=== PATIENT | male | born 1940 | race Caucasian/White ===

== ENCOUNTER 2016-12-05 23:10 | Inpatient (IN) | payer MEDICARE ==
[~2016-12-05] VITALS: Ht 182.9 cm; Wt 57.3 kg
[2016-12-05 23:13] VITALS: BP 162/79; PULSE 76; RESP 16; TEMP 97.7; O2SAT 96
[2016-12-05] MEDS ORDERED: SODIUM CHLOR 0.9% 250 ML INJ 250 ML IV ONE (23:30)
[2016-12-06 00:20] LABS: HEMATOCRIT 36.4 % (39.0-51.0); MEAN CELL VOLUME 87.2 FL (80.0-100.0); MEAN CORPUSCULAR HEMOGLOBIN 28.4 PG (27.0-34.0); MEAN CORPUSCULAR HGB CONC 32.6 % (32.0-36.0); PLATELET COUNT 303 TH/MM3 (150-450); RED BLOOD COUNT 4.17 MIL/MM3 (4.50-5.90); RED CELL DISTRIBUTION WIDTH 17.8 % (11.6-17.2); WHITE BLOOD COUNT 16.6 TH/MM3 (4.0-11.0)
[2016-12-06 00:26] LABS: BACTERIA, URINE RARE /hpf; BLOOD, URINE LARGE (NEG); CALCIUM OXALATE CRYSTALS,URINE MOD /hpf; GLUCOSE,URINE 300 mg/dL (NEG); KETONE, URINE NEG (NEG); MUCUS URINE FEW /lpf (OCC); NITRITE,URINE NEG (NEG)
[2016-12-06 00:31] LABS: COMMENT (UR) CULTURE INDICATED; CULTURE IF INDICATED CULTURE INDICATED; URINE COLOR LIGHT-RED (YELLW/STRAW)
[2016-12-06 00:33] LABS: HEMO FLAGS AUTO DIFF; PROTHROMBIN TIME - PATIENT 10.5 SEC (9.8-11.6)
[2016-12-06 00:44] LABS: BICARBONATE 29.1 MEQ/L (21.0-32.0); POTASSIUM 4.7 MEQ/L (3.5-5.1)
--- NOTE | 2016-12-06 00:45 | PD ---
HPI Chief Complaint: Complaint Time Seen by Provider: 23:17 Travel History International Travel<30 days: No Contact w/Intl Traveler<30days: No Traveled to known affect area: No History of Present Illness HPI This is a 76-year-old male patient with a past medical history of bladder cancer DVT hypertension and type 2 diabetes presents with with a complaint of blood in the urine. States urine has had a strong ordering and urinating frequently. Question of further states urine was mixed with blood that was no dionna bleeding noted. He has been experiencing of a recurrent cough that sounds wet but productivity is unknown in color of the mucus is unknown. There has been no reported fever or chills. She has taken Ahlquist performed prevention of DVT. Patient denies passing out or feeling weaker than usual. Allergies-Medications (Allergen,Severity, Reaction): Coded Allergies: Sulfa (Verified Allergy, Unknown, 12/05/16) Reported Meds & Prescriptions Reported Meds & Active Scripts Active Reported Augmentin (Amoxicillin-Clavulanate) 875-125 Mg Tab 1 Tab PO BID Novolog Inj (Insulin Aspart) 1,000 Unit/10 Ml Vial 0 SQ DIRECTED Sliding Scale as directed. Sertraline (Sertraline HCl) 50 Mg Tab 50 Mg PO DAILY Eliquis (Apixaban) 5 Mg Tab 5 Mg PO BID Glimepiride 4 Mg Tab 4 Mg PO BIDAC Prednisone 20 Mg Tab 20 Mg PO BID Metformin (Metformin HCl) 850 Mg Tab 850 Mg PO BIDPC With meals Etodolac 400 Mg Tab 400 Mg PO BID Take with food. Review of Systems ROS Limitations: Other: (dementia ) Except as stated in HPI: all other systems reviewed are Neg General / Constitutional: No: Fever, Chills, Weight Gain, Weight Loss, Other Eyes: No: Diploplia, Blurred Vision, Photophobia, Drainage, Redness, Foreign Body Sensation, Pain, Tearing, Blind Spots, Visual changes, Blindness, Other HENT: No: Headaches, Vertigo, Lightheadedness, Sore Throat, Rhinitis, Rhinorrhea, Congestion, Nosebleed, Neck Stiffness, Neck Pain, Masses, Gingival Bleeding, Dental Difficulties, Ear Discharge, Earache, Other Cardiovascular: No: Chest Pain or Discomfort, Palpitations, Irregular Rhythm, Tachycardia, Diaphoresis, Syncope, Dyspnea on exertion, Varicosities, Edema, Cyanosis, Varicosities, Phlebitis, Claudication, Other Respiratory: Positive: Cough, No: Shortness of Breath, Wheezing, Sneezing, Orthopnea, Hemoptysis, Stridor, Night Sweats, Pleuritic Pain, Other Gastrointestinal: No: Nausea, Vomiting, Diarrhea, Abdominal Pain, Hematemesis, Hematochezia, Constipation, Changes in Bowel Habits, Indigestion, Dysphagia, Loss of Appetite, Other Genitourinary: Positive: Frequency, Hematuria, Other (strong odor of urine ) Musculoskeletal: No: Myalgias, Arthralgias, Limited ROM, Weakness, Cramping, Edema, Pain, Atrophy, Other Skin: No Rash, No Itching, No Dryness, No Lumps, No Hives, No Change in Pigmentation, No Change in nails, No Alopecia, No Lesions, No Breast Lumps, No Breast Tenderness, No Breast Swelling, No Other Neurologic: No: Weakness, Dizziness, Syncope, Focal Abnormalities, Coordination Problem, Tremor, Ataxia, Headache, Change in Mentation, Slurred Speech, Paresthesia, Incontinence, Seizures, Sensory Disturbance, Other Psychiatric: No: Anxiety, Depression, Suicidal Ideations, Disorder of Thought, Mood Disorder, Substance Abuse, Homicidal Ideation, Other Endocrine: No: Heat Intolerance, Cold Intolerance, Polyuria, Polydipsia, Other Hematologic/Lymphatic: No: Easy Bruising, Lymph Node Enlargement, Other Physical Exam Exam Limitations: Other: (dementia ) Narrative GENERAL: [-] This is a 76-year-old male patient who appears to be in no acute distress patient is [place] SKIN: Focused skin assessment warm/dry.no lesions no cyanosis no erythema in this pale HEAD: Atraumatic. Normocephalic. EYES: Pupils equal and round and reactive . No scleral icterus. No injection or drainage. ENT: No nasal bleeding or discharge. Mucous membranes pink and moist. NECK: Trachea midline. No JVD. CARDIOVASCULAR: S1-S2 appreciated. Regular rate and rhythm. No murmur appreciated. Pulses normal throughout. RESPIRATORY: No accessory muscle use. Clear to auscultation. Breath sounds equal bilaterally. GASTROINTESTINAL: Abdomen soft, mild suprapubic tenderness noted, nondistended. Hepatic and splenic margins not palpable. Bowel sounds normal. No peritoneal signs. Stool guaiac is negative MUSCULOSKELETAL: No obvious deformities. No clubbing. No cyanosis. No edema. NEUROLOGICAL: Awake and alert and oriented 3.. No obvious cranial nerve deficits. Motor and sensory exam grossly within normal limits. Normal speech. No meningeal signs. PSYCHIATRIC: Appropriate mood and affect; insight and judgment normal. No suicidal or homicidal ideation. Data Data Last Documented VS Vital Signs Date Time Temp Pulse Resp B/P Pulse Ox O2 Delivery O2 Flow Rate FiO2 12/05/16 23:13 97.7 76 16 162/79 96 Orders Complete Blood Count With Diff (12/05/16 23:17) Basic Metabolic Panel (Bmp) (12/05/16 23:17) Urinalysis - C+S If Indicated (12/05/16 23:17) Sodium Chlor 0.9% 250 Ml Inj (Ns 250 Ml (12/05/16 23:30) Prothrombin Time / Inr (Pt) (12/05/16 23:17) Bladder Scan PRN (12/05/16 23:18) Chest, Single Ap (12/06/16 ) Urine Culture (12/06/16 00:00) Labs Laboratory Tests Test 12/06/16 00:00 White Blood Count 16.6 TH/MM3 Red Blood Count 4.17 MIL/MM3 Hemoglobin 11.8 GM/DL Hematocrit 36.4 % Mean Corpuscular Volume 87.2 FL Mean Corpuscular Hemoglobin 28.4 PG Mean Corpuscular Hemoglobin 32.6 % Concent Red Cell Distribution Width 17.8 % Platelet Count 303 TH/MM3 Mean Platelet Volume 8.9 FL Neutrophils (%) (Auto) % Lymphocytes (%) (Auto) % Monocytes (%) (Auto) % Eosinophils (%) (Auto) % Basophils (%) (Auto) % Neutrophils # (Auto) TH/MM3 Lymphocytes # (Auto) TH/MM3 Monocytes # (Auto) TH/MM3 Eosinophils # (Auto) TH/MM3 Basophils # (Auto) TH/MM3 CBC Comment AUTO DIFF Prothrombin Time 10.5 SEC Prothromb Time International 1.0 RATIO Ratio Urine Color LIGHT-RED Urine Turbidity HAZY Urine pH 7.0 Urine Specific Enloe 1.012 Urine Protein 30 mg/dL Urine Glucose (UA) 300 mg/dL Urine Ketones NEG mg/dL Urine Occult Blood LARGE Urine Nitrite NEG Urine Bilirubin NEG Urine Urobilinogen LESS THAN 2.0 MG/DL Urine Leukocyte Esterase TRACE Urine RBC /hpf Urine WBC 143 /hpf Urine Calcium Oxalate Crystals MOD /hpf Urine Amorphous Sediment RARE Urine Bacteria RARE /hpf Urine Mucus FEW /lpf Urine Yeast (Budding) RARE Microscopic Urinalysis Comment CULTURE INDICATED Sodium Level 133 MEQ/L Potassium Level 4.7 MEQ/L Chloride Level 96 MEQ/L Carbon Dioxide Level 29.1 MEQ/L Anion Gap 8 MEQ/L Blood Urea Nitrogen 22 MG/DL Creatinine 0.55 MG/DL Estimat Glomerular Filtration 145 ML/MIN Rate Random Glucose 211 MG/DL Calcium Level 8.8 MG/DL Kelly Ang MD Dec 06, 2016 00:45
[2016-12-06] MEDS ORDERED: METF850T PO (01:03)
[2016-12-06] MEDS ORDERED: APIX5TAB PO (01:03)
[2016-12-06] MEDS ORDERED: NOVOLOGP2 SQ (01:03)
[2016-12-06] MEDS ORDERED: PRED20 PO (01:03)
[2016-12-06] MEDS ORDERED: GLIM4TAB PO (01:03)
[2016-12-06] MEDS ORDERED: ETOD400T PO (01:03)
[2016-12-06] MEDS ORDERED: SERT-132 PO (01:03)
[2016-12-06] MEDS ORDERED: AUGM875T3 PO (01:03)
--- NOTE | 2016-12-06 01:07 | RADRPT ---
EXAM DATE/TIME: 12/06/2016 00:21 [facility] COMPARISON: No previous studies available for comparison. INDICATIONS : Cough. MEDICAL HISTORY : None. SURGICAL HISTORY : None. ENCOUNTER: Initial ACUITY: 1 day PAIN SCORE: 0/10 LOCATION: Bilateral chest FINDINGS: A single view of the chest demonstrates the lungs to be symmetrically aerated without evidence of mas s, infiltrate or effusion. The cardiomediastinal contours are unremarkable. Osseous structures are intact. CONCLUSION: No acute disease. Agustin Rascon MD on December 06, 2016 at 1:05 Board Certified Radiologist. This report was verified electronically.
[2016-12-06 01:35] LABS: BANDS 6 % (0-6); METAMYELOCYTES 7 % (0-1); MYELOCYTES 3 % (0-0); NEUTROPHIL # MANUAL DIFF 15.4 TH/MM3 (1.8-7.7); PLATELET MORPHOLOGY NORMAL (NORMAL); POLYS (SEG NEUTROPHILS) 76 % (16-70); PROMYELOCYTES 1 % (0-0); SCAN/DIFF FINAL DIFF MANUAL; WBC DIFF SAMPLE 100
[2016-12-06 01:36] LABS: PLATELET ESTIMATE SMEAR NORMAL (NORMAL)
[2016-12-06] MEDS ORDERED: cefTRIAXone INJ 1,000 MG in SODIUM CHLORIDE 0.9% INJ 100 ML IV ONE (02:00)
--- NOTE | 2016-12-06 02:32 | RADRPT ---
EXAM DATE/TIME: 12/06/2016 02:10 [facility] COMPARISON: No previous studies available for comparison. INDICATIONS : Hematuria. Evaluate for calculi. ORAL CONTRAST: No oral contrast ingested. RADIATION DOSE: 4.50 CTDIvol (mGy) MEDICAL HISTORY : Hypertension. Carcinoma, gastric. Carcinoma, prostate.Diabetes. SURGICAL HISTORY : Peg tube. ENCOUNTER: Initial ACUITY: 1 day PAIN SCALE: 0/10 LOCATION: Abdomen. TECHNIQUE: Volumetric scanning of the abdomen and pelvis was performed. Using automated exposure control and ad justment of the mA and/or kV according to patient size, radiation dose was kept as low as reasonably achievable to obtain optimal diagnostic quality images. DICOM format image data is available electro nically for review and comparison. FINDINGS: LOWER LUNGS: Bilateral lower lobe densities greater left lower lobe. LIVER: Homogeneous density without lesion. There is no dilation of the biliary tree. No calcified gallston es. SPLEEN: Normal size without lesion. PANCREAS: Within normal limits. KIDNEYS: Normal in size and shape. There is no mass, stone, or hydronephrosis on the right. Mild prominence o f the left ureter with left mid ureteral calculus measuring 4 mm. Nonobstructing bilateral renal calc reilly measuring 3-4 mm. ADRENAL GLANDS: Within normal limits. VASCULAR: There is no aortic aneurysm. BOWEL/MESENTERY: Scattered diverticulosis. There is no free intraperitoneal air or fluid. ABDOMINAL WALL: Within normal limits. RETROPERITONEUM: There is no lymphadenopathy. BLADDER: No wall thickening or mass. Bladder calculus measures 3 mm. REPRODUCTIVE: Within normal limits. INGUINAL: There is no lymphadenopathy or hernia. MUSCULOSKELETAL: Within normal limits for patient age. CONCLUSION: 1. Left mid ureteral calculus measures 4 mm. 2. Bilateral no obstructing renal calculi measuring 3-4 mm. 3. Bladder calculus measuring 3 mm. 4. Percutaneous gastrostomy tube. 5. Bilateral lower lobe densities. Followup CT chest recommended in 3 months. 6. Diverticulosis. Agustin Rascon MD on December 06, 2016 at 2:27 Board Certified Radiologist. This report was verified electronically.
[2016-12-06] MEDS ORDERED: ONDANSETRON HCL 4 MG/2 ML VIAL IV PUSH ONE (02:45)
[2016-12-06] MEDS ORDERED: MORPHINE SULFATE 4 MG/ML INJ IV PUSH ONE (02:45)
[2016-12-06] MEDS ORDERED: LACTULOSE SYRUP 20 GM/30 ML CUP PO PRN (03:00)
[2016-12-06] MEDS ORDERED: MAGNESIUM HYDROXIDE SUSP 30 ML CUP PO PRN (03:00)
[2016-12-06] MEDS ORDERED: ONDANSETRON HCL 4 MG/2 ML VIAL IVP PRN (03:00)
[2016-12-06] MEDS ORDERED: BISACODYL 10 MG SUPP RECTAL PRN (03:00)
[2016-12-06] MEDS ORDERED: ACETAMINOPHEN 325 MG TAB PO PRN (03:00)
[2016-12-06] MEDS ORDERED: DEXTROSE 50% IN WATER 50 ML VIAL(D50) IV PRN ×2 (03:00→09:45)
[2016-12-06] MEDS ORDERED: SENNOSIDES 8.6 MG TAB PO PRN (03:00)
[2016-12-06] MEDS ORDERED: SODIUM CHLORIDE 0.9% FLUSH 10 ML FLUSH IV FLUSH PRN (03:00)
[2016-12-06] MEDS ORDERED: GLUCAGON 1 MG/ML VIAL OTHER PRN ×2 (03:00→09:45)
[2016-12-06] MEDS ORDERED: NALOXONE HCL 0.4 MG/ML AMP IV PRN (03:00)
[2016-12-06] MEDS: SODIUM CHLOR 0.9% 1000 ML INJ 1,000 ML IV SCH ×3 (03:41→22:47)
[2016-12-06 06:47] VITALS: BP 159/80; PULSE 63; RESP 18; TEMP 97.5; O2SAT 96
[2016-12-06] MEDS: GLIMEPIRIDE 4 MG TAB PO SCH ×2 (07:00→16:00)
[2016-12-06] MEDS: INSULIN ASPART SUPPLEMENTAL SCALE SQ SCH ×4 (07:00→20:21)
[2016-12-06] MEDS: metFORMIN HCL 850 MG TAB PO SCH ×3 (08:22→17:18)
[2016-12-06] MEDS: SODIUM CHLORIDE 0.9% FLUSH 10 ML FLUSH IV FLUSH SCH ×2 (09:00→20:16)
[2016-12-06] MEDS: DOCUSATE SODIUM 50 MG/SENNA 8.6 MG TAB PO SCH ×2 (10:10→20:15)
[2016-12-06] MEDS: predniSONE 20 MG TAB PO SCH ×2 (10:10→20:16)
[2016-12-06] MEDS: SERTRALINE HCL 50 MG TAB PO SCH (10:10)
[2016-12-06] MEDS: APIXABAN 5 MG TABLET PO SCH ×2 (10:10→20:15)
[2016-12-06] MEDS ORDERED: ETODOLAC 200 MG CAP PO SCH (10:30)
[2016-12-06] MEDS ORDERED: INSULIN ASPART SUPPLEMENTAL SCALE SQ SCH (11:00)
--- NOTE | 2016-12-06 11:09 | MH ---
cc: FLOYD KAMINSKI MD DATE OF ADMISSION: 12/06/2016 CHIEF COMPLAINT Genitourinary complaint. HISTORY OF PRESENT ILLNESS This 76-year-old demented male with a past medical history significant for bladder cancer, dementia, DVT, hypertension, type 2 diabetes mellitus, complaining of blood in the uring, stating that his urine has a strong odor and frequent urination. He came with the in the ER. The patient has some cough. Denies any fever or chills. The patient is not able to provide any history. The patient has dementia. He is not a good historian. Discussed with the nurse regarding the patient's condition and the patient's dementia. The patient is not able to provide much and the patient had low blood sugar this morning and the patient got an amp of D50 and after that sugar came back at 225. Other than that, nothing significant. PAST MEDICAL AND SURGICAL HISTORY As dictated above. SOCIAL HISTORY Unable to obtain. FAMILY HISTORY Unable to obtain. ALLERGIES SULFA DRUGS per ER record. MEDICATIONS 1. Augmentin 875 mg twice a day. 1. NovoLog injection according to sliding scale. 2. Sertraline 50 mg p.o. daily. 3. Eliquis 5 mg p.o. b.i.d. 4. Glimepiride 4 mg p.o. b.i.d. 5. Prednisone 20 mg twice per day. 6. Metformin 850 mg twice per day. 7. Etodolac 400 mg twice per day. REVIEW OF SYSTEMS Unable to obtain. The patient is not able to provide any information. PHYSICAL EXAMINATION GENERAL: This is a 76-year male laying on the bed, not in any acute distress. VITAL SIGNS: Temperature 97.5, heart rate 63, respirations 18, blood pressure 159/80, O2 saturation 96% on room air. HEENT: Normocephalic, atraumatic. EOMI. PERRL. Oral mucosa moist. NECK: Supple. No visible thyromegaly or neck mass. Trachea central. CVS: Regular rate and rhythm. RESPIRATIONS: Clear to auscultation bilaterally. ABDOMEN: Soft, nontender. Bowel sounds audible. EXTREMITIES: No cyanosis or clubbing. Full range of motion of all extremities. NEURO: Awake and alert but not oriented, moving all extremities. Has dementia. SKIN: Warm and dry. PSYCH: The patient is cooperative. LABORATORY DATA CBC showed WBC count 16.6 - high, hemoglobin 11.8 - low, hematocrit 36.4 - low. BMP totally unremarkable except for sodium 133 - low, chloride 96 - low, BUN 22 - high, creatinine 0.55 - low, glucose random 211 - high. PT 10.5, INR 1.0. Urine examination showed hazy urine with protein 30 - high, with a glucose 300 - high, large occult blood and trace of leukocyte esterase, WBCs in the urine is 143 - high, calcium oxalate crystals moderate, urine bacteria rare, urine yeast and protein rare. Culture indicated. Urine culture done, report pending. RADIOLOGIC STUDIES Chest x-ray done shows nothing acute. CT of the abdomen and pelvis was done and shows left mid-ureteral calculus measures 4 mm bilateral. Nonobstructing renal calculi of measuring 3-4 mm. Bladder calculus measuring 3 mm. Percutaneous gastrostomy tube. Bilateral lower lobe densities. Followup CT of the chest recommended in three months. ASSESSMENT AND PLAN 1. This is a 76-year-old male who came to the ER diagnosed with urinary tract infection. The patient on Rocephin 1 gram IV daily. Consulted Infectious Disease; further recommendation per Infectious Disease. 2. Hematuria with urinary calculi. Consulted Urology for further recommendation. 3. Dementia. 4. Unable to swallow; no not know etiology. Consult speech and swallow evaluation. 5. History of diabetes mellitus. NovoLog low-dose sliding scale. Check blood sugars. Continue home medication. 6. History of depression. Continue with sertraline 50 mg daily. 7. DVT prophylaxis. SCDs. 8. GI prophylaxis. Protonix 40 mg p.o. daily. 9. We are going to manage the patient on a daily basis and make recommendation on a daily basis. Floyd Kaminski MD EA/DONYA /10:27 AM /10:51 AM
[2016-12-06 11:55] VITALS: BP 152/74; PULSE 66; RESP 15; TEMP 97.7; O2SAT 95
[2016-12-06 16:10] VITALS: BP 132/65; PULSE 79; RESP 14; TEMP 98.3; O2SAT 98
--- NOTE | 2016-12-06 16:55 | MB ---
cc: YVETTE DRISCOLL MD DATE OF CONSULTATION 12/06/2016 REASON FOR CONSULTATION 1. Gross hematuria 2. Left mid ureteral 4 mm stone. 3. Bilateral nonobstructing kidney stones HISTORY OF PRESENT ILLNESS The patient is a 76-year-old male with history of dementia and reported history of bladder cancer in the past who was brought to the ER by his earlier this morning with complaint of complaint of blood in his urine since earlier today. This patient is a poor historian and unfortunately his is not present at this time. Most history is gained from hospital records. However, this morning per the record it stated as his urine had a strong odor and he was urinating quite frequently recently. The thought it was mixed possibly with blood. There is no evidence any fevers or chills. The patient currently denies pain in his right lower abdomen with a 5/10 in its intensity. He denies nausea or vomiting at this time. He denies any blood in his urine. He does take Eliquis for DVT prevention as he has had a DVT the past. He denies any prior history of kidney stones or urinary tract infections, but again he does have a history of dementia and is a poor historian. REVIEW OF SYSTEMS See HPI otherwise all systems reviewed otherwise were negative. PAST MEDICAL HISTORY 1. History of diabetes, 2. Hypertension, 3. DVT 4. Dementia. 5. Bladder cancer 6. History of prostate cancer. PAST SURGICAL HISTORY Status post brachytherapy FAMILY HISTORY Denies urolithiasis or genitourinary malignancy SOCIAL HISTORY Denies smoking, tobacco or illicit drugs. He is . PLAN Home medications 1. Augmentin twice a day 2. NovoLog injection sliding-scale 3. Eliquis 5 mg p.o. b.i.d. 4. Glimepiride 4 mg p.o. b.i.d. 5. Prednisone 20 mg twice daily, 6. Metformin 850 mg twice daily. 7. Etodolac 400 mg twice daily. ALLERGIES SULFA. PHYSICAL EXAMINATION VITAL SIGNS: Temperature 97,7, pulse 66, respiratory rate 15, BP 152/74, satting 99% on room air. GENERAL: He is awake, alert but slightly confused does not appear to be in any distress, appears older than his stated age. HEENT: Head is normocephalic, atraumatic. Eyes - No scleral icterus. Extraocular muscles intact. NECK: Supple. Trachea is midline. No JVD. LUNGS: Clear to auscultation bilaterally. No wheezes, rales or rhonchi. HEART: Regular rhythm. No murmurs, gallops or rubs. ABDOMEN: Soft, nontender, positive bowel sounds. GENITOURINARY:: No CVA tenderness bilaterally. His penis is uncircumcised. Testes are descended bilaterally, normal size consistent without mass. There is no blood at the meatus. EXTREMITIES: Nontender. No clubbing, cyanosis, edema. PSYCHIATRIC: Flat affect. NEUROLOGIC: Cranial nerves II-XII intact. Strength 4/5 in all four extremities LABORATORY DATA White count 16.6, hemoglobin 11.8, hematocrit 36.4, platelet count 303, sodium 133, potassium 4.7, chloride 96, bicarb 29, BUN 22, creatinine 0.255. His urine showed pH of 7.0, specific gravity 1.012 with large blood, negative nitrates, trace leukocyte esterase. Culture is currently pending. IMAGING STUDIES CT abdomen and pelvis without contrast images were reviewed, agree with radiologist's report. The patient has a 4 mm mid left ureteral stone with mild hydronephrosis and bilateral nonobstructing stones with a moderately full bladder. ASSESSMENT The patient is a 76-year-old male with a history of prostate cancer status post brachytherapy, questionable history of bladder cancer, presents with gross hematuria found to have a left mid ureteral stone as well as bilateral nonobstructing stones and possible urinary tract infection. PLAN Recommend conservative management. Would treat with antibiotics pending urine culture. Would be ahead and give adequate pain control as the patient's pain is relatively controlled and he does not complain of any left-sided pain. The patient has a gastrostomy tube, therefore, unable to start him on Flomax 0.5 mg daily to help facilitate passing the stone. As long as his pain remains controlled and symptoms do not worsen then no urologic intervention will be required. He can follow up as an outpatient. We will check KUB in the morning. MD SANDRA Sung/ /1:24 PM /4:37 PM
[2016-12-06 19:34] VITALS: BP 141/83; PULSE 98; RESP 18; TEMP 98.3; O2SAT 96
[2016-12-06 21:47] VITALS: BP 151/87; PULSE 86; RESP 18; TEMP 97.7; O2SAT 97
[2016-12-07] VITALS: BP 165/86; PULSE 81; RESP 18; TEMP 97.4; O2SAT 97
[2016-12-07] MEDS: GLIMEPIRIDE 4 MG TAB PO SCH ×2 (05:53→16:04)
[2016-12-07] MEDS: INSULIN ASPART SUPPLEMENTAL SCALE SQ SCH ×4 (05:54→21:00)
[2016-12-07 07:03] LABS: AUTOMATED NEUTROPHIL # 10.2 TH/MM3 (1.8-7.7); BASOPHIL % 0.1 % (0.0-2.0); EOSINOPHIL % 0.1 % (0.0-4.0); HEMATOCRIT 37.1 % (39.0-51.0); LYMPH % 13.6 % (9.0-44.0); LYMPHOCYTE # 1.7 TH/MM3 (1.0-4.8); MEAN CELL VOLUME 88.5 FL (80.0-100.0); MEAN CORPUSCULAR HEMOGLOBIN 27.8 PG (27.0-34.0); MEAN CORPUSCULAR HGB CONC 31.5 % (32.0-36.0); MONO % 5.5 % (0.0-8.0); NEUT % 80.7 % (16.0-70.0); PLATELET COUNT 298 TH/MM3 (150-450); RED BLOOD COUNT 4.19 MIL/MM3 (4.50-5.90); RED CELL DISTRIBUTION WIDTH 17.5 % (11.6-17.2); WHITE BLOOD COUNT 12.7 TH/MM3 (4.0-11.0)
[2016-12-07 07:08] LABS: HEMO FLAGS AUTO DIFF
[2016-12-07 07:16] LABS: ALKALINE PHOSPHATASE 150 U/L (45-117); ALT (GPT) 40 U/L (12-78); ANION GAP 7 MEQ/L (5-15); AST (GOT) 33 U/L (15-37); BLOOD UREA NITROGEN 16 MG/DL (7-18); CHLORIDE 103 MEQ/L (98-107); GLOMERULAR FILTRATION RATE 209 ML/MIN (>89); POTASSIUM 3.8 MEQ/L (3.5-5.1); SODIUM (NA) 139 MEQ/L (136-145); TOTAL BILIRUBIN ADULT 0.3 MG/DL (0.2-1.0)
[2016-12-07 07:57] LABS: BANDS 9 % (0-6); MYELOCYTES 3 % (0-0); NEUTROPHIL # MANUAL DIFF 11.8 TH/MM3 (1.8-7.7); POLYS (SEG NEUTROPHILS) 81 % (16-70); WBC DIFF SAMPLE 100
[2016-12-07 07:58] LABS: SCAN/DIFF FINAL DIFF MANUAL
[2016-12-07 08:00] VITALS: BP 151/78; PULSE 69; RESP 17; TEMP 95.7; O2SAT 92
[2016-12-07] MEDS: DOCUSATE SODIUM 50 MG/SENNA 8.6 MG TAB PO SCH ×2 (08:44→21:00)
[2016-12-07] MEDS: metFORMIN HCL 850 MG TAB PO SCH ×2 (08:45→17:40)
[2016-12-07] MEDS: predniSONE 20 MG TAB PO SCH ×2 (08:45→21:37)
[2016-12-07] MEDS: SODIUM CHLOR 0.9% 1000 ML INJ 1,000 ML IV SCH ×2 (08:46→17:47)
[2016-12-07] MEDS: SERTRALINE HCL 50 MG TAB PO SCH (08:46)
[2016-12-07] MEDS: SODIUM CHLORIDE 0.9% FLUSH 10 ML FLUSH IV FLUSH SCH ×2 (08:46→21:00)
[2016-12-07] MEDS: APIXABAN 5 MG TABLET PO SCH ×2 (08:46→21:37)
--- NOTE | 2016-12-07 08:58 | RADRPT ---
EXAM DATE/TIME: 12/07/2016 08:12 [facility] COMPARISON: CT ABDOMEN & PELVIS W/O CONTRAST, December 06, 2016, 2:10. INDICATIONS : Pain in right and left flanks, evaluate bilateral renal calculi MEDICAL HISTORY : bilateral renal calculi SURGICAL HISTORY : g-tube ENCOUNTER: Subsequent ACUITY: 2 days PAIN SCORE: 4/10 LOCATION: Bilateral abdomen FINDINGS: Supine view of the abdomen was performed. The abdominal bowel gas pattern is normal. There is a leslie t 4 mm curvilinear calcification overlying the left kidney. No definite calcifications over the right kidney on this examination. There is a faint 4 mm calcification on the left side at the level of L3- 4. I suspect this correlates with the stone in the left ureter seen on the recent CT scan of the abdo men. A few faint calcifications are seen in the pelvis. There are degenerative changes of the lumbar spine. There is a gastrostomy tube in place. CONCLUSION: 1. 4 mm faint calcification on the left side at the level of L3-4 most likely representing the left u reteral calculus demonstrated on the recent CT abdomen and pelvis. 2. Faint 4 mm curvilinear calcification overlying the left kidney. Tiburcio Dominguez MD on December 07, 2016 at 8:51 Board Certified Radiologist. This report was verified electronically.
[2016-12-07] MEDS ORDERED: cefTRIAXone INJ 1,000 MG in SODIUM CHLORIDE 0.9% INJ 100 ML IV SCH (09:00)
--- NOTE | 2016-12-07 11:56 | PD.WCN.NOT ---
Wound Consult Description: Patient seen on for wound evaluation of coccyx per nursing. Communicated with: MADHAV Metcalf Recommendation: Calazime BID and PRN to Coccyx and bilateral buttocks Please obtain and place patient on [employer] rental bed Continue to turn and reposition patient every 2 hours and PRN for comfort Additional Information: Patient seen on for wound evaluation of coccyx full thickness pressure injuries. Patient was noted to be lying on his back when entering room for assessment. Patient turned himself to his right side for assessment. There is non blanching erythema noted to sacrum, coccyx and bilateral buttocks. #1 wound was noted to the coccyx and above this wound there was a hydrocolloid in place over sacrococcygeal area that was removed to reveal #2 wound noted to the coccyx. Wound #1 on coccyx measures 1 cm x 0.3 cm x 0.2 cm with 100% white fascia tissue indicating a stage IV pressure injury and distally wound #2 measures 0.8cm x 0.3cm x 0.2cm with 100% white fascia as well indicating stage IV pressure injury. Both coccyx wounds are within each others periwounds and have non blanching erythema noted. Given the size of wounds with moisture noted from use of urinal, Calazime was applied to bilateral buttocks and patient was positioned to his right side and off the coccyx after assessment with head of bed elevated for peg tube feedings. Shannan Thapa [facility] Dec 07, 2016 11:56
[2016-12-07 12:00] VITALS: BP 133/73; PULSE 74; RESP 17; TEMP 97.8; O2SAT 98
--- NOTE | 2016-12-07 12:18 | PD.ID.CON ---
History of Present Illness Service ID Consult Requested By Dr Rosas Reason for Consult UTI Diagnoses: History of Present Illness 76 yo male with dementia, unable to provide reliable history, history obtained thru the chart patient has a past medical history of bladder and prostate cancer along with othe rmultiple med probl;ems (DVT hypertension and type 2 diabetes ) presented with a complaint of blood in the urine. On presenation he was found afebrile but with significant leukocytosis of 16 K Urinalysis with piuria and gross hematuria Urine cl is pending CT showwe b/l kidney and bladder calculi Pt noted to have diarrhea today Review of Systems ROS Limitations: Poor Historian Past Family Social History Allergies: Coded Allergies: Sulfa (Verified Allergy, Unknown, 12/05/16) Past Medical History bladder cancer DVT hypertension and type 2 diabetes Past Surgical History sp brachytherapy Active Ordered Medications Medications where reviewed in EMR Antibiotics Include: CFTX Family History Non-Contributory. Social History No Tobacco. No ETOH. No Illicit Drugs. Physical Exam Vital Signs Vital Signs Date Time Temp Pulse Resp B/P Pulse Ox O2 Delivery O2 Flow Rate FiO2 12/07/16 08:00 95.7 69 17 151/78 92 12/07/16 00:00 97.4 81 18 165/86 97 12/06/16 21:47 97.7 86 18 151/87 97 12/06/16 19:34 98.3 98 18 141/83 96 12/06/16 16:10 98.3 79 14 132/65 98 12/06/16 11:55 97.7 66 15 152/74 95 Physical Exam CONSTITUTIONAL/GENERAL: This is a thin emaciated elderly patient with stigmata of recent weight loss , in no apparent distress. TUBES/LINES/DRAINS: SKIN: No jaundice, rashes, or lesions. Skin temperature appropriate. Not diaphoretic. HEAD: Atraumatic. Normocephalic. EYES: Pupils equal and round and reactive. Extraocular motions intact. No scleral icterus. No injection or drainage. Fundi not examined. ENT: Hearing grossly normal. Nose without bleeding or purulent drainage. Oral mucosae dry without visible erythema, exudates, masses, or lesions. NECK: Trachea midline. Supple, nontender. CARDIOVASCULAR: Regular rate and rhythm without murmurs, gallops, or rubs. No JVD. Peripheral pulses symmetric. RESPIRATORY/CHEST: Symmetric, unlabored respirations. Clear to auscultation. Breath sounds equal bilaterally. No wheezes, rales, or rhonchi. GASTROINTESTINAL: Abdomen soft, non-tender, nondistended. No hepato-splenomegaly , or palpable masses. No guarding. Bowel sounds present. GENITOURINARY: Without palpable bladder distension. MUSCULOSKELETAL: Extremities without clubbing, cyanosis, or edema. No joint tenderness or effusion noted. No calf tenderness. No mottling or clubbing. LYMPHATICS: No palpable cervical or supraclavicular adenopathy. NEUROLOGICAL: Awake and alert. Motor and sensory grossly within normal limits. Follows commands. Speech is intermittenlty incoherent Moves all extremities. PSYCHIATRIC: No obvious anxiety/depression. no apparent hallucinations or other psychotic thought process. Laboratory Laboratory Tests Test 12/07/16 04:16 White Blood Count 12.7 Red Blood Count 4.19 Hemoglobin 11.7 Hematocrit 37.1 Mean Corpuscular Volume 88.5 Mean Corpuscular Hemoglobin 27.8 Mean Corpuscular Hemoglobin 31.5 Concent Red Cell Distribution Width 17.5 Platelet Count 298 Mean Platelet Volume 8.9 Neutrophils (%) (Auto) 80.7 Lymphocytes (%) (Auto) 13.6 Monocytes (%) (Auto) 5.5 Eosinophils (%) (Auto) 0.1 Basophils (%) (Auto) 0.1 Neutrophils # (Auto) 10.2 Lymphocytes # (Auto) 1.7 Monocytes # (Auto) 0.7 Eosinophils # (Auto) 0.0 Basophils # (Auto) 0.0 CBC Comment AUTO DIFF Differential Total Cells 100 Counted Neutrophils % (Manual) 81 Band Neutrophils % 9 Lymphocytes % 3 Monocytes % 4 Neutrophils # (Manual) 11.8 Myelocytes 3 Differential Comment FINAL DIFF MANUAL Sodium Level 139 Potassium Level 3.8 Chloride Level 103 Carbon Dioxide Level 29.0 Anion Gap 7 Blood Urea Nitrogen 16 Creatinine 0.40 Estimat Glomerular Filtration 209 Rate Random Glucose 218 Calcium Level 8.6 Total Bilirubin 0.3 Aspartate Amino Transf 33 (AST/SGOT) Alanine Aminotransferase 40 (ALT/SGPT) Alkaline Phosphatase 150 Total Protein 5.9 Albumin 2.2 Date/Time Procedure Status Source Growth 12/06/16 00:00 Urine Culture Worksheet Urine Clean Catch Pending Result Diagram: 12/07/16 0416 12/07/16 0416 Imaging Last Impressions Abdomen X-Ray 12/07/16 0600 Signed Impressions: Service Date/Time: Wednesday, December 07, 2016 08:12 - CONCLUSION: 1. 4 mm faint calcification on the left side at the level of L3-4 most likely representing the left ureteral calculus demonstrated on the recent CT abdomen and pelvis. 2. Faint 4 mm curvilinear calcification overlying the left kidney. Tiburcio Dominguez MD Chest X-Ray 12/06/16 0000 Signed Impressions: Service Date/Time: December 00:21 - CONCLUSION: No acute disease. Agustin Rascon MD Abdomen/Pelvis CT 12/06/16 0000 Signed Impressions: Service Date/Time: December 02:10 - CONCLUSION: 1. Left mid ureteral calculus measures 4 mm. 2. Bilateral no obstructing renal calculi measuring 3-4 mm. 3. Bladder calculus measuring 3 mm. 4. Percutaneous gastrostomy tube. 5. Bilateral lower lobe densities. Followup CT chest recommended in 3 months. 6. Diverticulosis. Agustin Rascon MD Assessment and Plan Assessment and Plan Bladder/prostate CA UTI Multiple med problems Abx associated diarrhea dc CFTX - start zosyn chk blood clx - chk stool for C.diff Discussed Condition With Ruchi Nieves MD Dec 07, 2016 12:18
[2016-12-07] MEDS: PIPERACIL-TAZO 3.375 GM PREMIX 50 ML IV SCH ×2 (14:40→21:37)
[2016-12-07 16:00] VITALS: BP 138/74; PULSE 80; RESP 17; TEMP 96.4; O2SAT 93
[2016-12-07 20:16] VITALS: BP 137/73; PULSE 73; RESP 16; TEMP 96.8; O2SAT 96
[2016-12-07 23:29] VITALS: BP 149/77; PULSE 74; RESP 17; TEMP 96.8; O2SAT 97
[2016-12-08] MEDS: PIPERACIL-TAZO 3.375 GM PREMIX 50 ML IV SCH ×4 (01:50→20:40)
[2016-12-08 04:51] VITALS: BP 136/79; PULSE 79; RESP 17; TEMP 97.8; O2SAT 96
[2016-12-08] MEDS: GLIMEPIRIDE 4 MG TAB PO SCH ×2 (05:15→16:34)
[2016-12-08] MEDS: SODIUM CHLOR 0.9% 1000 ML INJ 1,000 ML IV SCH ×3 (06:03→20:47)
[2016-12-08] MEDS: INSULIN ASPART SUPPLEMENTAL SCALE SQ SCH ×4 (06:05→21:16)
[2016-12-08 08:00] VITALS: BP 150/82; PULSE 74; RESP 16; TEMP 96.5; O2SAT 96
[2016-12-08] MEDS: APIXABAN 5 MG TABLET PO SCH ×2 (09:51→20:45)
[2016-12-08] MEDS: metFORMIN HCL 850 MG TAB PO SCH ×2 (09:51→18:44)
[2016-12-08] MEDS: DOCUSATE SODIUM 50 MG/SENNA 8.6 MG TAB PO SCH ×2 (09:51→20:45)
[2016-12-08] MEDS: predniSONE 20 MG TAB PO SCH ×2 (09:51→20:45)
[2016-12-08] MEDS: SODIUM CHLORIDE 0.9% FLUSH 10 ML FLUSH IV FLUSH SCH ×2 (09:52→20:40)
[2016-12-08] MEDS: SERTRALINE HCL 50 MG TAB PO SCH (10:03)
[2016-12-08 12:00] VITALS: BP 150/78; PULSE 75; RESP 16; TEMP 96.8; O2SAT 97
--- NOTE | 2016-12-08 14:29 | HHI.PR ---
Subjective Remarks Awake Weakly responds to verbal stimuli Coarse cough Feedings via PEG tube Afebrile, (Ave Hendrix) Objective Objective Results - Vital Signs Date Time Temp Pulse Resp B/P Pulse Ox O2 Delivery O2 Flow Rate FiO2 12/08/16 12:00 96.8 75 16 150/78 97 12/08/16 11:35 18 12/08/16 08:00 96.5 74 16 150/82 96 12/08/16 04:51 97.8 79 17 136/79 96 12/07/16 23:29 96.8 74 17 149/77 97 12/07/16 20:16 96.8 73 16 137/73 96 12/07/16 16:00 96.4 80 17 138/74 93 I/O 12/07/16 12/07/16 12/07/16 12/08/16 12/08/16 12/08/16 07:00 15:00 23:00 07:00 15:00 23:00 Intake Total 638 ml 0 ml 2287 ml 1387 ml Output Total 600 ml 800 ml 800 ml Balance 38 ml -800 ml 2287 ml 587 ml Intake Oral 0 ml 120 ml IV Total 416 ml 1306 ml 739 ml Tube Feeding 222 ml 881 ml 428 ml Tube Irrigant 100 ml 100 ml Output Urine Total 600 ml 800 ml 800 ml # Voids 1 # Bowel Movements 4 3 (A[address] Hendrix) Result Diagram: 12/07/1641512/07/16415 ROS General: Fatigue, Weakness, Other (10 point ROS done positives noted) HEENT: Dysphagia (speech eval,) Pulmonary: Cough (course, upper airway) GI: Abdominal Pain (predominantly right lower quadrant last p.m. none today) Neuro/MS: Other (dementia) Skin: Other (coccyx , buttocks wound care) (Ave Hendrix) Physical Exam Physical Exam PHYSICAL EXAMINATION GENERAL: This is a frail elderly male generalized weakness resting in bed He is awake, HEAD: Normocephalic OROPHARYNGEAL: Oropharynx moist coarse cough NECK: Supple. No nuchal rigidity or lymphadenopathy. Trachea midline without deviation. CARDIAC: Regular rhythm, regular rate, S1 and S2 are heard LUNGS: Diminished to auscultation bilaterally. Rhonchi upper airways ABDOMEN: Soft, nontender Bowel sounds active No rebound. EXTREMITIES: mild LE edema. Lower extremities warm NEUROLOGICAL: Patient mood and affect mild lethargy SKIN:Warm, pale, wounds coccyx and buttocks area (Ave Hendrix) A/P Assessment and Plan Vital signs reviewed, patient's afebrile BP 150/82 Labs reviewed, leukocytosis decreased 12.7, creatinine baseline low, alkaline phosphatase 150, blood sugar 218 Urinary tract infection, ID consult appreciate input for IV antibiotics Urinary calculi, hematuria, symptoms of right upper and lower quadrant abdominal pain in the last 24 hours Appreciate urology input and consult, conservative treatment Dementia, medical management Aphagia, patient has feeding tube with feedings at [address] eval, Probable secondary to his dementia, positive loose coarse cough, maintaining patient at nothing by mouth, possible aspiration Diabetes mellitus type 2 Accu-Cheks before meals and at bedtime with sliding scale, hyperglycemia noted, eval sliding scale Depression, history of, medical management Wound care, generalized weakness and debility patient unable to turn himself, wound care continue on buttocks and coccyx area DVT prophylaxis PUD prophylaxis Discharge planning based on patient assessment and his hospital course, may benefit from palliative care based on his end-stage dementia, aphagia Discussed with nurse, Discussed with Dr. Hardwick, seen on his behalf (Ave Hendrix) Assessment and Plan seen, examined by myself, Dr Hardwick, today Discussed with patient Discussed with mid level provider The exam, history, and the medical decision-making described in the above note were completed with the assistance of the mid-level provider. I reviewed the findings presented. I attest that I had a [id number] encounter with the patient on the same day, and personally performed and documented my assessment and findings in the medical record. Urinary tract infection on Zosyn Hematuria, followed by urology Small left ureteric stone, 4 mm Diabetes on Accu-Cheks and sliding scale (Lena Hardwick MD) Ave Hendrix Dec 08, 2016 14:29 Lena Hardwick MD Dec 08, 2016 18:24
[2016-12-08 16:00] VITALS: BP 137/80; PULSE 73; RESP 17; TEMP 97.2; O2SAT 95
--- NOTE | 2016-12-08 17:18 | HHI.IDPN ---
Subjective Subjective Remarks He feels better looks more alert + diarrhea C.diff P funguria co some RLQ abdominal pain earlier, now resovled Antibiotics zosyn Allergies: Coded Allergies: Sulfa (Verified Allergy, Unknown, 12/05/16) Objective . Vital Signs Date Time Temp Pulse Resp B/P Pulse Ox O2 Delivery O2 Flow Rate FiO2 12/08/16 16:00 97.2 73 17 137/80 95 12/08/16 12:00 96.8 75 16 150/78 97 12/08/16 11:35 18 12/08/16 08:00 96.5 74 16 150/82 96 12/08/16 04:51 97.8 79 17 136/79 96 12/07/16 23:29 96.8 74 17 149/77 97 12/07/16 20:16 96.8 73 16 137/73 96 12/07/16 12/07/16 12/08/16 15:00 23:00 07:00 Intake Total 0 ml 2287 ml 1387 ml Output Total 800 ml 800 ml Balance -800 ml 2287 ml 587 ml Intake Oral 0 ml 120 ml IV Total 1306 ml 739 ml Tube Feeding 881 ml 428 ml Tube Irrigant 100 ml 100 ml Output Urine Total 800 ml 800 ml # Voids 1 # Bowel Movements 3 . Laboratory Tests Test 12/07/16 04:16 White Blood Count 12.7 TH/MM3 Red Blood Count 4.19 MIL/MM3 Hemoglobin 11.7 GM/DL Hematocrit 37.1 % Mean Corpuscular Volume 88.5 FL Mean Corpuscular Hemoglobin 27.8 PG Mean Corpuscular Hemoglobin 31.5 % Concent Red Cell Distribution Width 17.5 % Platelet Count 298 TH/MM3 Mean Platelet Volume 8.9 FL Neutrophils (%) (Auto) 80.7 % Lymphocytes (%) (Auto) 13.6 % Monocytes (%) (Auto) 5.5 % Eosinophils (%) (Auto) 0.1 % Basophils (%) (Auto) 0.1 % Neutrophils # (Auto) 10.2 TH/MM3 Lymphocytes # (Auto) 1.7 TH/MM3 Monocytes # (Auto) 0.7 TH/MM3 Eosinophils # (Auto) 0.0 TH/MM3 Basophils # (Auto) 0.0 TH/MM3 CBC Comment AUTO DIFF Differential Total Cells 100 Counted Neutrophils % (Manual) 81 % Band Neutrophils % 9 % Lymphocytes % 3 % Monocytes % 4 % Neutrophils # (Manual) 11.8 TH/MM3 Myelocytes 3 % Differential Comment FINAL DIFF MANUAL Laboratory Tests Test 12/07/16 04:16 Sodium Level 139 MEQ/L Potassium Level 3.8 MEQ/L Chloride Level 103 MEQ/L Carbon Dioxide Level 29.0 MEQ/L Anion Gap 7 MEQ/L Blood Urea Nitrogen 16 MG/DL Creatinine 0.40 MG/DL Estimat Glomerular Filtration 209 ML/MIN Rate Random Glucose 218 MG/DL Calcium Level 8.6 MG/DL Total Bilirubin 0.3 MG/DL Aspartate Amino Transf 33 U/L (AST/SGOT) Alanine Aminotransferase 40 U/L (ALT/SGPT) Alkaline Phosphatase 150 U/L Total Protein 5.9 GM/DL Albumin 2.2 GM/DL Microbiology Date/Time Procedure Status Source Growth 12/06/16 00:00 Urine Culture - Final Complete Urine Clean Catch Niecy Albicans Imaging Last Impressions Abdomen X-Ray 12/07/16 0600 Signed Impressions: Service Date/Time: Wednesday, December 07, 2016 08:12 - CONCLUSION: 1. 4 mm faint calcification on the left side at the level of L3-4 most likely representing the left ureteral calculus demonstrated on the recent CT abdomen and pelvis. 2. Faint 4 mm curvilinear calcification overlying the left kidney. Tiburcio Dominguez MD Chest X-Ray 12/06/16 0000 Signed Impressions: Service Date/Time: December 00:21 - CONCLUSION: No acute disease. Agustin Rascon MD Abdomen/Pelvis CT 12/06/16 0000 Signed Impressions: Service Date/Time: December 02:10 - CONCLUSION: 1. Left mid ureteral calculus measures 4 mm. 2. Bilateral no obstructing renal calculi measuring 3-4 mm. 3. Bladder calculus measuring 3 mm. 4. Percutaneous gastrostomy tube. 5. Bilateral lower lobe densities. Followup CT chest recommended in 3 months. 6. Diverticulosis. Agustin Rascon MD Physical Exam CONSTITUTIONAL/GENERAL: This is a thin emaciated elderly patient with stigmata of recent weight loss , in no apparent distress. TUBES/LINES/DRAINS: SKIN: No jaundice, rashes, or lesions. EYES: Pupils equal and round and reactive. No scleral icterus. No injection or drainage. CARDIOVASCULAR: Regular rate and rhythm without murmurs, gallops, or rubs. No JVD. RESPIRATORY/CHEST: Symmetric, unlabored respirations. Clear to auscultation. Breath sounds equal bilaterally. GASTROINTESTINAL: Abdomen soft, non-tender, nondistended. No hepato-splenomegaly , or palpable masses. No guarding. Bowel sounds present. PEG in place, site OK GENITOURINARY: Without palpable bladder distension. MUSCULOSKELETAL: Extremities without clubbing, cyanosis, or edema. No calf tenderness. No mottling or clubbing. NEUROLOGICAL: Awake and alert. Motor and sensory grossly within normal limits. Follows commands. Speech is intermittenlty incoherent. Confused but to less extend then yday Moves all extremities. PSYCHIATRIC: calm and cooperative Assessment & Plan Remarks Bladder/prostate CA UTI - C.albicance funguria ? significance Multiple med problems Abx associated diarrhea Leukocytosis - improved fluconazole po 100 - cont zosyn for now ; keron if C.diff + fu blood clx -fu stool for C.diff repeat UA, C+S Ruchi Avery MD Dec 08, 2016 17:18
[2016-12-08] MEDS: FLUCONAZOLE 100 MG TAB PO SCH (18:48)
[2016-12-08 20:00] VITALS: BP 158/83; PULSE 70; RESP 18; TEMP 96.4; O2SAT 97
[2016-12-08 20:29] LABS: C. DIFF EPI 027 PRESUMPTIVE NEGATIVE (NEGATIVE); C. DIFF TOXIN PCR NEGATIVE (NEGATIVE)
[2016-12-08 21:51] LABS: BLOOD, URINE MOD (NEG); GLUCOSE,URINE 70 mg/dL (NEG); KETONE, URINE NEG (NEG); NITRITE,URINE NEG (NEG); PH, URINE 6.5 (5.0-8.5); URINE COLOR YELLOW (YELLW/STRAW)
[2016-12-08 21:52] LABS: COMMENT (UR) CULT NOT INDICATED; CULTURE IF INDICATED CULT NOT INDICATED
[2016-12-09] VITALS: BP 127/60; PULSE 73; RESP 18; TEMP 96.3; O2SAT 94
[2016-12-09] MEDS: PIPERACIL-TAZO 3.375 GM PREMIX 50 ML IV SCH ×4 (02:00→21:24)
[2016-12-09] MEDS: GLIMEPIRIDE 4 MG TAB PO SCH ×2 (05:29→16:18)
[2016-12-09] MEDS: INSULIN ASPART SUPPLEMENTAL SCALE SQ SCH ×4 (05:30→21:00)
[2016-12-09 08:00] VITALS: BP 145/81; PULSE 87; RESP 18; TEMP 97.8; O2SAT 97
[2016-12-09] MEDS: FLUCONAZOLE 100 MG TAB PO SCH (08:51)
[2016-12-09] MEDS: SERTRALINE HCL 50 MG TAB PO SCH (08:51)
[2016-12-09] MEDS: metFORMIN HCL 850 MG TAB PO SCH ×2 (08:51→16:19)
[2016-12-09] MEDS: predniSONE 20 MG TAB PO SCH ×2 (08:52→21:25)
[2016-12-09] MEDS: APIXABAN 5 MG TABLET PO SCH ×2 (08:52→21:25)
[2016-12-09] MEDS: DOCUSATE SODIUM 50 MG/SENNA 8.6 MG TAB PO SCH ×2 (08:52→21:00)
[2016-12-09] MEDS: SODIUM CHLORIDE 0.9% FLUSH 10 ML FLUSH IV FLUSH SCH ×2 (08:52→21:00)
--- NOTE | 2016-12-09 10:39 | HHI.PR ---
Subjective Remarks dozing, but responds to verbal stimuli Coarse rhonchi continues Feedings via PEG tube abd pain controlled today (Ave Hendrix) Objective Objective Results - Vital Signs Date Time Temp Pulse Resp B/P Pulse Ox O2 Delivery O2 Flow Rate FiO2 12/09/16 08:00 97.8 87 18 145/81 97 12/09/16 00:00 96.3 73 18 127/60 94 12/08/16 20:00 96.4 70 18 158/83 97 12/08/16 16:00 97.2 73 17 137/80 95 12/08/16 12:00 96.8 75 16 150/78 97 12/08/16 11:35 18 I/O 12/08/16 12/08/16 12/08/16 12/09/16 12/09/16 12/09/16 07:00 15:00 23:00 07:00 15:00 23:00 Intake Total 1387 ml 0 ml 0 ml Output Total 800 ml 1050 ml 450 ml 800 ml Balance 587 ml -1050 ml -450 ml -800 ml Intake Oral 120 ml 0 ml 0 ml IV Total 739 ml Tube Feeding 428 ml Tube Irrigant 100 ml Output Urine Total 800 ml 1050 ml 450 ml 800 ml # Bowel Movements 2 1 0 (A[address] [facility]rix) Result Diagram: 12/07/1641512/07/16415 ROS General: Fatigue, Weakness, Other (10 point ROS done) HEENT: Dysphagia, Other (peg tube, feedings) GI: Abdominal Pain (none this am), BM (regimen) Neuro/MS: Other (dementia severe per testing) (Ave [facility]rix) Physical Exam Physical Exam PHYSICAL EXAMINATION GENERAL: This is a slim, elderly male dozing in bed arouses easily HEAD: Normocephalic Facial features appear symmetric. OROPHARYNGEAL: Oropharynx clear secretions, no active swallow noted NECK: Supple. Trachea midline without deviation. CARDIAC: Regular rhythm, regular rate, S1 and S2 are heard LUNGS: Mild diminished positive rhonchi No use of accessory muscles on inspiration or expiration. ABDOMEN: flat,Soft, nontender, no organomegaly or masses. Bowel sounds heard EXTREMITIES: no edema. NEUROLOGICAL: Patient mood and affect without anxiety, repeats himself SKIN:Warm and moist (Ave Hendrix) A/P Assessment and Plan Vital signs reviewed, normal trends Labs reviewed, new ordered for am Urinary tract infection, ID consult appreciate input for IV antibiotics Urinary calculi, hematuria, abd pain minimal/controlled, pt. is able to rest and sleep now Appreciate urology input and consult, conservative treatment Dementia, medical management Aphagia, patient has feeding tube with Osmolite feedings at [address] eval, maintain NPO, testing also showed severe dementia, swallow is probable a secondary response from dementia positive loose coarse cough, encouarged to cough, deep breath, maintain NPO Diabetes mellitus type 2 Accu-Cheks before meals and at bedtime with sliding scale, Depression, history of, medical management Wound care, generalized weakness and debility patient unable to turn himself without cueing and help, wound care continue on buttocks and coccyx area PT to eval and treat, recommdations for DC planning DVT prophylaxis PUD prophylaxis Discharge planning once cleared per renal. rehab SNF possible, PT eval Discussed with nurse, Discussed with Dr. Hardwick, seen on his behalf (Ave Hendrix) Assessment and Plan seen, examined by myself, Dr Hardwick, today Discussed with patient, mildly confused Some pain from coccygeal/sacral bedsore Wound care management following tomorrow Discussed with nurse Discussed with mid level provider The exam, history, and the medical decision-making described in the above note were completed with the assistance of the mid-level provider. I reviewed the findings presented. I attest that I had a [id number] encounter with the patient on the same day, and personally performed and documented my assessment and findings in the medical record. (Lena Hardwick MD) Ave Hendrix Dec 09, 2016 10:39 Lena Hardwick MD Dec 09, 2016 17:20
[2016-12-09] MEDS: SODIUM CHLOR 0.9% 1000 ML INJ 1,000 ML IV SCH ×2 (10:47→21:24)
[2016-12-09 12:00] VITALS: BP 160/91; PULSE 67; RESP 16; TEMP 97.3; O2SAT 97
[2016-12-09 16:00] VITALS: BP 141/76; PULSE 74; RESP 17; TEMP 96.5; O2SAT 97
[2016-12-09 20:00] VITALS: BP 143/77; PULSE 77; RESP 16; TEMP 96.6; O2SAT 94
[2016-12-10 00:06] VITALS: BP 158/86; PULSE 70; RESP 17; TEMP 96.4; O2SAT 97
[2016-12-10] MEDS: PIPERACIL-TAZO 3.375 GM PREMIX 50 ML IV SCH ×4 (02:29→20:43)
[2016-12-10 05:10] LABS: MEAN CELL VOLUME 87.3 FL (80.0-100.0); MEAN CORPUSCULAR HGB CONC 33.2 % (32.0-36.0); PLATELET COUNT 246 TH/MM3 (150-450); RED BLOOD COUNT 4.24 MIL/MM3 (4.50-5.90); RED CELL DISTRIBUTION WIDTH 17.6 % (11.6-17.2); REVIEW FLAG FINAL; WHITE BLOOD COUNT 11.1 TH/MM3 (4.0-11.0)
[2016-12-10 05:33] LABS: BICARBONATE 29.1 MEQ/L (21.0-32.0)
[2016-12-10] MEDS: INSULIN ASPART SUPPLEMENTAL SCALE SQ SCH ×4 (06:10→21:05)
[2016-12-10] MEDS: GLIMEPIRIDE 4 MG TAB PO SCH ×2 (06:11→16:52)
[2016-12-10] MEDS: SODIUM CHLOR 0.9% 1000 ML INJ 1,000 ML IV SCH ×3 (06:13→20:43)
[2016-12-10 08:00] VITALS: BP 138/74; PULSE 65; RESP 17; TEMP 95.6; O2SAT 94
[2016-12-10] MEDS: FLUCONAZOLE 100 MG TAB PO SCH (08:49)
[2016-12-10] MEDS: predniSONE 20 MG TAB PO SCH ×2 (08:49→20:47)
[2016-12-10] MEDS: metFORMIN HCL 850 MG TAB PO SCH ×2 (08:49→16:52)
[2016-12-10] MEDS: APIXABAN 5 MG TABLET PO SCH ×2 (08:49→20:47)
[2016-12-10] MEDS: SERTRALINE HCL 50 MG TAB PO SCH (08:50)
[2016-12-10] MEDS: DOCUSATE SODIUM 50 MG/SENNA 8.6 MG TAB PO SCH ×2 (08:50→20:47)
[2016-12-10] MEDS: SODIUM CHLORIDE 0.9% FLUSH 10 ML FLUSH IV FLUSH SCH ×2 (08:50→20:47)
--- NOTE | 2016-12-10 10:17 | HHI.PR ---
Subjective History of Present Illness Patient need modified barium swallow test consulted GI.. D/W RN at bed side. Review of Systems Constitutional Constitutional: Fatigue, Weakness Integumentary Skin: Wounds Skin Remarks Decubitus wounds. Neurologic Neurologic Remarks Dementia. Vitals/Results Intake & Output 12/09/16 12/09/16 12/10/16 15:00 23:00 07:00 Intake Total 0 ml 547 ml 1185 ml Output Total 500 ml 780 ml 650 ml Balance -500 ml -233 ml 535 ml Intake Oral 0 ml 0 ml IV Total 547 ml 560 ml Tube Feeding 625 ml Output Urine Total 500 ml 780 ml 650 ml # Bowel Movements 4 3 2 Vital Signs Vital Signs Date Time Temp Pulse Resp B/P Pulse Ox O2 Delivery O2 Flow Rate FiO2 12/10/16 08:00 95.6 65 17 138/74 94 12/10/16 00:06 96.4 70 17 158/86 97 12/09/16 20:00 96.6 77 16 143/77 94 12/09/16 17:18 16 12/09/16 16:00 96.5 74 17 141/76 97 12/09/16 12:00 97.3 67 16 160/91 97 CBC/BMP: 12/10/16 0436 12/10/16 0436 Lab Results Laboratory Tests Test 12/10/16 04:36 White Blood Count 11.1 TH/MM3 Red Blood Count 4.24 MIL/MM3 Hemoglobin 12.3 GM/DL Hematocrit 37.0 % Mean Corpuscular Volume 87.3 FL Mean Corpuscular Hemoglobin 29.0 PG Mean Corpuscular Hemoglobin 33.2 % Concent Red Cell Distribution Width 17.6 % Platelet Count 246 TH/MM3 Mean Platelet Volume 8.7 FL Sodium Level 135 MEQ/L Potassium Level 4.0 MEQ/L Chloride Level 99 MEQ/L Carbon Dioxide Level 29.1 MEQ/L Anion Gap 7 MEQ/L Blood Urea Nitrogen 13 MG/DL Creatinine 0.50 MG/DL Estimat Glomerular Filtration 162 ML/MIN Rate Random Glucose 241 MG/DL Calcium Level 8.4 MG/DL Physical Exam General General Appearance: No Acute Distress, Comfortable Eyes Eye Exam: Pupils Equal, Pupils Reactive, Sclera White, Extraocular Movement Intact Throat Throat Exam: Oral Mucosa Carter & Moist, Oral Pharynx Normal Neck Neck Exam: Neck Supple, Trachea Midline Pulmonary Resp Exam: Clear Bilaterally, Breath Sounds Equal Cardiology CV Exam: Regular, Normal Sinus Rhythm Gastrointestinal/Abdomen GI Exam: Soft, Non-Tender, Bowel Sounds Present Musculoskeletal MS Exam: Normal Tone Integumentary Skin Remarks decubitus wound. Neurologic Neuro Exam: Alert, Awake VTE Prophylaxis VTE Prophylaxis Device: SCDs PUD Prophylasis PUD Prophylaxis: Protonix Assessment/Plan Assessment/Plan ASSESSMENT AND PLAN 1. This is a 76-year-old male who came to the ER diagnosed with urinary tract infection. The patient on Rocephin 1 gram IV daily. Infectious Disease input noted.. repeat UA Better. further recommendation per Infectious Disease. 2. Hematuria with urinary calculi. Urology input noted for further recommendation...conservative management. 3. Dementia. 4. Unable to swallow; . speech and swallow evaluation done. have peg tube in. Patient need modified barium swallow test consulted GI.. 5. History of diabetes mellitus. NovoLog low-dose sliding scale. Check blood sugars. Continue home medication. 6. History of depression. Continue with sertraline 50 mg daily. 7. DVT prophylaxis. SCDs. 8. GI prophylaxis. Protonix 40 mg p.o. daily. 9. Decubitus wound...wound care on board. We are going to manage the patient on a daily basis and make recommendation on a daily basis. Discussed Condition with: Patient Floyd Rosas MD Dec 10, 2016 10:17
[2016-12-10 12:00] VITALS: BP 142/79; PULSE 75; RESP 17; TEMP 95.5; O2SAT 96
--- NOTE | 2016-12-10 15:40 | PD.CONS ---
HPI History of Present Illness This is a 76 year old male patient who presented to the ER for evaluation of hematuria. His reported that his urine has had a strong odor and that he had been having frequent urination. He has also been having a cough. He was admitted for UTI. The patient and his are poor historians. His states that he had a prolonged hospitalization at [facility] for anemia in September and October. She reports that during that time, he had a decreased appetite and lost 60lbs. She reports that he was evaluated with an EGD/ Colonoscopy for his anemia and was found to have ulcerations and polyps "all the way down." She reports that he was discharged to a retirement, but returned for aspiration pneumonia and that he had a feeding tube placed at that time. She reports that since that time, he has been on TF via pump. The patient tells me that he wants to start eating again because he is hungry and that the TF is making him have 6-9 bowel movements per day. I reviewed the records from our office. According to the records, he was evaluated with EGD/ Colonoscopy (09/20/16) and this revealed duodenal ulcer with stigmata recent bleeding, clean, nonbleeding rectal ulcers, hemorrhoids, and polyps. The pathology revealed poorly differentiated gastric adenocarcinoma diffuse type- section showed gastric mucosa with an infiltration of signet ring cell with acute inflammation and ulceration He was evaluated by Dr. Ko with GS and Dr. Orozco with oncology. Per Dr. Ko's note, he was not stable for any surgical intervention at the time and recommended outpatient follow up. We then saw him in November, at which time he was evaluated for severe anemia with Hgb of 4.4. 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 According that note, it stated that he did have poorly differentiated adenocarcinom of stomach, s/p peg tube placement and that he had poor functional status. He was treated was transfused and treated with steroids. EGD (11/19/16)----> peg in place, gastritis in the antrum, clean based ulcer in the duodenal bulb, duodenal bulb diverticulum duodenitis. In the duodenal bulb , biopsy was performed, very friable mucosa, retroflexion revealed hiatal hernia. No active bleeding seen. Pathology revealed chronic gastritis with edema and reactive epithelial changes, focal minimal acute inflammation and edema. The patient and his are poor historians. They cannot tell me when they last saw oncology or what the plan is. They state that he needs to start eating and now that he is home, they are hoping to get him off of the tube feeding and back on regular food. PFSH Past Medical History Poorly differentiated gastric adenocarcinoma diffuse type- section showed gastric mucosa with an infiltration of signet ring cell with acute inflammation and ulceration Autoimmune hemolytic anemia. Gastritis, Duodenal bulb ulcers Colon polyps HTN Diabetes ? DVT- on eliquis, unclear if he had DVT or for DVT prophylaxis Hx aspiration pna Abn. weight loss ? Dementia DENIES ANY HISTORY OF BLADDER CANCER Past Surgical History PEG tube placement EGD Colonoscopy Coded Allergies: Sulfa (Verified Allergy, Unknown, 12/05/16) Medications Allergies Coded Allergies Type Severity Reaction Last Updated Verified Sulfa Allergy Unknown 12/05/16 Yes Active Scripts Medications Dose Route/Sig Days Date Category Dose Instructions Augmentin (Amoxicillin-Clavulanate) 875-125 Mg Tab 1 Tab PO BID 12/06/16 Reported Novolog Inj (Insulin Aspart) 1,000 Unit/10 Ml Vial 0 SQ DIRECTED 12/06/16 Reported Sliding Scale as directed. Sertraline (Sertraline HCl) 50 Mg Tab 50 Mg PO DAILY 12/06/16 Reported Eliquis (Apixaban) 5 Mg Tab 5 Mg PO BID 12/06/16 Reported Glimepiride 4 Mg Tab 4 Mg PO BIDAC 12/06/16 Reported Prednisone 20 Mg Tab 20 Mg PO BID 12/06/16 Reported Metformin (Metformin HCl) 850 Mg Tab 850 Mg PO BIDPC 12/06/16 Reported With meals Family History Denies any family hx of esophageal, gastric, or colorectal cancer. Social History Denies tobacco, etoh, illicit drug use. Review of Systems Constitutional: COMPLAINS OF: Fatigue, Weight loss Respiratory: COMPLAINS OF: Cough, Shortness of breath Gastrointestinal: COMPLAINS OF: Diarrhea, Difficulty Swallowing, DENIES: Abdominal pain, Black stools, Bloody stools, Constipation, Nausea, Vomiting, Anorexia, Swelling of Abdomen, Heartburn Hematologic/lymphatic: COMPLAINS OF: Bruising Psychiatric: COMPLAINS OF: Confusion (poor historian) GI Exam Vitals I&O Vital Signs Date Time Temp Pulse Resp B/P Pulse Ox O2 Delivery O2 Flow Rate FiO2 12/10/16 12:00 95.5 75 17 142/79 96 7/10/17 08:00 95.6 65 17 138/74 94 12/10/16 00:06 96.4 70 17 158/86 97 12/09/16 20:00 96.6 77 16 143/77 94 12/09/16 17:18 16 12/09/16 16:00 96.5 74 17 141/76 97 I/O 12/09/16 12/09/16 12/09/16 12/10/16 12/10/16 12/10/16 07:00 15:00 23:00 07:00 15:00 23:00 Intake Total 0 ml 547 ml 1185 ml 1061 ml Output Total 800 ml 500 ml 780 ml 650 ml Balance -800 ml -500 ml -233 ml 535 ml 1061 ml Intake Oral 0 ml 0 ml IV Total 547 ml 560 ml 553 ml Tube Feeding 625 ml 508 ml Output Urine Total 800 ml 500 ml 780 ml 650 ml # Bowel Movements 0 4 3 2 Imaging Last Impressions Abdomen X-Ray 12/07/16 0600 Signed Impressions: Service Date/Time: Wednesday, December 07, 2016 08:12 - CONCLUSION: 1. 4 mm faint calcification on the left side at the level of L3-4 most likely representing the left ureteral calculus demonstrated on the recent CT abdomen and pelvis. 2. Faint 4 mm curvilinear calcification overlying the left kidney. Tiburcio Dominguez MD Chest X-Ray 12/06/16 0000 Signed Impressions: Service Date/Time: December 00:21 - CONCLUSION: No acute disease. Agustin Rascon MD Abdomen/Pelvis CT 12/06/16 0000 Signed Impressions: Service Date/Time: December 02:10 - CONCLUSION: 1. Left mid ureteral calculus measures 4 mm. 2. Bilateral no obstructing renal calculi measuring 3-4 mm. 3. Bladder calculus measuring 3 mm. 4. Percutaneous gastrostomy tube. 5. Bilateral lower lobe densities. Followup CT chest recommended in 3 months. 6. Diverticulosis. Agustin Rascon MD Laboratory Test 12/10/16 04:36 White Blood Count 11.1 TH/MM3 Red Blood Count 4.24 MIL/MM3 Hemoglobin 12.3 GM/DL Hematocrit 37.0 % Mean Corpuscular Volume 87.3 FL Mean Corpuscular Hemoglobin 29.0 PG Mean Corpuscular Hemoglobin 33.2 % Concent Red Cell Distribution Width 17.6 % Platelet Count 246 TH/MM3 Mean Platelet Volume 8.7 FL Sodium Level 135 MEQ/L Potassium Level 4.0 MEQ/L Chloride Level 99 MEQ/L Carbon Dioxide Level 29.1 MEQ/L Anion Gap 7 MEQ/L Blood Urea Nitrogen 13 MG/DL Creatinine 0.50 MG/DL Estimat Glomerular Filtration 162 ML/MIN Rate Random Glucose 241 MG/DL Calcium Level 8.4 MG/DL Date/Time Procedure Status Source Growth 12/06/16 00:00 Urine Culture - Final Complete Urine Clean Catch Niecy Albicans Physical Examination HEENT: Normocephalic; atraumatic; no jaundice. CHEST: CTA, diminished bases CARDIAC: RRR ABDOMEN: Soft, nondistended, nontender; no hepatosplenomegaly; bowel sounds are present in all four quadrants. PEG tube site without redness or swelling EXTREMITIES: No clubbing, cyanosis, or edema. BIOMEDICAL ENGINEERING TECHNOLOGIST: No focal deficits; alert and oriented times three. poor historian Assessment and Plan Plan ASSESSMENT: - Severe oropharyngeal dysphagia, FEN. Pt has hx of gastric adenocarcinoma and has PEG tube. ST following for dysphagia- recommended MBS to assess swallowing. Pt had PEG placed several months ago for dysphagia , FTT, 60 lb weight loss after a prolonged hospitalization at which time he was found to have gastric cancer. - Diarrhea, pt states related to TF. CDiff negative. - Gastric cancer. EGD/Colonoscopy (09/20/16) and this revealed duodenal ulcer with stigmata recent bleeding, clean, nonbleeding rectal ulcers, hemorrhoids, and polyps. The pathology revealed poorly differentiated gastric adenocarcinoma diffuse type- section showed gastric mucosa with an infiltration of signet ring cell with acute inflammation and ulceration He was evaluated by Dr. Ko with [facility] and Dr. Orozco with oncology- felt pt had a poor performance score. EGD (11/19/16)----> peg in place, gastritis in the antrum, clean based ulcer in the duodenal bulb, duodenal bulb diverticulum duodenitis. In the duodenal bulb, biopsy was performed, very friable mucosa, retroflexion revealed hiatal hernia. No active bleeding seen. Pathology revealed chronic gastritis with edema and reactive epithelial changes, focal minimal acute inflammation and edema. - Autoimmune hemolytic anemia. Has seen Dr. Orozco in past. On steroids. - UTI. Niecy albicans. On Diflucan. - Hematuria with renal calculi, ? hx of prostate/bladder cancer. S/P urology eval. Of note, patient and deny any hx of bladder cancer for me. - HTN, DM, Dementia, Decubitus wound per attending. PLAN: - NPO - MBS - TF as per it help desk analyst recommendations - Cont. steroids - Abx per ID - Supportive care - Further recommendations to follow based on results of above - Pt seen and examined by Dr. Garcia and myself and this note is written on his behalf Meena Clay Dec 10, 2016 15:40
[2016-12-10 16:00] VITALS: BP 142/77; PULSE 71; RESP 17; TEMP 95.7; O2SAT 95
[2016-12-10 20:00] VITALS: BP 159/82; PULSE 77; RESP 20; TEMP 96.4; O2SAT 95
[2016-12-11] VITALS: BP 159/82; PULSE 67; RESP 20; TEMP 96.8; O2SAT 95
[2016-12-11] MEDS: PIPERACIL-TAZO 3.375 GM PREMIX 50 ML IV SCH ×3 (03:12→14:00)
[2016-12-11] MEDS: GLIMEPIRIDE 4 MG TAB PO SCH ×2 (05:35→16:59)
[2016-12-11] MEDS: INSULIN ASPART SUPPLEMENTAL SCALE SQ SCH ×3 (05:35→16:00)
[2016-12-11 08:00] VITALS: BP 133/78; PULSE 70; RESP 17; TEMP 95.7; O2SAT 98
--- NOTE | 2016-12-11 08:28 | HHI.PR ---
Subjective History of Present Illness Patient s/p modified barium swallow test GI. input noted.. D/W RN at bed side. patient refused to go rehab per community case manager wants discharge home with home health care. Review of Systems Constitutional Constitutional: Fatigue, Weakness Integumentary Skin: Wounds Skin Remarks Decubitus wounds. Neurologic Neurologic Remarks Dementia. Vitals/Results Intake & Output 12/10/16 12/10/16 12/11/16 15:00 23:00 07:00 Intake Total 1061 ml 1450 ml 1600 ml Output Total 650 ml 475 ml Balance 1061 ml 800 ml 1125 ml Intake Oral 0 ml 0 ml 0 ml IV Total 553 ml 800 ml 900 ml Tube Feeding 508 ml 500 ml 600 ml Other 150 ml 100 ml Output Urine Total 650 ml 475 ml # Voids 5 # Bowel Movements 5 Vital Signs Vital Signs Date Time Temp Pulse Resp B/P Pulse Ox O2 Delivery O2 Flow Rate FiO2 12/11/16 00:00 96.8 67 20 159/82 95 12/10/16 20:00 96.4 77 20 159/82 95 12/10/16 16:00 95.7 71 17 142/77 95 12/10/16 12:00 95.5 75 17 142/79 96 CBC/BMP: 12/10/16 0436 12/10/16 0436 Physical Exam General General Appearance: No Acute Distress, Comfortable Eyes Eye Exam: Pupils Equal, Pupils Reactive, Sclera White, Extraocular Movement Intact Throat Throat Exam: Oral Mucosa Warren & Moist, Oral Pharynx Normal Neck Neck Exam: Neck Supple, Trachea Midline Pulmonary Resp Exam: Clear Bilaterally, Breath Sounds Equal Cardiology CV Exam: Regular, Normal Sinus Rhythm Gastrointestinal/Abdomen GI Exam: Soft, Non-Tender, Bowel Sounds Present Musculoskeletal MS Exam: Normal Tone Integumentary Skin Remarks decubitus wound. Neurologic Neuro Exam: Alert, Awake VTE Prophylaxis VTE Prophylaxis Device: SCDs PUD Prophylasis PUD Prophylaxis: Protonix Assessment/Plan Assessment/Plan ASSESSMENT AND PLAN 1. This is a 76-year-old male who came to the ER diagnosed with urinary tract infection. The patient on Rocephin 1 gram IV daily. Infectious Disease input noted.. repeat UA Better. further recommendation per Infectious Disease. 2. Hematuria with urinary calculi. Urology input noted for further recommendation...conservative management. 3. Dementia. 4. Unable to swallow; . speech and swallow evaluation done. have peg tube in. Patient s/p modified barium swallow test GI. input noted. 5. History of diabetes mellitus. NovoLog low-dose sliding scale. Check blood sugars. Continue home medication. 6. History of depression. Continue with sertraline 50 mg daily. 7. DVT prophylaxis. SCDs. 8. GI prophylaxis. Protonix 40 mg p.o. daily. 9. Decubitus wound...wound care on board. patient refused to go rehab per community case manager wants discharge home with home health care. ok to mo home with [facility]. F/U with PCP/ GI 1 week. Discussed Condition with: Patient Floyd Rosas MD Dec 11, 2016 08:27
[2016-12-11] MEDS: DOCUSATE SODIUM 50 MG/SENNA 8.6 MG TAB PO SCH (09:00)
[2016-12-11] MEDS: SERTRALINE HCL 50 MG TAB PO SCH (10:05)
[2016-12-11] MEDS: FLUCONAZOLE 100 MG TAB PO SCH (10:05)
[2016-12-11] MEDS: SODIUM CHLORIDE 0.9% FLUSH 10 ML FLUSH IV FLUSH SCH (10:05)
[2016-12-11] MEDS: metFORMIN HCL 850 MG TAB PO SCH ×2 (10:06→16:59)
[2016-12-11] MEDS: APIXABAN 5 MG TABLET PO SCH (10:06)
[2016-12-11] MEDS: predniSONE 20 MG TAB PO SCH (10:06)
--- NOTE | 2016-12-11 10:08 | RADRPT ---
EXAM DATE/TIME: 12/11/2016 00:00 [facility] COMPARISON: No previous studies available for comparison. INDICATIONS : Dysphagia, coughing, evaluate for aspiration FLUORO TIME: 1.8 minutes IMAGE COUNT: 0 CONTRAST: Dose as prescribed by speech pathologist. MEDICAL HISTORY : Renal calculi. SURGICAL HISTORY : g-tube ENCOUNTER: Subsequent ACUITY: 4 - 6 days PAIN SCORE: Non-responsive. LOCATION: Bilateral esophagus FINDINGS: The examination was performed in conjunction with speech pathology. CONCLUSION: Please refer to speech pathology report for complete discussion. Kathryn Fritz MD on December 11, 2016 at 10:04 Board Certified Radiologist. This report was verified electronically.
--- NOTE | 2016-12-11 11:53 | HHI.GIFU ---
Subjective Remarks Pt resting in bed, arguing with . He denies abd pain today. says he had 1 loose BM today. Per pt he failed MBS. says he has appt with [facility] on the but he can't go if he doesn't get on his feet; she wants to put him in "[facility]" if he can't get up b/c she can't take care of him and he refuses. Objective Vitals I&O Vital Signs Date Time Temp Pulse Resp B/P Pulse Ox O2 Delivery O2 Flow Rate FiO2 12/11/16 08:00 95.7 70 17 133/78 98 12/11/16 00:00 96.8 67 20 159/82 95 12/10/16 20:00 96.4 77 20 159/82 95 12/10/16 16:00 95.7 71 17 142/77 95 12/10/16 12:00 95.5 75 17 142/79 96 I/O 12/10/16 12/10/16 12/10/16 12/11/16 12/11/16 12/11/16 07:00 15:00 23:00 07:00 15:00 23:00 Intake Total 1185 ml 1061 ml 1450 ml 1600 ml Output Total 650 ml 650 ml 475 ml Balance 535 ml 1061 ml 800 ml 1125 ml Intake Oral 0 ml 0 ml 0 ml 0 ml IV Total 560 ml 553 ml 800 ml 900 ml Tube Feeding 625 ml 508 ml 500 ml 600 ml Other 150 ml 100 ml Output Urine Total 650 ml 650 ml 475 ml # Voids 5 # Bowel Movements 2 5 Imaging Last Impressions Modified Barium Swallow 12/11/16 0000 Signed Impressions: Service Date/Time: Sunday, December 11, 2016 00:00 - CONCLUSION: Please refer to speech pathology report for complete discussion. Kathryn Fritz MD Abdomen X-Ray 12/07/16 0600 Signed Impressions: Service Date/Time: Wednesday, December 07, 2016 08:12 - CONCLUSION: 1. 4 mm faint calcification on the left side at the level of L3-4 most likely representing the left ureteral calculus demonstrated on the recent CT abdomen and pelvis. 2. Faint 4 mm curvilinear calcification overlying the left kidney. Tiburcio Dominguez MD Chest X-Ray 12/06/16 0000 Signed Impressions: Service Date/Time: December 00:21 - CONCLUSION: No acute disease. Agustin Rascon MD Abdomen/Pelvis CT 12/06/16 0000 Signed Impressions: Service Date/Time: December 02:10 - CONCLUSION: 1. Left mid ureteral calculus measures 4 mm. 2. Bilateral no obstructing renal calculi measuring 3-4 mm. 3. Bladder calculus measuring 3 mm. 4. Percutaneous gastrostomy tube. 5. Bilateral lower lobe densities. Followup CT chest recommended in 3 months. 6. Diverticulosis. Agustin Rascon MD Physical Exam HEENT: PERRL; normocephalic; atraumatic; no jaundice. CHEST: rhonchi CARDIAC: RRR ABDOMEN: Soft, nondistended, nontender; no hepatosplenomegaly; bowel sounds are present in all four quadrants. PEG site clean EXTREMITIES: No clubbing, cyanosis, or edema. very thin SKIN: Normal; no rash; no jaundice. CENTRIFUGAL SUPERVISOR: No focal deficits; alert and oriented times three. Assessment and Plan Plan ASSESSMENT: - Severe oropharyngeal dysphagia, FEN. Pt has hx of gastric adenocarcinoma and has PEG tube. ST following for dysphagia- ?failed MBS? report not yet available but pt says he failed. Pt had PEG placed several months ago for dysphagia, FTT, 60 lb weight loss after a prolonged hospitalization at which time he was found to have gastric cancer. - Diarrhea, pt states related to TF. CDiff negative. - Gastric cancer. EGD/Colonoscopy (09/20/16) and this revealed duodenal ulcer with stigmata recent bleeding, clean, nonbleeding rectal ulcers, hemorrhoids, and polyps. The pathology revealed poorly differentiated gastric adenocarcinoma diffuse type- section showed gastric mucosa with an infiltration of signet ring cell with acute inflammation and ulceration He was evaluated by Dr. Ko with [facility] and Dr. Orozco with oncology- felt pt had a poor performance score. EGD (11/19/16)----> peg in place, gastritis in the antrum, clean based ulcer in the duodenal bulb, duodenal bulb diverticulum duodenitis. In the duodenal bulb, biopsy was performed, very friable mucosa, retroflexion revealed hiatal hernia. No active bleeding seen. Pathology revealed chronic gastritis with edema and reactive epithelial changes, focal minimal acute inflammation and edema. - Autoimmune hemolytic anemia. Has seen Dr. Orozco in past. On steroids. - UTI. Niecy albicans. On Diflucan. - Hematuria with renal calculi, ? hx of prostate/bladder cancer. S/P urology eval. Of note, patient and deny any hx of bladder cancer for me. - HTN, DM, Dementia, Decubitus wound per attending. PLAN: - consider case mgmt consult; saying she cannot take care of him at home - NPO - TF as per performance specialist recommendations - Cont. steroids - Abx per ID - Supportive care - Further recommendations to follow based on results of above - Pt seen and examined by Dr. Garcia and myself and this note is written on his behalf Merissa Vang Dec 11, 2016 11:53
[2016-12-11] MEDS ORDERED: DIFL100T PO (11:55)
[2016-12-11 12:00] VITALS: BP 155/80; PULSE 71; RESP 18; TEMP 96.8; O2SAT 99
--- NOTE | 2016-12-11 12:07 | HHI.FF ---
Face to Face Verification Diagnosis: (1) Weakness generalized Physical Therapy Order: Evaluate and Treat, Improve ambulation, Strength and gait training Occupational Therapy Order: Evaluate and Treat, Gross motor coordination Speech Therapy Order: To Improve: Speech and communication skills, Cognitive skills, Swallowing Home Health Nursing Order: Medical education Medication education-adverse effect Home Health Aide Order: To Assist In: Bathing and personal care I have seen patient Kanu Paiz on 12/11/16. My clinical findings support the need for the requested home health care services because: Ltd mobility - disease progression Deconditioned w/ increased weakness Limited ability to care for self High risk of falls I certify that my clinical findings support that this patient is homebound because: Impaired cognitive ability/safety Unsteady gait/balance Unable to use public transportation Floyd Rosas MD Dec 11, 2016 12:07
[2016-12-11] MEDS: SODIUM CHLOR 0.9% 1000 ML INJ 1,000 ML IV SCH (12:47)
[2016-12-11 16:00] VITALS: BP 145/73; PULSE 73; RESP 17; TEMP 95.7; O2SAT 94
== END 2016-12-11 18:00 | disposition home health service (06) | DRG 689 ==
LOC: NEPC 23:10 → NEDA 12-06 04:13 → NEPHCDU 12-06 05:38 → OBSVTOIN 12-06 14:11 → N07B 12-06 21:42
PROVIDERS: ADMIT Family Medicine; ATTEND Family Medicine
DX: N39.0 Urinary tract infection, site not specified (principal); L89.154 Pressure ulcer of sacral region, stage 4; D59.1 Other autoimmune hemolytic anemias; K52.1 Toxic gastroenteritis and colitis; N20.2 Calculus of kidney with calculus of ureter; F03.90 Unspecified dementia, unspecified severity, without behavioral disturbance, psychotic disturbance, mood disturbance, and anxiety; R13.12 Dysphagia, oropharyngeal phase; Z93.1 Gastrostomy status; T36.95XA Adverse effect of unspecified systemic antibiotic, initial encounter; R19.7 Diarrhea, unspecified; F32.9 Major depressive disorder, single episode, unspecified; E11.9 Type 2 diabetes mellitus without complications; N21.0 Calculus in bladder; I10 Essential (primary) hypertension; Z85.51 Personal history of malignant neoplasm of bladder; Z86.718 Personal history of other venous thrombosis and embolism; Z79.84 Long term (current) use of oral hypoglycemic drugs; Z79.4 Long term (current) use of insulin; Z85.46 Personal history of malignant neoplasm of prostate; Z85.028 Personal history of other malignant neoplasm of stomach
CPT/HCPCS: 71010; 74000; 74176; 74230; 80048; 80053; 81001; 82948; 85007; 85027; 85610; 87086; 87493; 96374; G8996-GN; G8997-GN; G8998-GN; J0696; J1815; J2543; J7030; J7050; J7512

== ENCOUNTER 2017-01-07 00:33 | Inpatient (IN) | payer MEDICARE ==
[2017-01-07] VITALS (35 sets, daily range): BP systolic 74–137; BP diastolic 46–69; PULSE 108–133; RESP 18–31; TEMP 95.7–100.9; O2SAT 94–100
[~2017-01-07 00:33] MED LIST: APIX5TAB PO; AUGM875T3 PO; DIFL100T PO; GLIM4TAB PO; METF850T PO; NOVOLOGP2 SQ; PRED20 PO; SERT-132 PO
[2017-01-07] MEDS ORDERED: VANCOMYCIN INJ 1,000 MG in SODIUM CHLOR 0.9% 250 ML INJ 250 ML IV STA ×2 (00:36→01:02)
[2017-01-07] MEDS ORDERED: PIPERACIL-TAZO 4.5 GM PREMIX 100 ML IV STA ×2 (00:36→01:02)
[2017-01-07] MEDS ORDERED: SODIUM CHLOR 0.9% 1000 ML INJ 1,000 ML IV SCH ×2 (00:36→03:18)
[2017-01-07] MEDS ORDERED: PANTOPRAZOLE INJ 80 MG in SODIUM CHLORIDE 0.9% INJ 35 ML IV ONE (00:45)
[2017-01-07] MEDS ORDERED: ONDANSETRON HCL 4 MG/2 ML VIAL IVP ONE (00:45)
[2017-01-07] MEDS ORDERED: SODIUM CHLORIDE 0.9% FLUSH 10 ML FLUSH IVF PRN (00:45)
[2017-01-07 01:06] LABS: HEMATOCRIT 24.9 % (39.0-51.0); MEAN CELL VOLUME 89.4 FL (80.0-100.0); MEAN CORPUSCULAR HEMOGLOBIN 28.9 PG (27.0-34.0); MEAN CORPUSCULAR HGB CONC 32.4 % (32.0-36.0); PLATELET COUNT 241 TH/MM3 (150-450); RED BLOOD COUNT 2.78 MIL/MM3 (4.50-5.90); WHITE BLOOD COUNT 13.2 TH/MM3 (4.0-11.0)
--- NOTE | 2017-01-07 01:08 | RADRPT ---
EXAM DATE/TIME: 01/07/2017 00:35 [facility] COMPARISON: CT ABDOMEN & PELVIS W/O CONTRAST, December 06, 2016, 2:10. CHEST SINGLE AP, December 06, 2016, 0:21. INDICATIONS : Shortness of breath MEDICAL HISTORY : None. SURGICAL HISTORY : G-tube ENCOUNTER: Initial ACUITY: 2 days PAIN SCORE: Non-responsive. LOCATION: Bilateral chest FINDINGS: Alveolar and interstitial opacities identified. Right armen catheter tip overlies the SVC. Degen erative changes of the spine are noted. There are bilateral nodular opacities consistent with pulmona ry nodules. A single view of the chest demonstrates the lungs to be symmetrically aerated without evidence of mas s, infiltrate or effusion. The cardiomediastinal contours are unremarkable. Osseous structures are intact. CONCLUSION: Bilateral pulmonary nodules, interstitial and alveolar infiltrates. Juan Diego Frias MD on January 07, 2017 at 1:06 Board Certified Radiologist. This report was verified electronically.
[2017-01-07 01:15] LABS: HEMO FLAGS AUTO DIFF
[2017-01-07] MEDS ORDERED: NOREPINEPHRINE 4 MG/4 ML AMP ONE (01:18)
[2017-01-07 01:24] LABS: ALKALINE PHOSPHATASE 139 U/L (45-117); ALT (GPT) 48 U/L (12-78); ANION GAP 26 MEQ/L (5-15); APTT (PATIENT) 40.1 SEC (24.3-30.1); AST (GOT) 68 U/L (15-37); BICARBONATE 13.9 MEQ/L (21.0-32.0); BLOOD UREA NITROGEN 57 MG/DL (7-18); CHLORIDE 84 MEQ/L (98-107); GLOMERULAR FILTRATION RATE 39 ML/MIN (>89); INTERNATIONAL NORMALIZED RATIO 1.3 RATIO; POTASSIUM 5.6 MEQ/L (3.5-5.1); PROTHROMBIN TIME - PATIENT 14.7 SEC (9.8-11.6); TOTAL BILIRUBIN ADULT 0.2 MG/DL (0.2-1.0)
[2017-01-07] MEDS ORDERED: SODIUM CHLOR 0.9% 1000 ML INJ 1,000 ML IV ONE ×3 (01:30→03:15)
[2017-01-07 01:32] LABS: SODIUM (NA) 124 MEQ/L (136-145)
[2017-01-07] MEDS ORDERED: MIDAZOLAM HCL 2 MG/2 ML VIAL IV PUSH ONE (01:45)
[2017-01-07 01:51] LABS: BACTERIA, URINE OCC /hpf; BLOOD, URINE SMALL (NEG); GLUCOSE,URINE TRACE mg/dL (NEG); HYALINE CAST, URINE 25 /lpf (RARE); KETONE, URINE TRACE mg/dL (NEG); MUCUS URINE FEW /lpf (OCC); NITRITE,URINE NEG (NEG); RENAL EPITHELIAL CELLS <1 /hpf; SQUAMOUS EPITHELIAL CELL URINE 1 /hpf (0-5)
[2017-01-07 01:52] LABS: COMMENT (UR) CATH-CULTURE IND; CULTURE IF INDICATED CATH CULTURE IND; URINE COLOR RED (YELLW/STRAW)
--- NOTE | 2017-01-07 01:52 | PD ---
HPI Chief Complaint: Respiratory Distress Time Seen by Provider: 00:36 Travel History International Travel<30 days: No Contact w/Intl Traveler<30days: No Traveled to known affect area: No History of Present Illness HPI Patient is a 76-year-old male with history of gastric adenocarcinoma who presents the emergency department for GI bleed and shortness of breath. History obtained initially per EMS as family is not present. Reportedly patient yesterday began to have coffee-ground emesis. This has continued for the last 24 hours, as well as melanotic stool. Throughout the day today patient became progressively more dyspneic with gurgling type respirations. Less responsive. EMS was summoned. Per EMS patient was hypotensive in the 70s , improved with fluids en route. Tachycardic in the 120s and tachypnea with gurgling respirations and coarse rhonchi bilaterally. Per EMS patient is full code. 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 ) Substance Use: No Allergies-Medications (Allergen,Severity, Reaction): Coded Allergies: Sulfa (Verified Allergy, Unknown, 01/07/17) Reported Meds & Prescriptions Reported Meds & Active Scripts Active Diflucan (Fluconazole) 100 Mg Tab 100 Mg PO DAILY Reported Augmentin (Amoxicillin-Clavulanate) 875-125 Mg Tab 1 Tab PO BID Novolog Inj (Insulin Aspart) 1,000 Unit/10 Ml Vial 0 SQ DIRECTED Sliding Scale as directed. Sertraline (Sertraline HCl) 50 Mg Tab 50 Mg PO DAILY Eliquis (Apixaban) 5 Mg Tab 5 Mg PO BID Glimepiride 4 Mg Tab 4 Mg PO BIDAC Prednisone 20 Mg Tab 20 Mg PO BID Metformin (Metformin HCl) 850 Mg Tab 850 Mg PO BIDPC With meals Review of Systems ROS Limitations: Clinical Condition, Altered Mental Status Physical Exam Exam Limitations: Clinical Condition, Altered Mental Status Narrative GENERAL: Cachectic adult male appearing older than stated age in moderate respiratory distress SKIN: Decubitus ulcer on the sacrum stage II HEAD: Atraumatic. Normocephalic. EYES: Pupils equal and round. 3 mm. No scleral icterus. No injection or drainage. ENT: No nasal bleeding or discharge. Mucous membranes dry. Coffee-ground emesis in the oropharynx NECK: Supple CARDIOVASCULAR: Tachycardic with heart rate in the 120s. No murmur appreciated. RESPIRATORY: Moderate respiratory distress with gurgling respirations, course rhonchi and crackles bilaterally. Tachypneic. Increased work of breathing. GASTROINTESTINAL: Abdomen soft, non-tender, nondistended. PEG tube in left abdomen MUSCULOSKELETAL: No obvious deformities. No edema. NEUROLOGICAL: Lethargic. Eyes open, nonverbal. Patient does shake his head no , but shakes his head no to everything so is unclear to me whether he is able to communicate. No movement of the extremities Data Data Last Documented VS Vital Signs Date Time Temp Pulse Resp B/P Pulse Ox O2 Delivery O2 Flow Rate FiO2 01/07/17 02:00 100 50 01/07/17 00:43 28 Non-Rebreather 01/07/17 00:43 15 01/07/17 00:35 99.2 121 92/55 Orders Complete Blood Count With Diff (01/07/17 00:36) Comprehensive Metabolic Panel (01/07/17 00:36) Lipase (01/07/17 00:36) Ammonia (01/07/17 00:36) Prothrombin Time / Inr (Pt) (01/07/17 00:36) Act Partial Throm Time (Ptt) (01/07/17 00:36) Urinalysis - C+S If Indicated (01/07/17 00:36) Type And Screen (01/07/17 00:36) Chest, Single Ap (01/07/17 00:36) Cath For Specimen (01/07/17 00:36) Ecg Monitoring (01/07/17 00:36) Iv Access Insert/Monitor (01/07/17 00:36) Oximetry (01/07/17 00:36) Oxygen Administration (01/07/17 00:36) Ondansetron Inj (Zofran Inj) (01/07/17 00:45) Sodium Chlor 0.9% 1000 Ml Inj (Ns 1000 M (01/07/17 00:36) Sodium Chloride 0.9% Flush (Ns Flush) (01/07/17 00:45) Pantoprazole Inj (Protonix Inj) (01/07/17 00:45) Pantoprazole Inj (Protonix Inj) (01/07/17 00:45) Lactic Acid Sepsis Protocol (01/07/17 00:36) Blood Culture (01/07/17 00:36) Vancomycin Inj (Vancomycin Inj) (01/07/17 00:36) Piperacil-Tazo 4.5 Gm Premix (Zosyn 4.5 (01/07/17 00:36) Fibrinogen (01/07/17 00:36) Troponin I (01/07/17 00:36) Arterial Blood Gas (Abg) (01/07/17 00:36) ^ Other Nursing Orders (01/07/17 00:39) Urinary Catheter Insert/Apply (01/07/17 00:54) Vancomycin Inj (Vancomycin Inj) (01/07/17 01:02) Piperacil-Tazo 4.5 Gm Premix (Zosyn 4.5 (01/07/17 01:02) Chest, Single Ap (01/07/17 ) Norepinephrine-Dextrose Drip (Levophed-D (01/07/17 01:30) Sodium Chlor 0.9% 1000 Ml Inj (Ns 1000 M (01/07/17 01:30) Norepinephrine Inj (Levophed Inj) (01/07/17 01:18) Blood Product Administration .UPON TRANSFUSION (01/07/17 01:19) Red Blood Cells (Rbc) (01/07/17 00:50) Fentanyl Drip (Fentanyl Drip) (01/07/17 01:45) Midazolam Inj (Versed Inj) (01/07/17 01:45) Urine Culture (01/07/17 01:40) Admit Order (Ed Use Only) (01/07/17 02:03) Labs Laboratory Tests Test 01/07/17 01/07/17 01/07/17 00:50 01:40 01:50 White Blood Count 13.2 TH/MM3 Red Blood Count 2.78 MIL/MM3 Hemoglobin 8.1 GM/DL Hematocrit 24.9 % Mean Corpuscular Volume 89.4 FL Mean Corpuscular Hemoglobin 28.9 PG Mean Corpuscular Hemoglobin 32.4 % Concent Red Cell Distribution Width 18.0 % Platelet Count 241 TH/MM3 Mean Platelet Volume 9.1 FL Neutrophils (%) (Auto) % Lymphocytes (%) (Auto) % Monocytes (%) (Auto) % Eosinophils (%) (Auto) % Basophils (%) (Auto) % Neutrophils # (Auto) TH/MM3 Lymphocytes # (Auto) TH/MM3 Monocytes # (Auto) TH/MM3 Eosinophils # (Auto) TH/MM3 Basophils # (Auto) TH/MM3 CBC Comment AUTO DIFF Prothrombin Time 14.7 SEC Prothromb Time International 1.3 RATIO Ratio Activated Partial 40.1 SEC Thromboplast Time Fibrinogen 635 mg/dL Sodium Level 124 MEQ/L Potassium Level 5.6 MEQ/L Chloride Level 84 MEQ/L Carbon Dioxide Level 13.9 MEQ/L Anion Gap 26 MEQ/L Blood Urea Nitrogen 57 MG/DL Creatinine 1.70 MG/DL Estimat Glomerular Filtration 39 ML/MIN Rate Random Glucose 161 MG/DL Lactic Acid Level 17.0 mmol/L Calcium Level 8.8 MG/DL Total Bilirubin 0.2 MG/DL Aspartate Amino Transf 68 U/L (AST/SGOT) Alanine Aminotransferase 48 U/L (ALT/SGPT) Alkaline Phosphatase 139 U/L Ammonia 68 MCMOL/L Troponin I 0.37 NG/ML Total Protein 4.4 GM/DL Albumin 1.2 GM/DL Lipase 41 U/L Blood Type O POSITIVE Antibody Screen POSITIVE Blood Bank Comment Urine Color RED Urine Turbidity HAZY Urine pH 5.0 Urine Specific [place] 1.024 Urine Protein 30 mg/dL Urine Glucose (UA) TRACE mg/dL Urine Ketones TRACE mg/dL Urine Occult Blood SMALL Urine Nitrite NEG Urine Bilirubin NEG Urine Urobilinogen 2.0 MG/DL Urine Leukocyte Esterase SMALL Urine RBC 22 /hpf Urine WBC 3 /hpf Urine Squamous Epithelial 1 /hpf Cells Urine Renal Epithelial Cells <1 /hpf Urine Bacteria OCC /hpf Urine Hyaline Casts 25 /lpf Urine Mucus FEW /lpf Urine Yeast (Budding) MOD Microscopic Urinalysis Comment CATH-CULTURE IND Blood Gas Puncture Site RT RADIAL Blood Gas Patient Temperature 98.6 Blood Gas HCO3 10 mmol/L Blood Gas Base Excess -17.6 mmol/L Blood Gas Oxygen Saturation 98 % Arterial Blood pH 7.12 Arterial Blood Partial 32 mmHg Pressure CO2 Arterial Blood Partial 226 mmHG Pressure O2 Arterial Blood Oxygen Content 12.7 Vol % Arterial Blood 0.4 % Carboxyhemoglobin Arterial Blood Methemoglobin 0.5 % Blood Gas Hemoglobin 8.9 G/DL Oxygen Delivery Device VENTILATOR Blood Gas Ventilator Setting Blood Gas Inspired Oxygen 75 % MDM Medical Decision Making Medical Screen Exam Complete: Yes Emergency Medical Condition: Yes Medical Record Reviewed: Yes Differential Diagnosis 76 year old male with history of gastric adenocarcinoma here for GI bleed and respiratory distress. Differential includes gastric cancer hemorrhage, peptic ulcer, gastritis, esophagitis, variceal bleeding, hemorrhagic shock, aspiration pneumonia, acute respiratory failure, UTI, septic shock Narrative Course Patient met by myself upon emergency department arrival, multiple IVs established and blood obtained. Patient given 3 L normal saline bolus. He was started on PPI bolus, drip. Given Zofran. Portable chest x-ray obtained that by my read shows bilateral patchy infiltrates. Twelve-lead EKG shows sinus tachycardia, rate [address] or T-wave abnormalities and normal intervals. Patient's respiratory status is not improving with resuscitation and rather he sounds more congested in course despite DOCKET SPECIALIST suction. Decision was made to intubate, please see procedure note. Postintubation chest x-ray shows endotracheal tube in good position. Postintubation ABG pH 7.115, PCO2 32.3, PO2 226, bicarbonate 9.9. Patient was empirically treated with vancomycin, Zosyn. CBC, CMP, lipase, ammonia, coags, urinalysis, type and screen, lactate, blood cultures, fibrinogen, troponin obtained and notable for WBC 13.2, hemoglobin 8.1, INR 1.3, fibrinogen 635. Sodium 124, potassium 5.6, bicarbonate 13.9 and anion gap 26. BUN 27, creatinine 1.70. Troponin 0.37, ammonia 68. Lactic acid 17.0. Urinalysis with leukocyte esterase, bacteria and yeast. 2 units packed red blood cells was ordered for transfusion. Patient 's blood pressure remained hypotensive despite fluid resuscitation as above and he was started on norepinephrine through his chest port. Fentanyl drip and Versed push for sedation. The gravity of patient's illness was expressed to his daughter. This may be nonsurvivable. 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 Critical Care Narrative Aggregate critical care time was 90 minutes. Time to perform other separately billable procedures was not included in the critical care time. My time did not include minutes spent treating any other patients simultaneously or on activities that did not directly contribute to the patient's treatment. The services I provided to this patient were to treat and/or prevent clinically significant deterioration that could result in: Cardiopulmonary decompensation, neurologic decompensation, , disability I provided critical care services requiring my management, as noted below: Chart data review, documentation time, medication orders and management, vital sign assessments/reviewing monitor data, ordering and reviewing lab tests, ordering and interpreting/reviewing x-rays and diagnostic studies, care of the patient and discussion of the patient with the admitting physicians. Procedures Procedure Narrative After the risks and benefits were discussed t with patient's daughter he following procedure was performed: INTUBATION: The patient was put in optimal position for the procedure. Rapid sequence intubation was initiated by me using 20 milligrams of etomidate IV and 100 milligrams of succinylcholine IV. The patient was intubated with a 8-0 cuffed endotracheal tube. Tube placement was confirmed by visualization of the tube and balloon passing through the cords, capnometry and subsequent chest x- ray. Breath sounds were equal and well aerated bilaterally postintubation. No breath sounds over stomach. Patient tolerated procedure well. Diagnosis Primary Impression: Septic shock Additional Impressions: Upper GI bleed Leukocytosis Qualified Code: D72.829 - Leukocytosis, unspecified type Anemia Qualified Code: D64.9 - Anemia, unspecified type Hyponatremia Hyperkalemia High anion gap metabolic acidosis Renal insufficiency Demand ischemia Lactic acidosis Hyperammonemia Hypotension Qualified Code: I95.9 - Hypotension, unspecified hypotension type Acute respiratory failure Qualified Code: J96.01 - Acute respiratory failure with hypoxia and hypercapnia Tachycardia Tachypnea Aspiration pneumonia Qualified Code: J69.0 - Aspiration pneumonia of both lungs, unspecified aspiration pneumonia type, unspecified part of lung Admitting Information Admitting Physician Requests: Admit Ayla Spencer MD Jan 07, 2017 01:52
--- NOTE | 2017-01-07 01:57 | RADRPT ---
EXAM DATE/TIME: 01/07/2017 01:27 [facility] COMPARISON: CHEST SINGLE AP, January 07, 2017, 0:35. INDICATIONS : Post intubation MEDICAL HISTORY : None. SURGICAL HISTORY : None. ENCOUNTER: Initial ACUITY: 1 day PAIN SCORE: Non-responsive. LOCATION: Bilateral chest FINDINGS: Endotracheal tube is present and the tip terminates 2.9 cm above the yobani. Right-sided portacathete r is present as before. There is cardiomegaly and patchy parenchymal infiltrates and nodular opacitie s are again seen. Degenerative changes of the spine. Enteric tube courses beneath the diaphragm. CONCLUSION: Endotracheal tube as above. Juan Diego Frias MD on January 07, 2017 at 1:55 Board Certified Radiologist. This report was verified electronically.
[2017-01-07] MEDS: NOREPINEPHRINE-DEXTROSE DRIP 250 ML IV SCH ×2 (02:01→20:03)
[2017-01-07 02:08] LABS: BLOOD GAS BASE EXCESS -17.6 mmol/L (-2-2); BLOOD GAS CARBOXYHEMOGLOBIN 0.4 % (0-4); BLOOD GAS HCO3 10 mmol/L (22-26); BLOOD GAS METHEMOGLOBIN 0.5 % (0-2); BLOOD GAS O2 HGB SATURATION 98 % (90-100); BLOOD GAS OXYGEN CONTENT 12.7 Vol % (12.0-20.0); BLOOD GAS PCO2 32 mmHg (38-42); BLOOD GAS PO2 226 mmHG (61-120); BLOOD GAS TOTAL HGB 8.9 G/DL (12.0-16.0); CRITICAL VALUE YES; OXYGEN DEVICE VENTILATOR; TEMP CORR TO 98.6
[2017-01-07 02:09] LABS: DRAW SITE RT RADIAL; FIO2 75 %; NUMBER OF ARTERIAL PUNCTURES 1; STAT YES; ULNAR PULSE PRESENT
[2017-01-07 03:03] LABS: LACTIC ACID GHOST NOT REPORTABLE
[2017-01-07] MEDS: PANTOPRAZOLE INJ 80 MG in SODIUM CHLORIDE 0.9% INJ 100 ML IV SCH ×3 (03:03→21:09)
--- NOTE | 2017-01-07 03:18 | HHI.HP ---
[facility] Service Critical Care Medicine Primary Care Physician Jorge Woo MD Admission Diagnosis septic and hemorrhagic shock, upper GI bleed Diagnosis: (1) Acute respiratory failure Diagnosis: Principal (2) Septic shock Diagnosis: Principal (3) Upper GI bleed Diagnosis: Principal (4) Anemia Diagnosis: Principal (5) Aspiration pneumonia Diagnosis: Principal (6) Leukocytosis Diagnosis: Principal (7) Demand ischemia Diagnosis: Principal (8) Acute kidney failure Diagnosis: Principal (9) High anion gap metabolic acidosis Diagnosis: Principal (10) Lactic acidosis Diagnosis: Principal (11) Hyperkalemia Diagnosis: Principal (12) Hyponatremia Diagnosis: Principal (13) Hyperammonemia Diagnosis: Principal (14) Gastric cancer Diagnosis: Secondary Chief Complaint: Upper GI bleed Aspiration pneumonia Respiratory failure Travel History International Travel<30 Days: No Contact w/Intl Traveler <30 Da: No Traveled to Known Affected Are: No Sepsis Criteria SIRS Criteria (2 or more): Temp > 100.9 or < 96.8, Heart rate over 90, RR > 20 or PaCO2 < 32, WBC > 16169, < 4000 or > 10% bands Sepsis Criteria (SIRS+source): Infect source susp/known Severe Sepsis (+one): Hypotension, Lactate >2 Septic Shock Criteria: Lactic acid >=4 Criteria Outcome: Meets septic shock criteria History of Present Illness Patient is a 76-year-old male with history of gastric adenocarcinoma, recently started on chemotherapy at [facility], history of type 2 diabetes , hypertension, dyslipidemia who presented to the emergency department via EMS for upper GI bleed and shortness of breath. Apparently upper GI bleed and melena had been going on for almost 24 hours before family called EMS. Patient became progressively more dyspneic with gurgling type respirations and less responsive. EMS found patient hypotensive in the 70s, improved with fluids, tachycardic in the 120s. In the emergency department patient was emergently intubated for airway protection due to gurgling breath sounds, and inability to protect airway. Patient given 3 L normal saline bolus and was started on PPI bolus, drip. Chest x-ray showed bilateral patchy infiltrates. Postintubation ABG pH 7.12, PCO2 32.3, PO2 226, bicarbonate 9.9. Patient was empirically treated with vancomycin, Zosyn. Abnormal labs include WBC 13.2, hemoglobin 8.1 , INR 1.3, Sodium 124, potassium 5.6, bicarbonate 13.9 and anion gap 26. BUN 57 , creatinine 1.70. Troponin 0.37, Also ammonia 68 and Lactic acid 17.0. Urinalysis with hematuria, bacteria and yeast. In the ER patient was ordered to receive 2 units packed red blood cells and 3L NS. He was started on norepinephrine through his chest port, to maintain MAP above 65. I evaluated the patient in the ED. He remains hypotensive and have ordered additional fluid boluses. Patient had been placed on Zosyn vancomycin and Diflucan. Infectious disease was consulted. Continue fluid resuscitation. Source of sepsis most likely pneumonia. Given lactic acid elevation to 17 I have ordered a CT abdomen pelvis to rule out abdominal source of infection or ischemic bowel Review of Systems ROS Limitations: Intubated Past Family Social History Allergies: Coded Allergies: Sulfa (Verified Allergy, Unknown, 01/07/17) Past Medical History Chronically on Apixaban Hx of DVT Hx of prostate cancer Recently diagnosed gastric ca, initiated on chemotherapy 10 days ago Diabetes Hypertension Kidney Stone Past Surgical History EGD and gastric biopsy at [facility] Radiation seed placement in past Reported Medications Diflucan (Fluconazole) 100 Mg Tab 100 Mg PO DAILY Augmentin (Amoxicillin-Clavulanate) 875-125 Mg Tab 1 Tab PO BID Novolog Inj (Insulin Aspart) 1,000 Unit/10 Ml Vial 0 SQ DIRECTED Sertraline (Sertraline HCl) 50 Mg Tab 50 Mg PO DAILY Eliquis (Apixaban) 5 Mg Tab 5 Mg PO BID Glimepiride 4 Mg Tab 4 Mg PO BIDAC Prednisone 20 Mg Tab 20 Mg PO BID Metformin (Metformin HCl) 850 Mg Tab 850 Mg PO BIDPC Active Ordered Medications Reviewed Family History Unable to obtain as patient is intubated Social History No alcohol or tobacco use Physical Exam Vital Signs Vital Signs Date Time Temp Pulse Resp B/P Pulse Ox O2 Delivery O2 Flow Rate FiO2 01/07/17 02:45 128 18 100/69 96 Ventilator 50 01/07/17 02:40 130 18 84/58 98 Ventilator 50 01/07/17 02:35 124 18 78/55 97 Ventilator 50 01/07/17 02:30 128 18 77/50 97 Ventilator 50 01/07/17 02:25 126 18 75/48 97 Ventilator 50 01/07/17 02:20 96.1 128 18 74/51 97 Ventilator 50 01/07/17 02:15 96.1 124 18 89/52 98 Ventilator 50 01/07/17 02:00 100 50 01/07/17 02:00 96.1 118 18 86/55 98 Ventilator 50 01/07/17 01:50 95.7 112 18 90/56 97 Ventilator 50 01/07/17 01:45 95.7 112 18 102/55 96 Ventilator 50 01/07/17 01:30 108 18 96/51 100 Ventilator 50 01/07/17 01:16 75 01/07/17 01:15 108 18 79/46 95 Ventilator 50 01/07/17 01:15 100 75 01/07/17 01:00 112 24 93/53 95 Nasal Cannula 01/07/17 00:45 112 27 92/55 99 Non-Rebreather 01/07/17 00:43 28 100 Non-Rebreather 01/07/17 00:43 100 Non-Rebreather 15 01/07/17 00:35 99.2 121 31 92/55 94 Physical Exam Narrative GENERAL: 76 yo male who is Cachectic intubated, sedated, hypotensive on Levophed SKIN: Decubitus ulcer on the sacrum stage II HEAD: Atraumatic. Normocephalic. EYES: Pupils equal and round. 3 mm. No scleral icterus. ENT: Orotracheally intubated Coffee-ground emesis in the oropharynx NECK: Supple CARDIOVASCULAR: Tachycardic with heart rate in the 120s. No murmur appreciated. R upper chest port RESPIRATORY: Intubated Course rhonchi and crackles bilaterally. Tachypneic on ventilator GASTROINTESTINAL: Abdomen soft, non-tender, nondistended. PEG tube + MUSCULOSKELETAL: No obvious deformities. No edema. NEUROLOGICAL: Intubated heavily sedated, appears to move all extremities. Do not follow commands on sedation Laboratory Laboratory Tests Test 01/07/17 01/07/17 01/07/17 00:50 01:40 01:50 White Blood Count 13.2 Red Blood Count 2.78 Hemoglobin 8.1 Hematocrit 24.9 Mean Corpuscular Volume 89.4 Mean Corpuscular Hemoglobin 28.9 Mean Corpuscular Hemoglobin 32.4 Concent Red Cell Distribution Width 18.0 Platelet Count 241 Mean Platelet Volume 9.1 Neutrophils (%) (Auto) Lymphocytes (%) (Auto) Monocytes (%) (Auto) Eosinophils (%) (Auto) Basophils (%) (Auto) Neutrophils # (Auto) Lymphocytes # (Auto) Monocytes # (Auto) Eosinophils # (Auto) Basophils # (Auto) CBC Comment AUTO DIFF Prothrombin Time 14.7 Prothromb Time International 1.3 Ratio Activated Partial 40.1 Thromboplast Time Fibrinogen 635 Sodium Level 124 Potassium Level 5.6 Chloride Level 84 Carbon Dioxide Level 13.9 Anion Gap 26 Blood Urea Nitrogen 57 Creatinine 1.70 Estimat Glomerular Filtration 39 Rate Random Glucose 161 Lactic Acid Level 17.0 Calcium Level 8.8 Total Bilirubin 0.2 Aspartate Amino Transf 68 (AST/SGOT) Alanine Aminotransferase 48 (ALT/SGPT) Alkaline Phosphatase 139 Ammonia 68 Troponin I 0.37 Total Protein 4.4 Albumin 1.2 Lipase 41 Blood Type O POSITIVE Antibody Screen POSITIVE Blood Bank Comment Urine Color RED Urine Turbidity HAZY Urine pH 5.0 Urine Specific [place] 1.024 Urine Protein 30 Urine Glucose (UA) TRACE Urine Ketones TRACE Urine Occult Blood SMALL Urine Nitrite NEG Urine Bilirubin NEG Urine Urobilinogen 2.0 Urine Leukocyte Esterase SMALL Urine RBC 22 Urine WBC 3 Urine Squamous Epithelial 1 Cells Urine Renal Epithelial Cells <1 Urine Bacteria OCC Urine Hyaline Casts 25 Urine Mucus FEW Urine Yeast (Budding) MOD Microscopic Urinalysis Comment CATH-CULTURE IND Blood Gas Puncture Site RT RADIAL Blood Gas Patient Temperature 98.6 Blood Gas HCO3 10 Blood Gas Base Excess -17.6 Blood Gas Oxygen Saturation 98 Arterial Blood pH 7.12 Arterial Blood Partial 32 Pressure CO2 Arterial Blood Partial 226 Pressure O2 Arterial Blood Oxygen Content 12.7 Arterial Blood 0.4 Carboxyhemoglobin Arterial Blood Methemoglobin 0.5 Blood Gas Hemoglobin 8.9 Oxygen Delivery Device VENTILATOR Blood Gas Ventilator Setting Blood Gas Inspired Oxygen 75 Date/Time Procedure Status Source Growth 01/07/17 01:40 Urine Culture Received Urine Clean Catch Pending 01/07/17 00:50 Aerobic Blood Culture Received Blood Peripheral Pending 01/07/17 00:50 Anaerobic Blood Culture Received Blood Peripheral Pending Result Diagram: 01/07/17 0050 01/07/17 0050 Imaging Imaging studies reviewed Septic Shock Reassessment Heart: Irregular Lungs: Course Skin: Dry Peripheral Pulses: Weak Right Radial Weak Left Radial Assessment and Plan Assessment and Plan NEURO: Acute metabolic encephalopathy - Encephalopathy most likely secondary to metabolic due to severe sepsis - Hyperammonemia contributing - Propofol for sedation and ventilator synchrony - Daily sedation vacation starting 24 hours RESP: Acute respiratory failure Aspiration pneumonia - Intubated in the ED for airway protection - ACV, DuoNeb every 6 hours when necessary, ventilator bundle - CT of the chest to evaluate infiltrates pending - Broad-spectrum antibiotics with vancomycin and Zosyn\ CV: Septic and hemorrhagic shock Severe lactic acidosis - Normal saline IV fluids total 4 L bolus - Maintenance IV fluid with bicarbonate infusion at 150 ML per hour - Levophed to keep map above 65 - Serial lactic acid GI: Upper GI bleed Gastric adenocarcinoma was started on chemotherapy Hyperammonemia Rule out mesenteric ischemia - Transfuse 2 units PRBC - Nothing by mouth, IV Protonix bolus and infusion - GI consulted for probable EGD - Request records from [facility] - Lactulose once cleared by GI - CT abdomen pelvis to rule out ischemic colon, abdominal source of infection\ : Acute kidney failure - Monitor renal function closely. Brower catheter. Continue aggressive fluid resuscitation ID: Septic shock Pneumonia UTI/funguria - IV vancomycin, Zosyn and Diflucan - ID consult - CT abdomen pelvis to rule out abdominal source due to severe lactic acidosis, CT chest to evaluate infiltrate HEME: Anemia requiring transfusion -Monitor CBC, CMP, coags ENDO: Hyponatremia Hyperkalemia - Monitor potassium - Replace electrolytes per protocol - On po steroids at home-started on stress dose steroids PROPH: - Bilateral lower extremity SCDs. On chronic Apixaban - hold due to GIB - Continue Protonix infusion LINES: - Utilize peripheral IVs, central line if needed. Has R upper chest port CC time 55 min Code Status Full Discussed Condition With Dr. Spencer Problem Qualifiers (1) Acute respiratory failure: Qualified Code: J96.01 - Acute respiratory failure with hypoxia and hypercapnia (2) Anemia: Qualified Code: D64.9 - Anemia, unspecified type (3) Aspiration pneumonia: Qualified Code: J69.0 - Aspiration pneumonia of both lungs, unspecified aspiration pneumonia type, unspecified part of lung (4) Leukocytosis: Qualified Code: D72.829 - Leukocytosis, unspecified type (5) Gastric cancer: Qualified Code: C16.9 - Malignant neoplasm of stomach, unspecified location Ventura Benavides MD Jan 07, 2017 03:18
[2017-01-07] MEDS ORDERED: PROC10TA PO (03:23)
[2017-01-07] MEDS ORDERED: ZOFR8TAB4 SL (03:23)
[2017-01-07] MEDS ORDERED: TRAM50TA PO (03:23)
[2017-01-07 03:27] LABS: BANDS 44 % (0-6); METAMYELOCYTES 6 % (0-1); MYELOCYTES 2 % (0-0); NEUTROPHIL # MANUAL DIFF 11.1 TH/MM3 (1.8-7.7); POLYS (SEG NEUTROPHILS) 24 % (16-70); PROMYELOCYTES 8 % (0-0); WBC DIFF SAMPLE 100
[2017-01-07 03:28] LABS: DOHLE BODIES PRESENT (NONE SEEN); PLATELET ESTIMATE SMEAR NORMAL (NORMAL); PLATELET MORPHOLOGY ENLARGED (NORMAL); SCAN/DIFF FINAL DIFF MANUAL
[2017-01-07] MEDS ORDERED: RESP: ALBUTEROL 2.5 MG/3 ML NEB (PRN) INH (03:30)
[2017-01-07] MEDS ORDERED: ACETAMINOPHEN 325 MG TAB PO PRN (03:30)
[2017-01-07] MEDS ORDERED: CHLORHEXIDINE GLUCONATE 2 % 1 PACK (2 CLOTHS) TOP PRN (03:30)
[2017-01-07] MEDS ORDERED: Vancomycin Consult Pharmacy 1 EA OTHER SCH (03:30)
[2017-01-07] MEDS ORDERED: MISCELLANEOUS NURSING INFORMATION XX SCH (03:30)
[2017-01-07] MEDS ORDERED: MIDAZOLAM 100 MG/100 ML INJ 100 ML IV SCH (03:30)
[2017-01-07] MEDS ORDERED: GLUCAGON 1 MG/ML VIAL OTHER PRN (03:45)
[2017-01-07] MEDS: RESP: ALBUTEROL 2.5 MG/IPRATROPIUM 0.5 MG NEB (SCH) NEB ×4 (03:54→20:47)
[2017-01-07] MEDS ORDERED: HYDROCORTISONE SOD SUCCINATE 250 MG VIAL IV SCH (04:00)
[2017-01-07] MEDS ORDERED: FLUCONAZOLE 100 MG PREMIX BAG 50 ML IV SCH (04:00)
[2017-01-07] MEDS ORDERED: ETOMIDATE 20 MG/10 ML VIAL ONE (04:43)
[2017-01-07] MEDS ORDERED: SUCCINYLCHOLINE CHLORIDE 200 MG/10 ML VIAL ONE (04:44)
--- NOTE | 2017-01-07 05:42 | RADRPT ---
EXAM DATE/TIME: 01/07/2017 05:09 [facility] COMPARISON: CT ABDOMEN & PELVIS W/O CONTRAST, December 06, 2016, 2:10. INDICATIONS : Black emesis yesterday. Current stomach cancer. ORAL CONTRAST: No oral contrast ingested. RADIATION DOSE: 5.17 CTDIvol (mGy) ; Combined studies - Thorax/Abdomen/Pelvis MEDICAL HISTORY : Hypertension. Renal calculi. Prostate cancer. Stomach cancer. SURGICAL HISTORY : None. ENCOUNTER: Initial ACUITY: 1 day PAIN SCALE: Non-responsive LOCATION: Bilateral abdomen TECHNIQUE: Volumetric scanning of the abdomen and pelvis was performed. Using automated exposure control and ad justment of the mA and/or kV according to patient size, radiation dose was kept as low as reasonably achievable to obtain optimal diagnostic quality images. DICOM format image data is available electro nically for review and comparison. FINDINGS: There are multiple bilateral pulmonary nodules and consolidative opacities in the lingula and both lo wer lobes. Coronary artery calcification is noted. There is peripheral branching air lucency in the l eft lobe of the liver consistent with portal venous gas portal venous gas. The gallbladder is distend ed. Nonobstructing calculus right mid pole kidney measuring 4.3 mm. The spleen is small with calcifie d granulomas. Pancreas is fatty replaced. Adrenal glands are normal. Aortic and iliac artery calcific ations are noted. There is focal ectasia of the infrarenal abdominal aorta measuring 2.5 x 2.3 cm in AP and transverse dimension with a focal intimal flap noted on axial image 43 consistent with a focal dissection, nonacute. Air is noted in the urinary bladder with a Brower catheter in place. There is d iverticulosis of the sigmoid colon and descending colon without diverticulitis. There is free air rachelle ntified in the right lower quadrant and air in the vasculature in the right lower quadrant. CONCLUSION: Portal venous gas in the left lobe of the liver is a new finding from previous examinations as well a s free air in the right lower quadrant and right upper quadrant. Air does appear within the pericolon ic vasculature adjacent to the ascending colon which can be seen with ischemic bowel. Juan Diego Frias MD on January 07, 2017 at 5:31 Board Certified Radiologist. This report was verified electronically.
--- NOTE | 2017-01-07 05:50 | RADRPT ---
EXAM DATE/TIME: 01/07/2017 05:12 [facility] COMPARISON: CHEST SINGLE AP, January 07, 2017, 1:27. CT ABDOMEN & PELVIS W/O CONTRAST, January 07, 2017, 5:09. INDICATIONS : Evaluate infiltrate. RADIATION DOSE: 5.17 CTDIvol (mGy) ; Combined studies - Thorax/Abdomen/Pelvis MEDICAL HISTORY : Hypertension. Renal calculi. Stomach cancer. Prostate cancer. SURGICAL HISTORY : None. ENCOUNTER: Initial ACUITY: 1 day PAIN SCALE: Non-responsive LOCATION: chest TECHNIQUE: Volumetric scanning of the chest was performed. Using automated exposure control and adjustment of t he mA and/or kV according to patient size, radiation dose was kept as low as reasonably achievable to obtain optimal diagnostic quality images. DICOM format image data is available electronically for r eview and comparison. Follow-up recommendations for incidentally detected pulmonary nodules are based at a minimum on nodul e size and patient risk factors according to Fleischner Society Guidelines. FINDINGS: There are innumerable pulmonary nodules bilaterally. There are confluent areas of consolidation and p atchy consolidation in both lower lobes with air bronchograms ormation noted. There is also patchy li ngular airspace disease. A confluent masslike opacity in the right upper lobe posteriorly measures 2. 6 cm. Left upper lobe 1.2 cm mass on image 25. A partially calcified pleural plaque right upper lobe measuring endotracheal tube and NG tube identified as well as a percutaneous gastrostomy tube. 2.6 cm . CONCLUSION: 1. Atherosclerosis. 2. Numerous bilateral pulmonary nodules suspicious for metastatic disease. 3. Bilateral proximal infiltrates. Juan Diego Frias MD on January 07, 2017 at 5:46 Board Certified Radiologist. This report was verified electronically.
[2017-01-07] MEDS ORDERED: ENOXAPARIN SODIUM 30 MG/0.3 ML SYRINGE SQ SCH (06:00)
[2017-01-07] MEDS: INSULIN ASPART SUPPLEMENTAL SCALE SQ SCH ×6 (06:00→23:30)
[2017-01-07] MEDS: fentaNYL DRIP 250 ML IV SCH (06:08)
[2017-01-07 06:13] LABS: BLOOD GAS BASE EXCESS -16.4 mmol/L (-2-2); BLOOD GAS CARBOXYHEMOGLOBIN 0.7 % (0-4); BLOOD GAS HCO3 10 mmol/L (22-26); BLOOD GAS METHEMOGLOBIN 0.7 % (0-2); BLOOD GAS O2 HGB SATURATION 93 % (90-100); BLOOD GAS PCO2 28 mmHg (38-42); BLOOD GAS PO2 91 mmHg (61-120); BLOOD GAS TOTAL HGB 10.6 G/DL (12.0-16.0); TEMP CORR TO 98.6
[2017-01-07 06:14] LABS: FIO2 40 %; OXYGEN DEVICE VENTILATOR; VENT SETTINGS AC/20/600/PEEP8
[2017-01-07 06:15] LABS: DRAW SITE LT RADIAL; NUMBER OF ARTERIAL PUNCTURES 1; STAT YES; ULNAR PULSE PRESENT
[2017-01-07 06:16] LABS: CRITICAL VALUE YES
[2017-01-07] MEDS: CHLORHEXIDINE GLUCONATE 2 % 1 PACK (2 CLOTHS) TOP SCH (06:46)
[2017-01-07] MEDS ORDERED: SODIUM BICARBONATE 8.4% INJ 50 MEQ/50 ML SYR IV PUSH ONE (07:00)
[2017-01-07] MEDS ORDERED: SODIUM BICARBONATE 8.4% INJ 50 MEQ/50 ML SYR ONE (07:01)
[2017-01-07] MEDS: SODIUM BICARBONATE 8.4% INJ 150 MEQ in WATER STERILE FOR INJ 850 ML IV SCH ×3 (07:47→23:13)
[2017-01-07] MEDS ORDERED: HYDROCORTISONE SOD SUCCINATE 100 MG VIAL IV SCH (08:00)
[2017-01-07] MEDS: CHLORHEXIDINE 0.12% (ORAL KIT) 15 ML CUP MT SCH ×2 (08:29→20:00)
[2017-01-07 08:35] LABS: BLOOD GAS BASE EXCESS -7.4 mmol/L (-2-2); BLOOD GAS CARBOXYHEMOGLOBIN 1.2 % (0-4); BLOOD GAS HCO3 17 mmol/L (22-26); BLOOD GAS METHEMOGLOBIN 0.7 % (0-2); BLOOD GAS O2 HGB SATURATION 93 % (90-100); BLOOD GAS OXYGEN CONTENT 14.9 Vol % (12.0-20.0); BLOOD GAS PCO2 31 mmHg (38-42); BLOOD GAS PO2 75 mmHg (61-120); BLOOD GAS TOTAL HGB 11.3 G/DL (12.0-16.0); CRITICAL VALUE NO; TEMP CORR TO 98.6
[2017-01-07 08:36] LABS: DRAW SITE ART LINE; FIO2 40 %; OXYGEN DEVICE VENTILATOR; STAT NO
[2017-01-07] MEDS: HYDROCORTISONE SOD SUCCINATE 100 MG VIAL IV SCH ×2 (08:37→17:15)
[2017-01-07] MEDS: PIPERACIL-TAZO 3.375 GM PREMIX 50 ML IV SCH ×3 (08:37→20:04)
[2017-01-07] MEDS ORDERED: PANTOPRAZOLE SODIUM 40 MG VIAL IV SCH (09:00)
[2017-01-07 09:35] LABS: ALKALINE PHOSPHATASE 152 U/L (45-117); ALT (GPT) 61 U/L (12-78); ANION GAP 23 MEQ/L (5-15); AST (GOT) 109 U/L (15-37); BICARBONATE 16.9 MEQ/L (21.0-32.0); BLOOD UREA NITROGEN 61 MG/DL (7-18); CHLORIDE 88 MEQ/L (98-107); GLOMERULAR FILTRATION RATE 44 ML/MIN (>89); POTASSIUM 4.9 MEQ/L (3.5-5.1); SODIUM (NA) 128 MEQ/L (136-145); TOTAL BILIRUBIN ADULT 0.4 MG/DL (0.2-1.0)
--- NOTE | 2017-01-07 09:48 | PD.CONS ---
HPI History of Present Illness This is a 76 year old currently in the ICU for acute metabolic encephalopathy, acute respiratory failure, aspiration pneumonia, septic and hemorrhagic shock, severe lactic acidosis, upper GI bleed, acute kidney failure with multiple electrolyte abnormalities, and UTI/funguria. GI has been consulted for upper gastrointestinal bleeding. The patient is currently sedated and on the ventilator and is unable to provide any history and therefore the history has been obtained from the nursing staff and inpatient/outpatient records. He was evaluated by Dr. Segura with EGD/Colonoscopy (09/20/16) and this revealed duodenal ulcer with stigmata recent bleeding, clean, nonbleeding rectal ulcers, hemorrhoids, and polyps. The pathology revealed poorly differentiated gastric adenocarcinoma diffuse type- section showed gastric mucosa with an infiltration of signet ring cell with acute inflammation and ulceration He was evaluated by Dr. Ko with GS and Dr. Orozco with oncology. Per Dr. Ko's note, he was not stable for any surgical intervention at the time and recommended outpatient follow up. We then saw him in November, at which time he was evaluated for severe anemia with Hgb of 4.4. 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 According that note, it stated that he did have poorly differentiated adenocarcinom of stomach, s/p peg tube placement and that he had poor functional status. He was treated was transfused and treated with steroids. EGD (11/19/16)----> PEG in place. Gastritis in the antrum. Clean- based ulcer in the duodenal bulb. Duodenal bulb diverticulum, duodenitis. In the duodenal bulb biopsy was performed, very friable mucosa. Retroflexion revealed a hiatal hernia. Pathology revealed moderate chronic gastritis with edema and reactive epithelial changes, focal minimal acute inflammation and edema, negative for peptic duodenitis, negative for features of celiac disease. We then evaluated him when he was hospitalized at this facility in December of 2016 for severe odynophagia dysphagia. Modified barium swallow (12/11/16) revealed severe pharyngeal phase dysphagia with gross aspiration on all consistencies due to poor epiglottic inversion. He elicited a delayed cough response and response to the aspiration. Patient was able to clear stasis in the performed sinus but not in the valleculae. Tentative posture was attempted but did not eliminate the aspiration. It was recommended that the patient remain nothing by mouth with bypass feedings and possible vital stimulation with speech therapy when discharged to rehabilitation. The patient is followed at [facility] and recently started chemotherapy with Apixaban about 11 days ago. He is currently critically ill, sedated on mechanical ventilation. He has an NGT and this is putting out coffee ground emesis and he is having melena. He is on vasopressors for hypotension. The nurse reports that his blood glucose was 35 this am and he is getting D50. CT scan abdomen and pelvis without contrast (01/07/17) revealed portal venous gas in the left lobe of the liver is a new finding from previous examinations as well as free air in the right lower quadrant and right upper quadrant. Air does appear within the pericolonic vasculature adjacent to the ascending colon which can be seen with ischemic bowel. General surgery, as well as palliative care, has been consulted. [facility] Past Medical History Poorly differentiated gastric adenocarcinoma diffuse type- section showed gastric mucosa with an infiltration of signet ring cell with acute inflammation and ulceration Hx of autoimmune hemolytic anemia. Gastritis, Duodenal bulb ulcers Colon polyps HTN Diabetes Hx DVT Hx aspiration pna Abn. weight loss Kidney stone Past Surgical History PEG tube placement EGD Colonoscopy Radiation seed placement in past Port placement Coded Allergies: Sulfa (Verified Allergy, Unknown, 01/07/17) Medications Allergies Coded Allergies Type Severity Reaction Last Updated Verified Sulfa Allergy Unknown 01/07/17 Yes Active Scripts Medications Dose Route/Sig Days Date Category Dose Instructions Tramadol (Tramadol HCl) 50 Mg Tab 50 Mg PO BID PRN 01/07/17 Reported Zofran Odt (Ondansetron Odt) 8 Mg Tab 8 Mg SL Q8H PRN 01/07/17 Reported Prochlorperazine Maleate 10 Mg Tab 30 Mg PO Q4H PRN 01/07/17 Reported Diflucan (Fluconazole) 100 Mg Tab 100 Mg PO DAILY 12/11/16 Rx Augmentin (Amoxicillin-Clavulanate) 875-125 Mg Tab 1 Tab PO BID 12/06/16 Reported Novolog Inj (Insulin Aspart) 1,000 Unit/10 Ml Vial 0 SQ DIRECTED 12/06/16 Reported Sliding Scale as directed. Sertraline (Sertraline HCl) 50 Mg Tab 50 Mg PO DAILY 12/06/16 Reported Eliquis (Apixaban) 5 Mg Tab 5 Mg PO BID 12/06/16 Reported Glimepiride 4 Mg Tab 4 Mg PO BIDAC 12/06/16 Reported Prednisone 20 Mg Tab 20 Mg PO BID 12/06/16 Reported Metformin (Metformin HCl) 850 Mg Tab 850 Mg PO BIDPC 12/06/16 Reported With meals Family History Denies any family hx of esophageal, gastric, or colorectal cancer. Social History Denies tobacco, etoh, illicit drug use. Review of Systems ROS Unable to obtain from patient- melena and coffee ground secretions. GI Exam Vitals I&O Vital Signs Date Time Temp Pulse Resp B/P Pulse Ox O2 Delivery O2 Flow Rate FiO2 01/07/17 08:48 50 01/07/17 08:39 94 50 01/07/17 08:00 40 01/07/17 08:00 99.1 117 24 105/52 99 01/07/17 07:08 22 01/07/17 07:00 99 Mechanical Ventilator 40 01/07/17 07:00 40 01/07/17 06:30 98.8 118 23 99 01/07/17 06:00 116 01/07/17 05:40 99.0 114 24 96 01/07/17 05:30 99.0 118 29 79/52 95 01/07/17 05:13 100 100 01/07/17 04:25 124 20 100/69 Ventilator 01/07/17 04:12 98 50 01/07/17 03:15 128 18 108/60 98 Ventilator 50 01/07/17 03:00 128 18 108/57 98 Ventilator 50 01/07/17 02:45 128 18 100/69 96 Ventilator 50 01/07/17 02:40 130 18 84/58 98 Ventilator 50 01/07/17 02:35 124 18 78/55 97 Ventilator 50 01/07/17 02:30 128 18 77/50 97 Ventilator 50 01/07/17 02:25 126 18 75/48 97 Ventilator 50 01/07/17 02:20 96.1 128 18 74/51 97 Ventilator 50 01/07/17 02:15 96.1 124 18 89/52 98 Ventilator 50 01/07/17 02:00 100 50 01/07/17 02:00 96.1 118 18 86/55 98 Ventilator 50 01/07/17 01:50 95.7 112 18 90/56 97 Ventilator 50 01/07/17 01:45 95.7 112 18 102/55 96 Ventilator 50 01/07/17 01:30 108 18 96/51 100 Ventilator 50 01/07/17 01:16 75 01/07/17 01:15 108 18 79/46 95 Ventilator 50 01/07/17 01:15 100 75 01/07/17 01:00 112 24 93/53 95 Nasal Cannula 01/07/17 00:45 112 27 92/55 99 Non-Rebreather 01/07/17 00:43 28 100 Non-Rebreather 01/07/17 00:43 100 Non-Rebreather 01/07/17 00:35 99.2 121 31 92/55 94 I/O 01/06/17 01/06/17 01/06/17 01/07/17 01/07/17 01/07/17 06:59 14:59 22:59 06:59 14:59 22:59 Output Total 800 ml Balance -800 ml Gastric Drainage Total 800 ml Imaging Last Impressions Chest X-Ray 01/07/17 0036 Signed Impressions: Service Date/Time: Saturday, January 07, 2017 00:35 - CONCLUSION: Bilateral pulmonary nodules, interstitial and alveolar infiltrates. Juan Diego Frias MD Chest CT 01/07/17 0000 Signed Impressions: Service Date/Time: Saturday, January 07, 2017 05:12 - CONCLUSION: 1. Atherosclerosis. 2. Numerous bilateral pulmonary nodules suspicious for metastatic disease. 3. Bilateral proximal infiltrates. Juan Diego Frias MD Abdomen/Pelvis CT 01/07/17 0000 Signed Impressions: Service Date/Time: Saturday, January 07, 2017 05:09 - CONCLUSION: Portal venous gas in the left lobe of the liver is a new finding from previous examinations as well as free air in the right lower quadrant and right upper quadrant. Air does appear within the pericolonic vasculature adjacent to the ascending colon which can be seen with ischemic bowel. Juan Diego Frias MD Laboratory Test 01/07/17 01/07/17 01/07/17 01/07/17 00:50 01:40 01:50 03:49 White Blood Count 13.2 TH/MM3 Red Blood Count 2.78 MIL/MM3 Hemoglobin 8.1 GM/DL Hematocrit 24.9 % Mean Corpuscular Volume 89.4 FL Mean Corpuscular Hemoglobin 28.9 PG Mean Corpuscular Hemoglobin 32.4 % Concent Red Cell Distribution Width 18.0 % Platelet Count 241 TH/MM3 Mean Platelet Volume 9.1 FL Neutrophils (%) (Auto) % Lymphocytes (%) (Auto) % Monocytes (%) (Auto) % Eosinophils (%) (Auto) % Basophils (%) (Auto) % Neutrophils # (Auto) TH/MM3 Lymphocytes # (Auto) TH/MM3 Monocytes # (Auto) TH/MM3 Eosinophils # (Auto) TH/MM3 Basophils # (Auto) TH/MM3 CBC Comment AUTO DIFF Differential Total Cells 100 Counted Neutrophils % (Manual) 24 % Band Neutrophils % 44 % Lymphocytes % 9 % Monocytes % 2 % Other Cells % 5 % Neutrophils # (Manual) 11.1 TH/MM3 Metamyelocytes 6 % Myelocytes 2 % Promyelocytes 8 % Differential Comment FINAL DIFF MANUAL Dohle Bodies PRESENT Platelet Estimate NORMAL Platelet Morphology Comment ENLARGED Prothrombin Time 14.7 SEC Prothromb Time International 1.3 RATIO Ratio Activated Partial 40.1 SEC Thromboplast Time Fibrinogen 635 mg/dL Sodium Level 124 MEQ/L Potassium Level 5.6 MEQ/L Chloride Level 84 MEQ/L Carbon Dioxide Level 13.9 MEQ/L Anion Gap 26 MEQ/L Blood Urea Nitrogen 57 MG/DL Creatinine 1.70 MG/DL Estimat Glomerular Filtration 39 ML/MIN Rate Random Glucose 161 MG/DL Lactic Acid Level 17.0 mmol/L 14.6 mmol/L Calcium Level 8.8 MG/DL Total Bilirubin 0.2 MG/DL Aspartate Amino Transf 68 U/L (AST/SGOT) Alanine Aminotransferase 48 U/L (ALT/SGPT) Alkaline Phosphatase 139 U/L Ammonia 68 MCMOL/L Troponin I 0.37 NG/ML Total Protein 4.4 GM/DL Albumin 1.2 GM/DL Lipase 41 U/L Blood Type O POSITIVE O POSITIVE Antibody Screen POSITIVE Antibody Identification Non-Specific Warm Agglutinin Crossmatch Leukocyte-Reduced Red Blood Cells Blood Bank Comment Urine Color RED Urine Turbidity HAZY Urine pH 5.0 Urine Specific Marshall 1.024 Urine Protein 30 mg/dL Urine Glucose (UA) TRACE mg/dL Urine Ketones TRACE mg/dL Urine Occult Blood SMALL Urine Nitrite NEG Urine Bilirubin NEG Urine Urobilinogen 2.0 MG/DL Urine Leukocyte Esterase SMALL Urine RBC 22 /hpf Urine WBC 3 /hpf Urine Squamous Epithelial 1 /hpf Cells Urine Renal Epithelial Cells <1 /hpf Urine Bacteria OCC /hpf Urine Hyaline Casts 25 /lpf Urine Mucus FEW /lpf Urine Yeast (Budding) MOD Microscopic Urinalysis Comment CATH-CULTURE IND Blood Gas Puncture Site RT RADIAL Blood Gas Patient Temperature 98.6 Blood Gas HCO3 10 mmol/L Blood Gas Base Excess -17.6 mmol/L Blood Gas Oxygen Saturation 98 % Arterial Blood pH 7.12 Arterial Blood Partial 32 mmHg Pressure CO2 Arterial Blood Partial 226 mmHG Pressure O2 Arterial Blood Oxygen Content 12.7 Vol % Arterial Blood 0.4 % Carboxyhemoglobin Arterial Blood Methemoglobin 0.5 % Blood Gas Hemoglobin 8.9 G/DL Oxygen Delivery Device VENTILATOR Blood Gas Ventilator Setting Blood Gas Inspired Oxygen 75 % Test 01/07/17 01/07/17 01/07/17 06:00 08:25 08:28 Blood Gas Puncture Site LT RADIAL ART LINE Blood Gas Patient Temperature 98.6 98.6 Blood Gas HCO3 10 mmol/L 17 mmol/L Blood Gas Base Excess -16.4 mmol/L -7.4 mmol/L Blood Gas Oxygen Saturation 93 % 93 % Arterial Blood pH 7.19 7.36 Arterial Blood Partial 28 mmHg 31 mmHg Pressure CO2 Arterial Blood Partial 91 mmHg 75 mmHg Pressure O2 Arterial Blood Oxygen Content 14.0 Vol % 14.9 Vol % Arterial Blood 0.7 % 1.2 % Carboxyhemoglobin Arterial Blood Methemoglobin 0.7 % 0.7 % Blood Gas Hemoglobin 10.6 G/DL 11.3 G/DL Oxygen Delivery Device VENTILATOR VENTILATOR Blood Gas Ventilator Setting AC/20/600/PEEP8 AC,20,600,PEEP5 Blood Gas Inspired Oxygen 40 % 40 % Lactic Acid Level 13.5 mmol/L Date/Time Procedure Status Source Growth 01/07/17 01:40 Urine Culture Received Urine Clean Catch Pending 01/07/17 00:50 Aerobic Blood Culture Received Blood Peripheral Pending 01/07/17 00:50 Anaerobic Blood Culture Received Blood Peripheral Pending Physical Examination HEENT: Normocephalic; atraumatic; no jaundice. CHEST: Resp. even/unlabored, diminished. CARDIAC: Afib/flutter on monitor. Rate 80's ABDOMEN: Soft, nondistended, nontender; no hepatosplenomegaly; bowel sounds hypoactive. OGT with coffee ground gastric secretions, melena SKIN: Generalized pallor, skin cool to touch APPLICATION ANALYST: Sedated on ventilator. Assessment and Plan Plan ASSESSMENT: - Upper GI Bleeding in patient with known gastric cancer. EGD/Colonoscopy (09/20) and this revealed duodenal ulcer with stigmata recent bleeding, clean, nonbleeding rectal ulcers, hemorrhoids, and polyps. The pathology revealed poorly differentiated gastric adenocarcinoma diffuse type- section showed gastric mucosa with an infiltration of signet ring cell with acute inflammation and ulceration. EGD (11/19/16)----> PEG in place. Gastritis in the antrum. Clean-based ulcer in the duodenal bulb. Duodenal bulb diverticulum, duodenitis. In the duodenal bulb biopsy was performed, very friable mucosa. Retroflexion revealed a hiatal hernia. Pathology revealed moderate chronic gastritis with edema and reactive epithelial changes, focal minimal acute inflammation and edema, negative for peptic duodenitis, negative for features of celiac disease. Protonix Gtt. - Suspected Ischemic bowel with free air in right lower quadrant and right upper quadrant. CT scan abdomen and pelvis without contrast (01/07/17) revealed portal venous gas in the left lobe of the liver is a new finding from previous examinations as well as free air in the right lower quadrant and right upper quadrant. Air does appear within the pericolonic vasculature adjacent to the ascending colon which can be seen with ischemic bowel. General surgery, as well as palliative care, has been consulted. Zosyn. - Gastric cancer, poorly differentiated gastric adenocarcinoma diffuse type- section showed gastric mucosa with an infiltration of signet ring cell with acute inflammation and ulceration. Dx by EGD/Pathology in September in 2016. S/P eval by Dr. Ko with GS and Dr. Orozco with oncology at [facility]. Per Dr. Ko's note, he was not stable for any surgical intervention at the time and recommended outpatient follow up. We then saw him in November, at which time he was evaluated for severe anemia with Hgb of 4.4. 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 According that note, it stated that he did have poorly differentiated adenocarcinoma of stomach, s/p peg tube placement and that he had poor functional status. The patient is followed now at [place] and started chemotherapy about 10 days ago- Apixaban. - Septic/Hemorrhagic shock. Urine Niecy albicans. BCx pending. CT consistent with ischemia and with free air. GS consulted. On vasopressors. Zosyn. Diflucan - ARF with multiple electrolyte abnormalities. Per CCM - Severe hypoglycemia, per CCM - Elevated LFTs. T. Bili 0.4, AST 109, ALT 61, Alk Phosph 152. - Acute metabolic encephalopathy. per ccm - Acute respiratory failure, Aspiration pneumonia. Vent per CCM - Dysphagia. Modified barium swallow (12/11/16) revealed severe pharyngeal phase dysphagia with gross aspiration on all consistencies due to poor epiglottic inversion. He elicited a delayed cough response and response to the aspiration. Patient was able to clear stasis in the performed sinus but not in the valleculae. Tentative posture was attempted but did not eliminate the aspiration. It was recommended that the patient remain nothing by mouth with bypass feedings and possible vital stimulation with speech therapy when discharged to rehabilitation. PLAN: - NPO - Protonix Gtt - Monitor HH - Transfuse as necessary - Zosyn/Diflucan - GS consulted - Palliative care consulted - Supportive care - Not stable for GI procedures - Pt with poor prognosis, comfort care would be appropriate - Further recommendations to follow based on results of above - Pt seen and examined by Dr. Garcia and myself and this note is written on his behalf Meena Clay Jan 07, 2017 09:48
[2017-01-07] MEDS: DEXTROSE 50% IN WATER 50 ML VIAL(D50) IV PUSH PRN (10:07)
--- NOTE | 2017-01-07 10:27 | PD.CONS ---
Consult Service Palliative Care Consult Requested By Dr Hernandez . Primary Care Physician Jorge Woo MD Reason for Consultation a. To assist with evaluation and management of symptoms including: dyspnea, malnutrition b. To assist medical decision maker(s) with: better understanding of current medical conditions; weighing benefits/burdens of medical treatment options; making medical treatment decisions. (DorisRachael barton DOREEN) HPI History of Present Illness This 76-year-old man presented to the ED 01/07/17 around midnight for shortness breath, GI bleed, via EMS. Per EMS patient yesterday began have coffee-ground emesis, lasting 24 hours, melanotic stool. She hasn't been progressively more dyspneic, with gurgling respirations. Less responsive, EMS was activated. EMS found patient hypotensive in the 70s, improving with fluids. Also tachycardic with heart rate 120s, tachypneic. Patient reported a full code per EMS. * ED course: Received 3 L fluid bolus, Zofran, PPI. CXR notes bilateral patchy infiltrates. EKG notes sinus tachycardia. Respiratory rate not improving, more congestion even with NT suctioning, patient was intubated. Started on empiric antibiotics Vanco, Zosyn. WBC 13.2. Sodium 124, potassium 5.6, bicarbonate 13.9. BUN 27/creatinine 1.70. Troponin 0.37. Ammonia 68, lactic acid 17.0. Hemoglobin 8.1ordered for 2 units RBC. UA positive bacteria, yeast. Still hypotensive despite IV fluids, started on norepinephrine drip. Receiving fentanyl, Versed for sedation. Grave condition noted to be discussed with patient daughter, maybe nonsurvivable per ED physician. Palliative care was consulted. Admitted to ICU for further evaluation and management. * Additional history per critical care H&P: Patient with known history gastric adenocarcinoma recently started on chemotherapy at [facility] in [place]. Other history significant for diabetes, hypertension, dyslipidemia. * CT abdomen= portal venous gas left lower liver new finding from prior exam, free air right lower quadrant right upper quadrant does appear to be within pericolonic vasculature adjacent to ascending colon which can be seen with ischemic bowel. * Chest CT= atherosclerosis, numerous bilateral pulmonary nodules suspicious for metastatic disease, bilateral proximal infiltrates. * GI consulted, critical care consulted Patient seen in room primary nurse present, no visitors present. Patient is minimally responsive to my exam. Patient on Levophed 12 mics/minute, fentanyl 50 mics/hour. Following exam call to patient --provided very brief overview/update, introduced self and palliative care requested to meet with her when she will be in visiting today. She is distraught at times and tells me she thought the patient would be getting better today because he was put on a breathing machine last night. She tells me that he should be getting better if everyone is praying, and that sometimes people do recover from conditions like his. Offered to further explore his conditions, prognosis with her in person, ask her if her daughter will be joining us she indicates no she will be here as soon as she is able to get here. Nursing will notify me. Additional history per review of available records from [facility] admissions: Appears pt dx via CT guided bx August 2016. Was discharged to [facility]. Was again hospitalized in September for GI bleed, sepsis, acute renal failure, suspected aspiration pneumonia with cavitation in the lung. PEG tube placed during one of those admissions. Hospitalized again in November for pneumonia at [facility]. Was hospitalized here at [facility] in the first week of December for UTI, hematuria, renal calculi. Feeding tube was already in place, patient evaluated by ST in December noted to have severe dysphagia felt to be secondary to dementia. Also noted to have stage IV pressure wounds to coccyx , buttocks, seen by wound care during that admission. 12/11 was discharged home with family and home health--though he was recommended for SNF. Function/Cognitive Trajectory Patient has been in and out of hospital and usp setting since August of this year. Apparently previously lived at home with limited assisted mobility, utilized a wheelchair as needed. had to assist/provide most ADLs. 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 Gastritis, Duodenal bulb ulcers Colon polyps Hypertension Diabetes Hx DVT Hx aspiration pneumonia Abnormal weight loss Kidney stone Past Surgical History PEG tube placement EGD Colonoscopy Radiation seed placement in past . Reported Medications Diflucan (Fluconazole) 100 Mg Tab 100 Mg PO DAILY Augmentin (Amoxicillin-Clavulanate) 875-125 Mg Tab 1 Tab PO BID Novolog Inj (Insulin Aspart) 1,000 Unit/10 Ml Vial 0 SQ DIRECTED Sliding Scale as directed. Sertraline (Sertraline HCl) 50 Mg Tab 50 Mg PO DAILY Eliquis (Apixaban) 5 Mg Tab 5 Mg PO BID Glimepiride 4 Mg Tab 4 Mg PO BIDAC Prednisone 20 Mg Tab 20 Mg PO BID Metformin (Metformin HCl) 850 Mg Tab 850 Mg PO BIDPC With meals . Current Medications Medications (Trade) Dose Ordered Sig/Mojgan Route Start Time Stop Time Status Last Admin Sodium Chloride 2 ml 2 ml UNSCH PRN IVF 01/07/17 00:45 Pantoprazole Sodium 80 mg/ Sodium Chloride 100 ml @ 10 mls/hr Q10H IV 01/07/17 00:45 01/07/17 09:58 Norepinephrine Bitartrate 250 ml @ 0 mls/hr TITRATE IV 01/07/17 01:30 01/07/17 02:01 (fentaNYL DRIP) 250 ml @ 0 mls/hr CONTINUOUS IV 01/07/17 01:45 01/07/17 06:08 (Tylenol) 650 mg Q6H PRN PO 01/07/17 03:30 (fentaNYL INJ) 50 mcg Q1H PRN IV 01/07/17 03:30 01/07/17 06:08 (Peridex 0.12% Liq) 15 ml BID@08,20 MT 01/07/17 08:00 01/07/17 08:29 (Protonix Inj) 40 mg DAILY IV 01/07/17 09:00 Miscellaneous Information 1 Q361D XX 01/07/17 03:30 01/07/17 06:41 (Chlorhexidine 2% Cloth) 3 pack Taper DAILY@04 TOP 01/07/17 04:00 01/03/18 03:59 01/07/17 06:46 Chlorhexidine Gluconate 3 pack 3 pack UNSCH PRN TOP 01/07/17 03:30 Midazolam HCl 100 ml @ 0 mls/hr TITRATE IV 01/07/17 03:30 Piperacillin Sod/ Tazobactam Sod 50 ml @ 200 mls/hr Q6H IV 01/07/17 08:00 01/07/17 08:37 Pharmacy Profile Note 0 ml @ 0 mls/hr UNSCH OTHER 01/07/17 03:30 (Diflucan 100 Mg Premix Bag) 50 ml @ 50 mls/hr Q24H IV 01/07/17 04:00 01/07/17 08:29 (NovoLOG SUPPLEMENTAL SCALE) 1 Q4H SQ 01/07/17 03:30 (D50w (Vial) Inj) 50 ml UNSCH PRN IV PUSH 01/07/17 03:45 01/07/17 10:07 Glucagon 1 mg 1 mg UNSCH PRN OTHER 01/07/17 03:45 (Sodium Bicarbonate 8.4% Inj/Sterile Water For Inj) 1,000 ml @ 150 mls/hr Q6H40M IV 01/07/17 07:00 01/07/17 07:47 (SoluCORTEF INJ) 100 mg Q8H IV 01/07/17 08:00 01/07/17 08:37 Family History Per EMR: Denies any family hx of esophageal, gastric, or colorectal cancer. Substance Use Tobacco: Nonsmoker Alcohol: None Prescription med abuse: None . Psychosocial History Patient apparently lived at home with his , daughter, though recently has been in and out of the hospital and usp settings. Daughter actually lives in [place] however has been staying with the patient and his since all of this started in August. Patient has 2 adult daughters who both live out of state. 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 . Spiritual/Cultural Factors Catholicchaplaincy support has been requested (Rachael George) Living Will: Never completed Health Care Surrogate: Never completed Today's verbally stated goals: Patient's really wanted him to be well enough to go home and go back for more treatment at [facility]. She wishes to continue aggressive care for now however also indicates she does not want the patient to suffer or experience pain. also verbalizes that in the past she and the patient talked that if his cancer about worse or he could not recover that he would not want to suffer and he would want to be comfortable. Ethical and Legal Issues Patient, due to condition, is unable to participate in goals in decision- making. No advanced directive or HCS. Per [place] statutes would be appropriate legal decision maker.(Proxy) (Rachael George) Physical Exam Vital Signs Date Time Temp Pulse Resp B/P Pulse Ox O2 Delivery O2 Flow Rate FiO2 01/07/17 08:48 50 01/07/17 08:39 94 50 01/07/17 08:00 40 01/07/17 08:00 99.1 117 24 105/52 99 01/07/17 07:08 22 01/07/17 07:00 99 Mechanical Ventilator 40 01/07/17 07:00 40 01/07/17 06:30 98.8 118 23 99 01/07/17 06:00 116 01/07/17 05:40 99.0 114 24 96 01/07/17 05:30 99.0 118 29 79/52 95 01/07/17 05:13 100 100 01/07/17 04:25 124 20 100/69 Ventilator 01/07/17 04:12 98 50 01/07/17 03:15 128 18 108/60 98 Ventilator 50 01/07/17 03:00 128 18 108/57 98 Ventilator 50 01/07/17 02:45 128 18 100/69 96 Ventilator 50 01/07/17 02:40 130 18 84/58 98 Ventilator 50 01/07/17 02:35 124 18 78/55 97 Ventilator 50 01/07/17 02:30 128 18 77/50 97 Ventilator 50 01/07/17 02:25 126 18 75/48 97 Ventilator 50 01/07/17 02:20 96.1 128 18 74/51 97 Ventilator 50 01/07/17 02:15 96.1 124 18 89/52 98 Ventilator 50 01/07/17 02:00 100 50 01/07/17 02:00 96.1 118 18 86/55 98 Ventilator 50 01/07/17 01:50 95.7 112 18 90/56 97 Ventilator 50 01/07/17 01:45 95.7 112 18 102/55 96 Ventilator 50 01/07/17 01:30 108 18 96/51 100 Ventilator 50 01/07/17 01:16 75 01/07/17 01:15 108 18 79/46 95 Ventilator 50 01/07/17 01:15 100 75 01/07/17 01:00 112 24 93/53 95 Nasal Cannula 01/07/17 00:45 112 27 92/55 99 Non-Rebreather 01/07/17 00:43 28 100 Non-Rebreather 01/07/17 00:43 100 Non-Rebreather 15 01/07/17 00:35 99.2 121 31 92/55 94 01/06/17 01/07/17 19:00 07:00 Output Total 800 ml Balance -800 ml Gastric Drainage Total 800 ml Exam CONSTITUTIONAL/GENERAL: This is a frail, ill-appearing patient seen in ICU TUBES/LINES/DRAINS: Multiple peripheral IVs bilateral upper extremity, arterial line upper extremity, right subclavian port accessed, ET tube, OG tube, Brower catheter, SCDs SKIN: No jaundice, rashes, or lesions. Multiple areas of ecchymosis to upper chest, bilateral upper extremities. No wounds seen anteriorly. Skin temperature cool to distal extremities. HEAD: Atraumatic. Normocephalic. EYES: Pupils equal and round and reactive. No scleral icterus. No injection or drainage. Fundi not examined. ENT: Nose without bleeding or purulent drainage. Unable to visualize oropharynx due to ET tube, OG tube. NECK: Trachea midline. Supple, nontender. CARDIOVASCULAR: Regular rate and rhythm, tachycardic, observe PVCs on bedside monitor, observed sinus rhythm with occasional few beats of atrial fib. Peripheral pulses palpable. Distal feet are cool and mottled. Distal hands cool. RESPIRATORY/CHEST: Symmetric, unlabored respirations via mechanical vent. Course rhonchi throughout. Breath sounds equal bilaterally. GASTROINTESTINAL: Abdomen soft, flat, nondistended. No hepato-splenomegaly, or palpable masses. Unable to determine tenderness due to level of consciousness. Bowel sounds hypoactive. + Large amount of maroon liquid stool observed in bedding. OG tube to wall suction moderate amount maroon output. PEG , clamped GENITOURINARY: Without palpable bladder distension. Brower catheter in place scant amount of urine output. MUSCULOSKELETAL: Extremities without clubbing, cyanosis, or edema. No joint effusion noted. No calf tenderness. + Mottling to distal feet. LYMPHATICS: No palpable cervical or supraclavicular adenopathy. NEUROLOGICAL: Sedated on mechanical vent. Minimally responsive to exam. Localizes and moves bilateral feet to touch. Does not withdrawal hands to pain stimuli. No eye opening. PSYCHIATRIC: No obvious anxiety/depression--limited assessment due to level of consciousness/clinical condition (Rachael George) Diagnostic Tests Laboratory Laboratory Tests Test 01/07/17 01/07/17 01/07/1717 00:50 01:40 01:50 03:49 White Blood Count 13.2 TH/MM3 (4.0-11.0) Red Blood Count 2.78 MIL/MM3 (4.50-5.90) Hemoglobin 8.1 GM/DL (13.0-17.0) Hematocrit 24.9 % (39.0-51.0) Mean Corpuscular Volume 89.4 FL (80.0-100.0) Mean Corpuscular Hemoglobin 28.9 PG (27.0-34.0) Mean Corpuscular Hemoglobin 32.4 % Concent (32.0-36.0) Red Cell Distribution Width 18.0 % (11.6-17.2) Platelet Count 241 TH/MM3 (150-450) Mean Platelet Volume 9.1 FL (7.0-11.0) Neutrophils (%) (Auto) % (16.0-70.0) Lymphocytes (%) (Auto) % (9.0-44.0) Monocytes (%) (Auto) % (0.0-8.0) Eosinophils (%) (Auto) % (0.0-4.0) Basophils (%) (Auto) % (0.0-2.0) Neutrophils # (Auto) TH/MM3 (1.8-7.7) Lymphocytes # (Auto) TH/MM3 (1.0-4.8) Monocytes # (Auto) TH/MM3 (0-0.9) Eosinophils # (Auto) TH/MM3 (0-0.4) Basophils # (Auto) TH/MM3 (0-0.2) CBC Comment AUTO DIFF Differential Total Cells 100 Counted Neutrophils % (Manual) 24 % (16-70) Band Neutrophils % 44 % (0-6) Lymphocytes % 9 % (9-44) Monocytes % 2 % (0-8) Other Cells % 5 % Neutrophils # (Manual) 11.1 TH/MM3 (1.8-7.7) Metamyelocytes 6 % (0-1) Myelocytes 2 % (0-0) Promyelocytes 8 % (0-0) Differential Comment FINAL DIFF MANUAL Dohle Bodies PRESENT (NONE SEEN) Platelet Estimate NORMAL (NORMAL) Platelet Morphology Comment ENLARGED (NORMAL) Prothrombin Time 14.7 SEC (9.8-11.6) Prothromb Time International 1.3 RATIO Ratio Activated Partial 40.1 SEC Thromboplast Time (24.3-30.1) Fibrinogen 635 mg/dL (227-377) Sodium Level 124 MEQ/L (136-145) Potassium Level 5.6 MEQ/L (3.5-5.1) Chloride Level 84 MEQ/L (98-107) Carbon Dioxide Level 13.9 MEQ/L (21.0-32.0) Anion Gap 26 MEQ/L (5-15) Blood Urea Nitrogen 57 MG/DL (7-18) Creatinine 1.70 MG/DL (0.60-1.30) Estimat Glomerular Filtration 39 ML/MIN (>89) Rate Random Glucose 161 MG/DL (74-106) Lactic Acid Level 17.0 mmol/L 14.6 mmol/L (0.4-2.0) (0.4-2.0) Calcium Level 8.8 MG/DL (8.5-10.1) Total Bilirubin 0.2 MG/DL (0.2-1.0) Aspartate Amino Transf 68 U/L (15-37) (AST/SGOT) Alanine Aminotransferase 48 U/L (12-78) (ALT/SGPT) Alkaline Phosphatase 139 U/L (45-117) Ammonia 68 MCMOL/L (11-32) Troponin I 0.37 NG/ML (0.02-0.05) Total Protein 4.4 GM/DL (6.4-8.2) Albumin 1.2 GM/DL (3.4-5.0) Lipase 41 U/L (73-393) Blood Type O POSITIVE O POSITIVE Antibody Screen POSITIVE Antibody Identification Non-Specific Warm Agglutinin Crossmatch Leukocyte-Reduced Red Blood Cells Blood Bank Comment Urine Color RED (YELLW/STRAW) Urine Turbidity HAZY (CLEAR) Urine pH 5.0 (5.0-8.5) Urine Specific [place] 1.024 (1.002-1.035) Urine Protein 30 mg/dL (NEG-TRACE) Urine Glucose (UA) TRACE mg/dL (NEG) Urine Ketones TRACE mg/dL (NEG) Urine Occult Blood SMALL (NEG) Urine Nitrite NEG (NEG) Urine Bilirubin NEG (NEG) Urine Urobilinogen 2.0 MG/DL (LESS THAN 2.0) Urine Leukocyte Esterase SMALL (NEG) Urine RBC 22 /hpf (0-3) Urine WBC 3 /hpf (0-5) Urine Squamous Epithelial 1 /hpf (0-5) Cells Urine Renal Epithelial Cells <1 /hpf (NONE) Urine Bacteria OCC /hpf (NONE) Urine Hyaline Casts 25 /lpf (RARE) Urine Mucus FEW /lpf (OCC) Urine Yeast (Budding) MOD (NONE) Microscopic Urinalysis Comment CATH-CULTURE IND Blood Gas Puncture Site RT RADIAL Blood Gas Patient Temperature 98.6 Blood Gas HCO3 10 mmol/L (22-26) Blood Gas Base Excess -17.6 mmol/L (-2-2) Blood Gas Oxygen Saturation 98 % (90-100) Arterial Blood pH 7.12 (7.380-7.420) Arterial Blood Partial 32 mmHg (38-42) Pressure CO2 Arterial Blood Partial 226 mmHG Pressure O2 (61-120) Arterial Blood Oxygen Content 12.7 Vol % (12.0-20.0) Arterial Blood 0.4 % (0-4) Carboxyhemoglobin Arterial Blood Methemoglobin 0.5 % (0-2) Blood Gas Hemoglobin 8.9 G/DL (12.0-16.0) Oxygen Delivery Device VENTILATOR Blood Gas Ventilator Setting Blood Gas Inspired Oxygen 75 % Test 01/07/17 01/07/17 01/07/17 06:00 08:25 08:28 Blood Gas Puncture Site LT RADIAL ART LINE Blood Gas Patient Temperature 98.6 98.6 Blood Gas HCO3 10 mmol/L 17 mmol/L (22-26) (22-26) Blood Gas Base Excess -16.4 mmol/L -7.4 mmol/L (-2-2) (-2-2) Blood Gas Oxygen Saturation 93 % (90-100) 93 % (90-100) Arterial Blood pH 7.19 7.36 (7.380-7.420) (7.380-7.420) Arterial Blood Partial 28 mmHg (38-42) 31 mmHg (38-42) Pressure CO2 Arterial Blood Partial 91 mmHg 75 mmHg Pressure O2 (61-120) (61-120) Arterial Blood Oxygen Content 14.0 Vol % 14.9 Vol % (12.0-20.0) (12.0-20.0) Arterial Blood 0.7 % (0-4) 1.2 % (0-4) Carboxyhemoglobin Arterial Blood Methemoglobin 0.7 % (0-2) 0.7 % (0-2) Blood Gas Hemoglobin 10.6 G/DL 11.3 G/DL (12.0-16.0) (12.0-16.0) Oxygen Delivery Device VENTILATOR VENTILATOR Blood Gas Ventilator Setting AC/20/600/PEEP8 AC,20,600,PEEP5 Blood Gas Inspired Oxygen 40 % 40 % Sodium Level 128 MEQ/L (136-145) Potassium Level 4.9 MEQ/L (3.5-5.1) Chloride Level 88 MEQ/L (98-107) Carbon Dioxide Level 16.9 MEQ/L (21.0-32.0) Anion Gap 23 MEQ/L (5-15) Blood Urea Nitrogen 61 MG/DL (7-18) Creatinine 1.53 MG/DL (0.60-1.30) Estimat Glomerular Filtration 44 ML/MIN (>89) Rate Random Glucose 35 MG/DL (74-106) Lactic Acid Level 13.5 mmol/L (0.4-2.0) Calcium Level 8.7 MG/DL (8.5-10.1) Magnesium Level 2.0 MG/DL (1.5-2.5) Total Bilirubin 0.4 MG/DL (0.2-1.0) Aspartate Amino Transf 109 U/L (15-37) (AST/SGOT) Alanine Aminotransferase 61 U/L (12-78) (ALT/SGPT) Alkaline Phosphatase 152 U/L (45-117) Troponin I 0.57 NG/ML (0.02-0.05) Total Protein 4.7 GM/DL (6.4-8.2) Albumin 1.3 GM/DL (3.4-5.0) (Rachael George) Result Diagram: 01/07/17 0050 01/07/17 0825 Microbiology Microbiology Date/Time Procedure Status Source Growth 01/07/17 00:35 Aerobic Blood Culture Received Blood Peripheral Pending 01/07/17 00:35 Anaerobic Blood Culture Received Blood Peripheral Pending 01/07/17 00:36 Aerobic Blood Culture Received Blood Peripheral Pending 01/07/17 00:36 Anaerobic Blood Culture Received Blood Peripheral Pending 01/07/17 00:50 Aerobic Blood Culture Received Blood Peripheral Pending 01/07/17 00:50 Anaerobic Blood Culture Received Blood Peripheral Pending 01/07/17 01:40 Urine Culture Received Urine Clean Catch Pending Imaging Last Impressions Chest X-Ray 01/07/17 0036 Signed Impressions: Service Date/Time: Saturday, January 07, 2017 00:35 - CONCLUSION: Bilateral pulmonary nodules, interstitial and alveolar infiltrates. Juan Diego Frias MD Chest CT 01/07/17 0000 Signed Impressions: Service Date/Time: Saturday, January 07, 2017 05:12 - CONCLUSION: 1. Atherosclerosis. 2. Numerous bilateral pulmonary nodules suspicious for metastatic disease. 3. Bilateral proximal infiltrates. Juan Diego Frias MD Abdomen/Pelvis CT 01/07/17 0000 Signed Impressions: Service Date/Time: Saturday, January 07, 2017 05:09 - CONCLUSION: Portal venous gas in the left lobe of the liver is a new finding from previous examinations as well as free air in the right lower quadrant and right upper quadrant. Air does appear within the pericolonic vasculature adjacent to the ascending colon which can be seen with ischemic bowel. Juan Diego Frias MD (Rachael George) Patient/Family Conference Present at Family Conference: , daughter Family Conference Time (mins): 40 (minutes) Family Conference Location: Consult Room Issues Discussed: Upon nursing notification the family arrived Dr. Viramontes and I met with patient , rebecca Epstein for approximately [address] Mckeon surgery consult also participated during part of meeting. Discussion included the following: * Palliative care role, purpose, approach * Additional medical, psychosocial, and spiritual history * Patients general health, functional status, and cognitive changes in the months leading up to the current hospitalization * Patient/family understanding of the current medical problems * Patient/family understanding of prognosis * Patients goals of care as best understood from advance directives and/or conversations and/or values * Current medical treatment options and benefits/burdens of those options * Legal decision makers * CODE STATUS * Likely scenarios comparing ongoing aggressive care with a transition to comfort measures only; review of hospice role, philosophy, services provided * Questions answered to the best of my ability * Palliative care contact information provided Patient and daughter tearful. They indicate he had been doing fine up until this admission, and that he was exercising and seemed to tolerate his first chemotherapy well. He was planning on having follow-up treatment for possible surgical resection of cancer sometime soon. They are struggling to accept that he cannot have surgical resection for his cancer. Much exploration with them that his current condition is critical related to multiple issues (GI bleeding, sepsis, ischemic/? Perforated bowel ) likely all secondary to the adenocarcinoma; and that he is not a surgical candidate for any invasive procedures at this point. Further exploration that he remains very high risk for complications and even with ongoing aggressive interventions. Gentle exploration of withdrawal of life support in transition to comfort focus, initially is interested in this indicating she may wish to withdraw life support today however she then becomes tearful and frightened and wishes to continue current treatments. She wants the patient to be as comfortable as possible, she does not want treatment further escalated, she requests DNR status. She is wanting to keep things as they are for now; not remove anything , not escalate anything and depending on how patient does by the morning consider hospice evaluation for the possibility of getting him home with her for end-of-life. All questions answered, supportive listening provided. (Rachael George) Assessment and Plan Disease Oriented Problem List: (1) Acute on chronic kidney failure (2) Hypotension (3) Tachycardia (4) Acute respiratory failure (5) Septic shock (6) Hyperkalemia (7) Lactic acidosis (8) Anemia (9) Hyponatremia (10) Leukocytosis (11) Aspiration pneumonia (12) Gastric cancer (13) Upper GI bleed Symptom Scale: Pertinent Non-Medical Issues Psychosocial:Patient apparently lived at home with his , daughter, though recently has been in and out of the hospital and usp settings. Daughter actually lives in [place] however has been staying with the patient and his since all of this started in August. Patient has 2 adult daughters who both live out of state. 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 Spiritual: Episcopal, oven heater see support has been requested Legal:Patient, due to condition, is unable to participate in goals in decision- making. No advanced directive or HCS. Per [place] statutes would be appropriate legal decision maker.(Proxy) Ethical issues impacting care: Important Contacts Spouse Aleena Paiz [phone] dtr Tete Olivares [phone] . Prognosis This patient with known history of gastric adenocarcinoma was admitted with GI bleeding, duration of at least 24 hours. Patient with findings of Septic shock , acute respiratory failure, in critical condition. Imaging finding of free air in right upper and lower quadrants, concern for ischemic bowel. Patient not a good surgical candidate. High risk for continued complications and . . Code Status: Full Code Plan * Legal decision maker:Patient, due to condition, is unable to participate in goals in decision-making. No advanced directive or HCS. Per [place] statutes would be appropriate legal decision maker.(Proxy) * Goals: Later met with , daughter.They are struggling to accept that he cannot have surgical resection for his cancer. Much exploration with them that his current condition is critical related to multiple issues (GI bleeding, sepsis, ischemic/? Perforated bowel ) likely all secondary to the adenocarcinoma; and that he is not a surgical candidate for any invasive procedures at this point. Further exploration that he remains very high risk for complications and even with ongoing aggressive interventions. Gentle exploration of withdrawal of life support in transition to comfort focus, initially is interested in this indicating she may wish to withdraw life support today however she then becomes tearful and frightened and wishes to continue current treatments. She wants the patient to be as comfortable as possible, she does not want treatment further escalated, she requests DNR status. She is wanting to keep things as they are for now; not remove anything , not escalate anything and depending on how patient does by the morning consider hospice evaluation for the possibility of getting him home with her for end-of-life. * CODE STATUS:------>> later changed to DNR * SYMPTOMS: --Dyspnea-emergently intubated for airway protection, currently breathing comfortably on mechanical vent.+ Aspiration pneumonia. Patient with history of recurrent/ongoing aspiration pneumonia per review of available records. --Malnutrition-albumin 1.3, patient with PEG tube, history of receiving tube feed, as well as TPN during an acute hospitalization. Thin and frail appearance. 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 * Palliative care will continue to follow during hospital course as condition evolves, to assist patient/decision-maker with understanding of medical conditions, weighing benefits/burdens of treatment options, for clarification of goals of treatment. Additionally will assist with any symptoms of palliative concern . (Rachael George) Time Spent Total Floor Time (mins): 65 (Rachael George) Thank you for the opportunity to participate in the care of Mr. Paiz. (Rachael George) Attestation To help prompt me to consider important information that might be impacting today's encounter and assessment, information from prior notes written by myself or my colleagues may have been "brought forward" into today's note. My signature on this note, however, is an attestation that I personally performed the exam, history, and/or decision-making noted today, and, unless otherwise indicated, the interactions with patient, family, and staff as well as the review of records all occurred today. I also attest that the listed assessment and stated plan reflect my best clinical judgment today based on the combination of historical information, prior notes, and today's exam/ interactions. When time spent is documented, it refers only to time spent today by the signer, or if indicated, combined time spent today by collaborating physician/nurse practitioner. (Rachael George) Collaborating MD Comments Chart reviewed. Case discussed with palliative care [employer]. Above note reviewed and I concur. . (Azael Buckley MD) Rachael George Jan 07, 2017 10:27 Azael Buckley MD Mar 10, 2017 10:40
[2017-01-07] MEDS ORDERED: PANTOPRAZOLE SODIUM 40 MG VIAL IV PUSH SCH (10:30)
--- NOTE | 2017-01-07 10:49 | PD.CONS ---
History of Present Illness Service Infectious disease Consult Requested By Dr. Benavides Reason for Consult Evaluate patient with sepsis Primary Care Physician Jorge Woo MD Diagnoses: History of Present Illness Patient seen and examined. Records reviewed. Patient is a 76-year-old male, admitted to the hospital after he started vomiting coffee ground emesis, and apparently there is history of melena. This has been going on for at least 24 hours. He also has been diagnosed with adenocarcinoma of the stomach, when he was worked out for GI bleed. He has had problem with swallowing, and subsequently underwent placement of a PEG tube back in November 2016. Recently he was started on chemotherapy at the [facility]. During his last admission in December, rehabilitation was recommended, but the family refused so the patient has been home. He started having vomiting, and also has had melena. He was out into the hospital, and patient ended up getting intubated. He is currently in shock, and on Levophed. Imaging studies included CT of the abdomen and pelvis which showed gas in the portal system, as well as free air in the right side. His WBC is elevated. Temperature has been okay. Surgery has been consult it, and GI is also following the patient. Infectious disease consultation has been requested to evaluate the patient with sepsis. Review of Systems ROS Limitations: Clinical Condition, Intubated Past Family Social History Allergies: Coded Allergies: Sulfa (Verified Allergy, Unknown, 01/07/17) Past Medical History Poorly differentiated gastric adenocarcinoma diffuse type- section showed gastric mucosa with an infiltration of signet ring cell with acute inflammation and ulceration Hx of autoimmune hemolytic anemia. Gastritis, Duodenal bulb ulcers Colon polyps HTN Diabetes Hx DVT Hx aspiration pna Abn. weight loss Kidney stone Past Surgical History PEG tube placement EGD Colonoscopy Radiation seed placement in past Port placement Active Ordered Medications Tylenol Albuterol Fentanyl Diflucan Solu-Cortef Insulin Versed Levophed Protonix Zosyn Sodium bicarbonate Vancomycin 1 dose Family History Noncontributory Social History Lives at home No smoking No alcohol abuse No illicit drugs Physical Exam Vital Signs Vital Signs Date Time Temp Pulse Resp B/P Pulse Ox O2 Delivery O2 Flow Rate FiO2 01/07/17 08:48 50 01/07/17 08:39 94 50 01/07/17 08:00 40 01/07/17 08:00 99.1 117 24 105/52 99 01/07/17 07:08 22 01/07/17 07:00 99 Mechanical Ventilator 40 01/07/17 07:00 40 01/07/17 06:30 98.8 118 23 99 01/07/17 06:00 116 01/07/17 05:40 99.0 114 24 96 01/07/17 05:30 99.0 118 29 79/52 95 01/07/17 05:13 100 100 01/07/17 04:25 124 20 100/69 Ventilator 01/07/17 04:12 98 50 01/07/17 03:15 128 18 108/60 98 Ventilator 50 01/07/17 03:00 128 18 108/57 98 Ventilator 50 01/07/17 02:45 128 18 100/69 96 Ventilator 50 01/07/17 02:40 130 18 84/58 98 Ventilator 50 01/07/17 02:35 124 18 78/55 97 Ventilator 50 01/07/17 02:30 128 18 77/50 97 Ventilator 50 01/07/17 02:25 126 18 75/48 97 Ventilator 50 01/07/17 02:20 96.1 128 18 74/51 97 Ventilator 50 01/07/17 02:15 96.1 124 18 89/52 98 Ventilator 50 01/07/17 02:00 100 50 01/07/17 02:00 96.1 118 18 86/55 98 Ventilator 50 01/07/17 01:50 95.7 112 18 90/56 97 Ventilator 50 01/07/17 01:45 95.7 112 18 102/55 96 Ventilator 50 01/07/17 01:30 108 18 96/51 100 Ventilator 50 01/07/17 01:16 75 01/07/17 01:15 108 18 79/46 95 Ventilator 50 01/07/17 01:15 100 75 01/07/17 01:00 112 24 93/53 95 Nasal Cannula 01/07/17 00:45 112 27 92/55 99 Non-Rebreather 01/07/17 00:43 28 100 Non-Rebreather 01/07/17 00:43 100 Non-Rebreather 15 01/07/17 00:35 99.2 121 31 92/55 94 Physical Exam GENERAL: Patient is a well-nourished, well-developed male, opens eyes when stimulated, not following, on the vent, not in respiratory distress. SKIN: Cool and dry. No generalized rash, no ecchymoses and no evidence of embolic lesions. HEAD: Atraumatic. Normocephalic. No temporal wasting, or tenderness. EYES: [place] conjunctiva. No petechia or hemorrhage. Pupils equal, round and reactive to light. No scleral icterus. No injection or drainage. EARS, NOSE AND THROAT: Nose without bleeding or purulent nasal discharge. He is orally intubated. NECK: Trachea midline. Supple and not tender, no meningeal signs CARDIOVASCULAR: Regular rate and rhythm. No murmurs, rubs or gallops heard RESPIRATORY: Coarse breath sounds bilaterally, decreased at the bases. No wheezing or rhonchi ABDOMEN: Soft, nondistended, has diffuse tenderness, with some guarding, hypoactive bowel sounds. No organomegaly. EXTREMITIES: No clubbing, or cyanosis, or pedal edema. No joint effusion. Both feet cool to touch, not mottled. UE edematous, with ecchymoses, and some skin tears. NEUROLOGICAL: ON sedation, opens eys when stimulate, not following PSYCHIATRIC: Unable to assess LINE: No evidence of infection : Brower in place, urine looks clear Has liquid stool, and color is very dark green/black Laboratory Laboratory Tests Test 01/07/17 01/07/17 01/07/17 01/07/17 00:50 01:40 01:50 03:49 White Blood Count 13.2 Red Blood Count 2.78 Hemoglobin 8.1 Hematocrit 24.9 Mean Corpuscular Volume 89.4 Mean Corpuscular Hemoglobin 28.9 Mean Corpuscular Hemoglobin 32.4 Concent Red Cell Distribution Width 18.0 Platelet Count 241 Mean Platelet Volume 9.1 Neutrophils (%) (Auto) Lymphocytes (%) (Auto) Monocytes (%) (Auto) Eosinophils (%) (Auto) Basophils (%) (Auto) Neutrophils # (Auto) Lymphocytes # (Auto) Monocytes # (Auto) Eosinophils # (Auto) Basophils # (Auto) CBC Comment AUTO DIFF Differential Total Cells 100 Counted Neutrophils % (Manual) 24 Band Neutrophils % 44 Lymphocytes % 9 Monocytes % 2 Other Cells % 5 Neutrophils # (Manual) 11.1 Metamyelocytes 6 Myelocytes 2 Promyelocytes 8 Differential Comment FINAL DIFF MANUAL Dohle Bodies PRESENT Platelet Estimate NORMAL Platelet Morphology Comment ENLARGED Prothrombin Time 14.7 Prothromb Time International 1.3 Ratio Activated Partial 40.1 Thromboplast Time Fibrinogen 635 Sodium Level 124 Potassium Level 5.6 Chloride Level 84 Carbon Dioxide Level 13.9 Anion Gap 26 Blood Urea Nitrogen 57 Creatinine 1.70 Estimat Glomerular Filtration 39 Rate Random Glucose 161 Lactic Acid Level 17.0 14.6 Calcium Level 8.8 Total Bilirubin 0.2 Aspartate Amino Transf 68 (AST/SGOT) Alanine Aminotransferase 48 (ALT/SGPT) Alkaline Phosphatase 139 Ammonia 68 Troponin I 0.37 Total Protein 4.4 Albumin 1.2 Lipase 41 Blood Type O POSITIVE O POSITIVE Antibody Screen POSITIVE Antibody Identification Non-Specific Warm Agglutinin Crossmatch Leukocyte-Reduced Red Blood Cells Blood Bank Comment Urine Color RED Urine Turbidity HAZY Urine pH 5.0 Urine Specific [place] 1.024 Urine Protein 30 Urine Glucose (UA) TRACE Urine Ketones TRACE Urine Occult Blood SMALL Urine Nitrite NEG Urine Bilirubin NEG Urine Urobilinogen 2.0 Urine Leukocyte Esterase SMALL Urine RBC 22 Urine WBC 3 Urine Squamous Epithelial 1 Cells Urine Renal Epithelial Cells <1 Urine Bacteria OCC Urine Hyaline Casts 25 Urine Mucus FEW Urine Yeast (Budding) MOD Microscopic Urinalysis Comment CATH-CULTURE IND Blood Gas Puncture Site RT RADIAL Blood Gas Patient Temperature 98.6 Blood Gas HCO3 10 Blood Gas Base Excess -17.6 Blood Gas Oxygen Saturation 98 Arterial Blood pH 7.12 Arterial Blood Partial 32 Pressure CO2 Arterial Blood Partial 226 Pressure O2 Arterial Blood Oxygen Content 12.7 Arterial Blood 0.4 Carboxyhemoglobin Arterial Blood Methemoglobin 0.5 Blood Gas Hemoglobin 8.9 Oxygen Delivery Device VENTILATOR Blood Gas Ventilator Setting Blood Gas Inspired Oxygen 75 Test 01/07/17 01/07/17 01/07/17 06:00 08:25 08:28 Blood Gas Puncture Site LT RADIAL ART LINE Blood Gas Patient Temperature 98.6 98.6 Blood Gas HCO3 10 17 Blood Gas Base Excess -16.4 -7.4 Blood Gas Oxygen Saturation 93 93 Arterial Blood pH 7.19 7.36 Arterial Blood Partial 28 31 Pressure CO2 Arterial Blood Partial 91 75 Pressure O2 Arterial Blood Oxygen Content 14.0 14.9 Arterial Blood 0.7 1.2 Carboxyhemoglobin Arterial Blood Methemoglobin 0.7 0.7 Blood Gas Hemoglobin 10.6 11.3 Oxygen Delivery Device VENTILATOR VENTILATOR Blood Gas Ventilator Setting AC/20/600/PEEP8 AC,20,600,PEEP5 Blood Gas Inspired Oxygen 40 40 Sodium Level 128 Potassium Level 4.9 Chloride Level 88 Carbon Dioxide Level 16.9 Anion Gap 23 Blood Urea Nitrogen 61 Creatinine 1.53 Estimat Glomerular Filtration 44 Rate Random Glucose 35 Lactic Acid Level 13.5 Calcium Level 8.7 Magnesium Level 2.0 Total Bilirubin 0.4 Aspartate Amino Transf 109 (AST/SGOT) Alanine Aminotransferase 61 (ALT/SGPT) Alkaline Phosphatase 152 Troponin I 0.57 Total Protein 4.7 Albumin 1.3 Date/Time Procedure Status Source Growth 01/07/17 01:40 Urine Culture Received Urine Clean Catch Pending 01/07/17 00:50 Aerobic Blood Culture Received Blood Peripheral Pending 01/07/17 00:50 Anaerobic Blood Culture Received Blood Peripheral Pending Result Diagram: 01/07/17 0050 01/07/17 0825 Imaging RADIOLOGY STUDIES/FILMS REVIEWED Last Impressions Chest X-Ray 01/07/17 0036 Signed Impressions: Service Date/Time: Saturday, January 07, 2017 00:35 - CONCLUSION: Bilateral pulmonary nodules, interstitial and alveolar infiltrates. Juan Diego Frias MD Chest CT 01/07/17 0000 Signed Impressions: Service Date/Time: Saturday, January 07, 2017 05:12 - CONCLUSION: 1. Atherosclerosis. 2. Numerous bilateral pulmonary nodules suspicious for metastatic disease. 3. Bilateral proximal infiltrates. Juan Diego Frias MD Abdomen/Pelvis CT 01/07/17 0000 Signed Impressions: Service Date/Time: Saturday, January 07, 2017 05:09 - CONCLUSION: Portal venous gas in the left lobe of the liver is a new finding from previous examinations as well as free air in the right lower quadrant and right upper quadrant. Air does appear within the pericolonic vasculature adjacent to the ascending colon which can be seen with ischemic bowel. Juan Diego Frias MD Assessment and Plan Assessment and Plan IMPRESSION Sepsis with shock on presentation has gas in portal system and free air, intraabdominal source, ?ischemic bowel Dx of adenoCA gastric, started on chemo Respiratory failure Renal insufficiency Hx prostate CA - previous UC December [place] RECOMMENDATION Continue Zosyn and Vanco Continue Diflucan but increase the dose He got a dose of Vanco, and check level tomorrow Follow cultures Surgery is consulted as well as GI Monitor progress I will follow along with you Thank you for ths consultation Discussed Condition With Discussed with Kathrin Nathan MD Jan 07, 2017 10:49
[2017-01-07] MEDS: DEXTROSE 10% INJ 1,000 ML IV SCH (11:15)
[2017-01-07 12:21] LABS: HEMATOCRIT 32.9 % (39.0-51.0); REVIEW FLAG FINAL
[2017-01-07 12:35] LABS: BLOOD GAS BASE EXCESS -6.3 mmol/L (-2-2); BLOOD GAS HCO3 18 mmol/L (22-26); BLOOD GAS METHEMOGLOBIN 0.7 % (0-2); BLOOD GAS O2 HGB SATURATION 96 % (90-100); BLOOD GAS OXYGEN CONTENT 15.1 Vol % (12.0-20.0); BLOOD GAS PCO2 34 mmHg (38-42); BLOOD GAS PO2 105 mmHg (61-120); BLOOD GAS TOTAL HGB 11.1 G/DL (12.0-16.0); TEMP CORR TO 98.6
[2017-01-07 12:35] LABS: AUTOMATED NEUTROPHIL # 4.8 TH/MM3 (1.8-7.7); BASOPHIL % 0.2 % (0.0-2.0); EOSINOPHIL % 0.1 % (0.0-4.0); LYMPH % 8.1 % (9.0-44.0); LYMPHOCYTE # 0.4 TH/MM3 (1.0-4.8); MEAN CELL VOLUME 85.5 FL (80.0-100.0); MEAN CORPUSCULAR HEMOGLOBIN 27.5 PG (27.0-34.0); MEAN CORPUSCULAR HGB CONC 32.1 % (32.0-36.0); MONO % 1.1 % (0.0-8.0); NEUT % 90.5 % (16.0-70.0); PLATELET COUNT 228 TH/MM3 (150-450); RED BLOOD COUNT 4.09 MIL/MM3 (4.50-5.90); RED CELL DISTRIBUTION WIDTH 18.9 % (11.6-17.2); WHITE BLOOD COUNT 5.4 TH/MM3 (4.0-11.0)
[2017-01-07 12:36] LABS: CRITICAL VALUE NO; OXYGEN DEVICE VENTILATOR
[2017-01-07 12:37] LABS: DRAW SITE ART LINE; FIO2 40 %; STAT YES
[2017-01-07 12:40] LABS: HEMO FLAGS AUTO DIFF
--- NOTE | 2017-01-07 13:37 | PD.CONS ---
HPI Service General Surgery Consult Requested By Dr. Viramontes Reason for Consult ? bowel ischemia Primary Care Physician Jorge Woo MD History of Present Illness The patient is a 76-year-old male with a history of gastric adenocarcinoma being treated in [facility] who developed multiple episodes of bloody emesis and melanotic stool over the last 24 hours and presented with shortness of breath. He was noted to be hypotensive and in respiratory distress and required intubation in the emergency department. Hemoglobin was 8.[address] of the abdomen and pelvis showed portal venous gas as well as gas in the mesentery of the right colon and a small amount of free air in the right abdomen. The patient has been resuscitated throughout the day. Hemoglobin is stable. Lactate is 12. He was reportedly had a large amount of black melanotic stool. He is currently requiring Levophed to maintain blood pressure. Review of Systems ROS Limitations: Clinical Condition, Intubated, Altered Mental Status Past Family Social History Past Medical History Poorly differentiated gastric adenocarcinoma diffuse type HTN Diabetes Hx DVT Hx aspiration pna Kidney stone Prostate cancer Past Surgical History PEG tube Reported Medications Reported Meds & Active Scripts Active Diflucan (Fluconazole) 100 Mg Tab 100 Mg PO DAILY Reported Tramadol (Tramadol HCl) 50 Mg Tab 50 Mg PO BID PRN Zofran Odt (Ondansetron Odt) 8 Mg Tab 8 Mg SL Q8H PRN Prochlorperazine Maleate 10 Mg Tab 30 Mg PO Q4H PRN Augmentin (Amoxicillin-Clavulanate) 875-125 Mg Tab 1 Tab PO BID Novolog Inj (Insulin Aspart) 1,000 Unit/10 Ml Vial 0 SQ DIRECTED Sliding Scale as directed. Sertraline (Sertraline HCl) 50 Mg Tab 50 Mg PO DAILY Eliquis (Apixaban) 5 Mg Tab 5 Mg PO BID Glimepiride 4 Mg Tab 4 Mg PO BIDAC Prednisone 20 Mg Tab 20 Mg PO BID Metformin (Metformin HCl) 850 Mg Tab 850 Mg PO BIDPC With meals Allergies: Coded Allergies: Sulfa (Verified Allergy, Unknown, 01/07/17) Active Ordered Medications Current Medications Medications (Trade) Dose Ordered Sig/Mojgan Route Start Time Stop Time Status Last Admin Sodium Chloride 2 ml 2 ml UNSCH PRN IVF 01/07/17 00:45 Pantoprazole Sodium 80 mg/ Sodium Chloride 100 ml @ 10 mls/hr Q10H IV 01/07/17 00:45 01/07/17 09:58 Norepinephrine Bitartrate 250 ml @ 0 mls/hr TITRATE IV 01/07/17 01:30 01/07/17 02:01 (fentaNYL DRIP) 250 ml @ 0 mls/hr CONTINUOUS IV 01/07/17 01:45 01/07/17 06:08 (Tylenol) 650 mg Q6H PRN PO 01/07/17 03:30 (fentaNYL INJ) 50 mcg Q1H PRN IV 01/07/17 03:30 01/07/17 06:08 (Peridex 0.12% Liq) 15 ml BID@08,20 MT 01/07/17 08:00 01/07/17 08:29 Miscellaneous Information 1 Q361D XX 01/07/17 03:30 01/07/17 06:41 (Chlorhexidine 2% Cloth) 3 pack Taper DAILY@04 TOP 01/07/17 04:00 01/03/18 03:59 01/07/17 06:46 Chlorhexidine Gluconate 3 pack 3 pack UNSCH PRN TOP 01/07/17 03:30 Midazolam HCl 100 ml @ 0 mls/hr TITRATE IV 01/07/17 03:30 Piperacillin Sod/ Tazobactam Sod 50 ml @ 200 mls/hr Q6H IV 01/07/17 08:00 01/07/17 13:17 (Vancomycin Consult Pharmacy) 0 ml @ 0 mls/hr UNSCH OTHER 01/07/17 03:30 (NovoLOG SUPPLEMENTAL SCALE) 1 Q4H SQ 01/07/17 03:30 (D50w (Vial) Inj) 50 ml UNSCH PRN IV PUSH 01/07/17 03:45 01/07/17 10:07 Glucagon 1 mg 1 mg UNSCH PRN OTHER 01/07/17 03:45 (Sodium Bicarbonate 8.4% Inj/Sterile Water For Inj) 1,000 ml @ 150 mls/hr Q6H40M IV 01/07/17 07:00 01/07/17 07:47 Hydrocortisone Sodium Succinate 100 mg 100 mg Q8H IV 01/07/17 08:00 01/07/17 08:37 Fluconazole/ Sodium Chloride 50 ml @ 50 mls/hr Q24H IV 01/08/17 08:00 (D10w Inj) 1,000 ml @ 75 mls/hr [id number] IV 01/07/17 11:15 01/07/17 11:15 Family History Noncontributory Social History No alcohol tobacco or drug use. Physical Exam Vital Signs Vital Signs Date Time Temp Pulse Resp B/P Pulse Ox O2 Delivery O2 Flow Rate FiO2 01/07/17 12:00 99.3 125 21 129/61 98 01/07/17 11:12 98 50 01/07/17 08:48 50 01/07/17 08:39 94 50 01/07/17 08:00 40 01/07/17 08:00 99.1 117 24 105/52 99 01/07/17 07:08 22 01/07/17 07:00 99 Mechanical Ventilator 40 01/07/17 07:00 40 01/07/17 06:30 98.8 118 23 99 01/07/17 06:00 116 01/07/17 05:40 99.0 114 24 96 01/07/17 05:30 99.0 118 29 79/52 95 01/07/17 05:13 100 100 01/07/17 04:25 124 20 100/69 Ventilator 01/07/17 04:12 98 50 01/07/17 03:15 128 18 108/60 98 Ventilator 50 01/07/17 03:00 128 18 108/57 98 Ventilator 50 01/07/17 02:45 128 18 100/69 96 Ventilator 50 01/07/17 02:40 130 18 84/58 98 Ventilator 50 01/07/17 02:35 124 18 78/55 97 Ventilator 50 01/07/17 02:30 128 18 77/50 97 Ventilator 50 01/07/17 02:25 126 18 75/48 97 Ventilator 50 01/07/17 02:20 96.1 128 18 74/51 97 Ventilator 50 01/07/17 02:15 96.1 124 18 89/52 98 Ventilator 50 01/07/17 02:00 100 50 01/07/17 02:00 96.1 118 18 86/55 98 Ventilator 50 01/07/17 01:50 95.7 112 18 90/56 97 Ventilator 50 01/07/17 01:45 95.7 112 18 102/55 96 Ventilator 50 01/07/17 01:30 108 18 96/51 100 Ventilator 50 01/07/17 01:16 75 01/07/17 01:15 108 18 79/46 95 Ventilator 50 01/07/17 01:15 100 75 01/07/17 01:00 112 24 93/53 95 Nasal Cannula 01/07/17 00:45 112 27 92/55 99 Non-Rebreather 01/07/17 00:43 28 100 Non-Rebreather 01/07/17 00:43 100 Non-Rebreather 15 01/07/17 00:35 99.2 121 31 92/55 94 Physical Exam GENERAL: Intubated. Opens eyes occasionally during my exam. HEAD: Normocephalic. Atraumatic. EYES: Pupils equal round and reactive to light bilaterally. No scleral icterus. ENT: OG tube and endotracheal tube in place. NECK: Trachea midline. CHEST: Ventilated 55% FiO2 CARDIOVASCULAR: Tachycardic and on Levophed ABDOMEN: PEG tube in place. Round soft. No masses palpable. EXTREMITIES: No edema SKIN: Cool and dry Laboratory Laboratory Tests Test 01/07/17 01/07/17 01/07/17 01/07/17 00:50 01:40 01:50 03:49 White Blood Count 13.2 Red Blood Count 2.78 Hemoglobin 8.1 Hematocrit 24.9 Mean Corpuscular Volume 89.4 Mean Corpuscular Hemoglobin 28.9 Mean Corpuscular Hemoglobin 32.4 Concent Red Cell Distribution Width 18.0 Platelet Count 241 Mean Platelet Volume 9.1 Neutrophils (%) (Auto) Lymphocytes (%) (Auto) Monocytes (%) (Auto) Eosinophils (%) (Auto) Basophils (%) (Auto) Neutrophils # (Auto) Lymphocytes # (Auto) Monocytes # (Auto) Eosinophils # (Auto) Basophils # (Auto) CBC Comment AUTO DIFF Differential Total Cells 100 Counted Neutrophils % (Manual) 24 Band Neutrophils % 44 Lymphocytes % 9 Monocytes % 2 Other Cells % 5 Neutrophils # (Manual) 11.1 Metamyelocytes 6 Myelocytes 2 Promyelocytes 8 Differential Comment FINAL DIFF MANUAL Dohle Bodies PRESENT Platelet Estimate NORMAL Platelet Morphology Comment ENLARGED Prothrombin Time 14.7 Prothromb Time International 1.3 Ratio Activated Partial 40.1 Thromboplast Time Fibrinogen 635 Sodium Level 124 Potassium Level 5.6 Chloride Level 84 Carbon Dioxide Level 13.9 Anion Gap 26 Blood Urea Nitrogen 57 Creatinine 1.70 Estimat Glomerular Filtration 39 Rate Random Glucose 161 Lactic Acid Level 17.0 14.6 Calcium Level 8.8 Total Bilirubin 0.2 Aspartate Amino Transf 68 (AST/SGOT) Alanine Aminotransferase 48 (ALT/SGPT) Alkaline Phosphatase 139 Ammonia 68 Troponin I 0.37 Total Protein 4.4 Albumin 1.2 Lipase 41 Blood Type O POSITIVE O POSITIVE Antibody Screen POSITIVE Antibody Identification Non-Specific Warm Agglutinin Crossmatch Leukocyte-Reduced Red Blood Cells Blood Bank Comment Urine Color RED Urine Turbidity HAZY Urine pH 5.0 Urine Specific [place] 1.024 Urine Protein 30 Urine Glucose (UA) TRACE Urine Ketones TRACE Urine Occult Blood SMALL Urine Nitrite NEG Urine Bilirubin NEG Urine Urobilinogen 2.0 Urine Leukocyte Esterase SMALL Urine RBC 22 Urine WBC 3 Urine Squamous Epithelial 1 Cells Urine Renal Epithelial Cells <1 Urine Bacteria OCC Urine Hyaline Casts 25 Urine Mucus FEW Urine Yeast (Budding) MOD Microscopic Urinalysis Comment CATH-CULTURE IND Blood Gas Puncture Site RT RADIAL Blood Gas Patient Temperature 98.6 Blood Gas HCO3 10 Blood Gas Base Excess -17.6 Blood Gas Oxygen Saturation 98 Arterial Blood pH 7.12 Arterial Blood Partial 32 Pressure CO2 Arterial Blood Partial 226 Pressure O2 Arterial Blood Oxygen Content 12.7 Arterial Blood 0.4 Carboxyhemoglobin Arterial Blood Methemoglobin 0.5 Blood Gas Hemoglobin 8.9 Oxygen Delivery Device VENTILATOR Blood Gas Ventilator Setting Blood Gas Inspired Oxygen 75 Test 01/07/17 01/07/17 01/07/17 01/07/17 05:45 06:00 08:25 08:28 Nasal Screen MRSA (PCR) MRSA NOT DETECTED Blood Gas Puncture Site LT RADIAL ART LINE Blood Gas Patient Temperature 98.6 98.6 Blood Gas HCO3 10 17 Blood Gas Base Excess -16.4 -7.4 Blood Gas Oxygen Saturation 93 93 Arterial Blood pH 7.19 7.36 Arterial Blood Partial 28 31 Pressure CO2 Arterial Blood Partial 91 75 Pressure O2 Arterial Blood Oxygen Content 14.0 14.9 Arterial Blood 0.7 1.2 Carboxyhemoglobin Arterial Blood Methemoglobin 0.7 0.7 Blood Gas Hemoglobin 10.6 11.3 Oxygen Delivery Device VENTILATOR VENTILATOR Blood Gas Ventilator Setting AC/20/600/PEEP8 AC,20,600,PEEP5 Blood Gas Inspired Oxygen 40 40 White Blood Count 5.4 Red Blood Count 4.09 Hemoglobin 11.2 Hematocrit 35.0 Mean Corpuscular Volume 85.5 Mean Corpuscular Hemoglobin 27.5 Mean Corpuscular Hemoglobin 32.1 Concent Red Cell Distribution Width 18.9 Platelet Count 228 Mean Platelet Volume 8.2 Neutrophils (%) (Auto) 90.5 Lymphocytes (%) (Auto) 8.1 Monocytes (%) (Auto) 1.1 Eosinophils (%) (Auto) 0.1 Basophils (%) (Auto) 0.2 Neutrophils # (Auto) 4.8 Lymphocytes # (Auto) 0.4 Monocytes # (Auto) 0.1 Eosinophils # (Auto) 0.0 Basophils # (Auto) 0.0 CBC Comment AUTO DIFF Sodium Level 128 Potassium Level 4.9 Chloride Level 88 Carbon Dioxide Level 16.9 Anion Gap 23 Blood Urea Nitrogen 61 Creatinine 1.53 Estimat Glomerular Filtration 44 Rate Random Glucose 35 Lactic Acid Level 13.5 Calcium Level 8.7 Magnesium Level 2.0 Total Bilirubin 0.4 Aspartate Amino Transf 109 (AST/SGOT) Alanine Aminotransferase 61 (ALT/SGPT) Alkaline Phosphatase 152 Troponin I 0.57 Total Protein 4.7 Albumin 1.3 Test 01/07/17 01/07/17 12:00 12:28 Hemoglobin 11.1 Hematocrit 32.9 Lactic Acid Level 12.2 Blood Gas Puncture Site ART LINE Blood Gas Patient Temperature 98.6 Blood Gas HCO3 18 Blood Gas Base Excess -6.3 Blood Gas Oxygen Saturation 96 Arterial Blood pH 7.35 Arterial Blood Partial 34 Pressure CO2 Arterial Blood Partial 105 Pressure O2 Arterial Blood Oxygen Content 15.1 Arterial Blood 1.0 Carboxyhemoglobin Arterial Blood Methemoglobin 0.7 Blood Gas Hemoglobin 11.1 Oxygen Delivery Device VENTILATOR Blood Gas Ventilator Setting AC,20,550,PEEP8 Blood Gas Inspired Oxygen 40 Date/Time Procedure Status Source Growth 01/07/17 01:40 Urine Culture Received Urine Clean Catch Pending 01/07/17 00:50 Aerobic Blood Culture Received Blood Peripheral Pending 01/07/17 00:50 Anaerobic Blood Culture Received Blood Peripheral Pending Result Diagram: 01/07/17 1200 01/07/17 0825 Imaging Last Impressions Chest X-Ray 01/07/17 0036 Signed Impressions: Service Date/Time: Saturday, January 07, 2017 00:35 - CONCLUSION: Bilateral pulmonary nodules, interstitial and alveolar infiltrates. Juan Diego Frias MD Chest CT 01/07/17 0000 Signed Impressions: Service Date/Time: Saturday, January 07, 2017 05:12 - CONCLUSION: 1. Atherosclerosis. 2. Numerous bilateral pulmonary nodules suspicious for metastatic disease. 3. Bilateral proximal infiltrates. Juan Diego Frias MD Abdomen/Pelvis CT 01/07/17 0000 Signed Impressions: Service Date/Time: Saturday, January 07, 2017 05:09 - CONCLUSION: Portal venous gas in the left lobe of the liver is a new finding from previous examinations as well as free air in the right lower quadrant and right upper quadrant. Air does appear within the pericolonic vasculature adjacent to the ascending colon which can be seen with ischemic bowel. Juan Diego Frias MD Assessment and Plan Assessment and Plan 76-year-old male with history of poorly differentiated adenocarcinoma of the stomach with upper and lower GI bleed causing hemorrhagic shock. He has portal venous air and small amount of pneumoperitoneum most likely secondary to ischemic colitis. I briefly took part in family conference with Dr. Castaneda and Rachael LOGAN for palliative care. I agree that the patient has very poor prognosis with or without surgery. I agree that hospice is in his best interest at this point. Surgery would not increase his chances of meaningful recovery. D/w Dr. Viramontes. Mike,Raffi MADISON Jan 07, 2017 13:37
[2017-01-07 13:39] LABS: BANDS 37 % (0-6); METAMYELOCYTES 9 % (0-1); MYELOCYTES 2 % (0-0); NEUTROPHIL # MANUAL DIFF 4.9 TH/MM3 (1.8-7.7); POLYS (SEG NEUTROPHILS) 40 % (16-70); PROMYELOCYTES 2 % (0-0); WBC DIFF SAMPLE 100
[2017-01-07 13:40] LABS: PLATELET ESTIMATE SMEAR NORMAL (NORMAL); PLATELET MORPHOLOGY ENLARGED (NORMAL); SCAN/DIFF FINAL DIFF MANUAL
[2017-01-07 13:41] LABS: BURR CELLS 1+ (NORMAL); CRENATED RBCS 1+ (NORMAL)
--- NOTE | 2017-01-07 16:17 | EKG ---
Date Performed: 01/07/2017 Time Performed: 01:03:01 PTAGE: 76 years EKG: SINUS TACHYCARDIA WITH OCCASIONAL SUPRAVENTRICULAR PREMATURE COMPLEXES NONSPECIFIC T-WAVE A BNORMALITY ABNORMAL RHYTHM ECG NO PREVIOUS TRACING DOCTOR: Alhaji Avery Interpretating Date/Time 01/07/2017 16:15:40
--- NOTE | 2017-01-07 23:01 | PD.PROCEDR ---
Procedure Note Procedure Procedure: Arterial Line Placement Radial arterial line Diagnosis: Septic shock Indications: Or [id number] hemodynamic monitoring Consent: Emergent Description of the Procedure: The wrist was prepped and draped sterilely. 1% lidocaine was used for local anesthesia. The pulse was located and a needle was advanced into the artery. A 20 gauge, 12 cm catheter was advanced into the artery using a modified Seldinger technique. The catheter was sutured to the skin and a sterile dressing was applied. The catheter was connected to a pressure transducer and an arterial waveform was noted. There were no immediate complications noted. There was minimal EBL. I personally performed the procedure. Antonio Viramontes MD Jan 07, 2017 23:01
[2017-01-08] VITALS (15 sets, daily range): BP systolic 98–126; BP diastolic 45–71; PULSE 60–137; RESP 20–27; TEMP 97.4–100.4; O2SAT 92–100
[2017-01-08] MEDS: DEXTROSE 10% INJ 1,000 ML IV SCH ×3 (00:41→23:12)
[2017-01-08] MEDS: HYDROCORTISONE SOD SUCCINATE 100 MG VIAL IV SCH ×4 (03:05→22:28)
[2017-01-08] MEDS: CHLORHEXIDINE GLUCONATE 2 % 1 PACK (2 CLOTHS) TOP SCH (03:06)
[2017-01-08] MEDS: SODIUM BICARBONATE 8.4% INJ 150 MEQ in WATER STERILE FOR INJ 850 ML IV SCH ×2 (03:06→09:32)
[2017-01-08] MEDS: PIPERACIL-TAZO 3.375 GM PREMIX 50 ML IV SCH ×4 (03:06→20:38)
[2017-01-08] MEDS: RESP: ALBUTEROL 2.5 MG/IPRATROPIUM 0.5 MG NEB (SCH) NEB ×4 (03:13→20:44)
[2017-01-08] MEDS: INSULIN ASPART SUPPLEMENTAL SCALE SQ SCH ×6 (03:45→23:30)
[2017-01-08 05:04] LABS: HEMATOCRIT 31.8 % (39.0-51.0); MEAN CELL VOLUME 81.9 FL (80.0-100.0); MEAN CORPUSCULAR HEMOGLOBIN 28.4 PG (27.0-34.0); MEAN CORPUSCULAR HGB CONC 34.7 % (32.0-36.0); PLATELET COUNT 157 TH/MM3 (150-450); RED BLOOD COUNT 3.89 MIL/MM3 (4.50-5.90); RED CELL DISTRIBUTION WIDTH 19.5 % (11.6-17.2); WHITE BLOOD COUNT 13.6 TH/MM3 (4.0-11.0)
[2017-01-08 05:10] LABS: HEMO FLAGS AUTO DIFF
[2017-01-08 05:45] LABS: BICARBONATE 30.2 MEQ/L (21.0-32.0); CALCIUM-PROTEIN CORRECTED 8.8 MG/DL (8.5-10.1); POTASSIUM 3.6 MEQ/L (3.5-5.1); TOTAL BILIRUBIN ADULT 0.5 MG/DL (0.2-1.0)
[2017-01-08] MEDS: PANTOPRAZOLE INJ 80 MG in SODIUM CHLORIDE 0.9% INJ 100 ML IV SCH ×2 (06:28→14:27)
[2017-01-08 07:04] LABS: BANDS 39 % (0-6); METAMYELOCYTES 2 % (0-1); MYELOCYTES 1 % (0-0); NEUTROPHIL # MANUAL DIFF 13.2 TH/MM3 (1.8-7.7); OVALOCYTES 1+ (NORMAL); POLYS (SEG NEUTROPHILS) 55 % (16-70); WBC DIFF SAMPLE 100
[2017-01-08 07:05] LABS: PLATELET ESTIMATE SMEAR NORMAL (NORMAL); PLATELET MORPHOLOGY NORMAL (NORMAL); SCAN/DIFF FINAL DIFF MANUAL
[2017-01-08] MEDS: CHLORHEXIDINE 0.12% (ORAL KIT) 15 ML CUP MT SCH ×2 (07:19→20:00)
[2017-01-08] MEDS: FLUCONAZOLE 400 MG IV SCH (07:19)
[2017-01-08] MEDS: NOREPINEPHRINE-DEXTROSE DRIP 250 ML IV SCH ×2 (07:20→14:27)
--- NOTE | 2017-01-08 11:38 | HHI.CCPN ---
Subjective Remarks/Hospital Course Hospital Course: Patient is a 76-year-old male with history of gastric adenocarcinoma, recently started on chemotherapy at [facility], history of type 2 diabetes , hypertension, dyslipidemia who presented to the emergency department via EMS for upper GI bleed and shortness of breath. Apparently upper GI bleed and melena had been going on for almost 24 hours before family called EMS. Patient became progressively more dyspneic with gurgling type respirations and less responsive. EMS found patient hypotensive in the 70s, improved with fluids, tachycardic in the 120s. In the emergency department patient was emergently intubated for airway protection due to gurgling breath sounds, and inability to protect airway. Patient given 3 L normal saline bolus and was started on PPI bolus, drip. Chest x-ray showed bilateral patchy infiltrates. Postintubation ABG pH 7.12, PCO2 32.3, PO2 226, bicarbonate 9.9. Patient was empirically treated with vancomycin, Zosyn. Abnormal labs include WBC 13.2, hemoglobin 8.1 , INR 1.3, Sodium 124, potassium 5.6, bicarbonate 13.9 and anion gap 26. BUN 57 , creatinine 1.70. Troponin 0.37, Also ammonia 68 and Lactic acid 17.0. Urinalysis with hematuria, bacteria and yeast. In the ER patient was ordered to receive 2 units packed red blood cells and 3L NS. He was started on norepinephrine through his chest port, to maintain MAP above 65. I evaluated the patient in the ED. He remains hypotensive and have ordered additional fluid boluses. Patient had been placed on Zosyn vancomycin and Diflucan. Infectious disease was consulted. Continue fluid resuscitation. Source of sepsis most likely pneumonia. Given lactic acid elevation to 17 I have ordered a CT abdomen pelvis to rule out abdominal source of infection or ischemic bowel Subjective: 01/08: long conversation yesterday with family. decision for DNR with no escalation of care, but no plan to withdraw. remains in shock on vasopressor therapy. remains encephalopathic and on full mechanical support. sodium continues to worsen. very poor prognosis. Objective Vital Signs Date Time Temp Pulse Resp B/P Pulse Ox O2 Delivery O2 Flow Rate FiO2 01/08/17 08:00 40 01/08/17 08:00 99.2 137 24 109/45 93 01/08/17 07:00 Mechanical Ventilator 01/07/17 00:43 15 Intake and Output 01/07/17 01/07/17 01/08/17 08:00 16:00 00:00 Intake Total 1100 ml 3260 ml Output Total 800 ml 500 ml 1080 ml Balance -800 ml 600 ml 2180 ml Result Diagram: 01/08/17 0412 01/08/17 0412 Other Results Laboratory Tests Test 01/07/17 12:28 Blood Gas Puncture Site ART LINE Blood Gas Patient Temperature 98.6 Blood Gas HCO3 18 mmol/L (22-26) Blood Gas Base Excess -6.3 mmol/L (-2-2) Blood Gas Oxygen Saturation 96 % (90-100) Arterial Blood pH 7.35 (7.380-7.420) Arterial Blood Partial 34 mmHg (38-42) Pressure CO2 Arterial Blood Partial 105 mmHg Pressure O2 (61-120) Arterial Blood Oxygen Content 15.1 Vol % (12.0-20.0) Arterial Blood 1.0 % (0-4) Carboxyhemoglobin Arterial Blood Methemoglobin 0.7 % (0-2) Blood Gas Hemoglobin 11.1 G/DL (12.0-16.0) Oxygen Delivery Device VENTILATOR Blood Gas Ventilator Setting AC,20,550,PEEP8 Blood Gas Inspired Oxygen 40 % Imaging Imaging studies reviewed Objective Remarks GENERAL: 76 yo male who is Cachectic intubated, sedated, hypotensive on Levophed SKIN: Decubitus ulcer on the sacrum stage II HEAD: Atraumatic. Normocephalic. EYES: Pupils equal and round. 3 mm. No scleral icterus. ENT: Orotracheally intubated Coffee-ground emesis in the oropharynx NECK: trachea midline. CARDIOVASCULAR: Tachycardic with heart rate in the 130s. R upper chest port RESPIRATORY: Intubated Course rhonchi and crackles bilaterally. GASTROINTESTINAL: Abdomen soft, non-tender, nondistended. PEG tube + MUSCULOSKELETAL: No obvious deformities. No edema. NEUROLOGICAL: Intubated sedated, appears to move all extremities. Do not follow commands on sedation A/P Assessment and Plan Assessment: 76yM with metastatic gastric cancer and now likely ischemic bowel, symptomatic upper GI bleed, septic shock. Poor prognosis. given his cancer diagnosis and how critically ill he is, I do not think he will survive this hospitalization. I agree with DNR and no escalation of care. Family still hesitant to pursue palliation. NEURO: Acute metabolic encephalopathy - Encephalopathy most likely secondary to metabolic due to severe sepsis - Hyperammonemia contributing - versed for sedation and ventilator synchrony RESP: Acute hypoxic respiratory failure Aspiration pneumonia - ACV, DuoNeb every 6 hours when necessary, ventilator bundle - Broad-spectrum antibiotics with vancomycin and Zosyn - no SBT today given shock and critical illness. CV: Septic and hemorrhagic shock - persistent Severe lactic acidosis- persistent - Normal saline IV fluids total 4 L bolus - d/c bicarb. - Levophed to keep map above 65, no escalation of care. GI: Upper GI bleed Gastric adenocarcinoma was started on chemotherapy Hyperammonemia mesenteric ischemia Intra-abdominal free air - no more transfusions. no escalation of care. - Nothing by mouth, IV Protonix infusion - GI consulted, too unstable for EGD at this time. - Lactulose once cleared by GI : Acute kidney injury - Monitor renal function closely. Brower catheter. ID: Septic shock - persistent Pneumonia UTI/funguria - IV vancomycin, Zosyn and Diflucan - ID consult HEME: Anemia secondary to acute blood loss requiring transfusion -Monitor CBC, CMP, coags ENDO: Hyponatremia Hyperkalemia - Monitor potassium - Replace electrolytes per protocol - On po steroids at home-started on stress dose steroids PROPH: - Bilateral lower extremity SCDs. On chronic Apixaban - hold due to GIB - Continue Protonix infusion LINES: - Utilize peripheral IVs, port, art line. Antonio Viramontes MD Jan 08, 2017 11:38
[2017-01-08] MEDS ORDERED: VANCOMYCIN 1,000 MG/NS 250 ML IV SCH ×2 (13:00)
--- NOTE | 2017-01-08 14:41 | HHI.IDPN ---
Subjective Subjective Remarks Patient is a 76-year-old male, admitted to the hospital after he started vomiting coffee ground emesis, and apparently there is history of melena. This has been going on for at least 24 hours. He also has been diagnosed with adenocarcinoma of the stomach, when he was worked out for GI bleed. He has had problem with swallowing, and subsequently underwent placement of a PEG tube back in November 2016. Recently he was started on chemotherapy at the [facility]. During his last admission in December, rehabilitation was recommended, but the family refused so the patient has been home. He started having vomiting, and also has had melena. He was out into the hospital, and patient ended up getting intubated. He is currently in shock, and on Levophed. Imaging studies included CT of the abdomen and pelvis which showed gas in the portal system, as well as free air in the right side. His WBC is elevated. Temperature has been okay. Surgery has been consult it, and GI is also following the patient. Infectious disease consultation has been requested to evaluate the patient with sepsis. Notes reviewed remains critically ill Surgery notes reviewed Palliative medicine notes reviewed Has DNR status Has GNR in 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 Gastritis, Duodenal bulb ulcers Colon polyps HTN Diabetes Hx DVT Hx aspiration pna Abn. weight loss Kidney stone Past Surgical History PEG tube placement EGD Colonoscopy Radiation seed placement in past Port placement Allergies: Coded Allergies: Sulfa (Verified Allergy, Unknown, 01/07/17) Objective . Vital Signs Date Time Temp Pulse Resp B/P Pulse Ox O2 Delivery O2 Flow Rate FiO2 01/08/17 11:42 100 40 01/08/17 08:00 40 01/08/17 08:00 99.2 137 24 109/45 93 01/08/17 07:30 96 40 01/08/17 07:00 100 Mechanical Ventilator 40 01/08/17 06:00 127 01/08/17 04:12 97 40 01/08/17 04:00 98.7 132 27 126/70 96 01/08/17 04:00 40 01/08/17 04:00 132 01/08/17 02:00 126 01/08/17 00:55 97 40 01/08/17 00:00 40 01/08/17 00:00 130 01/08/17 00:00 97.4 132 20 118/59 98 01/07/17 22:00 133 01/07/17 20:38 95 40 01/07/17 20:00 40 01/07/17 20:00 98.2 132 20 124/57 97 01/07/17 20:00 132 01/07/17 19:00 100 Mechanical Ventilator 40 01/07/17 18:22 131 01/07/17 16:00 100.9 129 20 137/56 97 01/07/17 15:33 97 40 01/07/17 01/07/17 01/08/17 15:00 23:00 07:00 Intake Total 1100 ml 3260 ml 2300 ml Output Total 500 ml 1080 ml 2220 ml Balance 600 ml 2180 ml 80 ml Intake Oral 0 ml 0 ml IV Total 1100 ml 3260 ml 2300 ml Output Urine Total 200 ml 1000 ml 2200 ml Stool Total 0 ml 0 ml Gastric Drainage Total 300 ml 80 ml 20 ml # Bowel Movements 1 . Laboratory Tests Test 01/07/17 01/07/17 01/07/17 01/08/17 00:50 08:25 12:00 04:12 White Blood Count 13.2 TH/MM3 5.4 TH/MM3 13.6 TH/MM3 Red Blood Count 2.78 MIL/MM3 4.09 MIL/MM3 3.89 MIL/MM3 Hemoglobin 8.1 GM/DL 11.2 GM/DL 11.1 GM/DL 11.1 GM/DL Hematocrit 24.9 % 35.0 % 32.9 % 31.8 % Mean Corpuscular Volume 89.4 FL 85.5 FL 81.9 FL Mean Corpuscular Hemoglobin 28.9 PG 27.5 PG 28.4 PG Mean Corpuscular Hemoglobin 32.4 % 32.1 % 34.7 % Concent Red Cell Distribution Width 18.0 % 18.9 % 19.5 % Platelet Count 241 TH/MM3 228 TH/MM3 157 TH/MM3 Mean Platelet Volume 9.1 FL 8.2 FL 8.1 FL Neutrophils (%) (Auto) % 90.5 % % Lymphocytes (%) (Auto) % 8.1 % % Monocytes (%) (Auto) % 1.1 % % Eosinophils (%) (Auto) % 0.1 % % Basophils (%) (Auto) % 0.2 % % Neutrophils # (Auto) TH/MM3 4.8 TH/MM3 TH/MM3 Lymphocytes # (Auto) TH/MM3 0.4 TH/MM3 TH/MM3 Monocytes # (Auto) TH/MM3 0.1 TH/MM3 TH/MM3 Eosinophils # (Auto) TH/MM3 0.0 TH/MM3 TH/MM3 Basophils # (Auto) TH/MM3 0.0 TH/MM3 TH/MM3 CBC Comment AUTO DIFF AUTO DIFF AUTO DIFF Differential Total Cells 100 100 100 Counted Neutrophils % (Manual) 24 % 40 % 55 % Band Neutrophils % 44 % 37 % 39 % Lymphocytes % 9 % 9 % 3 % Monocytes % 2 % 1 % Other Cells % 5 % Neutrophils # (Manual) 11.1 TH/MM3 4.9 TH/MM3 13.2 TH/MM3 Metamyelocytes 6 % 9 % 2 % Myelocytes 2 % 2 % 1 % Promyelocytes 8 % 2 % Differential Comment FINAL DIFF FINAL DIFF FINAL DIFF MANUAL MANUAL MANUAL Dohle Bodies PRESENT Platelet Estimate NORMAL NORMAL NORMAL Platelet Morphology Comment ENLARGED ENLARGED NORMAL Wander Cells 1+ Crenated Cell 1+ Ovalocytes 1+ Laboratory Tests Test 01/07/17 01/07/17 01/07/17 01/07/17 00:50 03:49 08:25 12:00 Sodium Level 124 MEQ/L 128 MEQ/L Potassium Level 5.6 MEQ/L 4.9 MEQ/L Chloride Level 84 MEQ/L 88 MEQ/L Carbon Dioxide Level 13.9 MEQ/L 16.9 MEQ/L Anion Gap 26 MEQ/L 23 MEQ/L Blood Urea Nitrogen 57 MG/DL 61 MG/DL Creatinine 1.70 MG/DL 1.53 MG/DL Estimat Glomerular Filtration 39 ML/MIN 44 ML/MIN Rate Random Glucose 161 MG/DL 35 MG/DL Lactic Acid Level 17.0 mmol/L 14.6 mmol/L 13.5 mmol/L 12.2 mmol/L Calcium Level 8.8 MG/DL 8.7 MG/DL Total Bilirubin 0.2 MG/DL 0.4 MG/DL Aspartate Amino Transf 68 U/L 109 U/L (AST/SGOT) Alanine Aminotransferase 48 U/L 61 U/L (ALT/SGPT) Alkaline Phosphatase 139 U/L 152 U/L Ammonia 68 MCMOL/L Troponin I 0.37 NG/ML 0.57 NG/ML Total Protein 4.4 GM/DL 4.7 GM/DL Albumin 1.2 GM/DL 1.3 GM/DL Lipase 41 U/L Magnesium Level 2.0 MG/DL Test 01/08/17 04:12 Sodium Level 122 MEQ/L Potassium Level 3.6 MEQ/L Chloride Level 79 MEQ/L Carbon Dioxide Level 30.2 MEQ/L Anion Gap 13 MEQ/L Blood Urea Nitrogen 35 MG/DL Creatinine 1.15 MG/DL Estimat Glomerular Filtration 62 ML/MIN Rate Random Glucose 240 MG/DL Calcium Level 7.3 MG/DL Protein Corrected Calcium 8.8 MG/DL Total Bilirubin 0.5 MG/DL Aspartate Amino Transf 105 U/L (AST/SGOT) Alanine Aminotransferase 62 U/L (ALT/SGPT) Alkaline Phosphatase 148 U/L Total Protein 4.5 GM/DL Albumin 1.1 GM/DL Microbiology Date/Time Procedure Status Source Growth 01/07/17 00:35 Aerobic Blood Culture - Preliminary Resulted Blood Peripheral Gram Negative [place] 01/07/17 00:35 Anaerobic Blood Culture - Preliminary Resulted Gram Negative Sampson 01/07/17 00:36 Aerobic Blood Culture Received Blood Peripheral Pending 01/07/17 00:36 Anaerobic Blood Culture Received Blood Peripheral Pending 01/07/17 00:50 Aerobic Blood Culture - Preliminary Resulted Blood Peripheral Gram Negative Sampson 01/07/17 00:50 Anaerobic Blood Culture - Preliminary Resulted Gram Negative Sampson 01/07/17 01:40 Urine Culture Received Urine Clean Catch Pending Imaging Last Impressions Chest X-Ray 01/07/17 0036 Signed Impressions: Service Date/Time: Saturday, January 07, 2017 00:35 - CONCLUSION: Bilateral pulmonary nodules, interstitial and alveolar infiltrates. Juan Diego Frias MD Chest CT 01/07/17 0000 Signed Impressions: Service Date/Time: Saturday, January 07, 2017 05:12 - CONCLUSION: 1. Atherosclerosis. 2. Numerous bilateral pulmonary nodules suspicious for metastatic disease. 3. Bilateral proximal infiltrates. Juan Diego Frias MD Abdomen/Pelvis CT 01/07/17 0000 Signed Impressions: Service Date/Time: Saturday, January 07, 2017 05:09 - CONCLUSION: Portal venous gas in the left lobe of the liver is a new finding from previous examinations as well as free air in the right lower quadrant and right upper quadrant. Air does appear within the pericolonic vasculature adjacent to the ascending colon which can be seen with ischemic bowel. Juan Diego Frias MD Physical Exam GENERAL: on the vent, not in respiratory distress. SKIN: Cool and dry. No generalized rash, no ecchymoses HEAD: Atraumatic. Normocephalic. No temporal wasting, or tenderness. EYES: [place] conjunctiva. No petechia or hemorrhage. Pupils equal, round and reactive to light. No scleral icterus. No injection or drainage. EARS, NOSE AND THROAT: Nose without bleeding or purulent nasal discharge. He is orally intubated. NECK: Trachea midline. Supple and not tender, no meningeal signs CARDIOVASCULAR: Regular rate and rhythm. No murmurs, rubs or gallops heard RESPIRATORY: Coarse breath sounds bilaterally, decreased at the bases. No wheezing or rhonchi ABDOMEN: Soft, nondistended, has diffuse tenderness, with some guarding, hypoactive bowel sounds. No organomegaly. EXTREMITIES: No clubbing, or cyanosis, or pedal edema. No joint effusion. Both feet cool to touch, not mottled. UE edematous, with ecchymoses, and some skin tears. NEUROLOGICAL: Opens eyes when stimulated, not following PSYCH: Unable to assess LINE: No evidence of infection : Brower in place, urine looks clear Has liquid stool, and color is very dark green/black Assessment & Plan Remarks IMPRESSION Gram negative Sepsis with shock on presentation has gas in portal system and free air, intraabdominal source, - has GIB, and likely with ischemic colitis Dx of adenoCA gastric, started on chemo Respiratory failure Renal insufficiency Hx prostate CA - previous UC December [place] RECOMMENDATION Continue Zosyn Continue Diflucan Follow cultures Monitor progress Has DNR status Prognosis poor Kathrin Rouse MD Jan 08, 2017 14:41
[2017-01-08] MEDS: fentaNYL DRIP 250 ML IV SCH (15:31)
--- NOTE | 2017-01-08 15:34 | HHI.HCPN ---
Reason for visit a. To assist with evaluation and management of symptoms including: dyspnea, malnutrition b. To assist medical decision maker(s) with: better understanding of current medical conditions; weighing benefits/burdens of medical treatment options; making medical treatment decisions. (Rachael George) Subjective/Interval History Pt seen in follow-up on comfort, goals. Remains on norepinephrine 8 mics/minute. Decreased output from OG tube. Decreased stool output. H&H stable today. WBC elevated at 13.6. Sodium down 122. BUN 35/crit and 1.13. Remains on fentanyl drip for comfort 75 mics/hour. Patient seen in room initially no visitors present. Patient grasped spontaneously but does not release, localizes to touch to hands. No eye opening. Localizes to touch, moves all extremities. arrives as I'm concluding my exam. Met with her at bedside review our conversation regarding conditions, treatment goals yesterday. She remembers me from yesterday. She endorses patient to remain DNR. She asks if he is any better. Review that he remains in critical condition with same underlying conditions as we discussed yesterday overall outlook and prognosis is poor. She asks if tube feeding can be started because she does not want him to be hungry. Explore with her that OG tube is to suction , PEG is clamped as patient is having acute GI bleeding, and concern for ischemic bowel and/or perforation. Review introducing tube feeding would be potentially harmful at this point. She has brought some of his home formula she would like to leave this just in case he is able to start tube feeding at some point in the coming days. She will continue to pray for him and read from Bible to him today. She further informs that she still wants to take him home if he is expected to from his conditions, she is awaiting her other daughter Vannesa to arrive from [place] tomorrow or the next day. She thinks at that point she would want to remove artificial measures, and try to take him home with hospice. Discussed with primary nurse, critical care Dr. Viramontes. . Family/friend interactions * see above (Rachael George) Advance Directives Living Will: Never completed Health Care Surrogate: Never completed (Rachael George) Objective Vital Signs Date Time Temp Pulse Resp B/P Pulse Ox O2 Delivery O2 Flow Rate FiO2 01/08/17 12:00 40 01/08/17 12:00 97.9 60 20 98/52 100 01/08/17 11:42 100 40 01/08/17 08:00 40 01/08/17 08:00 99.2 137 24 109/45 93 01/08/17 07:30 96 40 01/08/17 07:00 100 Mechanical Ventilator 40 01/08/17 06:00 127 01/08/17 04:12 97 40 01/08/17 04:00 98.7 132 27 126/70 96 01/08/17 04:00 40 01/08/17 04:00 132 01/08/17 02:00 126 01/08/17 00:55 97 40 01/08/17 00:00 40 01/08/17 00:00 130 01/08/17 00:00 97.4 132 20 118/59 98 01/07/17 22:00 133 01/07/17 20:38 95 40 01/07/17 20:00 40 01/07/17 20:00 98.2 132 20 124/57 97 01/07/17 20:00 132 01/07/17 19:00 100 Mechanical Ventilator 40 01/07/17 18:22 131 01/07/17 16:00 100.9 129 20 137/56 97 01/07/17 15:33 97 40 Intake & Output 01/08/17 01/08/17 06:59 18:59 Intake Total 5560 ml 2169 ml Output Total 3300 ml 1950 ml Balance 2260 ml 219 ml Intake Oral 0 ml IV Total 5560 ml 2169 ml Output Urine Total 3200 ml 1950 ml Stool Total 0 ml 0 ml Gastric Drainage Total 100 ml 0 ml Physical Exam CONSTITUTIONAL/GENERAL: This is a frail, ill-appearing patient seen in ICU TUBES/LINES/DRAINS: Multiple peripheral IVs bilateral upper extremity, arterial line upper extremity, right subclavian port accessed, ET tube, OG tube, Brower catheter, SCDs SKIN: No jaundice, rashes, or lesions. Multiple areas of ecchymosis to upper chest, bilateral upper extremities. + Edema, serous weeping from upper extremities. Skin temperature cool to distal extremities. CARDIOVASCULAR: Regular rate and rhythm. No murmur. Peripheral pulses palpable. RESPIRATORY/CHEST: Symmetric, unlabored respirations via mechanical vent. Course rhonchi throughout. Breath sounds equal bilaterally. GASTROINTESTINAL: Abdomen soft, flat, nondistended. No hepato-splenomegaly, or palpable masses. Unable to determine tenderness due to level of consciousness. Bowel sounds hypoactive. OG-tube to suction small amount of brownish green drainage. Small amount of dark stool in rectal drain. +PEG , clamped GENITOURINARY: Without palpable bladder distension. Brower catheter in place scant amount of urine output. MUSCULOSKELETAL: Extremities without clubbing, cyanosis. + Edema, serous weeping from the upper extremities. No joint effusion noted. NEUROLOGICAL: Sedated on mechanical vent. Minimally responsive to exam. Localizes and moves bilateral feet to touch. Grasps was hands, appears to localize to touch with hands. Does not follow any commands. No eye opening. PSYCHIATRIC: No obvious anxiety/depression--limited assessment due to level of consciousness/clinical condition (Rachael George) Diagnostic Tests Laboratory Laboratory Tests Test 01/07/17 01/07/17 01/07/17 01/07/17 00:50 01:40 01:50 03:49 White Blood Count 13.2 TH/MM3 (4.0-11.0) Red Blood Count 2.78 MIL/MM3 (4.50-5.90) Hemoglobin 8.1 GM/DL (13.0-17.0) Hematocrit 24.9 % (39.0-51.0) Mean Corpuscular Volume 89.4 FL (80.0-100.0) Mean Corpuscular Hemoglobin 28.9 PG (27.0-34.0) Mean Corpuscular Hemoglobin 32.4 % Concent (32.0-36.0) Red Cell Distribution Width 18.0 % (11.6-17.2) Platelet Count 241 TH/MM3 (150-450) Mean Platelet Volume 9.1 FL (7.0-11.0) Neutrophils (%) (Auto) % (16.0-70.0) Lymphocytes (%) (Auto) % (9.0-44.0) Monocytes (%) (Auto) % (0.0-8.0) Eosinophils (%) (Auto) % (0.0-4.0) Basophils (%) (Auto) % (0.0-2.0) Neutrophils # (Auto) TH/MM3 (1.8-7.7) Lymphocytes # (Auto) TH/MM3 (1.0-4.8) Monocytes # (Auto) TH/MM3 (0-0.9) Eosinophils # (Auto) TH/MM3 (0-0.4) Basophils # (Auto) TH/MM3 (0-0.2) CBC Comment AUTO DIFF Differential Total Cells 100 Counted Neutrophils % (Manual) 24 % (16-70) Band Neutrophils % 44 % (0-6) Lymphocytes % 9 % (9-44) Monocytes % 2 % (0-8) Other Cells % 5 % Neutrophils # (Manual) 11.1 TH/MM3 (1.8-7.7) Metamyelocytes 6 % (0-1) Myelocytes 2 % (0-0) Promyelocytes 8 % (0-0) Differential Comment FINAL DIFF MANUAL Dohle Bodies PRESENT (NONE SEEN) Platelet Estimate NORMAL (NORMAL) Platelet Morphology Comment ENLARGED (NORMAL) Prothrombin Time 14.7 SEC (9.8-11.6) Prothromb Time International 1.3 RATIO Ratio Activated Partial 40.1 SEC Thromboplast Time (24.3-30.1) Fibrinogen 635 mg/dL (227-377) Sodium Level 124 MEQ/L (136-145) Potassium Level 5.6 MEQ/L (3.5-5.1) Chloride Level 84 MEQ/L (98-107) Carbon Dioxide Level 13.9 MEQ/L (21.0-32.0) Anion Gap 26 MEQ/L (5-15) Blood Urea Nitrogen 57 MG/DL (7-18) Creatinine 1.70 MG/DL (0.60-1.30) Estimat Glomerular Filtration 39 ML/MIN (>89) Rate Random Glucose 161 MG/DL (74-106) Lactic Acid Level 17.0 mmol/L 14.6 mmol/L (0.4-2.0) (0.4-2.0) Calcium Level 8.8 MG/DL (8.5-10.1) Total Bilirubin 0.2 MG/DL (0.2-1.0) Aspartate Amino Transf 68 U/L (15-37) (AST/SGOT) Alanine Aminotransferase 48 U/L (12-78) (ALT/SGPT) Alkaline Phosphatase 139 U/L (45-117) Ammonia 68 MCMOL/L (11-32) Troponin I 0.37 NG/ML (0.02-0.05) Total Protein 4.4 GM/DL (6.4-8.2) Albumin 1.2 GM/DL (3.4-5.0) Lipase 41 U/L (73-393) Antibody Identification Non-Specific Warm Agglutinin Blood Type O POSITIVE O POSITIVE Antibody Screen POSITIVE Crossmatch Leukocyte-Reduced Red Blood Cells Blood Bank Comment Urine Color RED (YELLW/STRAW) Urine Turbidity HAZY (CLEAR) Urine pH 5.0 (5.0-8.5) Urine Specific [place] 1.024 (1.002-1.035) Urine Protein 30 mg/dL (NEG-TRACE) Urine Glucose (UA) TRACE mg/dL (NEG) Urine Ketones TRACE mg/dL (NEG) Urine Occult Blood SMALL (NEG) Urine Nitrite NEG (NEG) Urine Bilirubin NEG (NEG) Urine Urobilinogen 2.0 MG/DL (LESS THAN 2.0) Urine Leukocyte Esterase SMALL (NEG) Urine RBC 22 /hpf (0-3) Urine WBC 3 /hpf (0-5) Urine Squamous Epithelial 1 /hpf (0-5) Cells Urine Renal Epithelial Cells <1 /hpf (NONE) Urine Bacteria OCC /hpf (NONE) Urine Hyaline Casts 25 /lpf (RARE) Urine Mucus FEW /lpf (OCC) Urine Yeast (Budding) MOD (NONE) Microscopic Urinalysis Comment CATH-CULTURE IND Blood Gas Puncture Site RT RADIAL Blood Gas Patient Temperature 98.6 Blood Gas HCO3 10 mmol/L (22-26) Blood Gas Base Excess -17.6 mmol/L (-2-2) Blood Gas Oxygen Saturation 98 % (90-100) Arterial Blood pH 7.12 (7.380-7.420) Arterial Blood Partial 32 mmHg (38-42) Pressure CO2 Arterial Blood Partial 226 mmHG Pressure O2 (61-120) Arterial Blood Oxygen Content 12.7 Vol % (12.0-20.0) Arterial Blood 0.4 % (0-4) Carboxyhemoglobin Arterial Blood Methemoglobin 0.5 % (0-2) Blood Gas Hemoglobin 8.9 G/DL (12.0-16.0) Oxygen Delivery Device VENTILATOR Blood Gas Ventilator Setting Blood Gas Inspired Oxygen 75 % Test 01/07/17 01/07/17 01/07/17 01/07/17 05:45 06:00 08:25 08:28 Nasal Screen MRSA (PCR) MRSA NOT DETECTED (NOT DETECT) Blood Gas Puncture Site LT RADIAL ART LINE Blood Gas Patient Temperature 98.6 98.6 Blood Gas HCO3 10 mmol/L 17 mmol/L (22-26) (22-26) Blood Gas Base Excess -16.4 mmol/L -7.4 mmol/L (-2-2) (-2-2) Blood Gas Oxygen Saturation 93 % (90-100) 93 % (90-100) Arterial Blood pH 7.19 7.36 (7.380-7.420) (7.380-7.420) Arterial Blood Partial 28 mmHg (38-42) 31 mmHg (38-42) Pressure CO2 Arterial Blood Partial 91 mmHg 75 mmHg Pressure O2 (61-120) (61-120) Arterial Blood Oxygen Content 14.0 Vol % 14.9 Vol % (12.0-20.0) (12.0-20.0) Arterial Blood 0.7 % (0-4) 1.2 % (0-4) Carboxyhemoglobin Arterial Blood Methemoglobin 0.7 % (0-2) 0.7 % (0-2) Blood Gas Hemoglobin 10.6 G/DL 11.3 G/DL (12.0-16.0) (12.0-16.0) Oxygen Delivery Device VENTILATOR VENTILATOR Blood Gas Ventilator Setting AC/20/600/PEEP8 AC,20,600,PEEP5 Blood Gas Inspired Oxygen 40 % 40 % White Blood Count 5.4 TH/MM3 (4.0-11.0) Red Blood Count 4.09 MIL/MM3 (4.50-5.90) Hemoglobin 11.2 GM/DL (13.0-17.0) Hematocrit 35.0 % (39.0-51.0) Mean Corpuscular Volume 85.5 FL (80.0-100.0) Mean Corpuscular Hemoglobin 27.5 PG (27.0-34.0) Mean Corpuscular Hemoglobin 32.1 % Concent (32.0-36.0) Red Cell Distribution Width 18.9 % (11.6-17.2) Platelet Count 228 TH/MM3 (150-450) Mean Platelet Volume 8.2 FL (7.0-11.0) Neutrophils (%) (Auto) 90.5 % (16.0-70.0) Lymphocytes (%) (Auto) 8.1 % (9.0-44.0) Monocytes (%) (Auto) 1.1 % (0.0-8.0) Eosinophils (%) (Auto) 0.1 % (0.0-4.0) Basophils (%) (Auto) 0.2 % (0.0-2.0) Neutrophils # (Auto) 4.8 TH/MM3 (1.8-7.7) Lymphocytes # (Auto) 0.4 TH/MM3 (1.0-4.8) Monocytes # (Auto) 0.1 TH/MM3 (0-0.9) Eosinophils # (Auto) 0.0 TH/MM3 (0-0.4) Basophils # (Auto) 0.0 TH/MM3 (0-0.2) CBC Comment AUTO DIFF Differential Total Cells 100 Counted Neutrophils % (Manual) 40 % (16-70) Band Neutrophils % 37 % (0-6) Lymphocytes % 9 % (9-44) Monocytes % 1 % (0-8) Neutrophils # (Manual) 4.9 TH/MM3 (1.8-7.7) Metamyelocytes 9 % (0-1) Myelocytes 2 % (0-0) Promyelocytes 2 % (0-0) Differential Comment FINAL DIFF MANUAL Platelet Estimate NORMAL (NORMAL) Platelet Morphology Comment ENLARGED (NORMAL) Wander Cells 1+ (NORMAL) Crenated Cell 1+ (NORMAL) Sodium Level 128 MEQ/L (136-145) Potassium Level 4.9 MEQ/L (3.5-5.1) Chloride Level 88 MEQ/L (98-107) Carbon Dioxide Level 16.9 MEQ/L (21.0-32.0) Anion Gap 23 MEQ/L (5-15) Blood Urea Nitrogen 61 MG/DL (7-18) Creatinine 1.53 MG/DL (0.60-1.30) Estimat Glomerular Filtration 44 ML/MIN (>89) Rate Random Glucose 35 MG/DL (74-106) Lactic Acid Level 13.5 mmol/L (0.4-2.0) Calcium Level 8.7 MG/DL (8.5-10.1) Magnesium Level 2.0 MG/DL (1.5-2.5) Total Bilirubin 0.4 MG/DL (0.2-1.0) Aspartate Amino Transf 109 U/L (15-37) (AST/SGOT) Alanine Aminotransferase 61 U/L (12-78) (ALT/SGPT) Alkaline Phosphatase 152 U/L (45-117) Troponin I 0.57 NG/ML (0.02-0.05) Total Protein 4.7 GM/DL (6.4-8.2) Albumin 1.3 GM/DL (3.4-5.0) Test 01/07/17 01/07/17 01/08/17 12:00 12:28 04:12 Hemoglobin 11.1 GM/DL 11.1 GM/DL (13.0-17.0) (13.0-17.0) Hematocrit 32.9 % 31.8 % (39.0-51.0) (39.0-51.0) Lactic Acid Level 12.2 mmol/L (0.4-2.0) Blood Gas Puncture Site ART LINE Blood Gas Patient Temperature 98.6 Blood Gas HCO3 18 mmol/L (22-26) Blood Gas Base Excess -6.3 mmol/L (-2-2) Blood Gas Oxygen Saturation 96 % (90-100) Arterial Blood pH 7.35 (7.380-7.420) Arterial Blood Partial 34 mmHg (38-42) Pressure CO2 Arterial Blood Partial 105 mmHg Pressure O2 (61-120) Arterial Blood Oxygen Content 15.1 Vol % (12.0-20.0) Arterial Blood 1.0 % (0-4) Carboxyhemoglobin Arterial Blood Methemoglobin 0.7 % (0-2) Blood Gas Hemoglobin 11.1 G/DL (12.0-16.0) Oxygen Delivery Device VENTILATOR Blood Gas Ventilator Setting AC,20,550,PEEP8 Blood Gas Inspired Oxygen 40 % White Blood Count 13.6 TH/MM3 (4.0-11.0) Red Blood Count 3.89 MIL/MM3 (4.50-5.90) Mean Corpuscular Volume 81.9 FL (80.0-100.0) Mean Corpuscular Hemoglobin 28.4 PG (27.0-34.0) Mean Corpuscular Hemoglobin 34.7 % Concent (32.0-36.0) Red Cell Distribution Width 19.5 % (11.6-17.2) Platelet Count 157 TH/MM3 (150-450) Mean Platelet Volume 8.1 FL (7.0-11.0) Neutrophils (%) (Auto) % (16.0-70.0) Lymphocytes (%) (Auto) % (9.0-44.0) Monocytes (%) (Auto) % (0.0-8.0) Eosinophils (%) (Auto) % (0.0-4.0) Basophils (%) (Auto) % (0.0-2.0) Neutrophils # (Auto) TH/MM3 (1.8-7.7) Lymphocytes # (Auto) TH/MM3 (1.0-4.8) Monocytes # (Auto) TH/MM3 (0-0.9) Eosinophils # (Auto) TH/MM3 (0-0.4) Basophils # (Auto) TH/MM3 (0-0.2) CBC Comment AUTO DIFF Differential Total Cells 100 Counted Neutrophils % (Manual) 55 % (16-70) Band Neutrophils % 39 % (0-6) Lymphocytes % 3 % (9-44) Neutrophils # (Manual) 13.2 TH/MM3 (1.8-7.7) Metamyelocytes 2 % (0-1) Myelocytes 1 % (0-0) Differential Comment FINAL DIFF MANUAL Platelet Estimate NORMAL (NORMAL) Platelet Morphology Comment NORMAL (NORMAL) Ovalocytes 1+ (NORMAL) Sodium Level 122 MEQ/L (136-145) Potassium Level 3.6 MEQ/L (3.5-5.1) Chloride Level 79 MEQ/L (98-107) Carbon Dioxide Level 30.2 MEQ/L (21.0-32.0) Anion Gap 13 MEQ/L (5-15) Blood Urea Nitrogen 35 MG/DL (7-18) Creatinine 1.15 MG/DL (0.60-1.30) Estimat Glomerular Filtration 62 ML/MIN (>89) Rate Random Glucose 240 MG/DL (74-106) Calcium Level 7.3 MG/DL (8.5-10.1) Protein Corrected Calcium 8.8 MG/DL (8.5-10.1) Total Bilirubin 0.5 MG/DL (0.2-1.0) Aspartate Amino Transf 105 U/L (15-37) (AST/SGOT) Alanine Aminotransferase 62 U/L (12-78) (ALT/SGPT) Alkaline Phosphatase 148 U/L (45-117) Total Protein 4.5 GM/DL (6.4-8.2) Albumin 1.1 GM/DL (3.4-5.0) Random Vancomycin Level 6.2 COMMENT (Rachael George) Result Diagram: 01/08/17 0412 01/08/17 0412 Microbiology Microbiology Date/Time Procedure Status Source Growth 01/07/17 00:35 Aerobic Blood Culture - Preliminary Resulted Blood Peripheral Gram Negative [place] 01/07/17 00:35 Anaerobic Blood Culture - Preliminary Resulted Gram Negative Sampson 01/07/17 00:36 Aerobic Blood Culture Received Blood Peripheral Pending 01/07/17 00:36 Anaerobic Blood Culture Received Blood Peripheral Pending 01/07/17 00:50 Aerobic Blood Culture - Preliminary Resulted Blood Peripheral Gram Negative Sam[place] 01/07/17 00:50 Anaerobic Blood Culture - Preliminary Resulted Gram Negative Sampson 01/07/17 01:40 Urine Culture Received Urine Clean Catch Pending Imaging Last Impressions Chest X-Ray 01/07/17 0036 Signed Impressions: Service Date/Time: Saturday, January 07, 2017 00:35 - CONCLUSION: Bilateral pulmonary nodules, interstitial and alveolar infiltrates. Juan Diego Frias MD Chest CT 01/07/17 0000 Signed Impressions: Service Date/Time: Saturday, January 07, 2017 05:12 - CONCLUSION: 1. Atherosclerosis. 2. Numerous bilateral pulmonary nodules suspicious for metastatic disease. 3. Bilateral proximal infiltrates. Juan Diego Frias MD Abdomen/Pelvis CT 01/07/17 0000 Signed Impressions: Service Date/Time: Saturday, January 07, 2017 05:09 - CONCLUSION: Portal venous gas in the left lobe of the liver is a new finding from previous examinations as well as free air in the right lower quadrant and right upper quadrant. Air does appear within the pericolonic vasculature adjacent to the ascending colon which can be seen with ischemic bowel. Juan Diego Frias MD (Rachael George) Assessment and Plan Disease Oriented Problem List: (1) Acute on chronic kidney failure (2) Hypotension (3) Tachycardia (4) Acute respiratory failure (5) Septic shock (6) Hyperkalemia (7) Lactic acidosis (8) Anemia (9) Hyponatremia (10) Leukocytosis (11) Aspiration pneumonia (12) Gastric cancer (13) Upper GI bleed Symptom Scale: (1) Dyspnea (2) Malnutrition Pertinent Non-Medical Issues Psychosocial:Patient apparently lived at home with his , daughter, though recently has been in and out of the hospital and penitentiary settings. Daughter actually lives in [place] however has been staying with the patient and his since all of this started in August. Patient has 2 adult daughters who both live out of state. 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 Has lived in [place] for many years. 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 No advanced directive or HCS. Per [place] statutes would be appropriate legal decision maker.(Proxy) Ethical issues impacting care: Important Contacts Spouse Aleena Paiz [phone] dtr Tete Olivares [phone] . Prognosis This patient with known history of gastric adenocarcinoma was admitted with GI bleeding, duration of at least 24 hours. Patient with findings of Septic shock , acute respiratory failure, in critical condition. Imaging finding of free air in right upper and lower quadrants, concern for ischemic bowel. Patient not a good surgical candidate. High risk for continued complications and . . Code Status: Full Code Plan * Legal decision maker:Patient, due to condition, is unable to participate in goals in decision-making. No advanced directive or HCS. Per [place] statutes would be appropriate legal decision maker.(Proxy) * Goals: Met again today with patient in follow-up, goals right now still semi-aggressive to continue current treatments however with no escalation, patient to remain DNR. She is still considering removal of life support in transition to comfort focus once her other daughter arrives from out of state in the next day or so. She was hoping he would be able to begin artificial feeding she does not want him to feel hungry, though I have reviewed with her conditions and risks and not likely he will be resumed on tube feeding. * CODE STATUS: DNR * SYMPTOMS: --Dyspnea-emergently intubated for airway protection, currently breathing comfortably on mechanical vent.+ Aspiration pneumonia. Patient with history of recurrent/ongoing aspiration pneumonia per review of available records. --Malnutrition-albumin 1.3, patient with PEG tube, history of receiving tube feed, as well as TPN during an acute hospitalization. Thin and frail appearance. 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 * Palliative care will continue to follow during hospital course as condition evolves, to assist patient/decision-maker with understanding of medical conditions, weighing benefits/burdens of treatment options, for clarification of goals of treatment. Additionally will assist with any symptoms of palliative concern . (Rachael George) Attestation To help prompt me to consider important information that might be impacting today's encounter and assessment, information from prior notes written by myself or my colleagues may have been "brought forward" into today's note. My signature on this note, however, is an attestation that I personally performed the exam, history, and/or decision-making noted today, and, unless otherwise indicated, the interactions with patient, family, and staff as well as the review of records all occurred today. I also attest that the listed assessment and stated plan reflect my best clinical judgment today based on the combination of historical information, prior notes, and today's exam/ interactions. When time spent is documented, it refers only to time spent today by the signer, or if indicated, combined time spent today by collaborating physician/nurse practitioner. (Rachael George) Collaborating MD Comments Chart reviewed. Case discussed with palliative care WOMEN'S SOCCER COACH. Above note reviewed and I concur. . (zAael Buckley MD) Rachael George Jan 08, 2017 15:34 Azael Buckley MD Mar 10, 2017 10:52
--- NOTE | 2017-01-08 17:57 | HHI.GIFU ---
Subjective Remarks Resting in bed. Sedated on vent. Daughter at bedside. Dark gastric secretions from NGT. Objective Vitals I&O Vital Signs Date Time Temp Pulse Resp B/P Pulse Ox O2 Delivery O2 Flow Rate FiO2 01/08/17 16:20 92 40 01/08/17 12:00 40 01/08/17 12:00 97.9 60 20 98/52 100 01/08/17 11:42 100 40 01/08/17 08:00 40 01/08/17 08:00 99.2 137 24 109/45 93 01/08/17 07:30 96 40 01/08/17 07:00 100 Mechanical Ventilator 40 01/08/17 06:00 127 01/08/17 04:12 97 40 01/08/17 04:00 98.7 132 27 126/70 96 01/08/17 04:00 40 01/08/17 04:00 132 01/08/17 02:00 126 01/08/17 00:55 97 40 01/08/17 00:00 40 01/08/17 00:00 130 01/08/17 00:00 97.4 132 20 118/59 98 01/07/17 22:00 133 01/07/17 20:38 95 40 01/07/17 20:00 40 01/07/17 20:00 98.2 132 20 124/57 97 01/07/17 20:00 132 01/07/17 19:00 100 Mechanical Ventilator 40 01/07/17 18:22 131 I/O 01/07/17 01/07/17 01/07/17 01/08/17 01/08/17 01/08/17 07:00 15:00 23:00 07:00 15:00 23:00 Intake Total 1100 ml 3260 ml 2300 ml 2169 ml Output Total 800 ml 500 ml 1080 ml 2220 ml 1950 ml Balance -800 ml 600 ml 2180 ml 80 ml 219 ml Intake Oral 0 ml 0 ml IV Total 1100 ml 3260 ml 2300 ml 2169 ml Output Urine Total 200 ml 1000 ml 2200 ml 1950 ml Stool Total 0 ml 0 ml 0 ml Gastric Drainage Total 800 ml 300 ml 80 ml 20 ml 0 ml # Bowel Movements 1 Laboratory Laboratory Tests Test 01/08/17 04:12 White Blood Count 13.6 Red Blood Count 3.89 Hemoglobin 11.1 Hematocrit 31.8 Mean Corpuscular Volume 81.9 Mean Corpuscular Hemoglobin 28.4 Mean Corpuscular Hemoglobin 34.7 Concent Red Cell Distribution Width 19.5 Platelet Count 157 Mean Platelet Volume 8.1 Neutrophils (%) (Auto) Lymphocytes (%) (Auto) Monocytes (%) (Auto) Eosinophils (%) (Auto) Basophils (%) (Auto) Neutrophils # (Auto) Lymphocytes # (Auto) Monocytes # (Auto) Eosinophils # (Auto) Basophils # (Auto) CBC Comment AUTO DIFF Differential Total Cells 100 Counted Neutrophils % (Manual) 55 Band Neutrophils % 39 Lymphocytes % 3 Neutrophils # (Manual) 13.2 Metamyelocytes 2 Myelocytes 1 Differential Comment FINAL DIFF MANUAL Platelet Estimate NORMAL Platelet Morphology Comment NORMAL Ovalocytes 1+ Sodium Level 122 Potassium Level 3.6 Chloride Level 79 Carbon Dioxide Level 30.2 Anion Gap 13 Blood Urea Nitrogen 35 Creatinine 1.15 Estimat Glomerular Filtration 62 Rate Random Glucose 240 Calcium Level 7.3 Protein Corrected Calcium 8.8 Total Bilirubin 0.5 Aspartate Amino Transf 105 (AST/SGOT) Alanine Aminotransferase 62 (ALT/SGPT) Alkaline Phosphatase 148 Total Protein 4.5 Albumin 1.1 Random Vancomycin Level 6.2 Date/Time Procedure Status Source Growth 01/07/17 01:40 Urine Culture - Preliminary Resulted Urine Clean Catch Niecy Albicans 01/07/17 00:50 Aerobic Blood Culture - Preliminary Resulted Blood Peripheral Gram Negative Sampson 01/07/17 00:50 Anaerobic Blood Culture - Preliminary Resulted Gram Negative Sampson 01/07/17 00:36 Aerobic Blood Culture Received Blood Peripheral Pending 01/07/17 00:36 Anaerobic Blood Culture Received Blood Peripheral Pending Imaging Last Impressions Chest X-Ray 01/07/17 0036 Signed Impressions: Service Date/Time: Saturday, January 07, 2017 00:35 - CONCLUSION: Bilateral pulmonary nodules, interstitial and alveolar infiltrates. Juan Diego Frias MD Chest CT 01/07/17 0000 Signed Impressions: Service Date/Time: Saturday, January 07, 2017 05:12 - CONCLUSION: 1. Atherosclerosis. 2. Numerous bilateral pulmonary nodules suspicious for metastatic disease. 3. Bilateral proximal infiltrates. Juan Diego Frias MD Abdomen/Pelvis CT 01/07/17 0000 Signed Impressions: Service Date/Time: Saturday, January 07, 2017 05:09 - CONCLUSION: Portal venous gas in the left lobe of the liver is a new finding from previous examinations as well as free air in the right lower quadrant and right upper quadrant. Air does appear within the pericolonic vasculature adjacent to the ascending colon which can be seen with ischemic bowel. Juan Diego Frias MD Physical Exam HEENT: Normocephalic; atraumatic; no jaundice. CHEST: OETT to vent. Diminished. CARDIAC: RRR ABDOMEN: Soft, nondistended, nontender; no hepatosplenomegaly; bowel sounds are present in all four quadrants. EXTREMITIES:mild edema. 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 Assessment and Plan Plan ASSESSMENT: - Upper GI Bleeding in patient with known gastric cancer. EGD/Colonoscopy (09/20) and this revealed duodenal ulcer with stigmata recent bleeding, clean, nonbleeding rectal ulcers, hemorrhoids, and polyps. The pathology revealed poorly differentiated gastric adenocarcinoma diffuse type- section showed gastric mucosa with an infiltration of signet ring cell with acute inflammation and ulceration. EGD (11/19/16)----> PEG in place. Gastritis in the antrum. Clean-based ulcer in the duodenal bulb. Duodenal bulb diverticulum, duodenitis. In the duodenal bulb biopsy was performed, very friable mucosa. Retroflexion revealed a hiatal hernia. Pathology revealed moderate chronic gastritis with edema and reactive epithelial changes, focal minimal acute inflammation and edema, negative for peptic duodenitis, negative for features of celiac disease. He recently started 1st chemo dose for gastric cancer. Cont. to have dark gastric secretions. S/P 2 units of PRBC. HH is stable at this time 11.1/31.8. Protonix Gtt. He is not stable for invasive procedures. - Suspected Ischemic bowel with free air in right lower quadrant and right upper quadrant. CT scan abdomen and pelvis without contrast (01/07/17) revealed portal venous gas in the left lobe of the liver is a new finding from previous examinations as well as free air in the right lower quadrant and right upper quadrant. Air does appear within the pericolonic vasculature adjacent to the ascending colon which can be seen with ischemic bowel. GS, Palliative care following. Pt with poor prognosis, not a candidate for surgery. - Gastric cancer, poorly differentiated gastric adenocarcinoma diffuse type- section showed gastric mucosa with an infiltration of signet ring cell with acute inflammation and ulceration. Dx by EGD/Pathology in September2016. S/P eval by Dr. Ko with GS and Dr. Orozco with oncology at [facility]. Per Dr. Ko's note, he was not stable for any surgical intervention at the time and recommended outpatient follow up. We then saw him in November, at which time he was evaluated for severe anemia with Hgb of 4.4. 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 According that note, it stated that he did have poorly differentiated adenocarcinoma of stomach, s/p peg tube placement and that he had poor functional status. The patient is followed now at [facility] and started chemotherapy about 11 days ago- Apixaban. - Septis/Leukocytosis/Bacteremia. Urine Niecy albicans. BCx GNR. CT consistent with ischemia and with free air. GS following. Vanco, Diflucan, Zosyn - ARF with multiple electrolyte abnormalities. Per CCM - Severe hypoglycemia, IMPROVED. per CCM - Elevated LFTs. T. Bili 0.5, AST 105, ALT 62, Alk Phosph 148. - Acute metabolic encephalopathy. per ccm - Acute respiratory failure, Aspiration pneumonia. Vent per CCM - Dysphagia. Modified barium swallow (12/11/16) revealed severe pharyngeal phase dysphagia with gross aspiration on all consistencies due to poor epiglottic inversion. He elicited a delayed cough response and response to the aspiration. Patient was able to clear stasis in the performed sinus but not in the valleculae. Tentative posture was attempted but did not eliminate the aspiration. It was recommended that the patient remain nothing by mouth with bypass feedings and possible vital stimulation with speech therapy when discharged to rehabilitation. Currently sedated on vent. PLAN: - NPO - NGT to LIWS - Protonix Gtt - Monitor HH - Transfuse as necessary - Abx per ID - GS following - Palliative care following - ID following - Supportive care - Not stable for GI procedures, recommend hospice/comfort care - Further recommendations to follow based on results of above - Pt seen and examined by Dr. Garcia and myself and this note is written on his behalf Meena Clay Jan 08, 2017 17:57
[2017-01-09] VITALS (17 sets, daily range): BP systolic 105–163; BP diastolic 57–89; PULSE 75–125; RESP 20–22; TEMP 98.6–99.7; O2SAT 93–98
[2017-01-09] MEDS: PIPERACIL-TAZO 3.375 GM PREMIX 50 ML IV SCH ×2 (00:37→08:03)
[2017-01-09] MEDS: PANTOPRAZOLE INJ 80 MG in SODIUM CHLORIDE 0.9% INJ 100 ML IV SCH ×2 (01:24→10:46)
[2017-01-09] MEDS: RESP: ALBUTEROL 2.5 MG/IPRATROPIUM 0.5 MG NEB (SCH) NEB ×4 (03:08→20:11)
[2017-01-09] MEDS: INSULIN ASPART SUPPLEMENTAL SCALE SQ SCH ×6 (03:30→23:30)
[2017-01-09] MEDS: CHLORHEXIDINE GLUCONATE 2 % 1 PACK (2 CLOTHS) TOP SCH (04:00)
[2017-01-09] MEDS: CHLORHEXIDINE 0.12% (ORAL KIT) 15 ML CUP MT SCH ×2 (08:00→20:00)
[2017-01-09] MEDS: HYDROCORTISONE SOD SUCCINATE 100 MG VIAL IV SCH (08:03)
[2017-01-09] MEDS: FLUCONAZOLE 400 MG IV SCH (08:03)
[2017-01-09] MEDS: NOREPINEPHRINE-DEXTROSE DRIP 250 ML IV SCH ×2 (10:27→16:48)
[2017-01-09] MEDS ORDERED: cefTRIAXone INJ 2,000 MG in SODIUM CHLORIDE 0.9% INJ 100 ML IV SCH (11:45)
--- NOTE | 2017-01-09 11:49 | HHI.CCPN ---
Subjective Remarks/Hospital Course Hospital Course: Patient is a 76-year-old male with history of gastric adenocarcinoma, recently started on chemotherapy at [facility], history of type 2 diabetes , hypertension, dyslipidemia who presented to the emergency department via EMS for upper GI bleed and shortness of breath. Apparently upper GI bleed and melena had been going on for almost 24 hours before family called EMS. Patient became progressively more dyspneic with gurgling type respirations and less responsive. EMS found patient hypotensive in the 70s, improved with fluids, tachycardic in the 120s. In the emergency department patient was emergently intubated for airway protection due to gurgling breath sounds, and inability to protect airway. Patient given 3 L normal saline bolus and was started on PPI bolus, drip. Chest x-ray showed bilateral patchy infiltrates. Postintubation ABG pH 7.12, PCO2 32.3, PO2 226, bicarbonate 9.9. Patient was empirically treated with vancomycin, Zosyn. Abnormal labs include WBC 13.2, hemoglobin 8.1 , INR 1.3, Sodium 124, potassium 5.6, bicarbonate 13.9 and anion gap 26. BUN 57 , creatinine 1.70. Troponin 0.37, Also ammonia 68 and Lactic acid 17.0. Urinalysis with hematuria, bacteria and yeast. In the ER patient was ordered to receive 2 units packed red blood cells and 3L NS. He was started on norepinephrine through his chest port, to maintain MAP above 65. I evaluated the patient in the ED. He remains hypotensive and have ordered additional fluid boluses. Patient had been placed on Zosyn vancomycin and Diflucan. Infectious disease was consulted. Continue fluid resuscitation. Source of sepsis most likely pneumonia. Given lactic acid elevation to 17 I have ordered a CT abdomen pelvis to rule out abdominal source of infection or ischemic bowel Subjective: 01/08: long conversation yesterday with family. decision for DNR with no escalation of care, but no plan to withdraw. remains in shock on vasopressor therapy. remains encephalopathic and on full mechanical support. sodium continues to worsen. very poor prognosis. 01/09: Patient remains with septic course. Prognosis poor. Objective Vital Signs Date Time Temp Pulse Resp B/P Pulse Ox O2 Delivery O2 Flow Rate FiO2 01/09/17 11:03 94 40 01/09/17 10:00 120 01/09/17 08:00 98.8 20 124/60 Automatic Cuff 01/09/17 07:00 Mechanical Ventilator 01/07/17 00:43 15 Intake and Output 01/08/17 01/08/17 01/08/17 07:59 15:59 23:59 Intake Total 2300 ml 2169 ml 998 ml Output Total 2220 ml 1950 ml 1500 ml Balance 80 ml 219 ml -502 ml Result Diagram: 01/08/17 0412 01/08/17 0412 Other Results Microbiology Date/Time Procedure Status Source Growth 01/07/17 00:35 Aerobic Blood Culture - Final Complete Blood Peripheral Klebsiella Pneumoniae 01/07/17 00:35 Anaerobic Blood Culture - Final Complete Klebsiella Pneumoniae 01/07/17 00:50 Aerobic Blood Culture - Final Complete Blood Peripheral Klebsiella Pneumoniae 01/07/17 00:50 Anaerobic Blood Culture - Final Complete Klebsiella Pneumoniae 01/07/17 01:40 Urine Culture - Final Complete Urine Clean Catch Niecy Albicans Imaging Imaging studies reviewed Objective Remarks GENERAL: 76 yo male who is Cachectic intubated, sedated, hypotensive on Levophed SKIN: Decubitus ulcer on the sacrum stage II HEAD: Atraumatic. Normocephalic. EYES: Pupils equal and round. 3 mm. No scleral icterus. ENT: Orotracheally intubated Coffee-ground emesis in the oropharynx NECK: trachea midline. CARDIOVASCULAR: Tachycardic with heart rate in the 130s. R upper chest port RESPIRATORY: Intubated Course rhonchi and crackles bilaterally. GASTROINTESTINAL: Abdomen soft, non-tender, nondistended. PEG tube + MUSCULOSKELETAL: No obvious deformities. No edema. NEUROLOGICAL: Intubated sedated, appears to move all extremities. Do not follow commands on sedation A/P Assessment and Plan Assessment: 76yM with metastatic gastric cancer and now likely ischemic bowel, symptomatic upper GI bleed, septic shock. Poor prognosis. given his cancer diagnosis and how critically ill he is, I do not think he will survive this hospitalization. I agree with DNR and no escalation of care. Family still hesitant to pursue palliation. NEURO: Acute metabolic encephalopathy - Encephalopathy most likely secondary to metabolic due to severe sepsis - Hyperammonemia contributing - versed for sedation and ventilator synchrony RESP: Acute hypoxic respiratory failure Aspiration pneumonia - ACV, DuoNeb every 6 hours when necessary, ventilator bundle - Broad-spectrum antibiotics with vancomycin and Zosyn - no SBT today given shock and critical illness. CV: Septic and hemorrhagic shock - persistent Severe lactic acidosis- persistent - Normal saline IV fluids total 4 L bolus - d/c bicarb. - Levophed to keep map above 65, no escalation of care. GI: Upper GI bleed Gastric adenocarcinoma was started on chemotherapy Hyperammonemia mesenteric ischemia Intra-abdominal free air - no more transfusions. no escalation of care. - Nothing by mouth, IV Protonix infusion - GI consulted, too unstable for EGD at this time. - Lactulose once cleared by GI : Acute kidney injury - Monitor renal function closely. Brower catheter. ID: Septic shock - persistent Pneumonia UTI/funguria - IV vancomycin, Zosyn and Diflucan - ID consult HEME: Anemia secondary to acute blood loss requiring transfusion -Monitor CBC, CMP, coags ENDO: Hyponatremia Hyperkalemia - Monitor potassium - Replace electrolytes per protocol - On po steroids at home-started on stress dose steroids PROPH: - Bilateral lower extremity SCDs. On chronic Apixaban - hold due to GIB - Continue Protonix infusion LINES: - Utilize peripheral IVs, port, art line. Overall impression: Deteriorating clinical picture, remains critically ill and unlikely to survive this illness. Critical care 38 mins Roberto Tobar MD Jan 09, 2017 11:49
--- NOTE | 2017-01-09 11:55 | HHI.HCPN ---
Reason for visit a. To assist with evaluation and management of symptoms including: dyspnea, malnutrition b. To assist medical decision maker(s) with: better understanding of current medical conditions; weighing benefits/burdens of medical treatment options; making medical treatment decisions. (Rachael George) Subjective/Interval History Pt seen in follow-up on comfort, goals. Stable in icu, on norepinephrine 10 mics/minute. still w moderate output from OGT. Decreased stool output. no labs today. No new imaging today. Remains on fentanyl drip for comfort 75 mics/hour. Patient seen in room no visitors present. RN Aydin present. Pt w eyes open, tracks examiner. Nods to some yes/no questions, difficult to asses orientation. Moves fingers weakly to commands, moves feet/toes weakly to commands. nods No to pain question. explain ICU, critical illness 2/2 to GI bleeding, he nods yes. Nursing to notify me when arrives. She has prev indicate that she may wish to remove life support later this week when other daughter arrives. Discussed with primary nurse. . Family/friend interactions nsg notify me when arrived. Initially met with at bedside she indicates she will want to remove the tubes today and try to take the patient home, but she does not want hospice. Explore that likely she will need help caring for him if he survives long enough to go home. Additional family members arrive, 2 daughters, multiple grandchildren. Grandchildren have many questions regarding diagnostics and treatments up until this point, they have many questions regarding possible transfer to [place] to patient known cancer doctor who should be able to treat him. Exploration of multiple conditions, patient currently in critical condition secondary to ischemic bowel, GI bleeding etc. and that his problem is beyond his underlying cancer. They do not seem to have a full understanding. Multiple family members advising to not remove tubes and life support but instead continue measures so that the patient "can get well enough to go to be treated at [place]". They request evaluation for transfer [place]. Advised that if patient's known physician wishes to request records or wishes to request speaking to patient treating doctor here that he may, but that transfer inpatient current condition is unlikely. All questions answered. Continue current treatments. . (Rachael George) Advance Directives Living Will: Never completed Health Care Surrogate: Never completed (Rachael George) Objective Vital Signs Date Time Temp Pulse Resp B/P Pulse Ox O2 Delivery O2 Flow Rate FiO2 01/09/17 11:03 94 40 01/09/17 10:00 120 01/09/17 08:00 40 01/09/17 08:00 102 01/09/17 08:00 98.8 75 20 124/60 96 Automatic Cuff 01/09/17 07:21 94 40 01/09/17 07:00 93 Mechanical Ventilator 40 01/09/17 04:39 96 40 01/09/17 02:00 105 01/09/17 00:12 94 40 01/09/17 00:00 40 01/09/17 00:00 99.7 125 20 120/57 94 01/09/17 00:00 125 01/08/17 22:00 125 01/08/17 20:00 40 01/08/17 20:00 99.3 126 20 108/61 95 01/08/17 19:45 94 40 01/08/17 19:00 95 Mechanical Ventilator 40 01/08/17 16:20 92 40 01/08/17 16:00 40 01/08/17 16:00 100.4 118 20 126/71 96 01/08/17 12:00 40 01/08/17 12:00 97.9 60 20 98/52 100 Intake & Output 01/09/17 01/09/17 07:00 19:00 Intake Total 998 ml Output Total 1500 ml Balance -502 ml IV Total 998 ml Output Urine Total 1500 ml Stool Total 0 ml Gastric Drainage Total 0 ml Physical Exam CONSTITUTIONAL/GENERAL: This is a frail, ill-appearing patient seen in ICU, no apparent distress TUBES/LINES/DRAINS: Multiple peripheral IVs bilateral upper extremity, arterial line upper extremity, right subclavian port accessed, ET tube, OG tube, Brower catheter, SCDs SKIN: No jaundice, rashes, or lesions. Multiple areas of ecchymosis to upper chest, bilateral upper extremities. + Edema, serous weeping from upper extremities. Skin temperature cool to distal extremities. CARDIOVASCULAR: Regular rate and rhythm. No murmur. Peripheral pulses palpable. RESPIRATORY/CHEST: Symmetric, unlabored respirations via mechanical vent. Course rhonchi throughout. Breath sounds equal bilaterally. GASTROINTESTINAL: Abdomen soft, flat, nondistended. No hepato-splenomegaly, or palpable masses. Unable to determine tenderness due to level of consciousness. Bowel sounds hypoactive. OG-tube to suction mod amount of brownish green drainage. Small amount of dark stool in rectal drain. +PEG , clamped GENITOURINARY: Without palpable bladder distension. Brower catheter in place scant amount of urine output. MUSCULOSKELETAL: Extremities without clubbing, cyanosis. + Edema, serous weeping from the upper extremities. No joint effusion noted. NEUROLOGICAL: eyes open, nods to some questions. tracks examiner. Moves fingers weakly to commands, moves toes/feet weakly to commands. PSYCHIATRIC: No obvious anxiety/depression--limited assessment due to level of consciousness/clinical condition (Rachael George) Diagnostic Tests Laboratory Laboratory Tests Test 01/07/17 01/07/17 01/07/17 01/07/17 00:50 01:40 01:50 03:49 White Blood Count 13.2 TH/MM3 (4.0-11.0) Red Blood Count 2.78 MIL/MM3 (4.50-5.90) Hemoglobin 8.1 GM/DL (13.0-17.0) Hematocrit 24.9 % (39.0-51.0) Mean Corpuscular Volume 89.4 FL (80.0-100.0) Mean Corpuscular Hemoglobin 28.9 PG (27.0-34.0) Mean Corpuscular Hemoglobin 32.4 % Concent (32.0-36.0) Red Cell Distribution Width 18.0 % (11.6-17.2) Platelet Count 241 TH/MM3 (150-450) Mean Platelet Volume 9.1 FL (7.0-11.0) Neutrophils (%) (Auto) % (16.0-70.0) Lymphocytes (%) (Auto) % (9.0-44.0) Monocytes (%) (Auto) % (0.0-8.0) Eosinophils (%) (Auto) % (0.0-4.0) Basophils (%) (Auto) % (0.0-2.0) Neutrophils # (Auto) TH/MM3 (1.8-7.7) Lymphocytes # (Auto) TH/MM3 (1.0-4.8) Monocytes # (Auto) TH/MM3 (0-0.9) Eosinophils # (Auto) TH/MM3 (0-0.4) Basophils # (Auto) TH/MM3 (0-0.2) CBC Comment AUTO DIFF Differential Total Cells 100 Counted Neutrophils % (Manual) 24 % (16-70) Band Neutrophils % 44 % (0-6) Lymphocytes % 9 % (9-44) Monocytes % 2 % (0-8) Other Cells % 5 % Neutrophils # (Manual) 11.1 TH/MM3 (1.8-7.7) Metamyelocytes 6 % (0-1) Myelocytes 2 % (0-0) Promyelocytes 8 % (0-0) Differential Comment FINAL DIFF MANUAL Dohle Bodies PRESENT (NONE SEEN) Platelet Estimate NORMAL (NORMAL) Platelet Morphology Comment ENLARGED (NORMAL) Prothrombin Time 14.7 SEC (9.8-11.6) Prothromb Time International 1.3 RATIO Ratio Activated Partial 40.1 SEC Thromboplast Time (24.3-30.1) Fibrinogen 635 mg/dL (227-377) Sodium Level 124 MEQ/L (136-145) Potassium Level 5.6 MEQ/L (3.5-5.1) Chloride Level 84 MEQ/L (98-107) Carbon Dioxide Level 13.9 MEQ/L (21.0-32.0) Anion Gap 26 MEQ/L (5-15) Blood Urea Nitrogen 57 MG/DL (7-18) Creatinine 1.70 MG/DL (0.60-1.30) Estimat Glomerular Filtration 39 ML/MIN (>89) Rate Random Glucose 161 MG/DL (74-106) Lactic Acid Level 17.0 mmol/L 14.6 mmol/L (0.4-2.0) (0.4-2.0) Calcium Level 8.8 MG/DL (8.5-10.1) Total Bilirubin 0.2 MG/DL (0.2-1.0) Aspartate Amino Transf 68 U/L (15-37) (AST/SGOT) Alanine Aminotransferase 48 U/L (12-78) (ALT/SGPT) Alkaline Phosphatase 139 U/L (45-117) Ammonia 68 MCMOL/L (11-32) Troponin I 0.37 NG/ML (0.02-0.05) Total Protein 4.4 GM/DL (6.4-8.2) Albumin 1.2 GM/DL (3.4-5.0) Lipase 41 U/L (73-393) Antibody Identification Non-Specific Warm Agglutinin Blood Type O POSITIVE O POSITIVE Antibody Screen POSITIVE Crossmatch Leukocyte-Reduced Red Blood Cells Blood Bank Comment Urine Color RED (YELLW/STRAW) Urine Turbidity HAZY (CLEAR) Urine pH 5.0 (5.0-8.5) Urine Specific [place] 1.024 (1.002-1.035) Urine Protein 30 mg/dL (NEG-TRACE) Urine Glucose (UA) TRACE mg/dL (NEG) Urine Ketones TRACE mg/dL (NEG) Urine Occult Blood SMALL (NEG) Urine Nitrite NEG (NEG) Urine Bilirubin NEG (NEG) Urine Urobilinogen 2.0 MG/DL (LESS THAN 2.0) Urine Leukocyte Esterase SMALL (NEG) Urine RBC 22 /hpf (0-3) Urine WBC 3 /hpf (0-5) Urine Squamous Epithelial 1 /hpf (0-5) Cells Urine Renal Epithelial Cells <1 /hpf (NONE) Urine Bacteria OCC /hpf (NONE) Urine Hyaline Casts 25 /lpf (RARE) Urine Mucus FEW /lpf (OCC) Urine Yeast (Budding) MOD (NONE) Microscopic Urinalysis Comment CATH-CULTURE IND Blood Gas Puncture Site RT RADIAL Blood Gas Patient Temperature 98.6 Blood Gas HCO3 10 mmol/L (22-26) Blood Gas Base Excess -17.6 mmol/L (-2-2) Blood Gas Oxygen Saturation 98 % (90-100) Arterial Blood pH 7.12 (7.380-7.420) Arterial Blood Partial 32 mmHg (38-42) Pressure CO2 Arterial Blood Partial 226 mmHG Pressure O2 (61-120) Arterial Blood Oxygen Content 12.7 Vol % (12.0-20.0) Arterial Blood 0.4 % (0-4) Carboxyhemoglobin Arterial Blood Methemoglobin 0.5 % (0-2) Blood Gas Hemoglobin 8.9 G/DL (12.0-16.0) Oxygen Delivery Device VENTILATOR Blood Gas Ventilator Setting Blood Gas Inspired Oxygen 75 % Test 01/07/17 01/07/17 01/07/17 01/07/17 05:45 06:00 08:25 08:28 Nasal Screen MRSA (PCR) MRSA NOT DETECTED (NOT DETECT) Blood Gas Puncture Site LT RADIAL ART LINE Blood Gas Patient Temperature 98.6 98.6 Blood Gas HCO3 10 mmol/L 17 mmol/L (22-26) (22-26) Blood Gas Base Excess -16.4 mmol/L -7.4 mmol/L (-2-2) (-2-2) Blood Gas Oxygen Saturation 93 % (90-100) 93 % (90-100) Arterial Blood pH 7.19 7.36 (7.380-7.420) (7.380-7.420) Arterial Blood Partial 28 mmHg (38-42) 31 mmHg (38-42) Pressure CO2 Arterial Blood Partial 91 mmHg 75 mmHg Pressure O2 (61-120) (61-120) Arterial Blood Oxygen Content 14.0 Vol % 14.9 Vol % (12.0-20.0) (12.0-20.0) Arterial Blood 0.7 % (0-4) 1.2 % (0-4) Carboxyhemoglobin Arterial Blood Methemoglobin 0.7 % (0-2) 0.7 % (0-2) Blood Gas Hemoglobin 10.6 G/DL 11.3 G/DL (12.0-16.0) (12.0-16.0) Oxygen Delivery Device VENTILATOR VENTILATOR Blood Gas Ventilator Setting AC/20/600/PEEP8 AC,20,600,PEEP5 Blood Gas Inspired Oxygen 40 % 40 % White Blood Count 5.4 TH/MM3 (4.0-11.0) Red Blood Count 4.09 MIL/MM3 (4.50-5.90) Hemoglobin 11.2 GM/DL (13.0-17.0) Hematocrit 35.0 % (39.0-51.0) Mean Corpuscular Volume 85.5 FL (80.0-100.0) Mean Corpuscular Hemoglobin 27.5 PG (27.0-34.0) Mean Corpuscular Hemoglobin 32.1 % Concent (32.0-36.0) Red Cell Distribution Width 18.9 % (11.6-17.2) Platelet Count 228 TH/MM3 (150-450) Mean Platelet Volume 8.2 FL (7.0-11.0) Neutrophils (%) (Auto) 90.5 % (16.0-70.0) Lymphocytes (%) (Auto) 8.1 % (9.0-44.0) Monocytes (%) (Auto) 1.1 % (0.0-8.0) Eosinophils (%) (Auto) 0.1 % (0.0-4.0) Basophils (%) (Auto) 0.2 % (0.0-2.0) Neutrophils # (Auto) 4.8 TH/MM3 (1.8-7.7) Lymphocytes # (Auto) 0.4 TH/MM3 (1.0-4.8) Monocytes # (Auto) 0.1 TH/MM3 (0-0.9) Eosinophils # (Auto) 0.0 TH/MM3 (0-0.4) Basophils # (Auto) 0.0 TH/MM3 (0-0.2) CBC Comment AUTO DIFF Differential Total Cells 100 Counted Neutrophils % (Manual) 40 % (16-70) Band Neutrophils % 37 % (0-6) Lymphocytes % 9 % (9-44) Monocytes % 1 % (0-8) Neutrophils # (Manual) 4.9 TH/MM3 (1.8-7.7) Metamyelocytes 9 % (0-1) Myelocytes 2 % (0-0) Promyelocytes 2 % (0-0) Differential Comment FINAL DIFF MANUAL Platelet Estimate NORMAL (NORMAL) Platelet Morphology Comment ENLARGED (NORMAL) Wander Cells 1+ (NORMAL) Crenated Cell 1+ (NORMAL) Sodium Level 128 MEQ/L (136-145) Potassium Level 4.9 MEQ/L (3.5-5.1) Chloride Level 88 MEQ/L (98-107) Carbon Dioxide Level 16.9 MEQ/L (21.0-32.0) Anion Gap 23 MEQ/L (5-15) Blood Urea Nitrogen 61 MG/DL (7-18) Creatinine 1.53 MG/DL (0.60-1.30) Estimat Glomerular Filtration 44 ML/MIN (>89) Rate Random Glucose 35 MG/DL (74-106) Lactic Acid Level 13.5 mmol/L (0.4-2.0) Calcium Level 8.7 MG/DL (8.5-10.1) Magnesium Level 2.0 MG/DL (1.5-2.5) Total Bilirubin 0.4 MG/DL (0.2-1.0) Aspartate Amino Transf 109 U/L (15-37) (AST/SGOT) Alanine Aminotransferase 61 U/L (12-78) (ALT/SGPT) Alkaline Phosphatase 152 U/L (45-117) Troponin I 0.57 NG/ML (0.02-0.05) Total Protein 4.7 GM/DL (6.4-8.2) Albumin 1.3 GM/DL (3.4-5.0) Test 01/07/17 01/07/17 01/08/17 12:00 12:28 04:12 Hemoglobin 11.1 GM/DL 11.1 GM/DL (13.0-17.0) (13.0-17.0) Hematocrit 32.9 % 31.8 % (39.0-51.0) (39.0-51.0) Lactic Acid Level 12.2 mmol/L (0.4-2.0) Blood Gas Puncture Site ART LINE Blood Gas Patient Temperature 98.6 Blood Gas HCO3 18 mmol/L (22-26) Blood Gas Base Excess -6.3 mmol/L (-2-2) Blood Gas Oxygen Saturation 96 % (90-100) Arterial Blood pH 7.35 (7.380-7.420) Arterial Blood Partial 34 mmHg (38-42) Pressure CO2 Arterial Blood Partial 105 mmHg Pressure O2 (61-120) Arterial Blood Oxygen Content 15.1 Vol % (12.0-20.0) Arterial Blood 1.0 % (0-4) Carboxyhemoglobin Arterial Blood Methemoglobin 0.7 % (0-2) Blood Gas Hemoglobin 11.1 G/DL (12.0-16.0) Oxygen Delivery Device VENTILATOR Blood Gas Ventilator Setting AC,20,550,PEEP8 Blood Gas Inspired Oxygen 40 % White Blood Count 13.6 TH/MM3 (4.0-11.0) Red Blood Count 3.89 MIL/MM3 (4.50-5.90) Mean Corpuscular Volume 81.9 FL (80.0-100.0) Mean Corpuscular Hemoglobin 28.4 PG (27.0-34.0) Mean Corpuscular Hemoglobin 34.7 % Concent (32.0-36.0) Red Cell Distribution Width 19.5 % (11.6-17.2) Platelet Count 157 TH/MM3 (150-450) Mean Platelet Volume 8.1 FL (7.0-11.0) Neutrophils (%) (Auto) % (16.0-70.0) Lymphocytes (%) (Auto) % (9.0-44.0) Monocytes (%) (Auto) % (0.0-8.0) Eosinophils (%) (Auto) % (0.0-4.0) Basophils (%) (Auto) % (0.0-2.0) Neutrophils # (Auto) TH/MM3 (1.8-7.7) Lymphocytes # (Auto) TH/MM3 (1.0-4.8) Monocytes # (Auto) TH/MM3 (0-0.9) Eosinophils # (Auto) TH/MM3 (0-0.4) Basophils # (Auto) TH/MM3 (0-0.2) CBC Comment AUTO DIFF Differential Total Cells 100 Counted Neutrophils % (Manual) 55 % (16-70) Band Neutrophils % 39 % (0-6) Lymphocytes % 3 % (9-44) Neutrophils # (Manual) 13.2 TH/MM3 (1.8-7.7) Metamyelocytes 2 % (0-1) Myelocytes 1 % (0-0) Differential Comment FINAL DIFF MANUAL Platelet Estimate NORMAL (NORMAL) Platelet Morphology Comment NORMAL (NORMAL) Ovalocytes 1+ (NORMAL) Sodium Level 122 MEQ/L (136-145) Potassium Level 3.6 MEQ/L (3.5-5.1) Chloride Level 79 MEQ/L (98-107) Carbon Dioxide Level 30.2 MEQ/L (21.0-32.0) Anion Gap 13 MEQ/L (5-15) Blood Urea Nitrogen 35 MG/DL (7-18) Creatinine 1.15 MG/DL (0.60-1.30) Estimat Glomerular Filtration 62 ML/MIN (>89) Rate Random Glucose 240 MG/DL (74-106) Calcium Level 7.3 MG/DL (8.5-10.1) Protein Corrected Calcium 8.8 MG/DL (8.5-10.1) Total Bilirubin 0.5 MG/DL (0.2-1.0) Aspartate Amino Transf 105 U/L (15-37) (AST/SGOT) Alanine Aminotransferase 62 U/L (12-78) (ALT/SGPT) Alkaline Phosphatase 148 U/L (45-117) Total Protein 4.5 GM/DL (6.4-8.2) Albumin 1.1 GM/DL (3.4-5.0) Random Vancomycin Level 6.2 COMMENT (Rachael George) Result Diagram: 01/08/1741101/08/17411 Microbiology Microbiology Date/Time Procedure Status Source Growth 01/07/17 00:35 Aerobic Blood Culture - Final Complete Blood Peripheral Klebsiella Pneumoniae 01/07/17 00:35 Anaerobic Blood Culture - Final Complete Klebsiella Pneumoniae 01/07/17 00:36 Aerobic Blood Culture Received Blood Peripheral Pending 01/07/17 00:36 Anaerobic Blood Culture Received Blood Peripheral Pending 01/07/17 00:50 Aerobic Blood Culture - Final Complete Blood Peripheral Klebsiella Pneumoniae 01/07/17 00:50 Anaerobic Blood Culture - Final Complete Klebsiella Pneumoniae 01/07/17 01:40 Urine Culture - Final Complete Urine Clean Catch Niecy Albicans (Rachael George) Assessment and Plan Disease Oriented Problem List: (1) Acute on chronic kidney failure (2) Hypotension (3) Tachycardia (4) Acute respiratory failure (5) Septic shock (6) Hyperkalemia (7) Lactic acidosis (8) Anemia (9) Hyponatremia (10) Leukocytosis (11) Aspiration pneumonia (12) Gastric cancer (13) Upper GI bleed Symptom Scale: (1) Dyspnea (2) Malnutrition Pertinent Non-Medical Issues Psychosocial:Patient apparently lived at home with his , daughter, though recently has been in and out of the hospital and senior care settings. Daughter actually lives in [place] however has been staying with the patient and his since all of this started in August. Patient has 2 adult daughters who both live out of state. 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 Has lived in [place] for many years. Spiritual: Voodoo, underground utility locator see support has been requested Legal:Patient, due to condition, is unable to participate in goals in decision- making. No advanced directive or HCS. Per [place] statutes would be appropriate legal decision maker.(Proxy) Ethical issues impacting care: Important Contacts Spouse Aleena Paiz [phone] dtr Tete Guerriersocrates [phone] . Prognosis This patient with known history of gastric adenocarcinoma was admitted with GI bleeding, duration of at least 24 hours. Patient with findings of Septic shock , acute respiratory failure, in critical condition. Imaging finding of free air in right upper and lower quadrants, concern for ischemic bowel. Patient not a good surgical candidate. High risk for continued complications and . . Code Status: Full Code Plan * Legal decision maker:Patient, due to condition, is unable to participate in goals in decision-making. No advanced directive or HCS. Per [place] statutes would be appropriate legal decision maker.(Proxy) * Goals: per prior meetings with : goals semi-aggressive to continue current treatments however with no escalation, patient to remain DNR. She is still considering removal of life support in transition to comfort focus once her other daughter arrives from out of state in the next day or so. She was hoping he would be able to begin artificial feeding she does not want him to feel hungry, though I have reviewed with her conditions and risks and not likely he will be resumed on tube feeding. Nsg to notify me when arrives today 01/09. I later met with patient , multiple other family members who are just now seeing patient and learning more about his multiple conditions. They advised not to remove life support, to continue all aggressive measures. They wish to talk to [place] to see if patient could be transferred there for further treatment. No plan for removal of life support today. * CODE STATUS: DNR * SYMPTOMS: --Dyspnea-emergently intubated for airway protection, currently breathing comfortably on mechanical vent.+ Aspiration pneumonia. Patient with history of recurrent/ongoing aspiration pneumonia per review of available records. --Malnutrition-albumin 1.3, patient with PEG tube, history of receiving tube feed, as well as TPN during an acute hospitalization. Thin and frail appearance. 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 * Palliative care will continue to follow during hospital course as condition evolves, to assist patient/decision-maker with understanding of medical conditions, weighing benefits/burdens of treatment options, for clarification of goals of treatment. Additionally will assist with any symptoms of palliative concern . (Rachael George) Time Spent Total Floor Time (mins): 45 (Rachael George) Attestation To help prompt me to consider important information that might be impacting today's encounter and assessment, information from prior notes written by myself or my colleagues may have been "brought forward" into today's note. My signature on this note, however, is an attestation that I personally performed the exam, history, and/or decision-making noted today, and, unless otherwise indicated, the interactions with patient, family, and staff as well as the review of records all occurred today. I also attest that the listed assessment and stated plan reflect my best clinical judgment today based on the combination of historical information, prior notes, and today's exam/ interactions. When time spent is documented, it refers only to time spent today by the signer, or if indicated, combined time spent today by collaborating physician/nurse practitioner. (Rachael George) Collaborating MD Comments Chart reviewed. Case discussed with palliative care SEAM PRESSER. Above note reviewed and I concur. . (Azael Buckley MD) Rachael George Jan 09, 2017 11:55 Azael Buckley MD Mar 10, 2017 10:56
[2017-01-09] MEDS: DEXTROSE 10% INJ 1,000 ML IV SCH (13:05)
--- NOTE | 2017-01-09 14:14 | HHI.GIFU ---
Subjective Remarks Pt sedated on ventilator. He is on 10mcg Levophed. OGT with dark brownish/ green gastric secretions. No dionna red bleeding at this time. Objective Vitals I&O Vital Signs Date Time Temp Pulse Resp B/P Pulse Ox O2 Delivery O2 Flow Rate FiO2 01/09/17 12:00 97 01/09/17 12:00 40 01/09/17 12:00 98.8 114 20 105/89 93 01/09/17 11:03 94 40 01/09/17 10:00 120 01/09/17 08:00 40 01/09/17 08:00 102 01/09/17 08:00 98.8 75 20 124/60 96 Automatic Cuff 01/09/17 07:21 94 40 01/09/17 07:00 93 Mechanical Ventilator 40 01/09/17 04:39 96 40 01/09/17 02:00 105 01/09/17 00:12 94 40 01/09/17 00:00 40 01/09/17 00:00 99.7 125 20 120/57 94 01/09/17 00:00 125 01/08/17 22:00 125 01/08/17 20:00 40 01/08/17 20:00 99.3 126 20 108/61 95 01/08/17 19:45 94 40 01/08/17 19:00 95 Mechanical Ventilator 40 01/08/17 16:20 92 40 01/08/17 16:00 40 01/08/17 16:00 100.4 118 20 126/71 96 I/O 01/08/17 01/08/17 01/08/17 01/09/17 01/09/17 01/09/17 07:00 15:00 23:00 07:00 15:00 23:00 Intake Total 2300 ml 2169 ml 998 ml Output Total 2220 ml 1950 ml 1500 ml Balance 80 ml 219 ml -502 ml Intake Oral 0 ml IV Total 2300 ml 2169 ml 998 ml Output Urine Total 2200 ml 1950 ml 1500 ml Stool Total 0 ml 0 ml 0 ml Gastric Drainage Total 20 ml 0 ml 0 ml Laboratory Date/Time Procedure Status Source Growth 01/07/17 01:40 Urine Culture - Final Complete Urine Clean Catch Niecy Albicans 01/07/17 00:50 Aerobic Blood Culture - Final Complete Blood Peripheral Klebsiella Pneumoniae 01/07/17 00:50 Anaerobic Blood Culture - Final Complete Klebsiella Pneumoniae 01/07/17 00:36 Aerobic Blood Culture Received Blood Peripheral Pending 01/07/17 00:36 Anaerobic Blood Culture Received Blood Peripheral Pending Imaging Last Impressions Chest X-Ray 01/07/17 0036 Signed Impressions: Service Date/Time: Saturday, January 07, 2017 00:35 - CONCLUSION: Bilateral pulmonary nodules, interstitial and alveolar infiltrates. Juan Diego Frias MD Chest CT 01/07/17 0000 Signed Impressions: Service Date/Time: Saturday, January 07, 2017 05:12 - CONCLUSION: 1. Atherosclerosis. 2. Numerous bilateral pulmonary nodules suspicious for metastatic disease. 3. Bilateral proximal infiltrates. Juan Diego Frias MD Abdomen/Pelvis CT 01/07/17 0000 Signed Impressions: Service Date/Time: Saturday, January 07, 2017 05:09 - CONCLUSION: Portal venous gas in the left lobe of the liver is a new finding from previous examinations as well as free air in the right lower quadrant and right upper quadrant. Air does appear within the pericolonic vasculature adjacent to the ascending colon which can be seen with ischemic bowel. Juan Diego Frias MD Physical Exam HEENT: Normocephalic; atraumatic; no jaundice. CHEST: OETT to vent. Diminished. CARDIAC: RRR ABDOMEN: Soft, nondistended, nontender; no hepatosplenomegaly; bowel sounds are present in all four quadrants. OGT with dark greenish brown gastric secretions. PEG tube clamped. EXTREMITIES:mild edema. SKIN: Generalized pallor BARGEMAN: Sedated on vent. Assessment and Plan Plan ASSESSMENT: - Upper GI Bleeding in patient with known gastric cancer. EGD/Colonoscopy (09/20) and this revealed duodenal ulcer with stigmata recent bleeding, clean, nonbleeding rectal ulcers, hemorrhoids,and polyps. The pathology revealed poorly differentiated gastric adenocarcinoma diffuse type- section showed gastric mucosa with an infiltration of signet ring cell with acute inflammation and ulceration. EGD (11/19/16)----> PEG in place. Gastritis in the antrum. Clean-based ulcer in the duodenal bulb. Duodenal bulb diverticulum, duodenitis. In the duodenal bulb biopsy was performed, very friable mucosa. Retroflexion revealed a hiatal hernia. Pathology revealed moderate chronic gastritis with edema and reactive epithelial changes, focal minimal acute inflammation and edema, negative for peptic duodenitis, negative for features of celiac disease. He recently started 1st chemo dose for gastric cancer. Cont. to have dark gastric secretions. S/P 2 units of PRBC. HH yesterday .8. Protonix Gtt. He is not stable for invasive procedures. - Suspected Ischemic bowel with free air in right lower quadrant and right upper quadrant. CT scan abdomen and pelvis without contrast (01/07/17) revealed portal venous gas in the left lobe of the liver is a new finding from previous examinations as well as free air in the right lower quadrant and right upper quadrant. Air does appear within the pericolonic vasculature adjacent to the ascending colon which can be seen with ischemic bowel. GS, Palliative care following. Pt with poor prognosis, not a candidate for surgery. - Gastric cancer, poorly differentiated gastric adenocarcinoma diffuse type- section showed gastric mucosa with an infiltration of signet ring cell with acute inflammation and ulceration. Dx by EGD/Pathology in September in 2016. S/P eval by Dr. Ko with GS and Dr. Orozco with oncology at [facility]. Per Dr. Ko's note, he was not stable for anysurgical intervention at the time and recommended outpatient follow up. We then saw him in November, at which time he was evaluated for severe anemia with Hgb of 4.4. 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 According that note, it stated that he did have poorly differentiated adenocarcinoma of stomach, s/p peg tube placement and that he had poor functional status. The patient is followed now at [place] and started chemotherapy about 12 days ago- Apixaban. - Septis/Leukocytosis/Bacteremia. Urine Niecy albicans. BCx Klebsiella pneumoniae. CT consistent with ischemia and with free air. GS following. Diflucan, Zosyn - ARF with multiple electrolyte abnormalities. Per CCM - Severe hypoglycemia, IMPROVED. per CCM - Elevated LFTs. - Acute metabolic encephalopathy. per ccm - Acute respiratory failure, Aspiration pneumonia. Vent per CCM - Dysphagia. Modified barium swallow (12/11/16) revealed severe pharyngeal phase dysphagia with gross aspiration on all consistencies due to poor epiglottic inversion. He elicited a delayed cough response and response to the aspiration. Patient was able to clear stasis in the performed sinus but not in the valleculae. Tentative posture was attempted but did not eliminate the aspiration. It was recommended that the patient remain nothing by mouth with bypass feedings and possible vital stimulation with speech therapy when discharged to rehabilitation. S/P PEG. PLAN: - NPO - D/C OGT - Will keep PEG clamped for now - Will start TF in am if no bleeding and tolerates PEG being clamped - D/C Protonix Gtt - Protonix 40mg IV BID - Monitor HH - Transfuse as necessary - Abx per ID - GS following - Palliative care following - ID following - Supportive care - Not stable for GI procedures, recommend hospice/comfort care - Further recommendations to follow based on results of above - Pt seen and examined by Dr. Garcia and myself and this note is written on his behalf Meena Clay Jan 09, 2017 14:14
[2017-01-09] MEDS: PIPERACIL-TAZO 4.5 GM PREMIX 100 ML IV SCH ×2 (14:29→21:08)
[2017-01-09] MEDS: PANTOPRAZOLE SODIUM 40 MG VIAL IV PUSH SCH (15:02)
[2017-01-10] VITALS (17 sets, daily range): BP systolic 90–146; BP diastolic 52–76; PULSE 90–119; RESP 20–23; TEMP 99–100.9; O2SAT 94–100
[2017-01-10] MEDS: NOREPINEPHRINE-DEXTROSE DRIP 250 ML IV SCH ×2 (00:07→22:27)
[2017-01-10] MEDS: PANTOPRAZOLE SODIUM 40 MG VIAL IV PUSH SCH ×2 (01:42→15:29)
[2017-01-10] MEDS: PIPERACIL-TAZO 4.5 GM PREMIX 100 ML IV SCH ×4 (01:43→20:48)
[2017-01-10] MEDS: INSULIN ASPART SUPPLEMENTAL SCALE SQ SCH ×4 (03:30→18:00)
[2017-01-10] MEDS: RESP: ALBUTEROL 2.5 MG/IPRATROPIUM 0.5 MG NEB (SCH) NEB ×4 (03:58→20:01)
[2017-01-10] MEDS: CHLORHEXIDINE GLUCONATE 2 % 1 PACK (2 CLOTHS) TOP SCH (04:00)
[2017-01-10] MEDS: DEXTROSE 10% INJ 1,000 ML IV SCH (04:22)
[2017-01-10 06:24] LABS: AUTOMATED NEUTROPHIL # 15.2 TH/MM3 (1.8-7.7); BASOPHIL % 0.1 % (0.0-2.0); HEMATOCRIT 32.4 % (39.0-51.0); LYMPH % 3.5 % (9.0-44.0); LYMPHOCYTE # 0.6 TH/MM3 (1.0-4.8); MEAN CELL VOLUME 82.5 FL (80.0-100.0); MEAN CORPUSCULAR HEMOGLOBIN 27.4 PG (27.0-34.0); MEAN CORPUSCULAR HGB CONC 33.2 % (32.0-36.0); MONO % 0.6 % (0.0-8.0); NEUT % 95.8 % (16.0-70.0); PLATELET COUNT 90 TH/MM3 (150-450); RED BLOOD COUNT 3.93 MIL/MM3 (4.50-5.90); RED CELL DISTRIBUTION WIDTH 19.3 % (11.6-17.2); WHITE BLOOD COUNT 15.9 TH/MM3 (4.0-11.0)
[2017-01-10 07:17] LABS: HEMO FLAGS AUTO DIFF
[2017-01-10 07:23] LABS: BANDS 14 % (0-6); METAMYELOCYTES 3 % (0-1); MYELOCYTES 3 % (0-0); NEUTROPHIL # MANUAL DIFF 15.6 TH/MM3 (1.8-7.7); POLYS (SEG NEUTROPHILS) 76 % (16-70); PROMYELOCYTES 2 % (0-0); WBC DIFF SAMPLE 100
[2017-01-10 07:24] LABS: KERATOCYTES OCC (NORMAL); PLATELET ESTIMATE SMEAR LOW (NORMAL); PLATELET MORPHOLOGY ENLARGED (NORMAL); SCAN/DIFF FINAL DIFF MANUAL; TOXIC GRANULATION 2+ (NORMAL)
[2017-01-10 07:32] LABS: BICARBONATE 31.5 MEQ/L (21.0-32.0)
[2017-01-10 07:47] LABS: POTASSIUM 1.8 MEQ/L (3.5-5.1)
[2017-01-10] MEDS: CHLORHEXIDINE 0.12% (ORAL KIT) 15 ML CUP MT SCH ×2 (07:55→20:00)
[2017-01-10] MEDS: FLUCONAZOLE 400 MG IV SCH (07:55)
[2017-01-10] MEDS ORDERED: POTASSIUM CHLOR 20 MEQ PREMIX 100 ML IV ONE (08:30)
[2017-01-10] MEDS: fentaNYL DRIP 250 ML IV SCH (10:13)
--- NOTE | 2017-01-10 10:58 | HHI.HCPN ---
Reason for visit a. To assist with evaluation and management of symptoms including: dyspnea, malnutrition b. To assist medical decision maker(s) with: better understanding of current medical conditions; weighing benefits/burdens of medical treatment options; making medical treatment decisions. . Subjective/Interval History Patient remains critically ill, mechanically ventilated, sedated, and on pressor support in the SICU. The primary nurse tells me that BPs are somewhat labile and he has had to uptitrate the levophed when sytolic BPs have fallen into the 70s. Urine output is declining. K+ down to 1.8 this AM. Tmax 100.2. Urine output 1575. WBC 15.9. Hg 10.8. BUN / Creat OK. Albumin from 01/08 was 1.1. . Family/friend interactions , daughter and two grandchildren are present. Spoke at bedside for 25 minutes. I explained how critically ill the patient was. They are aware, that short of a miracle, he would not survive the hospitalization. I explained the likely perforated viscus, the septic shock, the need for increasing pressor support. I explained how the patient was in no shape for transfer to [place], would not survive a surgery, and would not be a candidate for chemotherapy at this time. Discussed risks of re-starting tube feeds when there is a possible perforated viscus. They wish NOT to start at this time. Family understands this. They remain hopeful for the miracle however. They believe he is more responsive/interactive than does the medical team. The agree to maintain "no-code" status but want vent support, pressor support, antibiotics, electrolyte management to continue. I agreed to phone the oncologist at [place] to update him on patient's condition. . Advance Directives Living Will: Never completed Health Care Surrogate: Never completed Objective Vital Signs Date Time Temp Pulse Resp B/P Pulse Ox O2 Delivery O2 Flow Rate FiO2 01/10/17 10:00 93 01/10/17 08:32 97 40 01/10/17 08:00 100.2 98 20 122/52 95 01/10/17 08:00 40 01/10/17 08:00 90 01/10/17 07:00 95 Mechanical Ventilator 40 01/10/17 06:00 118 01/10/17 04:00 40 01/10/17 04:00 112 01/10/17 04:00 100.0 103 20 138/61 96 01/10/17 03:58 97 40 01/10/17 02:00 114 01/10/17 00:00 95 01/10/17 00:00 99.3 98 20 146/76 97 01/10/17 00:00 40 01/09/17 23:23 97 40 01/09/17 22:00 103 01/09/17 20:11 98 40 01/09/17 20:00 124 01/09/17 20:00 99.1 124 22 163/75 96 01/09/17 20:00 40 01/09/17 19:00 96 Mechanical Ventilator 40 01/09/17 18:00 106 01/09/17 16:00 105 01/09/17 16:00 98.6 97 20 135/65 94 01/09/17 16:00 40 01/09/17 15:28 94 40 01/09/17 14:00 89 01/09/17 12:00 97 01/09/17 12:00 40 01/09/17 12:00 98.8 114 20 105/89 93 01/09/17 11:03 94 40 Intake & Output 01/10/17 01/10/17 07:00 19:00 Intake Total 1390 ml Output Total 800 ml Balance 590 ml IV Total 1390 ml Output Urine Total 750 ml Stool Total 50 ml . Physical Exam CONSTITUTIONAL/GENERAL: This is a frail, ill-appearing patient seen in ICU, sedated, minimally responsive. No evident distress. TUBES/LINES/DRAINS: Multiple peripheral IVs bilateral upper extremity, arterial line upper extremity, right subclavian port accessed, ET tube, OG tube, Brower catheter, SCDs SKIN: No jaundice, rashes, or lesions. Multiple areas of ecchymosis to upper chest, bilateral upper extremities. + Edema, serous weeping from upper extremities. Skin temperature cool to distal extremities. CARDIOVASCULAR: Regular rate and rhythm. No murmur. RESPIRATORY/CHEST: Symmetric, unlabored respirations via mechanical vent. Faint rhonchi throughout. Breath sounds equal bilaterally. GASTROINTESTINAL: Abdomen soft, flat, nondistended. No hepato-splenomegaly, or palpable masses. Unable to determine tenderness due to level of consciousness. Bowel sounds hypoactive. Small amount of dark stool in rectal drain. +PEG , clamped GENITOURINARY: Without palpable bladder distension. Brower catheter in place scant amount of urine output. MUSCULOSKELETAL: Extremities without clubbing, cyanosis. 3+ Edema, serous weeping from the upper extremities. NEUROLOGICAL: Does not awaken to voice/exam. Not following commands at time of my visit. PSYCHIATRIC: Unable to assess given level of responsiveness. . Diagnostic Tests Laboratory Laboratory Tests Test 01/07/17 01/07/17 01/08/17 01/10/17 12:00 12:28 04:12 05:45 Hemoglobin 11.1 GM/DL 11.1 GM/DL 10.8 GM/DL (13.0-17.0) (13.0-17.0) (13.0-17.0) Hematocrit 32.9 % 31.8 % 32.4 % (39.0-51.0) (39.0-51.0) (39.0-51.0) Lactic Acid Level 12.2 mmol/L (0.4-2.0) Blood Gas Puncture Site ART LINE Blood Gas Patient Temperature 98.6 Blood Gas HCO3 18 mmol/L (22-26) Blood Gas Base Excess -6.3 mmol/L (-2-2) Blood Gas Oxygen Saturation 96 % (90-100) Arterial Blood pH 7.35 (7.380-7.420) Arterial Blood Partial 34 mmHg (38-42) Pressure CO2 Arterial Blood Partial 105 mmHg Pressure O2 (61-120) Arterial Blood Oxygen Content 15.1 Vol % (12.0-20.0) Arterial Blood 1.0 % (0-4) Carboxyhemoglobin Arterial Blood Methemoglobin 0.7 % (0-2) Blood Gas Hemoglobin 11.1 G/DL (12.0-16.0) Oxygen Delivery Device VENTILATOR Blood Gas Ventilator Setting AC,20,550,[id number] Blood Gas Inspired Oxygen 40 % White Blood Count 13.6 TH/MM3 15.9 TH/MM3 (4.0-11.0) (4.0-11.0) Red Blood Count 3.89 MIL/MM3 3.93 MIL/MM3 (4.50-5.90) (4.50-5.90) Mean Corpuscular Volume 81.9 FL 82.5 FL (80.0-100.0) (80.0-100.0) Mean Corpuscular Hemoglobin 28.4 PG 27.4 PG (27.0-34.0) (27.0-34.0) Mean Corpuscular Hemoglobin 34.7 % 33.2 % Concent (32.0-36.0) (32.0-36.0) Red Cell Distribution Width 19.5 % 19.3 % (11.6-17.2) (11.6-17.2) Platelet Count 157 TH/MM3 90 TH/MM3 (150-450) (150-450) Mean Platelet Volume 8.1 FL 9.6 FL (7.0-11.0) (7.0-11.0) Neutrophils (%) (Auto) % (16.0-70.0) 95.8 % (16.0-70.0) Lymphocytes (%) (Auto) % (9.0-44.0) 3.5 % (9.0-44.0) Monocytes (%) (Auto) % (0.0-8.0) 0.6 % (0.0-8.0) Eosinophils (%) (Auto) % (0.0-4.0) 0.0 % (0.0-4.0) Basophils (%) (Auto) % (0.0-2.0) 0.1 % (0.0-2.0) Neutrophils # (Auto) TH/MM3 15.2 TH/MM3 (1.8-7.7) (1.8-7.7) Lymphocytes # (Auto) TH/MM3 0.6 TH/MM3 (1.0-4.8) (1.0-4.8) Monocytes # (Auto) TH/MM3 (0-0.9) 0.1 TH/MM3 (0-0.9) Eosinophils # (Auto) TH/MM3 (0-0.4) 0.0 TH/MM3 (0-0.4) Basophils # (Auto) TH/MM3 (0-0.2) 0.0 TH/MM3 (0-0.2) CBC Comment AUTO DIFF AUTO DIFF Differential Total Cells 100 100 Counted Neutrophils % (Manual) 55 % (16-70) 76 % (16-70) Band Neutrophils % 39 % (0-6) 14 % (0-6) Lymphocytes % 3 % (9-44) 2 % (9-44) Neutrophils # (Manual) 13.2 TH/MM3 15.6 TH/MM3 (1.8-7.7) (1.8-7.7) Metamyelocytes 2 % (0-1) 3 % (0-1) Myelocytes 1 % (0-0) 3 % (0-0) Differential Comment FINAL DIFF FINAL DIFF MANUAL MANUAL Platelet Estimate NORMAL LOW (NORMAL) (NORMAL) Platelet Morphology Comment NORMAL ENLARGED (NORMAL) (NORMAL) Ovalocytes 1+ (NORMAL) Sodium Level 122 MEQ/L 126 MEQ/L (136-145) (136-145) Potassium Level 3.6 MEQ/L 1.8 MEQ/L (3.5-5.1) (3.5-5.1) Chloride Level 79 MEQ/L 82 MEQ/L (98-107) (98-107) Carbon Dioxide Level 30.2 MEQ/L 31.5 MEQ/L (21.0-32.0) (21.0-32.0) Anion Gap 13 MEQ/L (5-15) 13 MEQ/L (5-15) Blood Urea Nitrogen 35 MG/DL (7-18) 12 MG/DL (7-18) Creatinine 1.15 MG/DL 0.54 MG/DL (0.60-1.30) (0.60-1.30) Estimat Glomerular Filtration 62 ML/MIN (>89) 148 ML/MIN Rate (>89) Random Glucose 240 MG/DL 128 MG/DL (74-106) (74-106) Calcium Level 7.3 MG/DL 8.0 MG/DL (8.5-10.1) (8.5-10.1) Protein Corrected Calcium 8.8 MG/DL (8.5-10.1) Total Bilirubin 0.5 MG/DL (0.2-1.0) Aspartate Amino Transf 105 U/L (15-37) (AST/SGOT) Alanine Aminotransferase 62 U/L (12-78) (ALT/SGPT) Alkaline Phosphatase 148 U/L (45-117) Total Protein 4.5 GM/DL (6.4-8.2) Albumin 1.1 GM/DL (3.4-5.0) Random Vancomycin Level 6.2 COMMENT Promyelocytes 2 % (0-0) Toxic Granulation 2+ (NORMAL) Keratocytes OCC (NORMAL) Result Diagram: 01/10/1745 01/10/1745 Microbiology Microbiology Date/Time Procedure Status Source Growth 01/07/17 01:40 Urine Culture - Final Complete Urine Clean Catch Niecy Albicans 01/07/17 00:50 Aerobic Blood Culture - Final Complete Blood Peripheral Klebsiella Pneumoniae 01/07/17 00:50 Anaerobic Blood Culture - Final Complete Klebsiella Pneumoniae 01/07/17 00:36 Aerobic Blood Culture Received Blood Peripheral Pending 01/07/17 00:36 Anaerobic Blood Culture Received Blood Peripheral Pending . Imaging Last Impressions Chest X-Ray 01/07/17 0036 Signed Impressions: Service Date/Time: Saturday, January 07, 2017 00:35 - CONCLUSION: Bilateral pulmonary nodules, interstitial and alveolar infiltrates. Juan Diego Frias MD Chest CT 01/07/17 0000 Signed Impressions: Service Date/Time: Saturday, January 07, 2017 05:12 - CONCLUSION: 1. Atherosclerosis. 2. Numerous bilateral pulmonary nodules suspicious for metastatic disease. 3. Bilateral proximal infiltrates. Juan Diego Frias MD Abdomen/Pelvis CT 01/07/17 0000 Signed Impressions: Service Date/Time: Saturday, January 07, 2017 05:09 - CONCLUSION: Portal venous gas in the left lobe of the liver is a new finding from previous examinations as well as free air in the right lower quadrant and right upper quadrant. Air does appear within the pericolonic vasculature adjacent to the ascending colon which can be seen with ischemic bowel. Juan Diego Frias MD . Procedures * Intubation / mechaical ventilation * Central line placement . Assessment and Plan Disease Oriented Problem List: (1) Acute on chronic kidney failure Comment: Resolving. (2) Hypotension (3) Tachycardia (4) Acute respiratory failure (5) Septic shock (6) Hyperkalemia (7) Lactic acidosis (8) Anemia (9) Hyponatremia (10) Leukocytosis (11) Aspiration pneumonia (12) Gastric cancer (13) Upper GI bleed (14) Malnutrition Comment: Severe with albumin < 2. Symptom Scale: (1) Dyspnea 0-10 Scale: Unable to quantify Comment: Managed with mechanical ventilation (2) Malnutrition 0-10 Scale: Unable to quantify Comment: Severe with albumin level < 2. Pertinent Non-Medical Issues Psychosocial:Patient apparently lived at home with his , daughter, though recently has been in and out of the hospital and long term settings. Daughter actually lives in [place] however has been staying with the patient and his since all of this started in August. Patient has 2 adult daughters who both live out of state. 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 Has lived in [place] for many years. Spiritual: Pentecostal, supervisor pumping see support has been requested Legal:Patient, due to condition, is unable to participate in goals in decision- making. No advanced directive or HCS. Per [place] statutes would be appropriate legal decision maker.(Proxy) Ethical issues impacting care: Important Contacts Spouse Aleena Paiz [phone] dtr Tete Olivares [phone] . Prognosis This patient with known history of gastric adenocarcinoma was admitted with GI bleeding, duration of at least 24 hours. Patient with findings of Septic shock , acute respiratory failure, in critical condition. Imaging finding of free air in right upper and lower quadrants, concern for ischemic bowel/perforation. Patient not a good surgical candidate. High risk for continued complications and . Unlikely to survive the hospitalization. He would be eligible for hospice services at such time that family desires comfort measures only. . Code Status: Alternative Code (Intubation only.) Plan Decision making * Legal decision maker: Patient is incapacitated to make his own health care decisions and very low probability of recovering such capacity. No advanced directive or HCS. Per [place] statutes would be appropriate legal decision maker.(Proxy) Goals of medical treatment Per prior meetings with : goals semi-aggressive to continue current treatments however with no escalation (other than levophed titration), patient to remain DNR ( no chest compressions, shock) . She is still considering removal of life support in transition to comfort focus once her other daughter arrives from out of state in the next day or so. She was hoping he would be able to begin artificial feeding she does not want him to feel hungry, though I have reviewed with her conditions and risks and not likely he will be resumed on tube feeding. CODE STATUS: Intubation only (No chest compressions, shock). OK to titrate levophed but do not escalate by adding another pressor. SYMPTOMS: * Dyspnea-emergently intubated for airway protection, currently breathing comfortably on mechanical vent.+ Aspiration pneumonia. Patient with history of recurrent/ongoing aspiration pneumonia per review of available records. No further recommendations at this time. * Malnutrition- Albumin < 2, Patient with PEG tube, history of receiving tube feed, as well as TPN during an acute hospitalization. Risk of resuming tube feeds given possible bowel ischemia/perforation. Thin and frail appearance. 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 No further recommendations at this time. * Encephalopathy: Multi-factorial. Unclear to what extent this is fully reverisble. == Personally called [place] oncology to update physicians there of patient's status (he was expected there for f/u 01/10 and 01/11. Waiting for call back. == Palliative care will continue to follow during hospital course as condition evolves, to assist patient/decision-maker with understanding of medical conditions, weighing benefits/burdens of treatment options, for clarification of goals of treatment. Additionally will assist with any symptoms of palliative concern . Time Spent Total Floor Time (mins): 60 (Total floor time included chart review; patient exam; above referenced family conference; collaboration with primary nurse; phone call to [place] oncology; discussion with GI team regarding tube feeding; and docuemntation. ) Face to Face Time (mins): 30 >50% Counseling/Coord of Care: Yes Attestation To help prompt me to consider important information that might be impacting today's encounter and assessment, information from prior notes written by myself or my colleagues may have been "brought forward" into today's note. My signature on this note, however, is an attestation that I personally performed the exam, history, and/or decision-making noted today, and, unless otherwise indicated, the interactions with patient, family, and staff as well as the review of records all occurred today. I also attest that the listed assessment and stated plan reflect my best clinical judgment today based on the combination of historical information, prior notes, and today's exam/ interactions. When time spent is documented, it refers only to time spent today by the signer, or if indicated, combined time spent today by collaborating physician/nurse practitioner. . Azael Buckley MD Jan 10, 2017 10:58
--- NOTE | 2017-01-10 12:11 | HHI.GIFU ---
Subjective Remarks PT sedated in bed, no distress. Family at bedside- interested in possible transfer to [facility], where he received his chemotherapy. initially was very persistent about starting TF, as she feels that the longer he goes without nutrition, the weaker he will become. Discussed with her concern that if there is a perforation and we start feedings, that he could have a worsening infection. After speaking with her, she reports that she no longer wants to start TF. No active bleeding. Objective Vitals I&O Vital Signs Date Time Temp Pulse Resp B/P Pulse Ox O2 Delivery O2 Flow Rate FiO2 01/10/17 10:00 93 01/10/17 08:32 97 40 01/10/17 08:00 100.2 98 20 122/52 95 01/10/17 08:00 40 01/10/17 08:00 90 01/10/17 07:00 95 Mechanical Ventilator 40 01/10/17 06:00 118 01/10/17 04:00 40 01/10/17 04:00 112 01/10/17 04:00 100.0 103 20 138/61 96 01/10/17 03:58 97 40 01/10/17 02:00 114 01/10/17 00:00 95 01/10/17 00:00 99.3 98 20 146/76 97 01/10/17 00:00 40 01/09/17 23:23 97 40 01/09/17 22:00 103 01/09/17 20:11 98 40 01/09/17 20:00 124 01/09/17 20:00 99.1 124 22 163/75 96 01/09/17 20:00 40 01/09/17 19:00 96 Mechanical Ventilator 40 01/09/17 18:00 106 01/09/17 16:00 105 01/09/17 16:00 98.6 97 20 135/65 94 01/09/17 16:00 40 01/09/17 15:28 94 40 01/09/17 14:00 89 I/O 01/09/17 01/09/17 01/09/17 01/10/17 01/10/17 01/10/17 06:59 14:59 22:59 06:59 14:59 22:59 Intake Total 907 ml 837 ml 553 ml Output Total 1025 ml 450 ml 350 ml Balance -118 ml 387 ml 203 ml IV Total 907 ml 837 ml 553 ml Output Urine Total 825 ml 400 ml 350 ml Stool Total 0 ml 50 ml 0 ml Gastric Drainage Total 200 ml Laboratory Laboratory Tests Test 01/10/17 05:45 White Blood Count 15.9 Red Blood Count 3.93 Hemoglobin 10.8 Hematocrit 32.4 Mean Corpuscular Volume 82.5 Mean Corpuscular Hemoglobin 27.4 Mean Corpuscular Hemoglobin 33.2 Concent Red Cell Distribution Width 19.3 Platelet Count 90 Mean Platelet Volume 9.6 Neutrophils (%) (Auto) 95.8 Lymphocytes (%) (Auto) 3.5 Monocytes (%) (Auto) 0.6 Eosinophils (%) (Auto) 0.0 Basophils (%) (Auto) 0.1 Neutrophils # (Auto) 15.2 Lymphocytes # (Auto) 0.6 Monocytes # (Auto) 0.1 Eosinophils # (Auto) 0.0 Basophils # (Auto) 0.0 CBC Comment AUTO DIFF Differential Total Cells 100 Counted Neutrophils % (Manual) 76 Band Neutrophils % 14 Lymphocytes % 2 Neutrophils # (Manual) 15.6 Metamyelocytes 3 Myelocytes 3 Promyelocytes 2 Differential Comment FINAL DIFF MANUAL Toxic Granulation 2+ Platelet Estimate LOW Platelet Morphology Comment ENLARGED Keratocytes OCC Sodium Level 126 Potassium Level 1.8 Chloride Level 82 Carbon Dioxide Level 31.5 Anion Gap 13 Blood Urea Nitrogen 12 Creatinine 0.54 Estimat Glomerular Filtration 148 Rate Random Glucose 128 Calcium Level 8.0 Date/Time Procedure Status Source Growth 01/07/17 01:40 Urine Culture - Final Complete Urine Clean Catch Niecy Albicans 01/07/17 00:50 Aerobic Blood Culture - Final Complete Blood Peripheral Klebsiella Pneumoniae 01/07/17 00:50 Anaerobic Blood Culture - Final Complete Klebsiella Pneumoniae 01/07/17 00:36 Aerobic Blood Culture Received Blood Peripheral Pending 01/07/17 00:36 Anaerobic Blood Culture Received Blood Peripheral Pending Imaging Last Impressions Chest X-Ray 01/07/17 0036 Signed Impressions: Service Date/Time: Saturday, January 07, 2017 00:35 - CONCLUSION: Bilateral pulmonary nodules, interstitial and alveolar infiltrates. Juan Diego Frias MD Chest CT 01/07/17 0000 Signed Impressions: Service Date/Time: Saturday, January 07, 2017 05:12 - CONCLUSION: 1. Atherosclerosis. 2. Numerous bilateral pulmonary nodules suspicious for metastatic disease. 3. Bilateral proximal infiltrates. Juan Diego Frias MD Abdomen/Pelvis CT 01/07/17 0000 Signed Impressions: Service Date/Time: Saturday, January 07, 2017 05:09 - CONCLUSION: Portal venous gas in the left lobe of the liver is a new finding from previous examinations as well as free air in the right lower quadrant and right upper quadrant. Air does appear within the pericolonic vasculature adjacent to the ascending colon which can be seen with ischemic bowel. Juan Diego Frias MD Physical Exam HEENT: Normocephalic; atraumatic; no jaundice. CHEST: OETT to vent. Diminished. CARDIAC: RRR ABDOMEN: Soft, nondistended, nontender; no hepatosplenomegaly; bowel sounds are present in all four quadrants. PEG tube clamped. EXTREMITIES:mild edema. SKIN: Generalized pallor QUALITY CONTROL: Sedated on vent. Assessment and Plan Plan ASSESSMENT: - Upper GI Bleeding in patient with known gastric cancer. EGD/Colonoscopy (09/20) and this revealed duodenal ulcer with stigmata recent bleeding, clean, nonbleeding rectal ulcers, hemorrhoids,and polyps. The pathology revealed poorly differentiated gastric adenocarcinoma diffuse type- section showed gastric mucosa with an infiltration of signet ring cell with acute inflammation and ulceration. EGD (11/19/16)----> PEG in place. Gastritis in the antrum. Clean-based ulcer in the duodenal bulb. Duodenal bulb diverticulum, duodenitis. In the duodenal bulb biopsy was performed, very friable mucosa. Retroflexion revealed a hiatal hernia. Pathology revealed moderate chronic gastritis with edema and reactive epithelial changes, focal minimal acute inflammation and edema, negative for peptic duodenitis, negative for features of celiac disease. He recently started 1st chemo dose for gastric cancer. Cont. to have dark gastric secretions. S/P 2 units of PRBC. Protonix Gtt. He is not having any active bleeding at this time. HH 10.8/32.4. - Suspected Ischemic bowel with free air in right lower quadrant and right upper quadrant. CT scan abdomen and pelvis without contrast (01/07/17) revealed portal venous gas in the left lobe of the liver is a new finding from previous examinations as well as free air in the right lower quadrant and right upper quadrant. Air does appear within the pericolonic vasculature adjacent to the ascending colon which can be seen with ischemic bowel. GS, Palliative care following. Pt with poor prognosis, not a candidate for surgery. - Gastric cancer, poorly differentiated gastric adenocarcinoma diffuse type- section showed gastric mucosa with an infiltration of signet ring cell with acute inflammation and ulceration. Dx by EGD/Pathology in September in 2016. S/P eval by Dr. Ko with GS and Dr. Orozco with oncology at [facility]. Per Dr. Ko's note, he was not stable for anysurgical intervention at the time and recommended outpatient follow up. We then saw him in November, at which time he was evaluated for severe anemia with Hgb of 4.4. 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 According that note, it stated that he did have poorly differentiated adenocarcinoma of stomach, s/p peg tube placement and that he had poor functional status. The patient is followed now at [place] and started chemotherapy about 13 days ago- Apixaban. - Septis/Leukocytosis/Bacteremia. Urine Niecy albicans. BCx Klebsiella pneumoniae. CT consistent with ischemia and with free air. GS following. Diflucan, Zosyn - ARF with multiple electrolyte abnormalities. Per CCM - Severe hypoglycemia, IMPROVED. per CCM - Elevated LFTs. - Acute metabolic encephalopathy. per ccm - Acute respiratory failure, Aspiration pneumonia. Vent per CCM - Dysphagia. Modified barium swallow (12/11/16) revealed severe pharyngeal phase dysphagia with gross aspiration on all consistencies due to poor epiglottic inversion. He elicited a delayed cough response and response to the aspiration. Patient was able to clear stasis in the performed sinus but not in the valleculae. Tentative posture was attempted but did not eliminate the aspiration. It was recommended that the patient remain nothing by mouth with bypass feedings and possible vital stimulation with speech therapy when discharged to rehabilitation. S/P PEG. PLAN: - NPO - D/W , concern of starting TF if there is a possible bowel perforation somewhere and concern that this could worsen his infection. She no longer wants to start TF at this time. - Protonix 40mg IV BID - Monitor HH - Transfuse as necessary - Abx per ID - GS following - Palliative care following - ID following - Supportive care - Not stable for GI procedures, recommend hospice/comfort care - Family interested in transferring the patient to [facility], where he recently received chemotherapy. Dr. Buckley working on contacting his physician at [place] to update on status/recommendations. - Further recommendations to follow based on results of above - Pt seen and examined by Dr. Garcia and myself and this note is written on his behalf Meena Clay Jan 10, 2017 12:11
--- NOTE | 2017-01-10 12:38 | HHI.CCPN ---
Subjective Remarks/Hospital Course Hospital Course: Patient is a 76-year-old male with history of gastric adenocarcinoma, recently started on chemotherapy at [facility], history of type 2 diabetes , hypertension, dyslipidemia who presented to the emergency department via EMS for upper GI bleed and shortness of breath. Apparently upper GI bleed and melena had been going on for almost 24 hours before family called EMS. Patient became progressively more dyspneic with gurgling type respirations and less responsive. EMS found patient hypotensive in the 70s, improved with fluids, tachycardic in the 120s. In the emergency department patient was emergently intubated for airway protection due to gurgling breath sounds, and inability to protect airway. Patient given 3 L normal saline bolus and was started on PPI bolus, drip. Chest x-ray showed bilateral patchy infiltrates. Postintubation ABG pH 7.12, PCO2 32.3, PO2 226, bicarbonate 9.9. Patient was empirically treated with vancomycin, Zosyn. Abnormal labs include WBC 13.2, hemoglobin 8.1 , INR 1.3, Sodium 124, potassium 5.6, bicarbonate 13.9 and anion gap 26. BUN 57 , creatinine 1.70. Troponin 0.37, Also ammonia 68 and Lactic acid 17.0. Urinalysis with hematuria, bacteria and yeast. In the ER patient was ordered to receive 2 units packed red blood cells and 3L NS. He was started on norepinephrine through his chest port, to maintain MAP above 65. I evaluated the patient in the ED. He remains hypotensive and have ordered additional fluid boluses. Patient had been placed on Zosyn vancomycin and Diflucan. Infectious disease was consulted. Continue fluid resuscitation. Source of sepsis most likely pneumonia. Given lactic acid elevation to 17 I have ordered a CT abdomen pelvis to rule out abdominal source of infection or ischemic bowel Subjective: 01/08: long conversation yesterday with family. decision for DNR with no escalation of care, but no plan to withdraw. remains in shock on vasopressor therapy. remains encephalopathic and on full mechanical support. sodium continues to worsen. very poor prognosis. 01/09: Patient remains with septic course. Prognosis poor. 01/10: Renal function more acceptable, otherwise little progress. I can not see any role for operative intervention at this point. Objective Vital Signs Date Time Temp Pulse Resp B/P Pulse Ox O2 Delivery O2 Flow Rate FiO2 01/10/17 10:00 93 01/10/17 08:32 97 40 01/10/17 08:00 100.2 20 122/52 01/10/17 07:00 Mechanical Ventilator 01/07/17 00:43 15 Intake and Output 01/09/17 01/09/17 01/09/17 07:59 15:59 23:59 Intake Total 907 ml 837 ml Output Total 1025 ml 450 ml Balance -118 ml 387 ml Result Diagram: 01/10/17 0545 01/10/1745 Imaging Imaging studies reviewed Objective Remarks GENERAL: 76 yo male who is Cachectic intubated, sedated. SKIN: Decubitus ulcer on the sacrum stage II HEAD: Atraumatic. Normocephalic. EYES: Pupils equal and round. 2 mm. No scleral icterus. ENT: Orotracheally intubated NECK: trachea midline. CARDIOVASCULAR: Tachycardic. RESPIRATORY: Intubated Course rhonchi and crackles bilaterally. GASTROINTESTINAL: Abdomen soft, non-tender, nondistended. PEG tube + MUSCULOSKELETAL: Tepid with acceptable perfusion. NEUROLOGICAL: Intubated sedated, appears to move all extremities. Does not follow commands on sedation A/P Assessment and Plan Assessment: 76yM with metastatic gastric cancer and now likely ischemic bowel, symptomatic upper GI bleed, septic shock. Poor prognosis. given his cancer diagnosis and how critically ill he is, I do not think he will survive this hospitalization. I agree with DNR and no escalation of care. Family still hesitant to pursue palliation. NEURO: Acute metabolic encephalopathy - Encephalopathy most likely secondary to metabolic due to severe sepsis - Hyperammonemia contributing - versed for sedation and ventilator synchrony RESP: Acute hypoxic respiratory failure Aspiration pneumonia - ACV, DuoNeb every 6 hours when necessary, ventilator bundle - Broad-spectrum antibiotics with vancomycin and Zosyn - no SBT today given shock and critical illness. CV: Septic and hemorrhagic shock - persistent Severe lactic acidosis- persistent - Normal saline IV fluids total 4 L bolus - d/c bicarb. - Levophed to keep map above 65, no escalation of care. GI: Upper GI bleed Gastric adenocarcinoma was started on chemotherapy Hyperammonemia mesenteric ischemia Intra-abdominal free air - no more transfusions. no escalation of care. - Nothing by mouth, IV Protonix infusion - GI consulted, too unstable for EGD at this time. - Lactulose once cleared by GI : Acute kidney injury - Monitor renal function closely. Brower catheter. ID: Septic shock - persistent Pneumonia UTI/funguria - IV vancomycin, Zosyn and Diflucan - ID consult HEME: Anemia secondary to acute blood loss requiring transfusion -Monitor CBC, CMP, coags ENDO: Hyponatremia Hyperkalemia - Monitor potassium - Replace electrolytes per protocol - On po steroids at home-started on stress dose steroids PROPH: - Bilateral lower extremity SCDs. On chronic Apixaban - hold due to GIB - Continue Protonix infusion LINES: - Utilize peripheral IVs, port, art line. Overall impression: Same clinical picture, remains critically ill and unlikely to survive this illness. No role for surgery. Critical care 34 mins Roberto Tobar MD Jan 10, 2017 12:37
[2017-01-10] MEDS ORDERED: PHARMACY ORDERED LAB ONE (12:45)
--- NOTE | 2017-01-10 14:48 | HHI.IDPN ---
Subjective Subjective Remarks Patient is a 76-year-old male, admitted to the hospital after he started vomiting coffee ground emesis, and apparently there is history of melena. This has been going on for at least 24 hours. He also has been diagnosed with adenocarcinoma of the stomach, when he was worked out for GI bleed. He has had problem with swallowing, and subsequently underwent placement of a PEG tube back in November 2016. Recently he was started on chemotherapy at the [facility]. During his last admission in December, rehabilitation was recommended, but the family refused so the patient has been home. He started having vomiting, and also has had melena. He was out into the hospital, and patient ended up getting intubated. He is currently in shock, and on Levophed. Imaging studies included CT of the abdomen and pelvis which showed gas in the portal system, as well as free air in the right side. His WBC is elevated. Temperature has been okay. Surgery has been consult it, and GI is also following the patient. Infectious disease consultation has been requested to evaluate the patient with sepsis. Notes reviewed D/W RN Remains critical On Levophed Has DNR status, but family still wants aggressive treatment Not surgical candidate Has Klebsiella in BC WBC elevated Lactic acid very high UC with Niecy Antibiotics Zosyn Diflucan Past Medical History Poorly differentiated gastric adenocarcinoma diffuse type- section showed gastric mucosa with an infiltration of signet ring cell with acute inflammation and ulceration Hx of autoimmune hemolytic anemia. Gastritis, Duodenal bulb ulcers Colon polyps HTN Diabetes Hx DVT Hx aspiration pna Abn. weight loss Kidney stone Past Surgical History PEG tube placement EGD Colonoscopy Radiation seed placement in past Port placement Allergies: Coded Allergies: Sulfa (Verified Allergy, Unknown, 01/07/17) Objective . Vital Signs Date Time Temp Pulse Resp B/P Pulse Ox O2 Delivery O2 Flow Rate FiO2 01/10/17 13:32 94 40 01/10/17 12:00 99 01/10/17 12:00 100.9 107 23 135/61 94 01/10/17 12:00 40 01/10/17 10:00 93 01/10/17 08:32 97 40 01/10/17 08:00 100.2 98 20 122/52 95 01/10/17 08:00 40 01/10/17 08:00 90 01/10/17 07:00 95 Mechanical Ventilator 40 01/10/17 06:00 118 01/10/17 04:00 40 01/10/17 04:00 112 01/10/17 04:00 100.0 103 20 138/61 96 01/10/17 03:58 97 40 01/10/17 02:00 114 01/10/17 00:00 95 01/10/17 00:00 99.3 98 20 146/76 97 01/10/17 00:00 40 01/09/17 23:23 97 40 01/09/17 22:00 103 01/09/17 20:11 98 40 01/09/17 20:00 124 01/09/17 20:00 99.1 124 22 163/75 96 01/09/17 20:00 40 01/09/17 19:00 96 Mechanical Ventilator 40 01/09/17 18:00 106 01/09/17 16:00 105 01/09/17 16:00 98.6 97 20 135/65 94 01/09/17 16:00 40 01/09/17 15:28 94 40 01/09/17 01/09/17 01/10/17 14:59 22:59 06:59 Intake Total 907 ml 837 ml 553 ml Output Total 1025 ml 450 ml 350 ml Balance -118 ml 387 ml 203 ml IV Total 907 ml 837 ml 553 ml Output Urine Total 825 ml 400 ml 350 ml Stool Total 0 ml 50 ml 0 ml Gastric Drainage Total 200 ml . Laboratory Tests Test 01/10/17 05:45 White Blood Count 15.9 TH/MM3 Red Blood Count 3.93 MIL/MM3 Hemoglobin 10.8 GM/DL Hematocrit 32.4 % Mean Corpuscular Volume 82.5 FL Mean Corpuscular Hemoglobin 27.4 PG Mean Corpuscular Hemoglobin 33.2 % Concent Red Cell Distribution Width 19.3 % Platelet Count 90 TH/MM3 Mean Platelet Volume 9.6 FL Neutrophils (%) (Auto) 95.8 % Lymphocytes (%) (Auto) 3.5 % Monocytes (%) (Auto) 0.6 % Eosinophils (%) (Auto) 0.0 % Basophils (%) (Auto) 0.1 % Neutrophils # (Auto) 15.2 TH/MM3 Lymphocytes # (Auto) 0.6 TH/MM3 Monocytes # (Auto) 0.1 TH/MM3 Eosinophils # (Auto) 0.0 TH/MM3 Basophils # (Auto) 0.0 TH/MM3 CBC Comment AUTO DIFF Differential Total Cells 100 Counted Neutrophils % (Manual) 76 % Band Neutrophils % 14 % Lymphocytes % 2 % Neutrophils # (Manual) 15.6 TH/MM3 Metamyelocytes 3 % Myelocytes 3 % Promyelocytes 2 % Differential Comment FINAL DIFF MANUAL Toxic Granulation 2+ Platelet Estimate LOW Platelet Morphology Comment ENLARGED Keratocytes OCC Laboratory Tests Test 01/10/17 05:45 Sodium Level 126 MEQ/L Potassium Level 1.8 MEQ/L Chloride Level 82 MEQ/L Carbon Dioxide Level 31.5 MEQ/L Anion Gap 13 MEQ/L Blood Urea Nitrogen 12 MG/DL Creatinine 0.54 MG/DL Estimat Glomerular Filtration 148 ML/MIN Rate Random Glucose 128 MG/DL Calcium Level 8.0 MG/DL Imaging Last Impressions Chest X-Ray 01/07/17 0036 Signed Impressions: Service Date/Time: Saturday, January 07, 2017 00:35 - CONCLUSION: Bilateral pulmonary nodules, interstitial and alveolar infiltrates. Juan Diego Frias MD Chest CT 01/07/17 0000 Signed Impressions: Service Date/Time: Saturday, January 07, 2017 05:12 - CONCLUSION: 1. Atherosclerosis. 2. Numerous bilateral pulmonary nodules suspicious for metastatic disease. 3. Bilateral proximal infiltrates. Juan Diego Frias MD Abdomen/Pelvis CT 01/07/17 0000 Signed Impressions: Service Date/Time: Saturday, January 07, 2017 05:09 - CONCLUSION: Portal venous gas in the left lobe of the liver is a new finding from previous examinations as well as free air in the right lower quadrant and right upper quadrant. Air does appear within the pericolonic vasculature adjacent to the ascending colon which can be seen with ischemic bowel. Juan Diego Frias MD Physical Exam GENERAL: on the vent, not in respiratory distress. SKIN: Cool and dry. No generalized rash, no ecchymoses HEAD: Atraumatic. Normocephalic. No temporal wasting, or tenderness. EYES: [place] conjunctiva. No petechia or hemorrhage. Pupils equal, round and reactive to light. No scleral icterus. No injection or drainage. EARS, NOSE AND THROAT: Nose without bleeding or purulent nasal discharge. He is orally intubated. NECK: Trachea midline. Supple and not tender, no meningeal signs CARDIOVASCULAR: Regular rate and rhythm. No murmurs, rubs or gallops heard RESPIRATORY: Coarse breath sounds bilaterally, decreased at the bases. No wheezing or rhonchi ABDOMEN: Soft, nondistended, has grimacing during palpation, with some guarding, hypoactive bowel sounds. No organomegaly. EXTREMITIES: No clubbing, or cyanosis, or pedal edema. No joint effusion. Both feet cool to touch, not mottled. UE edematous, with ecchymoses, and some skin tears. NEUROLOGICAL: Opens eyes when stimulated, not following PSYCH: Unable to assess LINE: No evidence of infection : Brower in place, urine looks clear Has liquid stool, and color is very dark green/black Assessment & Plan Remarks IMPRESSION Klebsiella sepsis with shock on presentation has gas in portal system and free air, intraabdominal source, - has GIB, and likely with ischemic colitis Dx of adenoCA gastric, started on chemo Respiratory failure Renal insufficiency Hx prostate CA - previous UC December Niecy RECOMMENDATION Continue Zosyn Continue Diflucan repeat BC Follow cultures Monitor progress Has DNR status Prognosis poor D/W Kathrin Nathan MD Jan 10, 2017 14:48
[2017-01-10] MEDS: DEXTROSE 50% IN WATER 50 ML VIAL(D50) IV PUSH PRN (18:40)
[2017-01-11] VITALS (19 sets, daily range): BP systolic 92–114; BP diastolic 42–80; PULSE 78–113; RESP 20; TEMP 98.2–101.8; O2SAT 92–100
[2017-01-11] MEDS ORDERED: DEXTROSE 50% IN WATER 50 ML SYRINGE ONE (00:53)
[2017-01-11] MEDS: ACETAMINOPHEN 1000 MG/100 ML VIAL IV PRN ×2 (00:54→15:28)
[2017-01-11] MEDS: RESP: ALBUTEROL 2.5 MG/IPRATROPIUM 0.5 MG NEB (SCH) NEB (01:19)
[2017-01-11] MEDS: PANTOPRAZOLE SODIUM 40 MG VIAL IV PUSH SCH ×2 (02:38→15:29)
[2017-01-11] MEDS: PIPERACIL-TAZO 4.5 GM PREMIX 100 ML IV SCH ×4 (02:38→21:07)
[2017-01-11] MEDS: CHLORHEXIDINE GLUCONATE 2 % 1 PACK (2 CLOTHS) TOP SCH (04:00)
[2017-01-11 05:45] LABS: APTT (PATIENT) 39.3 SEC (24.3-30.1); INTERNATIONAL NORMALIZED RATIO 1.3 RATIO; PROTHROMBIN TIME - PATIENT 14.8 SEC (9.8-11.6)
[2017-01-11 05:57] LABS: INDIRECT BILIRUBIN 0.3 MG/DL (0.0-0.8); TOTAL BILIRUBIN ADULT 0.8 MG/DL (0.2-1.0)
[2017-01-11] MEDS: INSULIN ASPART SUPPLEMENTAL SCALE SQ SCH ×4 (06:00→18:00)
[2017-01-11] MEDS: NOREPINEPHRINE-DEXTROSE DRIP 250 ML IV SCH (06:39)
[2017-01-11] MEDS: DEXTROSE 10% INJ 1,000 ML IV SCH (06:40)
[2017-01-11] MEDS: FLUCONAZOLE 400 MG IV SCH (09:47)
[2017-01-11] MEDS: CHLORHEXIDINE 0.12% (ORAL KIT) 15 ML CUP MT SCH ×2 (09:48→20:00)
--- NOTE | 2017-01-11 10:47 | HHI.CCPN ---
Subjective Remarks/Hospital Course Hospital Course: Patient is a 76-year-old male with history of gastric adenocarcinoma, recently started on chemotherapy at [facility], history of type 2 diabetes , hypertension, dyslipidemia who presented to the emergency department via EMS for upper GI bleed and shortness of breath. Apparently upper GI bleed and melena had been going on for almost 24 hours before family called EMS. Patient became progressively more dyspneic with gurgling type respirations and less responsive. EMS found patient hypotensive in the 70s, improved with fluids, tachycardic in the 120s. In the emergency department patient was emergently intubated for airway protection due to gurgling breath sounds, and inability to protect airway. Patient given 3 L normal saline bolus and was started on PPI bolus, drip. Chest x-ray showed bilateral patchy infiltrates. Postintubation ABG pH 7.12, PCO2 32.3, PO2 226, bicarbonate 9.9. Patient was empirically treated with vancomycin, Zosyn. Abnormal labs include WBC 13.2, hemoglobin 8.1 , INR 1.3, Sodium 124, potassium 5.6, bicarbonate 13.9 and anion gap 26. BUN 57 , creatinine 1.70. Troponin 0.37, Also ammonia 68 and Lactic acid 17.0. Urinalysis with hematuria, bacteria and yeast. In the ER patient was ordered to receive 2 units packed red blood cells and 3L NS. He was started on norepinephrine through his chest port, to maintain MAP above 65. I evaluated the patient in the ED. He remains hypotensive and have ordered additional fluid boluses. Patient had been placed on Zosyn vancomycin and Diflucan. Infectious disease was consulted. Continue fluid resuscitation. Source of sepsis most likely pneumonia. Given lactic acid elevation to 17 I have ordered a CT abdomen pelvis to rule out abdominal source of infection or ischemic bowel Subjective: 01/08: long conversation yesterday with family. decision for DNR with no escalation of care, but no plan to withdraw. remains in shock on vasopressor therapy. remains encephalopathic and on full mechanical support. sodium continues to worsen. very poor prognosis. 01/09: Patient remains with septic course. Prognosis poor. 01/10: Renal function more acceptable, otherwise little progress. I can not see any role for operative intervention at this point. I spoke at length with her daughter about the seriousness of her liver failure. 01/11: Continued deterioration. Good antibiotic coverage. Too unstable to survive a bowel resection. I spoke again at length with her daughter about the seriousness of her liver failure. Objective Vital Signs Date Time Temp Pulse Resp B/P Pulse Ox O2 Delivery O2 Flow Rate FiO2 01/11/17 09:19 94 40 01/11/17 06:00 103 01/11/17 04:00 99.0 20 98/43 01/10/17 19:00 Nasal Cannula 6.00 Intake and Output 01/10/17 01/10/17 01/11/17 08:00 16:00 00:00 Intake Total 553 ml 979 ml Output Total 350 ml 525 ml Balance 203 ml 454 ml Result Diagram: 01/10/17 0545 01/10/17 0545 Imaging Imaging studies reviewed Objective Remarks GENERAL: 76 yo male, Cachectic intubated, lightly sedated. SKIN: Decubitus ulcer on the sacrum stage II HEAD: Atraumatic. Normocephalic. EYES: Pupils equal and round. No scleral icterus. ENT: Orotracheally intubated NECK: trachea midline. CARDIOVASCULAR: Tachycardic. No JVD. RESPIRATORY: Intubated. Course rhonchi bilaterally. Good air movement. GASTROINTESTINAL: Abdomen soft, non-tender, nondistended. PEG tube + MUSCULOSKELETAL: Tepid with acceptable perfusion. NEUROLOGICAL: Intubated sedated, appears to move all extremities. Does not follow commands on sedation A/P Assessment and Plan Assessment: 76yM with metastatic gastric cancer and now likely ischemic bowel, symptomatic upper GI bleed, septic shock. Poor prognosis. given his cancer diagnosis and how critically ill he is, I do not think he will survive this hospitalization. I agree with DNR and no escalation of care. Family still hesitant to pursue palliation. NEURO: Acute metabolic encephalopathy - Encephalopathy most likely secondary to metabolic due to severe sepsis - Hyperammonemia contributing - versed for sedation and ventilator synchrony RESP: Acute hypoxic respiratory failure Aspiration pneumonia - ACV, DuoNeb every 6 hours when necessary, ventilator bundle - Broad-spectrum antibiotics with vancomycin and Zosyn - no SBT today given shock and critical illness. CV: Septic and hemorrhagic shock - persistent Severe lactic acidosis- persistent - Normal saline IV fluids total 4 L bolus - d/c bicarb. - Levophed to keep map above 65, no escalation of care. GI: Upper GI bleed Gastric adenocarcinoma was started on chemotherapy Hyperammonemia mesenteric ischemia Intra-abdominal free air - no more transfusions. no escalation of care. - Nothing by mouth, IV Protonix infusion - GI consulted, too unstable for EGD at this time. - Lactulose once cleared by GI : Acute kidney injury - Monitor renal function closely. Brower catheter. ID: Septic shock - persistent Pneumonia UTI/funguria - IV vancomycin, Zosyn and Diflucan - ID consult HEME: Anemia secondary to acute blood loss requiring transfusion -Monitor CBC, CMP, coags ENDO: Hyponatremia Hyperkalemia - Monitor potassium - Replace electrolytes per protocol - On po steroids at home-started on stress dose steroids PROPH: - Bilateral lower extremity SCDs. On chronic Apixaban - hold due to GIB - Continue Protonix infusion LINES: - Utilize peripheral IVs, port, art line. Overall impression: Remains critically ill with bacteremia and bowel ischemia/ infarction; unlikely to survive this illness. Unable to tolerate surgical source control. Critical care 38 mins Roberto Tobar MD Jan 11, 2017 10:47
--- NOTE | 2017-01-11 11:07 | HHI.HCPN ---
Reason for visit a. To assist with evaluation and management of symptoms including: dyspnea, malnutrition b. To assist medical decision maker(s) with: better understanding of current medical conditions; weighing benefits/burdens of medical treatment options; making medical treatment decisions. . (Rachael George) Subjective/Interval History Patient remains critically ill, mechanically ventilated, sedated, and on pressor support in the SICU. Nsg reports still with episodes hypotension, desaturation, w nursing care-- repositioning etc. K+ 1.8 yesterday, repleated per critical care. Albumin 0.9 today. No new CBC. Urine output decreasing. OGT d/c per GI. PEG remains clamped. Tmax 101.5, ID following. Urine from 01/07 + loreta, BC + Klebsiella. Repeat BC from 01/10 pending. On parth dumont. Pt seen in room, granddaughter present. She informs rest of family not in yet this am, they were here late, around 1am due to pt change in condition (low BP) . She has questions RE possible tx options at [facility], pt current condition, etc. Review with her reasons for hospital transfers,and that at this time, pt not stable for transfer and there would not be additional tx options in pt current condition, that right now he cannot receive cancer tx due to his acute GIB, ischemic bowel ,sepsis. Gently explore general prognosis, pt not expected to survive hospitalization. All questions answered. TO my exam, minimally responsive. No eye opening. No apparent distress. + fentanyl 25 mcgs/hr. +levophed 12mcg/min. Assist nurse to reposition, bp decreases to 70-80s Systolic during this care. D/w primary nurse, nursing will notify me if additional family arrives and has additional questions later. . Family/friend interactions Mrs Paiz arrives shortly after my exam, spoke w her and additional family members at bedside approx 20 min. She feels he is less responsive because of the fentanyl and requests it be decreased so "he can wake up and tell us what he wants". Explore he is critically ill, encephalopathic 2/2 to sepsis, and on very low dose fentanyl. May have some pain/discomfort 2/2 to invasive procedures, recommend some analgesia in place. is OK w current rate but requests no additional medications for pain or sedation without clearing with her first. She asks me if TF will be started today, advise that w ischemic/perf bowel would risk worsening sepsis, aspiration if introduce TF. She tells me that the GI Dr told her they would start it in the next day or 2. Gently explore he is critically ill and high risk for continued decline and . She verbalizes she continues to pray and that she believes there's still a chance he could get better. She feels if he could just get stronger and get nutrition he might get through this. She wishes to cont current tx, goals semi aggressive short of CPR. Primary RN present for most of this discussion. . (Rachael George) Advance Directives Living Will: Never completed Health Care Surrogate: Never completed (Rachael George) Objective Vital Signs Date Time Temp Pulse Resp B/P Pulse Ox O2 Delivery O2 Flow Rate FiO2 01/11/17 09:19 94 40 01/11/17 07:26 97 40 01/11/17 06:00 103 01/11/17 04:35 99 40 01/11/17 04:00 99.0 105 20 98/43 99 01/11/17 04:00 40 01/11/17 04:00 105 01/11/17 02:00 113 01/11/17 01:19 98 40 01/11/17 00:00 101.5 112 20 92/42 99 01/11/17 00:00 112 01/11/17 00:00 40 01/10/17 22:00 110 01/10/17 20:01 100 40 01/10/17 20:00 99.0 119 20 90/62 94 01/10/17 20:00 40 01/10/17 20:00 94 01/10/17 19:00 94 Nasal Cannula 6.00 01/10/17 18:00 95 01/10/17 16:59 99 40 01/10/17 16:00 40 01/10/17 16:00 94 01/10/17 16:00 99.7 114 20 114/55 94 01/10/17 14:00 103 01/10/17 13:32 94 40 01/10/17 12:00 99 01/10/17 12:00 100.9 107 23 135/61 94 01/10/17 12:00 40 Intake & Output 01/11/17 01/11/17 07:00 19:00 Intake Total 1234 ml Output Total 300 ml Balance 934 ml IV Total 1234 ml Output Urine Total 300 ml Stool Total 0 ml Physical Exam CONSTITUTIONAL/GENERAL: This is a frail, ill-appearing patient seen in ICU, sedated, minimally responsive. No evident distress. TUBES/LINES/DRAINS: Multiple peripheral IVs bilateral upper extremity, arterial line upper extremity, right subclavian port accessed, ET tube, OG tube, Brower catheter, SCDs SKIN: No jaundice, rashes, or lesions. Multiple areas of ecchymosis to upper chest, bilateral upper extremities. + Edema, serous weeping from upper extremities. Skin temperature cool to distal extremities. CARDIOVASCULAR: Regular rate and rhythm. No murmur. RESPIRATORY/CHEST: Symmetric, unlabored respirations via mechanical vent. Faint rhonchi throughout. Breath sounds equal bilaterally. GASTROINTESTINAL: Abdomen soft, flat, nondistended. No hepato-splenomegaly, or palpable masses. Unable to determine tenderness due to level of consciousness. no bowel sounds present. Small amount of dark stool in rectal drain. +PEG , clamped GENITOURINARY: Without palpable bladder distension. Brower catheter in place scant amount of urine output. MUSCULOSKELETAL: Extremities without clubbing, cyanosis. 3+ Edema, serous weeping from the upper extremities. NEUROLOGICAL: Does not awaken to voice/exam. Not following commands at time of my visit. PSYCHIATRIC: Unable to assess given level of responsiveness. . (Rachael George) Diagnostic Tests Laboratory Laboratory Tests Test 01/10/17 01/11/17 05:45 05:10 White Blood Count 15.9 TH/MM3 (4.0-11.0) Red Blood Count 3.93 MIL/MM3 (4.50-5.90) Hemoglobin 10.8 GM/DL (13.0-17.0) Hematocrit 32.4 % (39.0-51.0) Mean Corpuscular Volume 82.5 FL (80.0-100.0) Mean Corpuscular Hemoglobin 27.4 PG (27.0-34.0) Mean Corpuscular Hemoglobin 33.2 % Concent (32.0-36.0) Red Cell Distribution Width 19.3 % (11.6-17.2) Platelet Count 90 TH/MM3 (150-450) Mean Platelet Volume 9.6 FL (7.0-11.0) Neutrophils (%) (Auto) 95.8 % (16.0-70.0) Lymphocytes (%) (Auto) 3.5 % (9.0-44.0) Monocytes (%) (Auto) 0.6 % (0.0-8.0) Eosinophils (%) (Auto) 0.0 % (0.0-4.0) Basophils (%) (Auto) 0.1 % (0.0-2.0) Neutrophils # (Auto) 15.2 TH/MM3 (1.8-7.7) Lymphocytes # (Auto) 0.6 TH/MM3 (1.0-4.8) Monocytes # (Auto) 0.1 TH/MM3 (0-0.9) Eosinophils # (Auto) 0.0 TH/MM3 (0-0.4) Basophils # (Auto) 0.0 TH/MM3 (0-0.2) CBC Comment AUTO DIFF Differential Total Cells 100 Counted Neutrophils % (Manual) 76 % (16-70) Band Neutrophils % 14 % (0-6) Lymphocytes % 2 % (9-44) Neutrophils # (Manual) 15.6 TH/MM3 (1.8-7.7) Metamyelocytes 3 % (0-1) Myelocytes 3 % (0-0) Promyelocytes 2 % (0-0) Differential Comment FINAL DIFF MANUAL Toxic Granulation 2+ (NORMAL) Platelet Estimate LOW (NORMAL) Platelet Morphology Comment ENLARGED (NORMAL) Keratocytes OCC (NORMAL) Sodium Level 126 MEQ/L (136-145) Potassium Level 1.8 MEQ/L (3.5-5.1) Chloride Level 82 MEQ/L (98-107) Carbon Dioxide Level 31.5 MEQ/L (21.0-32.0) Anion Gap 13 MEQ/L (5-15) Blood Urea Nitrogen 12 MG/DL (7-18) Creatinine 0.54 MG/DL (0.60-1.30) Estimat Glomerular Filtration 148 ML/MIN Rate (>89) Random Glucose 128 MG/DL (74-106) Calcium Level 8.0 MG/DL (8.5-10.1) Prothrombin Time 14.8 SEC (9.8-11.6) Prothromb Time International 1.3 RATIO Ratio Activated Partial 39.3 SEC Thromboplast Time (24.3-30.1) Total Bilirubin 0.8 MG/DL (0.2-1.0) Direct Bilirubin 0.5 MG/DL (0.0-0.2) Indirect Bilirubin 0.3 MG/DL (0.0-0.8) Aspartate Amino Transf 87 U/L (15-37) (AST/SGOT) Alanine Aminotransferase 61 U/L (12-78) (ALT/SGPT) Alkaline Phosphatase 290 U/L (45-117) Total Protein 4.2 GM/DL (6.4-8.2) Albumin 0.9 GM/DL (3.4-5.0) (Rachael George) Result Diagram: 01/10/17 0545 01/10/17 0545 Microbiology Microbiology Date/Time Procedure Status Source Growth 01/10/17 21:30 Aerobic Blood Culture Received Blood Peripheral Pending 01/10/17 21:30 Anaerobic Blood Culture Received Blood Peripheral Pending 01/10/17 21:35 Aerobic Blood Culture Received Blood Peripheral Pending 01/10/17 21:35 Anaerobic Blood Culture Received Blood Peripheral Pending Imaging Last Impressions Chest X-Ray 01/07/17 0036 Signed Impressions: Service Date/Time: Saturday, January 07, 2017 00:35 - CONCLUSION: Bilateral pulmonary nodules, interstitial and alveolar infiltrates. Juan Diego Frias MD Chest CT 01/07/17 0000 Signed Impressions: Service Date/Time: Saturday, January 07, 2017 05:12 - CONCLUSION: 1. Atherosclerosis. 2. Numerous bilateral pulmonary nodules suspicious for metastatic disease. 3. Bilateral proximal infiltrates. Juan Diego Frias MD Abdomen/Pelvis CT 01/07/17 0000 Signed Impressions: Service Date/Time: Saturday, January 07, 2017 05:09 - CONCLUSION: Portal venous gas in the left lobe of the liver is a new finding from previous examinations as well as free air in the right lower quadrant and right upper quadrant. Air does appear within the pericolonic vasculature adjacent to the ascending colon which can be seen with ischemic bowel. Juan Diego Frias MD Procedures * Intubation / mechaical ventilation * Central line placement . (Rachael George) Assessment and Plan Disease Oriented Problem List: (1) Acute on chronic kidney failure Comment: Resolving. (2) Hypotension (3) Tachycardia (4) Acute respiratory failure (5) Septic shock (6) Hyperkalemia (7) Lactic acidosis (8) Anemia (9) Hyponatremia (10) Leukocytosis (11) Aspiration pneumonia (12) Gastric cancer (13) Upper GI bleed (14) Malnutrition Comment: Severe with albumin < 2. Symptom Scale: (1) Dyspnea 0-10 Scale: Unable to quantify Comment: Managed with mechanical ventilation (2) Malnutrition 0-10 Scale: Unable to quantify Comment: Severe with albumin level < 2. Pertinent Non-Medical Issues Psychosocial:Patient apparently lived at home with his , daughter, though recently has been in and out of the hospital and fpc settings. Daughter actually lives in [place] however has been staying with the patient and his since all of this started in August. Patient has 2 adult daughters who both live out of state. 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 Has lived in [place] for many years. Spiritual: Buddhist, electrolytic de scaler see support has been requested Legal:Patient, due to condition, is unable to participate in goals in decision- making. No advanced directive or HCS. Per [place] statutes would be appropriate legal decision maker.(Proxy) Ethical issues impacting care: Important Contacts Spouse Aleena Paiz [phone] dtr Tete Olivares [phone] . Prognosis This patient with known history of gastric adenocarcinoma was admitted with GI bleeding, duration of at least 24 hours. Patient with findings of Septic shock , acute respiratory failure, in critical condition. Imaging finding of free air in right upper and lower quadrants, concern for ischemic bowel/perforation. Patient not a good surgical candidate. High risk for continued complications and . Unlikely to survive the hospitalization. He would be eligible for hospice services at such time that family desires comfort measures only. . Code Status: Alternative Code (Intubation only.) Plan Decision making * Legal decision maker: Patient is incapacitated to make his own health care decisions and very low probability of recovering such capacity. No advanced directive or HCS. Per [place] statutes would be appropriate legal decision maker.(Proxy) Goals of medical treatment Per : goals semi-aggressive to continue current treatments however with no escalation (other than levophed titration), patient to remain DNR ( no chest compressions, shock) . had been considering removal of life support later in the week, though does not appear interested in that at this time. She was hoping he would be able to begin artificial feeding she does not want him to feel hungry, though risks/benfits have been review by mult. providers. appears to be struggling to accept pt condition/prognosis. CODE STATUS: Intubation only (No chest compressions, shock). OK to titrate levophed but do not escalate by adding another pressor. SYMPTOMS: * Dyspnea-emergently intubated for airway protection, currently breathing comfortably on mechanical vent.+ Aspiration pneumonia. Patient with history of recurrent/ongoing aspiration pneumonia per review of available records. No further recommendations at this time. * Malnutrition- Albumin < 1, Patient with PEG tube, history of receiving tube feed, as well as TPN during an acute hospitalization. Risk of resuming tube feeds given possible bowel ischemia/perforation. Thin and frail appearance. 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 No further recommendations at this time. * Encephalopathy: Multi-factorial. Unclear to what extent this is fully reverisble. == Personally called [facility] to update physicians there of patient's status (he was expected there for f/u 01/10 and 01/11. Waiting for call back. == Palliative care will continue to follow during hospital course as condition evolves, to assist patient/decision-maker with understanding of medical conditions, weighing benefits/burdens of treatment options, for clarification of goals of treatment. Additionally will assist with any symptoms of palliative concern . (Rachael George) Attestation To help prompt me to consider important information that might be impacting today's encounter and assessment, information from prior notes written by myself or my colleagues may have been "brought forward" into today's note. My signature on this note, however, is an attestation that I personally performed the exam, history, and/or decision-making noted today, and, unless otherwise indicated, the interactions with patient, family, and staff as well as the review of records all occurred today. I also attest that the listed assessment and stated plan reflect my best clinical judgment today based on the combination of historical information, prior notes, and today's exam/ interactions. When time spent is documented, it refers only to time spent today by the signer, or if indicated, combined time spent today by collaborating physician/nurse practitioner. (Rachael George) Collaborating MD Comments Chart reviewed. Case discussed with palliative care ADHESION TESTER. Above note reviewed and I concur. . (Azael Buckley MD) DorisRachael LOGAN Jan 11, 2017 11:07 Azael Buckley MD Mar 10, 2017 11:16
--- NOTE | 2017-01-11 17:18 | HHI.GIFU ---
Subjective Remarks Resting in bed. Hypotensive- 69/40 on levophed. Running fevers. Sedated on vent. Objective Vitals I&O Vital Signs Date Time Temp Pulse Resp B/P Pulse Ox O2 Delivery O2 Flow Rate FiO2 01/11/17 16:15 100 40 01/11/17 14:00 78 01/11/17 12:00 78 01/11/17 12:00 100.8 106 20 109/58 99 01/11/17 10:00 84 01/11/17 09:19 94 40 01/11/17 08:00 40 01/11/17 08:00 98.2 96 20 114/80 96 01/11/17 08:00 78 01/11/17 07:26 97 40 01/11/17 07:00 99 Mechanical Ventilator 40 01/11/17 06:00 103 01/11/17 04:35 99 40 01/11/17 04:00 99.0 105 20 98/43 99 01/11/17 04:00 40 01/11/17 04:00 105 01/11/17 02:00 113 01/11/17 01:19 98 40 01/11/17 00:00 101.5 112 20 92/42 99 01/11/17 00:00 112 01/11/17 00:00 40 01/10/17 22:00 110 01/10/17 20:01 100 40 01/10/17 20:00 99.0 119 20 90/62 94 01/10/17 20:00 40 01/10/17 20:00 94 01/10/17 19:00 94 Nasal Cannula 6.00 01/10/17 18:00 95 I/O 01/10/17 01/10/17 01/10/17 01/11/17 01/11/17 01/11/17 07:00 15:00 23:00 07:00 15:00 23:00 Intake Total 553 ml 979 ml 1234 ml Output Total 350 ml 525 ml 300 ml Balance 203 ml 454 ml 934 ml IV Total 553 ml 979 ml 1234 ml Output Urine Total 350 ml 425 ml 300 ml Stool Total 0 ml 100 ml 0 ml Laboratory Laboratory Tests Test 01/11/17 05:10 Prothrombin Time 14.8 Prothromb Time International 1.3 Ratio Activated Partial 39.3 Thromboplast Time Total Bilirubin 0.8 Direct Bilirubin 0.5 Indirect Bilirubin 0.3 Aspartate Amino Transf 87 (AST/SGOT) Alanine Aminotransferase 61 (ALT/SGPT) Alkaline Phosphatase 290 Total Protein 4.2 Albumin 0.9 Date/Time Procedure Status Source Growth 01/10/17 21:35 Aerobic Blood Culture - Preliminary Resulted Blood Peripheral NO GROWTH IN 1 DAY 01/10/17 21:35 Anaerobic Blood Culture - Preliminary Resulted Blood Peripheral NO GROWTH IN 1 DAY 01/07/17 01:40 Urine Culture - Final Complete Urine Clean Catch Niecy Albicans 01/07/17 00:50 Aerobic Blood Culture - Final Complete Blood Peripheral Klebsiella Pneumoniae 01/07/17 00:50 Anaerobic Blood Culture - Final Complete Klebsiella Pneumoniae 01/07/17 00:36 Aerobic Blood Culture Received Blood Peripheral Pending 01/07/17 00:36 Anaerobic Blood Culture Received Blood Peripheral Pending Imaging Last Impressions Chest X-Ray 01/07/17 0036 Signed Impressions: Service Date/Time: Saturday, January 07, 2017 00:35 - CONCLUSION: Bilateral pulmonary nodules, interstitial and alveolar infiltrates. Juan Diego Frias MD Chest CT 01/07/17 0000 Signed Impressions: Service Date/Time: Saturday, January 07, 2017 05:12 - CONCLUSION: 1. Atherosclerosis. 2. Numerous bilateral pulmonary nodules suspicious for metastatic disease. 3. Bilateral proximal infiltrates. Juan Diego Frias MD Abdomen/Pelvis CT 01/07/17 0000 Signed Impressions: Service Date/Time: Saturday, January 07, 2017 05:09 - CONCLUSION: Portal venous gas in the left lobe of the liver is a new finding from previous examinations as well as free air in the right lower quadrant and right upper quadrant. Air does appear within the pericolonic vasculature adjacent to the ascending colon which can be seen with ischemic bowel. Juan Diego Frias MD Physical Exam HEENT: Normocephalic; atraumatic; no jaundice. CHEST: OETT to vent. Diminished. CARDIAC: RRR ABDOMEN: Soft, nondistended, nontender; no hepatosplenomegaly; bowel sounds are present in all four quadrants. PEG tube clamped. EXTREMITIES:mild edema. 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 Assessment and Plan Plan ASSESSMENT: - Upper GI Bleeding in patient with known gastric cancer. EGD/Colonoscopy (09/20) and this revealed duodenal ulcer with stigmata recent bleeding, clean, nonbleeding rectal ulcers, hemorrhoids,and polyps. The pathology revealed poorly differentiated gastric adenocarcinoma diffuse type- section showed gastric mucosa with an infiltration of signet ring cell with acute inflammation and ulceration. EGD (11/19/16)----> PEG in place. Gastritis in the antrum. Clean-based ulcer in the duodenal bulb. Duodenal bulb diverticulum, duodenitis. In the duodenal bulb biopsy was performed, very friable mucosa. Retroflexion revealed a hiatal hernia. Pathology revealed moderate chronic gastritis with edema and reactive epithelial changes, focal minimal acute inflammation and edema, negative for peptic duodenitis, negative for features of celiac disease. He recently started 1st chemo dose for gastric cancer. Cont. to have dark gastric secretions. S/P 2 units of PRBC. Protonix. He is not having any active bleeding at this time. HH stable 10.8/32.4. - Suspected Ischemic bowel with free air in right lower quadrant and right upper quadrant. CT scan abdomen and pelvis without contrast (01/07/17) revealed portal venous gas in the left lobe of the liver is a new finding from previous examinations as well as free air in the right lower quadrant and right upper quadrant. Air does appear within the pericolonic vasculature adjacent to the ascending colon which can be seen with ischemic bowel. GS, Palliative care following. Pt with poor prognosis, not a candidate for surgery. - Gastric cancer, poorly differentiated gastric adenocarcinoma diffuse type- section showed gastric mucosa with an infiltration of signet ring cell with acute inflammation and ulceration. Dx by EGD/Pathology in September in 2016. S/P eval by Dr. Ko with GS and Dr. Orozco with oncology at [facility]. Per Dr. Ko's note, he was not stable for anysurgical intervention at the time and recommended outpatient follow up. We then saw him in November, at which time he was evaluated for severe anemia with Hgb of 4.4. 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 According that note, it stated that he did have poorly differentiated adenocarcinoma of stomach, s/p peg tube placement and that he had poor functional status. The patient is followed now at [place] and started chemotherapy about 14 days ago- Apixaban. - Septis/Leukocytosis/Bacteremia. Urine Niecy albicans. BCx Klebsiella pneumoniae. CT consistent with ischemia and with free air. GS following. Diflucan, Zosyn - ARF with multiple electrolyte abnormalities. Per CCM - Severe hypoglycemia, IMPROVED. per CCM - Elevated LFTs. - Acute metabolic encephalopathy. per ccm - Acute respiratory failure, Aspiration pneumonia. Vent per CCM - Dysphagia. Modified barium swallow (12/11/16) revealed severe pharyngeal phase dysphagia with gross aspiration on all consistencies due to poor epiglottic inversion. He elicited a delayed cough response and response to the aspiration. Patient was able to clear stasis in the performed sinus but not in the valleculae. Tentative posture was attempted but did not eliminate the aspiration. It was recommended that the patient remain nothing by mouth with bypass feedings and possible vital stimulation with speech therapy when discharged to rehabilitation. S/P PEG. PLAN: - NPO - Protonix 40mg IV BID - Monitor HH - Transfuse as necessary - Abx per ID - GS following - Palliative care following - ID following - Supportive care - Not stable for GI procedures, recommend hospice/comfort care - Family interested in transferring the patient to [facility], where he recently received chemotherapy. Dr. Buckley working on contacting his physician at [place] to update on status/recommendations- call was placed today by palliative care, awaiting call back. - Further recommendations to follow based on results of above - Pt seen and examined by Dr. Garcia and myself and this note is written on his behalf Meena Clay Jan 11, 2017 17:18
--- NOTE | 2017-01-11 18:38 | HHI.IDPN ---
Subjective Subjective Remarks Patient is a 76-year-old male, admitted to the hospital after he started vomiting coffee ground emesis, and apparently there is history of melena. This has been going on for at least 24 hours. He also has been diagnosed with adenocarcinoma of the stomach, when he was worked out for GI bleed. He has had problem with swallowing, and subsequently underwent placement of a PEG tube back in November 2016. Recently he was started on chemotherapy at the [facility]. During his last admission in December, rehabilitation was recommended, but the family refused so the patient has been home. He started having vomiting, and also has had melena. He was out into the hospital, and patient ended up getting intubated. He is currently in shock, and on Levophed. Imaging studies included CT of the abdomen and pelvis which showed gas in the portal system, as well as free air in the right side. His WBC is elevated. Temperature has been okay. Surgery has been consult it, and GI is also following the patient. Infectious disease consultation has been requested to evaluate the patient with sepsis. Notes reviewed D/W RN Remains critical On Levophed Hypotensive Febrile Has DNR status, but family still wants aggressive treatment Not surgical candidate Has Klebsiella in BC WBC elevated Lactic acid very high UC with Niecy Has low platelets prob in DIC Antibiotics Zosyn Diflucan Past Medical History Poorly differentiated gastric adenocarcinoma diffuse type- section showed gastric mucosa with an infiltration of signet ring cell with acute inflammation and ulceration Hx of autoimmune hemolytic anemia. Gastritis, Duodenal bulb ulcers Colon polyps HTN Diabetes Hx DVT Hx aspiration pna Abn. weight loss Kidney stone Past Surgical History PEG tube placement EGD Colonoscopy Radiation seed placement in past Port placement Allergies: Coded Allergies: Sulfa (Verified Allergy, Unknown, 01/07/17) Objective . Vital Signs Date Time Temp Pulse Resp B/P Pulse Ox O2 Delivery O2 Flow Rate FiO2 01/11/17 18:00 83 01/11/17 16:15 100 40 01/11/17 16:00 101.8 105 20 98/47 100 01/11/17 16:00 105 01/11/17 16:00 40 01/11/17 14:00 78 01/11/17 12:00 40 01/11/17 12:00 78 01/11/17 12:00 100.8 106 20 109/58 99 01/11/17 10:00 84 01/11/17 09:19 94 40 01/11/17 08:00 40 01/11/17 08:00 98.2 96 20 114/80 96 01/11/17 08:00 78 01/11/17 07:26 97 40 01/11/17 07:00 99 Mechanical Ventilator 40 01/11/17 06:00 103 01/11/17 04:35 99 40 01/11/17 04:00 99.0 105 20 98/43 99 01/11/17 04:00 40 01/11/17 04:00 105 01/11/17 02:00 113 01/11/17 01:19 98 40 01/11/17 00:00 101.5 112 20 92/42 99 01/11/17 00:00 112 01/11/17 00:00 40 01/10/17 22:00 110 01/10/17 20:01 100 40 01/10/17 20:00 99.0 119 20 90/62 94 01/10/17 20:00 40 01/10/17 20:00 94 01/10/17 19:00 94 Nasal Cannula 6.00 01/10/17 01/10/17 01/11/17 15:00 23:00 07:00 Intake Total 979 ml 1234 ml Output Total 525 ml 300 ml Balance 454 ml 934 ml IV Total 979 ml 1234 ml Output Urine Total 425 ml 300 ml Stool Total 100 ml 0 ml . Laboratory Tests Test 01/10/17 05:45 White Blood Count 15.9 TH/MM3 Red Blood Count 3.93 MIL/MM3 Hemoglobin 10.8 GM/DL Hematocrit 32.4 % Mean Corpuscular Volume 82.5 FL Mean Corpuscular Hemoglobin 27.4 PG Mean Corpuscular Hemoglobin 33.2 % Concent Red Cell Distribution Width 19.3 % Platelet Count 90 TH/MM3 Mean Platelet Volume 9.6 FL Neutrophils (%) (Auto) 95.8 % Lymphocytes (%) (Auto) 3.5 % Monocytes (%) (Auto) 0.6 % Eosinophils (%) (Auto) 0.0 % Basophils (%) (Auto) 0.1 % Neutrophils # (Auto) 15.2 TH/MM3 Lymphocytes # (Auto) 0.6 TH/MM3 Monocytes # (Auto) 0.1 TH/MM3 Eosinophils # (Auto) 0.0 TH/MM3 Basophils # (Auto) 0.0 TH/MM3 CBC Comment AUTO DIFF Differential Total Cells 100 Counted Neutrophils % (Manual) 76 % Band Neutrophils % 14 % Lymphocytes % 2 % Neutrophils # (Manual) 15.6 TH/MM3 Metamyelocytes 3 % Myelocytes 3 % Promyelocytes 2 % Differential Comment FINAL DIFF MANUAL Toxic Granulation 2+ Platelet Estimate LOW Platelet Morphology Comment ENLARGED Keratocytes OCC Laboratory Tests Test 01/10/17 01/11/17 05:45 05:10 Sodium Level 126 MEQ/L Potassium Level 1.8 MEQ/L Chloride Level 82 MEQ/L Carbon Dioxide Level 31.5 MEQ/L Anion Gap 13 MEQ/L Blood Urea Nitrogen 12 MG/DL Creatinine 0.54 MG/DL Estimat Glomerular Filtration 148 ML/MIN Rate Random Glucose 128 MG/DL Calcium Level 8.0 MG/DL Total Bilirubin 0.8 MG/DL Direct Bilirubin 0.5 MG/DL Indirect Bilirubin 0.3 MG/DL Aspartate Amino Transf 87 U/L (AST/SGOT) Alanine Aminotransferase 61 U/L (ALT/SGPT) Alkaline Phosphatase 290 U/L Total Protein 4.2 GM/DL Albumin 0.9 GM/DL Microbiology Date/Time Procedure Status Source Growth 01/10/17 21:30 Aerobic Blood Culture - Preliminary Resulted Blood Peripheral NO GROWTH IN 1 DAY 01/10/17 21:30 Anaerobic Blood Culture - Preliminary Resulted Gram Negative Sampson 01/10/17 21:35 Aerobic Blood Culture - Preliminary Resulted Blood Peripheral NO GROWTH IN 1 DAY 01/10/17 21:35 Anaerobic Blood Culture - Preliminary Resulted Blood Peripheral NO GROWTH IN 1 DAY Imaging Last Impressions Chest X-Ray 01/07/17 0036 Signed Impressions: Service Date/Time: Saturday, January 07, 2017 00:35 - CONCLUSION: Bilateral pulmonary nodules, interstitial and alveolar infiltrates. Juan Diego Frias MD Chest CT 01/07/17 0000 Signed Impressions: Service Date/Time: Saturday, January 07, 2017 05:12 - CONCLUSION: 1. Atherosclerosis. 2. Numerous bilateral pulmonary nodules suspicious for metastatic disease. 3. Bilateral proximal infiltrates. Juan Diego Frias MD Abdomen/Pelvis CT 01/07/17 0000 Signed Impressions: Service Date/Time: Saturday, January 07, 2017 05:09 - CONCLUSION: Portal venous gas in the left lobe of the liver is a new finding from previous examinations as well as free air in the right lower quadrant and right upper quadrant. Air does appear within the pericolonic vasculature adjacent to the ascending colon which can be seen with ischemic bowel. Juan Diego Frias MD Physical Exam GENERAL: on the vent, not in respiratory distress. SKIN: Cool and dry. No generalized rash, no ecchymoses HEAD: Atraumatic. Normocephalic. No temporal wasting, or tenderness. EYES: [place] conjunctiva. No petechia or hemorrhage. Pupils equal, round and reactive to light. No scleral icterus. No injection or drainage. EARS, NOSE AND THROAT: Nose without bleeding or purulent nasal discharge. He is orally intubated. NECK: Trachea midline. Supple and not tender, no meningeal signs CARDIOVASCULAR: Regular rate and rhythm. No murmurs, rubs or gallops heard RESPIRATORY: Coarse breath sounds bilaterally, decreased at the bases. No wheezing or rhonchi ABDOMEN: Soft, nondistended, has grimacing during palpation, with some guarding, hypoactive bowel sounds. No organomegaly. EXTREMITIES: No clubbing, or cyanosis. Both feet cool to touch, not mottled. UE edematous, with ecchymoses, and some skin tears. NEUROLOGICAL: Sedated PSYCH: Unable to assess LINE: No evidence of infection : Brower in place, urine looks clear Has liquid stool, and color is very dark green/black Assessment & Plan Remarks IMPRESSION Klebsiella sepsis with shock on presentation has gas in portal system and free air, intraabdominal source, - has GIB, and likely with ischemic colitis - has very high lactic acid Dx of adenoCA gastric, started on chemo Respiratory failure Renal insufficiency, better Hx prostate CA - previous UC December Niecy Thrombocytopenia, likely DIC RECOMMENDATION Continue Zosyn Continue Diflucan Monitor progress Has DNR status Prognosis very poor D/W Kathrin Nathan MD Jan 11, 2017 18:38
[2017-01-11] MEDS: fentaNYL DRIP 250 ML IV SCH (22:37)
[2017-01-12] VITALS (19 sets, daily range): BP systolic 66–127; BP diastolic 42–58; PULSE 87–105; RESP 16–20; TEMP 97.5–101.5; O2SAT 98–100
[2017-01-12] MEDS: NOREPINEPHRINE-DEXTROSE DRIP 250 ML IV SCH ×4 (00:15→19:27)
[2017-01-12] MEDS: PANTOPRAZOLE SODIUM 40 MG VIAL IV PUSH SCH ×2 (02:09→14:50)
[2017-01-12] MEDS: PIPERACIL-TAZO 4.5 GM PREMIX 100 ML IV SCH ×4 (02:09→19:27)
[2017-01-12] MEDS: CHLORHEXIDINE GLUCONATE 2 % 1 PACK (2 CLOTHS) TOP SCH (04:00)
[2017-01-12 04:50] LABS: AUTOMATED NEUTROPHIL # 17.8 TH/MM3 (1.8-7.7); BASOPHIL % 0.1 % (0.0-2.0); EOSINOPHIL % 0.1 % (0.0-4.0); HEMATOCRIT 30.6 % (39.0-51.0); LYMPH % 3.6 % (9.0-44.0); LYMPHOCYTE # 0.7 TH/MM3 (1.0-4.8); MEAN CORPUSCULAR HEMOGLOBIN 27.9 PG (27.0-34.0); MEAN CORPUSCULAR HGB CONC 34.4 % (32.0-36.0); MONO % 0.4 % (0.0-8.0); NEUT % 95.8 % (16.0-70.0); PLATELET COUNT 92 TH/MM3 (150-450); RED BLOOD COUNT 3.78 MIL/MM3 (4.50-5.90); WHITE BLOOD COUNT 18.6 TH/MM3 (4.0-11.0)
[2017-01-12 04:53] LABS: HEMO FLAGS AUTO DIFF
[2017-01-12] MEDS: ACETAMINOPHEN 1000 MG/100 ML VIAL IV PRN (05:15)
[2017-01-12 05:24] LABS: BICARBONATE 29.8 MEQ/L (21.0-32.0)
[2017-01-12 05:28] LABS: POTASSIUM 1.6 MEQ/L (3.5-5.1)
[2017-01-12 05:34] LABS: BANDS 23 % (0-6); METAMYELOCYTES 2 % (0-1); MYELOCYTES 3 % (0-0); POLYS (SEG NEUTROPHILS) 67 % (16-70); PROMYELOCYTES 2 % (0-0); WBC DIFF SAMPLE 100
[2017-01-12 05:35] LABS: DOHLE BODIES PRESENT (NONE SEEN); PLATELET ESTIMATE SMEAR LOW (NORMAL); PLATELET MORPHOLOGY ENLARGED (NORMAL); SCAN/DIFF FINAL DIFF MANUAL
[2017-01-12] MEDS: INSULIN ASPART SUPPLEMENTAL SCALE SQ SCH ×4 (06:00→17:32)
[2017-01-12] MEDS: CHLORHEXIDINE 0.12% (ORAL KIT) 15 ML CUP MT SCH ×2 (08:41→21:04)
[2017-01-12] MEDS: FLUCONAZOLE 400 MG IV SCH (08:41)
[2017-01-12] MEDS ORDERED: POTASSIUM CHLOR 20 MEQ PREMIX 100 ML IV ONE (09:00)
--- NOTE | 2017-01-12 10:31 | HHI.CCPN ---
Subjective Remarks/Hospital Course Hospital Course: Patient is a 76-year-old male with history of gastric adenocarcinoma, recently started on chemotherapy at [facility], history of type 2 diabetes , hypertension, dyslipidemia who presented to the emergency department via EMS for upper GI bleed and shortness of breath. Apparently upper GI bleed and melena had been going on for almost 24 hours before family called EMS. Patient became progressively more dyspneic with gurgling type respirations and less responsive. EMS found patient hypotensive in the 70s, improved with fluids, tachycardic in the 120s. In the emergency department patient was emergently intubated for airway protection due to gurgling breath sounds, and inability to protect airway. Patient given 3 L normal saline bolus and was started on PPI bolus, drip. Chest x-ray showed bilateral patchy infiltrates. Postintubation ABG pH 7.12, PCO2 32.3, PO2 226, bicarbonate 9.9. Patient was empirically treated with vancomycin, Zosyn. Abnormal labs include WBC 13.2, hemoglobin 8.1 , INR 1.3, Sodium 124, potassium 5.6, bicarbonate 13.9 and anion gap 26. BUN 57 , creatinine 1.70. Troponin 0.37, Also ammonia 68 and Lactic acid 17.0. Urinalysis with hematuria, bacteria and yeast. In the ER patient was ordered to receive 2 units packed red blood cells and 3L NS. He was started on norepinephrine through his chest port, to maintain MAP above 65. I evaluated the patient in the ED. He remains hypotensive and have ordered additional fluid boluses. Patient had been placed on Zosyn vancomycin and Diflucan. Infectious disease was consulted. Continue fluid resuscitation. Source of sepsis most likely pneumonia. Given lactic acid elevation to 17 I have ordered a CT abdomen pelvis to rule out abdominal source of infection or ischemic bowel Subjective: 01/08: long conversation yesterday with family. decision for DNR with no escalation of care, but no plan to withdraw. remains in shock on vasopressor therapy. remains encephalopathic and on full mechanical support. sodium continues to worsen. very poor prognosis. 01/09: Patient remains with septic course. Prognosis poor. 01/10: Renal function more acceptable, otherwise little progress. I can not see any role for operative intervention at this point. 01/11: Continued deterioration. Good antibiotic coverage. Too unstable to survive a bowel resection. I spoke at length with her daughter about the seriousness of her liver failure. 01/12: Potassium remains low despite aggressive replacement. Metabolic pH hampering efforts; will add diamox once to lower pH and hopefully hold K better. I spoke again at length with her daughter and another man about the seriousness of her liver failure. I explained that it will be very difficult for her to survive this illness. I offered DNR status but the daughter again requests all efforts be continued - expresses that her mother's wishes are for all efforts including CPR. Objective Vital Signs Date Time Temp Pulse Resp B/P Pulse Ox O2 Delivery O2 Flow Rate FiO2 01/12/17 10:00 87 01/12/17 08:00 40 01/12/17 08:00 100.0 20 84/47 100 01/12/17 07:00 Mechanical Ventilator 01/10/17 19:00 6.00 Intake and Output 01/11/17 01/11/17 01/11/17 07:59 15:59 23:59 Intake Total 1234 ml 1312 ml 521 ml Output Total 300 ml 1050 ml 350 ml Balance 934 ml 262 ml 171 ml Result Diagram: 01/12/17 0418 01/12/17 0418 Imaging Imaging studies reviewed Objective Remarks GENERAL: 76 yo male, Cachectic intubated, minimally sedated at family requests. HEAD: Atraumatic. Normocephalic. EYES: Pupils equal and round. No scleral icterus. ENT: Orotracheally intubated NECK: trachea midline. CARDIOVASCULAR: Tachycardic. No JVD. RESPIRATORY: Intubated. Course rhonchi bilaterally. Good air movement. GASTROINTESTINAL: Abdomen soft, non-tender, nondistended. PEG tube + MUSCULOSKELETAL: Tepid with acceptable perfusion. NEUROLOGICAL: Intubated sedated, appears to move all extremities. Grimaces continually - looks to be in pain. Does not follow commands. A/P Assessment and Plan Assessment: 76yM with metastatic gastric cancer and now likely ischemic bowel, symptomatic upper GI bleed, septic shock. Poor prognosis. given his cancer diagnosis and how critically ill he is, I do not think he will survive this hospitalization. I agree with DNR and no escalation of care. Family still hesitant to pursue palliation. NEURO: Acute metabolic encephalopathy - Encephalopathy most likely secondary to metabolic due to severe sepsis - Hyperammonemia contributing - versed for sedation and ventilator synchrony RESP: Acute hypoxic respiratory failure Aspiration pneumonia - ACV, DuoNeb every 6 hours when necessary, ventilator bundle - Broad-spectrum antibiotics with vancomycin and Zosyn - no SBT today given shock and critical illness. CV: Septic and hemorrhagic shock - persistent Severe lactic acidosis- persistent - Normal saline IV fluids total 4 L bolus - d/c bicarb. - Levophed to keep map above 65, no escalation of care. GI: Upper GI bleed Gastric adenocarcinoma was started on chemotherapy Hyperammonemia mesenteric ischemia Intra-abdominal free air - no more transfusions. no escalation of care. - Nothing by mouth, IV Protonix infusion - GI consulted, too unstable for EGD at this time. - Lactulose once cleared by GI : Acute kidney injury - Monitor renal function closely. Brower catheter. ID: Septic shock - persistent Pneumonia UTI/funguria - IV vancomycin, Zosyn and Diflucan - ID consult HEME: Anemia secondary to acute blood loss requiring transfusion -Monitor CBC, CMP, coags ENDO: Hyponatremia Hyperkalemia - Monitor potassium - Replace electrolytes per protocol - On po steroids at home-started on stress dose steroids PROPH: - Bilateral lower extremity SCDs. On chronic Apixaban - hold due to GIB - Continue Protonix infusion LINES: - Utilize peripheral IVs, port, art line. Overall impression: Remains critically ill with bacteremia and bowel ischemia/ infarction; unlikely to survive this illness. Unable to tolerate surgical source control. Patient is clearly in pain but his refuses to allow us to give him pain medicine. This issue has been discussed at length with her. Critical care 39 mins Roberto Tobar MD Jan 12, 2017 10:31
[2017-01-12] MEDS: POTASSIUM CHLOR 20 MEQ PREMIX 100 ML IV SCH ×2 (13:04→14:49)
--- NOTE | 2017-01-12 14:26 | HHI.GIFU ---
Subjective Remarks Pt intubated on vent. Per RN scant liquid stool. Pt now DNR. (Merissa Vang) Objective Vitals I&O Vital Signs Date Time Temp Pulse Resp B/P Pulse Ox O2 Delivery O2 Flow Rate FiO2 01/12/17 12:00 40 01/12/17 12:00 97.5 102 20 110/58 100 01/12/17 12:00 102 01/12/17 11:12 100 40 01/12/17 10:00 87 01/12/17 08:00 100 01/12/17 08:00 40 01/12/17 08:00 100.0 98 20 84/47 100 01/12/17 07:42 100 40 01/12/17 07:00 100 Mechanical Ventilator 40 01/12/17 06:16 20 01/12/17 06:00 104 01/12/17 04:05 100 40 01/12/17 04:00 40 01/12/17 04:00 101.5 102 20 88/42 100 01/12/17 04:00 100 01/12/17 02:00 100 01/12/17 01:20 98 40 01/12/17 00:00 40 01/12/17 00:00 98.8 102 20 127/52 98 01/12/17 00:00 100 01/11/17 22:10 100 40 01/11/17 22:00 107 01/11/17 20:00 104 01/11/17 20:00 98.8 104 20 112/59 92 01/11/17 20:00 40 01/11/17 19:57 100 40 01/11/17 19:00 100 Mechanical Ventilator 40 01/11/17 18:00 83 01/11/17 16:15 100 40 01/11/17 16:00 101.8 105 20 98/47 100 01/11/17 16:00 105 01/11/17 16:00 40 I/O 01/11/17 01/11/17 01/11/17 01/12/17 01/12/17 01/12/17 07:00 15:00 23:00 07:00 15:00 23:00 Intake Total 1234 ml 1312 ml 521 ml 406 ml Output Total 300 ml 1050 ml 350 ml 175 ml Balance 934 ml 262 ml 171 ml 231 ml IV Total 1234 ml 1312 ml 521 ml 406 ml Output Urine Total 300 ml 1000 ml 350 ml 175 ml Stool Total 0 ml 50 ml 0 ml # Bowel Movements 0 Laboratory Laboratory Tests Test 01/12/17 04:18 White Blood Count 18.6 Red Blood Count 3.78 Hemoglobin 10.5 Hematocrit 30.6 Mean Corpuscular Volume 81.0 Mean Corpuscular Hemoglobin 27.9 Mean Corpuscular Hemoglobin 34.4 Concent Red Cell Distribution Width 19.0 Platelet Count 92 Mean Platelet Volume 10.9 Neutrophils (%) (Auto) 95.8 Lymphocytes (%) (Auto) 3.6 Monocytes (%) (Auto) 0.4 Eosinophils (%) (Auto) 0.1 Basophils (%) (Auto) 0.1 Neutrophils # (Auto) 17.8 Lymphocytes # (Auto) 0.7 Monocytes # (Auto) 0.1 Eosinophils # (Auto) 0.0 Basophils # (Auto) 0.0 CBC Comment AUTO DIFF Differential Total Cells 100 Counted Neutrophils % (Manual) 67 Band Neutrophils % 23 Lymphocytes % 3 Neutrophils # (Manual) 18.0 Metamyelocytes 2 Myelocytes 3 Promyelocytes 2 Differential Comment FINAL DIFF MANUAL Dohle Bodies PRESENT Platelet Estimate LOW Platelet Morphology Comment ENLARGED Sodium Level 127 Potassium Level 1.6 Chloride Level 83 Carbon Dioxide Level 29.8 Anion Gap 14 Blood Urea Nitrogen 12 Creatinine 0.65 Estimat Glomerular Filtration 119 Rate Random Glucose 117 Calcium Level 8.1 Date/Time Procedure Status Source Growth 01/10/17 21:35 Aerobic Blood Culture - Preliminary Resulted Blood Peripheral NO GROWTH IN 2 DAYS 01/10/17 21:35 Anaerobic Blood Culture - Preliminary Resulted Blood Peripheral NO GROWTH IN 2 DAYS Physical Exam HEENT: Normocephalic; atraumatic; no jaundice. CHEST: OETT to vent. Diminished. CARDIAC: RRR ABDOMEN: Soft, nondistended, nontender; no hepatosplenomegaly; BS faint EXTREMITIES:mild edema. SKIN: Generalized pallor [employer]GER: Sedated on vent. (Merissa Vang) Assessment and Plan Plan ASSESSMENT: - Upper GI Bleeding in patient with known gastric cancer. EGD/Colonoscopy (09/20) and this revealed duodenal ulcer with stigmata recent bleeding, clean, nonbleeding rectal ulcers, hemorrhoids,and polyps. The pathology revealed poorly differentiated gastric adenocarcinoma diffuse type- section showed gastric mucosa with an infiltration of signet ring cell with acute inflammation and ulceration. EGD (11/19/16)----> PEG in place. Gastritis in the antrum. Clean-based ulcer in the duodenal bulb. Duodenal bulb diverticulum, duodenitis. In the duodenal bulb biopsy was performed, very friable mucosa. Retroflexion revealed a hiatal hernia. Pathology revealed moderate chronic gastritis with edema and reactive epithelial changes, focal minimal acute inflammation and edema, negative for peptic duodenitis, negative for features of celiac disease. He recently started 1st chemo dose for gastric cancer. Cont. to have dark gastric secretions. S/P 2 units of PRBC. Protonix. He is not having any active bleeding at this time. HH stable - Suspected Ischemic bowel with free air in right lower quadrant and right upper quadrant. CT scan abdomen and pelvis without contrast (01/07/17) revealed portal venous gas in the left lobe of the liver is a new finding from previous examinations as well as free air in the right lower quadrant and right upper quadrant. Air does appear within the pericolonic vasculature adjacent to the ascending colon which can be seen with ischemic bowel. GS, Palliative care following. Pt with poor prognosis, not a candidate for surgery. - Gastric cancer, poorly differentiated gastric adenocarcinoma diffuse type- section showed gastric mucosa with an infiltration of signet ring cell with acute inflammation and ulceration. Dx by EGD/Pathology in September in 2016. S/P eval by Dr. Ko with GS and Dr. Orozco with oncology at [facility] Per Dr. Ko's note, he was not stable for anysurgical intervention at the time and recommended outpatient follow up. We then saw him in November, at which time he was evaluated for severe anemia with Hgb of 4.4. 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 According that note, it stated that he did have poorly differentiated adenocarcinoma of stomach, s/p peg tube placement and that he had poor functional status. The patient is followed now at [place] and started chemotherapy about 14 days ago- Apixaban. - Septis/Leukocytosis/Bacteremia. Urine Niecy albicans. BCx Klebsiella pneumoniae. CT consistent with ischemia and with free air. GS following. Diflucan, Zosyn - ARF with multiple electrolyte abnormalities. Per CCM - Severe hypoglycemia, IMPROVED. per CCM - Elevated LFTs. - Acute metabolic encephalopathy. per ccm - Acute respiratory failure, Aspiration pneumonia. Vent per CCM - Dysphagia. Modified barium swallow (12/11/16) revealed severe pharyngeal phase dysphagia with gross aspiration on all consistencies due to poor epiglottic inversion. He elicited a delayed cough response and response to the aspiration. Patient was able to clear stasis in the performed sinus but not in the valleculae. Tentative posture was attempted but did not eliminate the aspiration. It was recommended that the patient remain nothing by mouth with bypass feedings and possible vital stimulation with speech therapy when discharged to rehabilitation. S/P PEG. PLAN: - NPO - Protonix 40mg IV BID - Monitor HH - Transfuse as necessary - Abx per ID - GS following - Palliative care following - ID following - Supportive care - Not stable for GI procedures, recommend hospice/comfort care - Family interested in transferring the patient to [facility], where he recently received chemotherapy. Dr. Buckley working on contacting his physician at [place] to update on status/recommendations- call was placed today by palliative care, awaiting call back. - Not much more to add from GI standpoint - Pt seen and examined by Dr. Stover and myself and this note is written on his behalf (Merissa Vang) Plan patient was seen and examined, agree with above note, not stable for GI work up , palliative care, we will FU PRN. (Janette Stover MD) Merissa Vang Jan 12, 2017 14:26 Janette Stover MD Jan 12, 2017 16:43
[2017-01-12] MEDS: DEXTROSE 10% INJ 1,000 ML IV SCH (17:12)
[2017-01-12] MEDS: fentaNYL DRIP 250 ML IV SCH (18:36)
[2017-01-13] VITALS (18 sets, daily range): BP systolic 85–109; BP diastolic 39–59; PULSE 96–112; RESP 16–21; TEMP 97.7–100.2; O2SAT 96–100
[2017-01-13] MEDS: NOREPINEPHRINE-DEXTROSE DRIP 250 ML IV SCH ×3 (01:25→17:06)
[2017-01-13] MEDS: PIPERACIL-TAZO 4.5 GM PREMIX 100 ML IV SCH ×4 (01:25→21:26)
[2017-01-13] MEDS: PANTOPRAZOLE SODIUM 40 MG VIAL IV PUSH SCH ×2 (03:14→14:54)
[2017-01-13] MEDS: CHLORHEXIDINE GLUCONATE 2 % 1 PACK (2 CLOTHS) TOP SCH (04:00)
[2017-01-13 05:49] LABS: BICARBONATE 27.9 MEQ/L (21.0-32.0)
[2017-01-13 05:52] LABS: POTASSIUM 1.7 MEQ/L (3.5-5.1)
[2017-01-13] MEDS: INSULIN ASPART SUPPLEMENTAL SCALE SQ SCH ×4 (05:56→17:36)
[2017-01-13] MEDS ORDERED: POTASSIUM CHLOR 40 MEQ PREMIX 100 ML IV ONE (07:15)
[2017-01-13] MEDS: CHLORHEXIDINE 0.12% (ORAL KIT) 15 ML CUP MT SCH ×2 (08:59→20:00)
[2017-01-13] MEDS: FLUCONAZOLE 400 MG IV SCH (08:59)
[2017-01-13] MEDS: fentaNYL DRIP 250 ML IV SCH (14:54)
--- NOTE | 2017-01-13 15:08 | HHI.CCPN ---
Subjective Remarks/Hospital Course Hospital Course: Patient is a 76-year-old male with history of gastric adenocarcinoma, recently started on chemotherapy at [facility], history of type 2 diabetes , hypertension, dyslipidemia who presented to the emergency department via EMS for upper GI bleed and shortness of breath. Apparently upper GI bleed and melena had been going on for almost 24 hours before family called EMS. Patient became progressively more dyspneic with gurgling type respirations and less responsive. EMS found patient hypotensive in the 70s, improved with fluids, tachycardic in the 120s. In the emergency department patient was emergently intubated for airway protection due to gurgling breath sounds, and inability to protect airway. Patient given 3 L normal saline bolus and was started on PPI bolus, drip. Chest x-ray showed bilateral patchy infiltrates. Postintubation ABG pH 7.12, PCO2 32.3, PO2 226, bicarbonate 9.9. Patient was empirically treated with vancomycin, Zosyn. Abnormal labs include WBC 13.2, hemoglobin 8.1 , INR 1.3, Sodium 124, potassium 5.6, bicarbonate 13.9 and anion gap 26. BUN 57 , creatinine 1.70. Troponin 0.37, Also ammonia 68 and Lactic acid 17.0. Urinalysis with hematuria, bacteria and yeast. In the ER patient was ordered to receive 2 units packed red blood cells and 3L NS. He was started on norepinephrine through his chest port, to maintain MAP above 65. I evaluated the patient in the ED. He remains hypotensive and have ordered additional fluid boluses. Patient had been placed on Zosyn vancomycin and Diflucan. Infectious disease was consulted. Continue fluid resuscitation. Source of sepsis most likely pneumonia. Given lactic acid elevation to 17 I have ordered a CT abdomen pelvis to rule out abdominal source of infection or ischemic bowel Subjective: 01/08: long conversation yesterday with family. decision for DNR with no escalation of care, but no plan to withdraw. remains in shock on vasopressor therapy. remains encephalopathic and on full mechanical support. sodium continues to worsen. very poor prognosis. 01/09: Patient remains with septic course. Prognosis poor. 01/10: Renal function more acceptable, otherwise little progress. I can not see any role for operative intervention at this point. 01/11: Continued deterioration. Good antibiotic coverage. Too unstable to survive a bowel resection. I spoke at length with her daughter about the seriousness of her liver failure. 01/12: Potassium remains low despite aggressive replacement. Metabolic pH hampering efforts; will add diamox once to lower pH and hopefully hold K better. Patient now DNR status but family wants to continue the levophed. Max range is 12 mics/min. 01/13: Patient remains floridly septic after spontaneous colon necrosis and perforation. There is gas in the colon wall, free air in the abdomen, and gas in the portal venous system as well. Objective Vital Signs Date Time Temp Pulse Resp B/P Pulse Ox O2 Delivery O2 Flow Rate FiO2 01/13/17 11:34 100 40 01/13/17 10:00 106 01/13/17 08:00 100.0 18 95/51 01/13/17 07:00 Mechanical Ventilator 01/10/17 19:00 6.00 Intake and Output 01/12/17 01/12/17 01/12/17 07:59 15:59 23:59 Intake Total 406 ml 1114 ml 1095 ml Output Total 175 ml 675 ml 850 ml Balance 231 ml 439 ml 245 ml Result Diagram: 01/12/17 0418 01/13/17 0445 Imaging Imaging studies reviewed Objective Remarks GENERAL: 76 yo male, Cachectic intubated, minimally sedated at family requests. HEAD: Atraumatic. Normocephalic. EYES: Pupils equal and round. No scleral icterus. ENT: Orotracheally intubated NECK: trachea midline. CARDIOVASCULAR: Tachycardic. No JVD. RESPIRATORY: Intubated. Course rhonchi bilaterally. Good air movement. GASTROINTESTINAL: Abdomen soft, non-tender, nondistended. PEG tube + MUSCULOSKELETAL: Tepid with acceptable perfusion. NEUROLOGICAL: Intubated sedated, appears to move all extremities weakly. Grimaces frequently - looks to be in pain. Does not follow commands. A/P Assessment and Plan Assessment: 76yM with metastatic gastric cancer and now likely ischemic bowel, symptomatic upper GI bleed, septic shock. Poor prognosis. given his cancer diagnosis and how critically ill he is, I do not think he will survive this hospitalization. I agree with DNR and no escalation of care. Family still hesitant to pursue palliation/comfort. NEURO: Acute metabolic encephalopathy - Encephalopathy most likely secondary to metabolic due to severe sepsis - Hyperammonemia contributing - versed for sedation and ventilator synchrony RESP: Acute hypoxic respiratory failure Aspiration pneumonia - ACV, DuoNeb every 6 hours when necessary, ventilator bundle - Broad-spectrum antibiotics with vancomycin and Zosyn - no SBT today given shock and critical illness. CV: Septic and hemorrhagic shock - persistent Severe lactic acidosis- persistent - Normal saline IV fluids total 4 L bolus - d/c bicarb. - Levophed to keep map above 65, no escalation of care. GI: Upper GI bleed Gastric adenocarcinoma was started on chemotherapy Hyperammonemia mesenteric ischemia Intra-abdominal free air - no more transfusions. no escalation of care. - Nothing by mouth, IV Protonix infusion - GI consulted, too unstable for EGD at this time. - Lactulose once cleared by GI : Acute kidney injury - Monitor renal function closely. Brower catheter. ID: Septic shock - persistent Pneumonia UTI/funguria - IV vancomycin, Zosyn and Diflucan - ID consult HEME: Anemia secondary to acute blood loss requiring transfusion -Monitor CBC, CMP, coags ENDO: Hyponatremia Hyperkalemia - Monitor potassium - Replace electrolytes per protocol - On po steroids at home-started on stress dose steroids PROPH: - Bilateral lower extremity SCDs. On chronic Apixaban - hold due to GIB - Continue Protonix infusion LINES: - Utilize peripheral IVs, port, art line. Overall impression: Remains critically ill with bacteremia and bowel ischemia/ infarction; unlikely to survive this illness. Unable to tolerate surgical source control. Patient appears in pain but his refuses to allow us to give him pain medicine. She is fearful that it will expedite his .This issue has been discussed at length with her. Critical care 36 mins Roberto Tobar MD Jan 13, 2017 15:08
[2017-01-13] MEDS: DEXTROSE 10% INJ 1,000 ML IV SCH (17:09)
[2017-01-13] MEDS: DEXTROSE 50% IN WATER 50 ML VIAL(D50) IV PUSH PRN (17:42)
[2017-01-14] VITALS (18 sets, daily range): BP systolic 72–88; BP diastolic 36–46; PULSE 92–110; RESP 16–18; TEMP 99–99.9; O2SAT 97–100
[2017-01-14] MEDS: PANTOPRAZOLE SODIUM 40 MG VIAL IV PUSH SCH ×2 (02:10→15:27)
[2017-01-14] MEDS: PIPERACIL-TAZO 4.5 GM PREMIX 100 ML IV SCH ×4 (02:11→19:35)
[2017-01-14] MEDS: CHLORHEXIDINE GLUCONATE 2 % 1 PACK (2 CLOTHS) TOP SCH (04:00)
[2017-01-14] MEDS: INSULIN ASPART SUPPLEMENTAL SCALE SQ SCH ×4 (06:00→17:43)
[2017-01-14 06:06] LABS: AUTOMATED NEUTROPHIL # 24.2 TH/MM3 (1.8-7.7); EOSINOPHIL # 0.1 TH/MM3 (0-0.4); EOSINOPHIL % 0.4 % (0.0-4.0); HEMATOCRIT 28.7 % (39.0-51.0); LYMPH % 2.2 % (9.0-44.0); LYMPHOCYTE # 0.5 TH/MM3 (1.0-4.8); MEAN CELL VOLUME 82.3 FL (80.0-100.0); MEAN CORPUSCULAR HEMOGLOBIN 27.7 PG (27.0-34.0); MEAN CORPUSCULAR HGB CONC 33.6 % (32.0-36.0); MONO % 0.7 % (0.0-8.0); NEUT % 96.7 % (16.0-70.0); PLATELET COUNT 55 TH/MM3 (150-450); RED BLOOD COUNT 3.49 MIL/MM3 (4.50-5.90); RED CELL DISTRIBUTION WIDTH 19.3 % (11.6-17.2)
[2017-01-14 06:10] LABS: HEMO FLAGS AUTO DIFF
[2017-01-14 06:33] LABS: BICARBONATE 28.1 MEQ/L (21.0-32.0)
[2017-01-14 06:35] LABS: POTASSIUM 1.7 MEQ/L (3.5-5.1)
[2017-01-14] MEDS: NOREPINEPHRINE-DEXTROSE DRIP 250 ML IV SCH ×6 (06:47→19:35)
[2017-01-14 07:35] LABS: BANDS 8 % (0-6); METAMYELOCYTES 2 % (0-1); MYELOCYTES 4 % (0-0); NEUTROPHIL # MANUAL DIFF 24.8 TH/MM3 (1.8-7.7); PLATELET ESTIMATE SMEAR LOW (NORMAL); PLATELET MORPHOLOGY ENLARGED (NORMAL); POLYS (SEG NEUTROPHILS) 85 % (16-70); SCAN/DIFF FINAL DIFF MANUAL; WBC DIFF SAMPLE 100
[2017-01-14] MEDS: CHLORHEXIDINE 0.12% (ORAL KIT) 15 ML CUP MT SCH ×2 (08:27→20:03)
[2017-01-14] MEDS: FLUCONAZOLE 400 MG IV SCH (08:27)
[2017-01-14] MEDS: POTASSIUM CHLOR 40 MEQ PREMIX 100 ML IV SCH ×2 (09:50→13:21)
[2017-01-14] MEDS: MAGNESIUM SULFATE 1 GM PREMIX 100 ML IV SCH (09:51)
[2017-01-14] MEDS: fentaNYL DRIP 250 ML IV SCH (10:42)
--- NOTE | 2017-01-14 10:42 | HHI.CCPN ---
Subjective Remarks/Hospital Course Hospital Course: Patient is a 76-year-old male with history of gastric adenocarcinoma, recently started on chemotherapy at [facility], history of type 2 diabetes , hypertension, dyslipidemia who presented to the emergency department via EMS for upper GI bleed and shortness of breath. Apparently upper GI bleed and melena had been going on for almost 24 hours before family called EMS. Patient became progressively more dyspneic with gurgling type respirations and less responsive. EMS found patient hypotensive in the 70s, improved with fluids, tachycardic in the 120s. In the emergency department patient was emergently intubated for airway protection due to gurgling breath sounds, and inability to protect airway. Patient given 3 L normal saline bolus and was started on PPI bolus, drip. Chest x-ray showed bilateral patchy infiltrates. Postintubation ABG pH 7.12, PCO2 32.3, PO2 226, bicarbonate 9.9. Patient was empirically treated with vancomycin, Zosyn. Abnormal labs include WBC 13.2, hemoglobin 8.1 , INR 1.3, Sodium 124, potassium 5.6, bicarbonate 13.9 and anion gap 26. BUN 57 , creatinine 1.70. Troponin 0.37, Also ammonia 68 and Lactic acid 17.0. Urinalysis with hematuria, bacteria and yeast. In the ER patient was ordered to receive 2 units packed red blood cells and 3L NS. He was started on norepinephrine through his chest port, to maintain MAP above 65. I evaluated the patient in the ED. He remains hypotensive and have ordered additional fluid boluses. Patient had been placed on Zosyn vancomycin and Diflucan. Infectious disease was consulted. Continue fluid resuscitation. Source of sepsis most likely pneumonia. Given lactic acid elevation to 17 I have ordered a CT abdomen pelvis to rule out abdominal source of infection or ischemic bowel 01/08: long conversation yesterday with family. decision for DNR with no escalation of care, but no plan to withdraw. remains in shock on vasopressor therapy. remains encephalopathic and on full mechanical support. sodium continues to worsen. very poor prognosis. 01/09: Patient remains with septic course. Prognosis poor. 01/10: Renal function more acceptable, otherwise little progress. I can not see any role for operative intervention at this point. 01/11: Continued deterioration. Good antibiotic coverage. Too unstable to survive a bowel resection. I spoke at length with her daughter about the seriousness of her liver failure. 01/12: Potassium remains low despite aggressive replacement. Metabolic pH hampering efforts; will add diamox once to lower pH and hopefully hold K better. Patient now DNR statusbut family wants to continue the levophed. Max range is 12 mics/min. 01/13: Patient remains floridly septic after spontaneous colon necrosis and perforation. There is gas in the colon wall, free air in the abdomen, and gas in the portal venous system as well. Subjective 01/14: Tmax 100. Currently 99.5. Remains on D10 at 15 cc an hour along with norepinephrine at 10 mcg/m. On fentanyl drip for pain control. Objective Vital Signs Date Time Temp Pulse Resp B/P Pulse Ox O2 Delivery O2 Flow Rate FiO2 01/14/17 10:00 101 01/14/17 08:15 100 40 01/14/17 08:00 99.5 17 78/40 01/14/17 07:00 Mechanical Ventilator 01/10/17 19:00 6.00 Intake and Output 01/13/17 01/13/17 01/14/17 08:00 16:00 00:00 Intake Total 852 ml 1018 ml 837 ml Output Total 425 ml 400 ml 450 ml Balance 427 ml 618 ml 387 ml Result Diagram: 01/14/17 0500 01/14/17 0500 Other Results Microbiology Date/Time Procedure Status Source Growth 01/10/17 21:35 Aerobic Blood Culture - Preliminary Resulted Blood Peripheral NO GROWTH IN 3 DAYS 01/10/17 21:35 Anaerobic Blood Culture - Preliminary Resulted Blood Peripheral NO GROWTH IN 3 DAYS Imaging Last Impressions Chest X-Ray 01/07/17 0036 Signed Impressions: Service Date/Time: Saturday, January 07, 2017 00:35 - CONCLUSION: Bilateral pulmonary nodules, interstitial and alveolar infiltrates. Juan Diego Frias MD Chest CT 01/07/17 0000 Signed Impressions: Service Date/Time: Saturday, January 07, 2017 05:12 - CONCLUSION: 1. Atherosclerosis. 2. Numerous bilateral pulmonary nodules suspicious for metastatic disease. 3. Bilateral proximal infiltrates. Juan Diego Frias MD Abdomen/Pelvis CT 01/07/17 0000 Signed Impressions: Service Date/Time: Saturday, January 07, 2017 05:09 - CONCLUSION: Portal venous gas in the left lobe of the liver is a new finding from previous examinations as well as free air in the right lower quadrant and right upper quadrant. Air does appear within the pericolonic vasculature adjacent to the ascending colon which can be seen with ischemic bowel. Juan Diego Frias MD Objective Remarks GENERAL: 76 yo male, Cachectic intubated, HEAD: Atraumatic. Normocephalic. EYES: Pupils equal and round about 3 mm bilaterally and reactive. No scleral icterus. ENT: Orotracheally intubated NECK: trachea midline. CARDIOVASCULAR: Tachycardic. RR. S1, S2 no S4. No JVD. RESPIRATORY: Intubated. Course rhonchi bilaterally. Good air movement. GASTROINTESTINAL: Abdomen soft, non-tender, nondistended. PEG tube + left upper quadrant MUSCULOSKELETAL: 1+ peripheral edema NEUROLOGICAL: Intubated sedated, appears to move all extremities weakly. Grimaces frequently - looks to be in pain. Does not follow commands. A/P Assessment and Plan NEURO: Acute metabolic encephalopathy Currently on fentanyl drip in 125 micrograms per hour for sedation while intubated - Encephalopathy most likely secondary to metabolic due to severe sepsis - Hyperammonemia contributing RESP: Acute hypoxic respiratory failure Aspiration pneumonia Bilateral pulmonary nodules - ACV 16//500/5/40 Albuterol/ipratropium aerosols every 6 hours when necessary Ventilator bundle Broad-spectrum antibiotics with vancomycin and Zosyn no SBT today given shock and critical illness. CV: Septic and hemorrhagic shock - persistent Severe lactic acidosis- persistent -Norepinephrine currently at 10 mg/m to keep map above 65, Will likely initiate TPN today over the volume status GI: Upper GI bleed Poorly differentiated gastric adenocarcinoma diffuse type- section showed gastric mucosa with an infiltration of signet ring cell with acute inflammation and history of duodenal ulceration. Hyperammonemia mesenteric ischemia Intra-abdominal free air - Nothing by mouth, IV pantoprazole twice a day - Started on TPN with low blood sugar - GI consulted, too unstable for EGD at this time. Renal/: Acute kidney injury resolved . Brower catheter remains for accurate I's and O's in a critically ill patient ID: Klebsiella pneumonia Septic shock - persistent UTI/funguria - IV Zosyn and Diflucan 01/07 blood cultures 2 - Klebsiella 8/ urine culture - Niecy 01/10 blood culture - no growth HEME: Anemia secondary to acute blood loss requiring transfusion Leukocytosis Thrombocytopenia -Monitor CBC, CMP Thrombo-cytopenia likely consumptive's/DIC. Check fibrinogen and coags ENDO/FEN: Hyponatremia Hypokalemia - Monitor potassium - Replace electrolytes as clinically indicated - On po steroids at home-started on stress dose steroids PROPH: - Bilateral lower extremity SCDs. On chronic Apixaban - hold due to GIB - Continue Protonix LINES: - Utilize peripheral IVs, port, art line. Critical care time 30 min Aung James MD Jan 14, 2017 10:42
[2017-01-14] MEDS ORDERED: GLUCAGON 1 MG/ML VIAL OTHER PRN (10:45)
[2017-01-14] MEDS ORDERED: DEXTROSE 50% IN WATER 50 ML VIAL(D50) IV PRN (10:45)
[2017-01-14] MEDS: INSULIN NovoLIN REGULAR SUPPLEMENTAL SCALE SQ SCH ×2 (12:00→17:41)
--- NOTE | 2017-01-14 13:02 | HHI.HCPN ---
Reason for visit a. To assist with evaluation and management of symptoms including: dyspnea, malnutrition b. To assist medical decision maker(s) with: better understanding of current medical conditions; weighing benefits/burdens of medical treatment options; making medical treatment decisions. . (Rachael George) Subjective/Interval History Pt remains critically ill in ICU. Still requiring Levophed titration. GI, GS following, Too unstable for invasive interventions. Repeat BC from 01/10-- 1 set no growth, 1 set + Klebsiella pneumonia. Continues to have hypokalemia, repletion per critical care. K+ 1.7 today. Hyponatremic sodium 126. WBC trending up 25 today. Low-grade fever MAXIMUM TEMPERATURE 100.0. H&H down slightly 9.7/28.7. On Levophed 10 mics/minute currently, fentanyl 125 mics/ hour. Patient has been started on TPN and lipids. Patient seen in room primary nurse at bedside. Granddaughter, at bedside. Review with them conditions, assessments, treatments in place. asks if patient is getting better yet and if the antibiotics are helping. She asks about repeat CTs to see if the first ones regarding ischemic/possible perforated bowel were "wrong." She further expresses that imaging obtained at [facility] just a few weeks before this presentation that "everything was fine ". Advised that the patient remains critically ill-and that antibiotics may temporarily help decrease infection but problem centers around ischemic bowel for which patient is not a surgical candidate; he is still expected to from this illness. Advise patient has no clinical indication for repeat CT and that multiple providers have reviewed CAT scans; clinical picture is consistent with imaging reports. She continues to endorse that they are praying, and still want everything to be done short of CPR. She does affirm that she does not want CPR, if that happens he should be allowed to peacefully. All questions answered to the best my ability. Supportive listening provided. It appears she is still struggling to understand or accept that patient is critically ill, not expected to survive. D/w primary nurse, critical care attending. . (Rachael George) Advance Directives Living Will: Never completed Health Care Surrogate: Never completed (Rachael George) Objective Vital Signs Date Time Temp Pulse Resp B/P Pulse Ox O2 Delivery O2 Flow Rate FiO2 01/14/17 12:40 100 40 01/14/17 12:00 40 8/14/17 12:00 108 01/14/17 12:00 99.1 110 18 88/39 100 01/14/17 10:00 101 01/14/17 08:15 100 40 01/14/17 08:00 99.5 96 17 78/40 100 01/14/17 08:00 40 01/14/17 08:00 96 01/14/17 07:00 100 Mechanical Ventilator 40 01/14/17 06:00 100 01/14/17 04:00 40 01/14/17 04:00 106 01/14/17 04:00 99.5 106 16 72/36 97 01/14/17 03:53 100 40 01/14/17 02:00 101 01/14/17 00:00 100 01/14/17 00:00 40 01/14/17 00:00 99.9 100 18 88/46 99 01/13/17 23:31 99 40 01/13/17 22:00 100 01/13/17 20:27 99 40 01/13/17 20:00 97.7 101 21 91/48 99 01/13/17 20:00 101 01/13/17 20:00 40 01/13/17 19:00 100 Mechanical Ventilator 99 01/13/17 18:00 100 01/13/17 16:00 99.3 110 16 85/39 97 01/13/17 16:00 40 01/13/17 16:00 110 01/13/17 15:25 96 40 01/13/17 14:00 96 Intake & Output 01/14/17 01/14/17 06:59 18:59 Intake Total 1619 ml Output Total 850 ml Balance 769 ml IV Total 1619 ml Output Urine Total 850 ml # Bowel Movements 50 Physical Exam CONSTITUTIONAL/GENERAL: This is a frail, ill-appearing patient seen in ICU, sedated, minimally responsive. No evident distress. TUBES/LINES/DRAINS: Multiple peripheral IVs bilateral upper extremity, arterial line upper extremity, right subclavian port accessed, ET tube,Brower catheter, SCDs SKIN: No jaundice, rashes, or lesions. Multiple areas of ecchymosis to upper chest, bilateral upper extremities. + Edema, serous weeping from upper extremities. Skin temperature cool to distal extremities. CARDIOVASCULAR: Regular rate and rhythm. No murmur. RESPIRATORY/CHEST: Symmetric, unlabored respirations via mechanical vent. Faint rhonchi throughout. Breath sounds equal bilaterally. GASTROINTESTINAL: Abdomen soft, flat, nondistended. No hepato-splenomegaly, or palpable masses. Unable to determine tenderness due to level of consciousness. no bowel sounds present. PEG , clamped GENITOURINARY: Without palpable bladder distension. Brower catheter MUSCULOSKELETAL: Extremities without clubbing, cyanosis. 2+ Edema, serous weeping from the upper extremities. NEUROLOGICAL: Does not awaken to voice/exam. Not following commands at time of my visit. PSYCHIATRIC: Unable to assess given level of responsiveness. . (Rachael George) Diagnostic Tests Laboratory Laboratory Tests Test 01/12/17 01/13/17 01/14/17 04:18 04:45 05:00 White Blood Count 18.6 TH/MM3 25.0 TH/MM3 (4.0-11.0) (4.0-11.0) Red Blood Count 3.78 MIL/MM3 3.49 MIL/MM3 (4.50-5.90) (4.50-5.90) Hemoglobin 10.5 GM/DL 9.7 GM/DL (13.0-17.0) (13.0-17.0) Hematocrit 30.6 % 28.7 % (39.0-51.0) (39.0-51.0) Mean Corpuscular Volume 81.0 FL 82.3 FL (80.0-100.0) (80.0-100.0) Mean Corpuscular Hemoglobin 27.9 PG 27.7 PG (27.0-34.0) (27.0-34.0) Mean Corpuscular Hemoglobin 34.4 % 33.6 % Concent (32.0-36.0) (32.0-36.0) Red Cell Distribution Width 19.0 % 19.3 % (11.6-17.2) (11.6-17.2) Platelet Count 92 TH/MM3 55 TH/MM3 (150-450) (150-450) Mean Platelet Volume 10.9 FL 11.4 FL (7.0-11.0) (7.0-11.0) Neutrophils (%) (Auto) 95.8 % 96.7 % (16.0-70.0) (16.0-70.0) Lymphocytes (%) (Auto) 3.6 % 2.2 % (9.0-44.0) (9.0-44.0) Monocytes (%) (Auto) 0.4 % (0.0-8.0) 0.7 % (0.0-8.0) Eosinophils (%) (Auto) 0.1 % (0.0-4.0) 0.4 % (0.0-4.0) Basophils (%) (Auto) 0.1 % (0.0-2.0) 0.0 % (0.0-2.0) Neutrophils # (Auto) 17.8 TH/MM3 24.2 TH/MM3 (1.8-7.7) (1.8-7.7) Lymphocytes # (Auto) 0.7 TH/MM3 0.5 TH/MM3 (1.0-4.8) (1.0-4.8) Monocytes # (Auto) 0.1 TH/MM3 0.2 TH/MM3 (0-0.9) (0-0.9) Eosinophils # (Auto) 0.0 TH/MM3 0.1 TH/MM3 (0-0.4) (0-0.4) Basophils # (Auto) 0.0 TH/MM3 0.0 TH/MM3 (0-0.2) (0-0.2) CBC Comment AUTO DIFF AUTO DIFF Differential Total Cells 100 100 Counted Neutrophils % (Manual) 67 % (16-70) 85 % (16-70) Band Neutrophils % 23 % (0-6) 8 % (0-6) Lymphocytes % 3 % (9-44) Neutrophils # (Manual) 18.0 TH/MM3 24.8 TH/MM3 (1.8-7.7) (1.8-7.7) Metamyelocytes 2 % (0-1) 2 % (0-1) Myelocytes 3 % (0-0) 4 % (0-0) Promyelocytes 2 % (0-0) Differential Comment FINAL DIFF FINAL DIFF MANUAL MANUAL Dohle Bodies PRESENT (NONE SEEN) Platelet Estimate LOW (NORMAL) LOW (NORMAL) Platelet Morphology Comment ENLARGED ENLARGED (NORMAL) (NORMAL) Sodium Level 127 MEQ/L 128 MEQ/L 126 MEQ/L (136-145) (136-145) (136-145) Potassium Level 1.6 MEQ/L 1.7 MEQ/L 1.7 MEQ/L (3.5-5.1) (3.5-5.1) (3.5-5.1) Chloride Level 83 MEQ/L 87 MEQ/L 88 MEQ/L (98-107) (98-107) (98-107) Carbon Dioxide Level 29.8 MEQ/L 27.9 MEQ/L 28.1 MEQ/L (21.0-32.0) (21.0-32.0) (21.0-32.0) Anion Gap 14 MEQ/L (5-15) 13 MEQ/L (5-15) 10 MEQ/L (5-15) Blood Urea Nitrogen 12 MG/DL (7-18) 13 MG/DL (7-18) 14 MG/DL (7-18) Creatinine 0.65 MG/DL 0.65 MG/DL 0.59 MG/DL (0.60-1.30) (0.60-1.30) (0.60-1.30) Estimat Glomerular Filtration 119 ML/MIN 119 ML/MIN 134 ML/MIN Rate (>89) (>89) (>89) Random Glucose 117 MG/DL 86 MG/DL 121 MG/DL (74-106) (74-106) (74-106) Calcium Level 8.1 MG/DL 7.8 MG/DL 7.6 MG/DL (8.5-10.1) (8.5-10.1) (8.5-10.1) Monocytes % 1 % (0-8) (Rachael George) Result Diagram: 01/14/17 0500 01/14/17 0500 Imaging Last Impressions Chest X-Ray 01/07/17 0036 Signed Impressions: Service Date/Time: Saturday, January 07, 2017 00:35 - CONCLUSION: Bilateral pulmonary nodules, interstitial and alveolar infiltrates. Juan Diego Frias MD Chest CT 01/07/17 0000 Signed Impressions: Service Date/Time: Saturday, January 07, 2017 05:12 - CONCLUSION: 1. Atherosclerosis. 2. Numerous bilateral pulmonary nodules suspicious for metastatic disease. 3. Bilateral proximal infiltrates. Juan Diego Frias MD Abdomen/Pelvis CT 01/07/17 0000 Signed Impressions: Service Date/Time: Saturday, January 07, 2017 05:09 - CONCLUSION: Portal venous gas in the left lobe of the liver is a new finding from previous examinations as well as free air in the right lower quadrant and right upper quadrant. Air does appear within the pericolonic vasculature adjacent to the ascending colon which can be seen with ischemic bowel. Juan Diego Frias MD Procedures * Intubation / mechaical ventilation * Central line placement . (Rachael George) Assessment and Plan Disease Oriented Problem List: (1) Acute on chronic kidney failure Comment: Resolving. (2) Hypotension (3) Tachycardia (4) Acute respiratory failure (5) Septic shock (6) Hyperkalemia (7) Lactic acidosis (8) Anemia (9) Hyponatremia (10) Leukocytosis (11) Aspiration pneumonia (12) Gastric cancer (13) Upper GI bleed (14) Malnutrition Comment: Severe with albumin < 2. Symptom Scale: (1) Dyspnea 0-10 Scale: Unable to quantify Comment: Managed with mechanical ventilation (2) Malnutrition 0-10 Scale: Unable to quantify Comment: Severe with albumin level < 2. Pertinent Non-Medical Issues Psychosocial:Patient apparently lived at home with his , daughter, though recently has been in and out of the hospital and half-way settings. Daughter actually lives in [place] however has been staying with the patient and his since all of this started in August. Patient has 2 adult daughters who both live out of state. 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 Has lived in [place] for many years. Spiritual: Yazidi, insole reinforcer see support has been requested Legal:Patient, due to condition, is unable to participate in goals in decision- making. No advanced directive or HCS. Per [place] statutes would be appropriate legal decision maker.(Proxy) Ethical issues impacting care: Important Contacts Spouse Aleena Paiz [phone] dtr Tete Olivares [phone] . Prognosis This patient with known history of gastric adenocarcinoma was admitted with GI bleeding, duration of at least 24 hours. Patient with findings of Septic shock , acute respiratory failure, in critical condition. Imaging finding of free air in right upper and lower quadrants, concern for ischemic bowel/perforation. Patient not a good surgical candidate. High risk for continued complications and . Unlikely to survive the hospitalization. He would be eligible for hospice services at such time that family desires comfort measures only. . Code Status: Alternative Code (Intubation only.) Plan Decision making * Legal decision maker: Patient is incapacitated to make his own health care decisions and very low probability of recovering such capacity. No advanced directive or HCS. Per [place] statutes would be appropriate legal decision maker.(Proxy) Goals of medical treatment Per : goals semi-aggressive to continue current treatments, patient to remain DNR ( no chest compressions, shock) . had been considering removal of life support last week, though does not appear interested in that at this time. appears to be struggling to accept pt condition/prognosis. CODE STATUS: DNR /alt code intubation only SYMPTOMS: * Dyspnea-emergently intubated for airway protection, currently breathing comfortably on mechanical vent.+ Aspiration pneumonia. Patient with history of recurrent/ongoing aspiration pneumonia per review of available records. No further recommendations at this time. Breathing comfortably, on fentanyl 125 mics/hour * Malnutrition- Albumin < 1, Patient with PEG tube, history of receiving tube feed, as well as TPN during an acute hospitalization. Risk of resuming tube feeds given possible bowel ischemia/perforation. Thin and frail appearance. Has been started on TPN and lipids, which puts him at increased risk for blood-borne infection. Recent cancer diagnosis, gastric adenocarcinoma , with suspected metastasis per most recent imaging. No further recommendations at this time. * Encephalopathy: Multi-factorial. Unclear to what extent this is fully reversible. == Palliative care will continue to follow during hospital course as condition evolves, to assist patient/decision-maker with understanding of medical conditions, weighing benefits/burdens of treatment options, for clarification of goals of treatment. Additionally will assist with any symptoms of palliative concern . (Rachael George) Attestation To help prompt me to consider important information that might be impacting today's encounter and assessment, information from prior notes written by myself or my colleagues may have been "brought forward" into today's note. My signature on this note, however, is an attestation that I personally performed the exam, history, and/or decision-making noted today, and, unless otherwise indicated, the interactions with patient, family, and staff as well as the review of records all occurred today. I also attest that the listed assessment and stated plan reflect my best clinical judgment today based on the combination of historical information, prior notes, and today's exam/ interactions. When time spent is documented, it refers only to time spent today by the signer, or if indicated, combined time spent today by collaborating physician/nurse practitioner. (Rachael George) Collaborating MD Comments Patient was discussed with DOREEN. Agreeable to assessment and plan. (Freddie Vazquez MD) Rachael George Jan 14, 2017 13:02 Freddie Vazquez MD Jan 17, 2017 15:04
[2017-01-14] MEDS: HYDROCORTISONE SOD SUCCINATE 100 MG VIAL IV PUSH SCH ×2 (13:20→21:25)
[2017-01-14] MEDS ORDERED: ACETAMINOPHEN 325 MG TAB PO PRN (16:15)
[2017-01-14] MEDS: DEXTROSE 10% INJ 1,000 ML IV SCH (17:44)
[2017-01-14 20:03] LABS: MAGNESIUM 1.8 MG/DL (1.5-2.5)
[2017-01-14] MEDS: FAT EMULSION 20% INJ 250 ML (Daily over 8 hours) IV-CENTRAL SCH (20:11)
[2017-01-14] MEDS: CLINIMIX E 5/25 2000 mL- >42 mls/hr IV-CENTRAL SCH ×3 (20:11)
[2017-01-14 20:18] LABS: POTASSIUM 2.8 MEQ/L (3.5-5.1)
[2017-01-14] MEDS ORDERED: POTASSIUM CHLOR 40 MEQ PREMIX 100 ML IV ONE ×2 (21:45→22:00)
[2017-01-15] VITALS (17 sets, daily range): BP systolic 114–140; BP diastolic 54–64; PULSE 82–99; RESP 14–15; TEMP 96.8–97.9; O2SAT 93–100
[2017-01-15] MEDS: NOREPINEPHRINE-DEXTROSE DRIP 250 ML IV SCH ×3 (00:04→10:20)
[2017-01-15] MEDS: INSULIN NovoLIN REGULAR SUPPLEMENTAL SCALE SQ SCH ×4 (00:05→18:00)
[2017-01-15] MEDS: PIPERACIL-TAZO 4.5 GM PREMIX 100 ML IV SCH ×3 (01:04→13:21)
[2017-01-15] MEDS: PANTOPRAZOLE SODIUM 40 MG VIAL IV PUSH SCH ×2 (01:04→15:00)
[2017-01-15 03:35] LABS: AUTOMATED NEUTROPHIL # 29.1 TH/MM3 (1.8-7.7); BASOPHIL # 0.1 TH/MM3 (0-0.2); BASOPHIL % 0.3 % (0.0-2.0); HEMATOCRIT 28.9 % (39.0-51.0); LYMPHOCYTE # 0.3 TH/MM3 (1.0-4.8); MEAN CELL VOLUME 83.8 FL (80.0-100.0); MEAN CORPUSCULAR HEMOGLOBIN 28.2 PG (27.0-34.0); MEAN CORPUSCULAR HGB CONC 33.7 % (32.0-36.0); MONO % 0.7 % (0.0-8.0); PLATELET COUNT 75 TH/MM3 (150-450); RED BLOOD COUNT 3.45 MIL/MM3 (4.50-5.90); RED CELL DISTRIBUTION WIDTH 19.7 % (11.6-17.2); WHITE BLOOD COUNT 29.7 TH/MM3 (4.0-11.0)
[2017-01-15 03:38] LABS: HEMO FLAGS AUTO DIFF
[2017-01-15 04:00] LABS: APTT (PATIENT) 39.9 SEC (24.3-30.1); INTERNATIONAL NORMALIZED RATIO 1.3 RATIO; PROTHROMBIN TIME - PATIENT 14.7 SEC (9.8-11.6)
[2017-01-15] MEDS: CHLORHEXIDINE GLUCONATE 2 % 1 PACK (2 CLOTHS) TOP SCH (04:00)
[2017-01-15 04:30] LABS: ALT (GPT) 61 U/L (12-78); ANION GAP 10 MEQ/L (5-15); AST (GOT) 95 U/L (15-37); BICARBONATE 26.9 MEQ/L (21.0-32.0); BLOOD UREA NITROGEN 18 MG/DL (7-18); CHLORIDE 87 MEQ/L (98-107); GLOMERULAR FILTRATION RATE 90 ML/MIN (>89); MAGNESIUM 1.8 MG/DL (1.5-2.5); TOTAL BILIRUBIN ADULT 0.6 MG/DL (0.2-1.0)
[2017-01-15 04:31] LABS: CREATINE KINASE 14 U/L (39-308)
[2017-01-15 04:35] LABS: BANDS 18 % (0-6); METAMYELOCYTES 2 % (0-1); MYELOCYTES 3 % (0-0); NEUTROPHIL # MANUAL DIFF 29.7 TH/MM3 (1.8-7.7); POLYS (SEG NEUTROPHILS) 75 % (16-70); PROMYELOCYTES 2 % (0-0); WBC DIFF SAMPLE 100
[2017-01-15 04:36] LABS: POTASSIUM 2.9 MEQ/L (3.5-5.1); SODIUM (NA) 124 MEQ/L (136-145); TEARDROP RBCS 1+ (NORMAL)
[2017-01-15 04:37] LABS: DOHLE BODIES PRESENT (NONE SEEN); PLATELET ESTIMATE SMEAR LOW (NORMAL); PLATELET MORPHOLOGY ENLARGED (NORMAL); SCAN/DIFF FINAL DIFF MANUAL
[2017-01-15 04:53] LABS: ALKALINE PHOSPHATASE 1106 U/L (45-117)
[2017-01-15] MEDS: HYDROCORTISONE SOD SUCCINATE 100 MG VIAL IV PUSH SCH ×3 (05:03→21:25)
[2017-01-15] MEDS ORDERED: POTASSIUM CHLOR 40 MEQ PREMIX 100 ML IV ONE (05:30)
[2017-01-15] MEDS: fentaNYL DRIP 250 ML IV SCH (07:06)
[2017-01-15] MEDS: FLUCONAZOLE 400 MG IV SCH (08:35)
[2017-01-15] MEDS: CHLORHEXIDINE 0.12% (ORAL KIT) 15 ML CUP MT SCH ×2 (08:35→20:09)
[2017-01-15] MEDS ORDERED: INSULIN DETEMIR 100 UNITS/ML VIAL SQ SCH (11:45)
[2017-01-15] MEDS ORDERED: DEXTROSE 50% IN WATER 50 ML VIAL(D50) IV PUSH PRN ×2 (12:00→15:45)
[2017-01-15] MEDS ORDERED: MISC INFORMATION OTHER ONE (12:00)
[2017-01-15] MEDS ORDERED: INSULIN REGULAR (IV INFUSION) 100 UNITS in SODIUM CHLORIDE 0.9% INJ 99 ML IV SCH (12:00)
--- NOTE | 2017-01-15 12:59 | HHI.CCPN ---
Subjective Remarks/Hospital Course Hospital Course: Patient is a 76-year-old male with history of gastric adenocarcinoma, recently started on chemotherapy at [facility], history of type 2 diabetes , hypertension, dyslipidemia who presented to the emergency department via EMS for upper GI bleed and shortness of breath. Apparently upper GI bleed and melena had been going on for almost 24 hours before family called EMS. Patient became progressively more dyspneic with gurgling type respirations and less responsive. EMS found patient hypotensive in the 70s, improved with fluids, tachycardic in the 120s. In the emergency department patient was emergently intubated for airway protection due to gurgling breath sounds, and inability to protect airway. Patient given 3 L normal saline bolus and was started on PPI bolus, drip. Chest x-ray showed bilateral patchy infiltrates. Postintubation ABG pH 7.12, PCO2 32.3, PO2 226, bicarbonate 9.9. Patient was empirically treated with vancomycin, Zosyn. Abnormal labs include WBC 13.2, hemoglobin 8.1 , INR 1.3, Sodium 124, potassium 5.6, bicarbonate 13.9 and anion gap 26. BUN 57 , creatinine 1.70. Troponin 0.37, Also ammonia 68 and Lactic acid 17.0. Urinalysis with hematuria, bacteria and yeast. In the ER patient was ordered to receive 2 units packed red blood cells and 3L NS. He was started on norepinephrine through his chest port, to maintain MAP above 65. I evaluated the patient in the ED. He remains hypotensive and have ordered additional fluid boluses. Patient had been placed on Zosyn vancomycin and Diflucan. Infectious disease was consulted. Continue fluid resuscitation. Source of sepsis most likely pneumonia. Given lactic acid elevation to 17 I have ordered a CT abdomen pelvis to rule out abdominal source of infection or ischemic bowel 01/08: long conversation yesterday with family. decision for DNR with no escalation of care, but no plan to withdraw. remains in shock on vasopressor therapy. remains encephalopathic and on full mechanical support. sodium continues to worsen. very poor prognosis. 01/09: Patient remains with septic course. Prognosis poor. 01/10: Renal function more acceptable, otherwise little progress. I can not see any role for operative intervention at this point. 01/11: Continued deterioration. Good antibiotic coverage. Too unstable to survive a bowel resection. I spoke at length with her daughter about the seriousness of her liver failure. 01/12: Potassium remains low despite aggressive replacement. Metabolic pH hampering efforts; will add diamox once to lower pH and hopefully hold K better. Patient now DNR statusbut family wants to continue the levophed. Max range is 12 mics/min. 01/13: Patient remains floridly septic after spontaneous colon necrosis and perforation. There is gas in the colon wall, free air in the abdomen, and gas in the portal venous system as well. 01/14: Tmax 100. Currently 99.5. Remains on D10 at 15 cc an hour along with norepinephrine at 10 mcg/m. On fentanyl drip for pain control. Subjective 01/15: Currently afebrile. Started on TPN yesterday. Remains on norepinephrine 10 mics grams per minute and fentanyl drip at 100 g an hour Objective Vital Signs Date Time Temp Pulse Resp B/P Pulse Ox O2 Delivery O2 Flow Rate FiO2 01/15/17 10:00 82 01/15/17 08:36 100 40 01/15/17 08:00 97.5 15 130/62 01/15/17 07:00 Mechanical Ventilator Intake and Output 01/14/17 01/14/17 01/15/17 08:00 16:00 00:00 Intake Total 782 ml 1412 ml 1415 ml Output Total 400 ml 275 ml 550 ml Balance 382 ml 1137 ml 865 ml Result Diagram: 01/15/17 0315 01/15/17 1156 Other Results Microbiology Date/Time Procedure Status Source Growth 01/10/17 21:35 Aerobic Blood Culture - Preliminary Resulted Blood Peripheral Gram Negative Sampson 01/10/17 21:35 Anaerobic Blood Culture - Final Resulted Blood Peripheral NO GROWTH IN 5 DAYS Imaging Last Impressions Chest X-Ray 01/07/17 0036 Signed Impressions: Service Date/Time: Saturday, January 07, 2017 00:35 - CONCLUSION: Bilateral pulmonary nodules, interstitial and alveolar infiltrates. Juan Diego Frias MD Chest CT 01/07/17 0000 Signed Impressions: Service Date/Time: Saturday, January 07, 2017 05:12 - CONCLUSION: 1. Atherosclerosis. 2. Numerous bilateral pulmonary nodules suspicious for metastatic disease. 3. Bilateral proximal infiltrates. Juan Diego Frias MD Abdomen/Pelvis CT 01/07/17 0000 Signed Impressions: Service Date/Time: Saturday, January 07, 2017 05:09 - CONCLUSION: Portal venous gas in the left lobe of the liver is a new finding from previous examinations as well as free air in the right lower quadrant and right upper quadrant. Air does appear within the pericolonic vasculature adjacent to the ascending colon which can be seen with ischemic bowel. Juan Diego Frias MD Objective Remarks GENERAL: 76 yo male, Cachectic intubated, HEAD: Atraumatic. Normocephalic. EYES: Pupils equal and round about 3 mm bilaterally and reactive. No scleral icterus. ENT: Orotracheally intubated NECK: trachea midline. CARDIOVASCULAR: Tachycardic. RR. S1, S2 no S4. No JVD. RESPIRATORY: Intubated. Course rhonchi bilaterally. Good air movement. GASTROINTESTINAL: Abdomen soft, non-tender, nondistended. PEG tube + left upper quadrant MUSCULOSKELETAL: 1+ peripheral edema NEUROLOGICAL: Intubated sedated, appears to move all extremities weakly. Grimaces frequently - looks to be in pain. Does not follow commands. A/P Assessment and Plan NEURO: Acute metabolic encephalopathy Currently on fentanyl drip in 100 micrograms per hour for sedation while intubated - Encephalopathy most likely secondary to metabolic due to severe sepsis - Hyperammonemia contributing RESP: Acute hypoxic respiratory failure Aspiration pneumonia Bilateral pulmonary nodules - ACV 16//500/5/40 Albuterol/ipratropium aerosols every 6 hours when necessary Ventilator bundle Broad-spectrum antibiotics with vancomycin and Zosyn no SBT today given shock and critical illness. CV: Septic and hemorrhagic shock - persistent Severe lactic acidosis- persistent -Norepinephrine currently at 10 mg/m to keep map above 65, Will likely initiate TPN today over the volume status GI: Upper GI bleed Poorly differentiated gastric adenocarcinoma diffuse type- section showed gastric mucosa with an infiltration of signet ring cell with acute inflammation and history of duodenal ulceration. Hyperammonemia mesenteric ischemia Intra-abdominal free air - Nothing by mouth, IV pantoprazole twice a day - Started on TPN with low blood sugar - GI consulted, too unstable for EGD at this time. Renal/: Acute kidney injury resolved . Brower catheter remains for accurate I's and O's in a critically ill patient ID: Klebsiella pneumonia Septic shock - persistent UTI/funguria - IV Zosyn and Diflucan 01/07 blood cultures 2 - Klebsiella 01/07 urine culture - Niecy 01/10 blood culture - no growth HEME: Anemia secondary to acute blood loss requiring transfusion Leukocytosis Thrombocytopenia -Monitor CBC, CMP Thrombo-cytopenia likely consumptive's/DIC. Check fibrinogen and coags ENDO/FEN: Hyponatremia Hypokalemia - Monitor potassium - Replace electrolytes as clinically indicated - On po steroids at home-started on stress dose steroids PROPH: - Bilateral lower extremity SCDs. On chronic Apixaban - hold due to GIB - Continue Protonix LINES: - Utilize peripheral IVs, port, art line. Critical care time 30 min Aung James MD Jan 15, 2017 12:59
[2017-01-15] MEDS: NOREPINEPHRINE INJ 4 MG in SODIUM CHLOR 0.9% 250 ML INJ 250 ML IV SCH ×3 (13:06→22:10)
[2017-01-15] MEDS: MAGNESIUM SULFATE 1 GM PREMIX 100 ML IV SCH ×2 (13:39→14:00)
--- NOTE | 2017-01-15 13:53 | HHI.IDPN ---
Subjective Subjective Remarks Patient is a 76-year-old male, admitted to the hospital after he started vomiting coffee ground emesis, and apparently there is history of melena. This has been going on for at least 24 hours. He also has been diagnosed with adenocarcinoma of the stomach, when he was worked out for GI bleed. He has had problem with swallowing, and subsequently underwent placement of a PEG tube back in November 2016. Recently he was started on chemotherapy at the [facility]. During his last admission in December, rehabilitation was recommended, but the family refused so the patient has been home. He started having vomiting, and also has had melena. He was out into the hospital, and patient ended up getting intubated. He is currently in shock, and on Levophed. Imaging studies included CT of the abdomen and pelvis which showed gas in the portal system, as well as free air in the right side. His WBC is elevated. Temperature has been okay. Surgery has been consult it, and GI is also following the patient. Infectious disease consultation has been requested to evaluate the patient with sepsis. Notes reviewed D/W RN Remains critical On pressors Hypotensive Temps better Has new (+) BC with rapid [employer] Has DNR status, but family still wants aggressive treatment Not surgical candidate WBC rising Lactic acid very high UC with Niecy Has low platelets prob in DIC Antibiotics Zosyn Diflucan Past Medical History Poorly differentiated gastric adenocarcinoma diffuse type- section showed gastric mucosa with an infiltration of signet ring cell with acute inflammation and ulceration Hx of autoimmune hemolytic anemia. Gastritis, Duodenal bulb ulcers Colon polyps HTN Diabetes Hx DVT Hx aspiration pna Abn. weight loss Kidney stone Past Surgical History PEG tube placement EGD Colonoscopy Radiation seed placement in past Port placement Objective . Vital Signs Date Time Temp Pulse Resp B/P Pulse Ox O2 Delivery O2 Flow Rate FiO2 01/15/17 13:35 100 40 01/15/17 10:00 82 01/15/17 08:36 100 40 01/15/17 08:00 40 01/15/17 08:00 88 01/15/17 08:00 97.5 88 15 130/62 100 01/15/17 07:00 100 Mechanical Ventilator 40 01/15/17 06:00 84 01/15/17 04:03 100 40 01/15/17 04:00 40 01/15/17 04:00 97.9 94 14 130/62 100 01/15/17 04:00 94 01/15/17 02:00 96 01/15/17 00:00 86 01/15/17 00:00 97.5 86 15 140/62 100 01/15/17 00:00 40 01/14/17 23:53 100 40 01/14/17 22:00 92 01/14/17 21:05 100 40 01/14/17 20:00 101 01/14/17 20:00 99.0 101 16 80/44 99 01/14/17 20:00 40 01/14/17 19:00 100 Mechanical Ventilator 40 01/14/17 18:00 101 01/14/17 17:16 100 40 01/14/17 16:00 40 01/14/17 16:00 99.1 102 16 80/44 99 01/14/17 16:00 102 01/14/17 14:00 102 01/14/17 01/14/17 01/15/17 15:00 23:00 07:00 Intake Total 1412 ml 1415 ml 1581 ml Output Total 275 ml 550 ml 1200 ml Balance 1137 ml 865 ml 381 ml IV Total 1412 ml 1415 ml 1521 ml Other 60 ml Output Urine Total 275 ml 550 ml 1200 ml # Bowel Movements 0 50 50 . Laboratory Tests Test 01/14/17 01/15/17 05:00 03:15 White Blood Count 25.0 TH/MM3 29.7 TH/MM3 Red Blood Count 3.49 MIL/MM3 3.45 MIL/MM3 Hemoglobin 9.7 GM/DL 9.7 GM/DL Hematocrit 28.7 % 28.9 % Mean Corpuscular Volume 82.3 FL 83.8 FL Mean Corpuscular Hemoglobin 27.7 PG 28.2 PG Mean Corpuscular Hemoglobin 33.6 % 33.7 % Concent Red Cell Distribution Width 19.3 % 19.7 % Platelet Count 55 TH/MM3 75 TH/MM3 Mean Platelet Volume 11.4 FL 11.3 FL Neutrophils (%) (Auto) 96.7 % 98.0 % Lymphocytes (%) (Auto) 2.2 % 1.0 % Monocytes (%) (Auto) 0.7 % 0.7 % Eosinophils (%) (Auto) 0.4 % 0.0 % Basophils (%) (Auto) 0.0 % 0.3 % Neutrophils # (Auto) 24.2 TH/MM3 29.1 TH/MM3 Lymphocytes # (Auto) 0.5 TH/MM3 0.3 TH/MM3 Monocytes # (Auto) 0.2 TH/MM3 0.2 TH/MM3 Eosinophils # (Auto) 0.1 TH/MM3 0.0 TH/MM3 Basophils # (Auto) 0.0 TH/MM3 0.1 TH/MM3 CBC Comment AUTO DIFF AUTO DIFF Differential Total Cells 100 100 Counted Neutrophils % (Manual) 85 % 75 % Band Neutrophils % 8 % 18 % Monocytes % 1 % Neutrophils # (Manual) 24.8 TH/MM3 29.7 TH/MM3 Metamyelocytes 2 % 2 % Myelocytes 4 % 3 % Differential Comment FINAL DIFF FINAL DIFF MANUAL MANUAL Platelet Estimate LOW LOW Platelet Morphology Comment ENLARGED ENLARGED Promyelocytes 2 % Dohle Bodies PRESENT Tear Drop Cells 1+ Laboratory Tests Test 01/14/17 01/14/17 01/15/17 01/15/17 05:00 19:10 03:15 11:56 Sodium Level 126 MEQ/L 124 MEQ/L Potassium Level 1.7 MEQ/L 2.8 MEQ/L 2.9 MEQ/L Chloride Level 88 MEQ/L 87 MEQ/L Carbon Dioxide Level 28.1 MEQ/L 26.9 MEQ/L Anion Gap 10 MEQ/L 10 MEQ/L Blood Urea Nitrogen 14 MG/DL 18 MG/DL Creatinine 0.59 MG/DL 0.83 MG/DL Estimat Glomerular Filtration 134 ML/MIN 90 ML/MIN Rate Random Glucose 121 MG/DL 545 MG/DL 643 MG/DL Calcium Level 7.6 MG/DL 7.9 MG/DL Magnesium Level 1.8 MG/DL 1.8 MG/DL Lactic Acid Level 3.9 mmol/L Phosphorus Level 2.0 MG/DL Total Bilirubin 0.6 MG/DL Aspartate Amino Transf 95 U/L (AST/SGOT) Alanine Aminotransferase 61 U/L (ALT/SGPT) Alkaline Phosphatase 1106 U/L Ammonia 11 MCMOL/L Total Creatine Kinase 14 U/L Total Protein 4.2 GM/DL Albumin 0.7 GM/DL Imaging Last Impressions Chest X-Ray 01/07/17 0036 Signed Impressions: Service Date/Time: Saturday, January 07, 2017 00:35 - CONCLUSION: Bilateral pulmonary nodules, interstitial and alveolar infiltrates. Juan Diego Frias MD Chest CT 01/07/17 0000 Signed Impressions: Service Date/Time: Saturday, January 07, 2017 05:12 - CONCLUSION: 1. Atherosclerosis. 2. Numerous bilateral pulmonary nodules suspicious for metastatic disease. 3. Bilateral proximal infiltrates. Juan Diego Frias MD Abdomen/Pelvis CT 01/07/17 0000 Signed Impressions: Service Date/Time: Saturday, January 07, 2017 05:09 - CONCLUSION: Portal venous gas in the left lobe of the liver is a new finding from previous examinations as well as free air in the right lower quadrant and right upper quadrant. Air does appear within the pericolonic vasculature adjacent to the ascending colon which can be seen with ischemic bowel. Juan Diego Frias MD Physical Exam GENERAL: on the vent, not in respiratory distress. SKIN: Cool and dry. No generalized rash, no ecchymoses HEAD: Atraumatic. Normocephalic. No temporal wasting, or tenderness. EYES: [place] conjunctiva. No petechia or hemorrhage. Pupils equal, round and reactive to light. No scleral icterus. No injection or drainage. EARS, NOSE AND THROAT: Nose without bleeding or purulent nasal discharge. He is orally intubated. NECK: Trachea midline. Supple and not tender, no meningeal signs CARDIOVASCULAR: Regular rate and rhythm. No murmurs, rubs or gallops heard RESPIRATORY: Coarse breath sounds bilaterally, decreased at the bases. No wheezing or rhonchi ABDOMEN: Soft, nondistended, has grimacing during palpation, with some guarding, hypoactive bowel sounds. No organomegaly. EXTREMITIES: No clubbing, or cyanosis. Both feet cool to touch, not mottled. UE edematous, with ecchymoses, and some skin tears. NEUROLOGICAL: Sedated PSYCH: Unable to assess LINE: No evidence of infection : Brower in place, urine looks clear Has liquid stool, and color is very dark green/black Assessment & Plan Remarks IMPRESSION Klebsiella sepsis with shock on presentation has gas in portal system and free air, intraabdominal source, now with rapid [employer] - has GIB, and likely with ischemic colitis - has very high lactic acid Dx of adenoCA gastric, started on chemo Respiratory failure Renal insufficiency, better Hx prostate CA - previous UC December Niecy Thrombocytopenia, likely DIC RECOMMENDATION Change Zosyn to Primaxin - will cover Klebsiella and rapid [employer] Start Zithromax - for rapid [employer] IV Amikacin for rapid [employer] - watch creatinine Continue Diflucan Monitor progress Has DNR status Prognosis very poor D/W RN Spoke with family - has some unrealistic expectations D/W Dr James ([facility]) Kathrin Rouse MD Jan 15, 2017 13:53
[2017-01-15] MEDS ORDERED: MISCELLANEOUS PHARMACY INFORMATION XX PRN (14:00)
[2017-01-15] MEDS ORDERED: ASP: Other exception documentation: ( ) PRN (14:00)
[2017-01-15] MEDS ORDERED: POTASSIUM PHOSPHATE INJ 30 MMOL in SODIUM CHLOR 0.9% 250 ML INJ 250 ML IV ONE (15:00)
[2017-01-15] MEDS: AZITHROMYCIN INJ 500 MG in SODIUM CHLOR 0.9% 250 ML INJ 250 ML IV SCH (15:04)
[2017-01-15 16:01] LABS: HEPARIN AB OD 0.015 O.D. (0.000-0.300); HEPARIN INDUCED PLATELET AB NEGATIVE (NEGATIVE)
[2017-01-15] MEDS: IMIPENEM/CILASTATIN INJ 500 MG in SODIUM CHLORIDE 0.9% INJ 100 ML IV SCH ×2 (17:12→22:46)
[2017-01-15] MEDS: SODIUM CHLORID 0.9% IV SCH (17:12)
[2017-01-15] MEDS: AMIKACIN IV SCH (17:12)
[2017-01-15] MEDS: INSULIN REGULAR 100 UNITS/100 ML NS ALGORITHM 4 IV SCH ×6 (17:14→23:50)
[2017-01-15] MEDS: DEXTROSE 10% INJ 1,000 ML IV SCH (17:56)
[2017-01-15] MEDS: CLINIMIX E 5/25 2000 mL- >42 mls/hr IV-CENTRAL SCH ×3 (20:22)
[2017-01-15] MEDS: FAT EMULSION 20% INJ 250 ML (Daily over 8 hours) IV-CENTRAL SCH (20:22)
[2017-01-16] VITALS (19 sets, daily range): BP systolic 118–154; BP diastolic 54–77; PULSE 98–139; RESP 19–22; TEMP 96.8–98.5; O2SAT 93–100
[2017-01-16] MEDS: INSULIN NovoLIN REGULAR SUPPLEMENTAL SCALE SQ SCH
[2017-01-16] MEDS ORDERED: VASOPRESSIN 20 UNITS/ML VIAL (IVTITR) ONE (03:08)
[2017-01-16] MEDS ORDERED: VASOPRESSIN INJ 40 UNITS in SODIUM CHLORIDE 0.9% INJ 98 ML IV SCH (03:45)
[2017-01-16] MEDS: PANTOPRAZOLE SODIUM 40 MG VIAL IV PUSH SCH ×2 (03:58→14:19)
[2017-01-16] MEDS: CHLORHEXIDINE GLUCONATE 2 % 1 PACK (2 CLOTHS) TOP SCH (04:00)
[2017-01-16] MEDS: IMIPENEM/CILASTATIN INJ 500 MG in SODIUM CHLORIDE 0.9% INJ 100 ML IV SCH ×4 (04:25→21:59)
[2017-01-16 04:36] LABS: AUTOMATED NEUTROPHIL # 36.4 TH/MM3 (1.8-7.7); BASOPHIL # 0.1 TH/MM3 (0-0.2); BASOPHIL % 0.2 % (0.0-2.0); EOSINOPHIL % 0.1 % (0.0-4.0); LYMPH % 1.8 % (9.0-44.0); LYMPHOCYTE # 0.7 TH/MM3 (1.0-4.8); MEAN CELL VOLUME 83.7 FL (80.0-100.0); MEAN CORPUSCULAR HGB CONC 33.5 % (32.0-36.0); MONO % 0.8 % (0.0-8.0); NEUT % 97.1 % (16.0-70.0); PLATELET COUNT 65 TH/MM3 (150-450); RED BLOOD COUNT 2.99 MIL/MM3 (4.50-5.90); RED CELL DISTRIBUTION WIDTH 19.7 % (11.6-17.2); WHITE BLOOD COUNT 37.5 TH/MM3 (4.0-11.0)
[2017-01-16 04:38] LABS: HEMO FLAGS AUTO DIFF
[2017-01-16 05:06] LABS: ANION GAP 11 MEQ/L (5-15)
[2017-01-16] MEDS: INSULIN REGULAR 100 UNITS/100 ML NS ALGORITHM 4 IV SCH ×8 (05:10→17:21)
[2017-01-16] MEDS: NOREPINEPHRINE INJ 4 MG in SODIUM CHLOR 0.9% 250 ML INJ 250 ML IV SCH ×2 (05:11→16:10)
[2017-01-16] MEDS: HYDROCORTISONE SOD SUCCINATE 100 MG VIAL IV PUSH SCH ×3 (05:14→21:58)
[2017-01-16 05:22] LABS: ALKALINE PHOSPHATASE 1075 U/L (45-117); ALT (GPT) 58 U/L (12-78); AST (GOT) 103 U/L (15-37); BICARBONATE 22.5 MEQ/L (21.0-32.0); BLOOD UREA NITROGEN 21 MG/DL (7-18); CHLORIDE 98 MEQ/L (98-107); GLOMERULAR FILTRATION RATE 151 ML/MIN (>89); MAGNESIUM 1.9 MG/DL (1.5-2.5); SODIUM (NA) 131 MEQ/L (136-145); TOTAL BILIRUBIN ADULT 0.5 MG/DL (0.2-1.0)
[2017-01-16 05:27] LABS: POTASSIUM 2.8 MEQ/L (3.5-5.1)
[2017-01-16] MEDS ORDERED: POTASSIUM CHLOR 40 MEQ PREMIX 100 ML IV ONE (06:00)
[2017-01-16] MEDS: fentaNYL DRIP 250 ML IV SCH (06:38)
[2017-01-16] MEDS: FLUCONAZOLE 400 MG IV SCH (08:06)
[2017-01-16] MEDS: CHLORHEXIDINE 0.12% (ORAL KIT) 15 ML CUP MT SCH ×2 (08:07→20:23)
[2017-01-16 08:08] LABS: BANDS 11 % (0-6); METAMYELOCYTES 5 % (0-1); MYELOCYTES 3 % (0-0); NEUTROPHIL # MANUAL DIFF 34.9 TH/MM3 (1.8-7.7); POLYS (SEG NEUTROPHILS) 72 % (16-70); PROMYELOCYTES 2 % (0-0); WBC DIFF SAMPLE 100
[2017-01-16 08:10] LABS: DOHLE BODIES PRESENT (NONE SEEN)
[2017-01-16 08:11] LABS: TEARDROP RBCS 1+ (NORMAL)
[2017-01-16 08:12] LABS: PLATELET ESTIMATE SMEAR LOW (NORMAL); SCAN/DIFF FINAL DIFF MANUAL
[2017-01-16 08:13] LABS: PLATELET MORPHOLOGY ENLARGED (NORMAL)
--- NOTE | 2017-01-16 10:33 | RADRPT ---
EXAM DATE/TIME: 01/16/2017 09:51 [place] COMPARISON: CT THORAX W/O CONTRAST, January 07, 2017, 5:12. CHEST SINGLE AP, January 07, 2017, 1:27. INDICATIONS : Respiratory failure. MEDICAL HISTORY : Hypertension. Renal calculi. Prostate cancer. Stomach cancer. SURGICAL HISTORY : Infuse a port. ENCOUNTER: Subsequent ACUITY: 1 week PAIN SCORE: Non-responsive. LOCATION: Bilateral chest FINDINGS: A single portable frontal view of the chest shows a small hydropneumothorax on the right. Patchy pare nchymal infiltrates are again seen in similar locations to the prior study. No discrete effusion seen on the left. Heart is normal in size. Tip of the endotracheal tube 4 cm cephalad to the yobani. A po wer port overlies the right chest. CONCLUSION: 1. Small hydropneumothorax on the right. 2. Bilateral pulmonary infiltrates. 3. Endotracheal tube in good position. Barron Castaneda Jr., MD on January 16, 2017 at 10:27 Board Certified Radiologist. This report was verified electronically.
[2017-01-16] MEDS: AZITHROMYCIN INJ 500 MG in SODIUM CHLOR 0.9% 250 ML INJ 250 ML IV SCH (14:02)
[2017-01-16] MEDS: DEXTROSE 10% INJ 1,000 ML IV SCH (17:20)
[2017-01-16] MEDS: AMIKACIN IV SCH (17:27)
[2017-01-16] MEDS: SODIUM CHLORID 0.9% IV SCH (17:27)
--- NOTE | 2017-01-16 18:10 | HHI.CCPN ---
Subjective Remarks/Hospital Course Hospital Course: Patient is a 76-year-old male with history of gastric adenocarcinoma, recently started on chemotherapy at [facility], history of type 2 diabetes , hypertension, dyslipidemia who presented to the emergency department via EMS for upper GI bleed and shortness of breath. Apparently upper GI bleed and melena had been going on for almost 24 hours before family called EMS. Patient became progressively more dyspneic with gurgling type respirations and less responsive. EMS found patient hypotensive in the 70s, improved with fluids, tachycardic in the 120s. In the emergency department patient was emergently intubated for airway protection due to gurgling breath sounds, and inability to protect airway. Patient given 3 L normal saline bolus and was started on PPI bolus, drip. Chest x-ray showed bilateral patchy infiltrates. Postintubation ABG pH 7.12, PCO2 32.3, PO2 226, bicarbonate 9.9. Patient was empirically treated with vancomycin, Zosyn. Abnormal labs include WBC 13.2, hemoglobin 8.1 , INR 1.3, Sodium 124, potassium 5.6, bicarbonate 13.9 and anion gap 26. BUN 57 , creatinine 1.70. Troponin 0.37, Also ammonia 68 and Lactic acid 17.0. Urinalysis with hematuria, bacteria and yeast. In the ER patient was ordered to receive 2 units packed red blood cells and 3L NS. He was started on norepinephrine through his chest port, to maintain MAP above 65. I evaluated the patient in the ED. He remains hypotensive and have ordered additional fluid boluses. Patient had been placed on Zosyn vancomycin and Diflucan. Infectious disease was consulted. Continue fluid resuscitation. Source of sepsis most likely pneumonia. Given lactic acid elevation to 17 I have ordered a CT abdomen pelvis to rule out abdominal source of infection or ischemic bowel 01/08: long conversation yesterday with family. decision for DNR with no escalation of care, but no plan to withdraw. remains in shock on vasopressor therapy. remains encephalopathic and on full mechanical support. sodium continues to worsen. very poor prognosis. 01/09: Patient remains with septic course. Prognosis poor. 01/10: Renal function more acceptable, otherwise little progress. I can not see any role for operative intervention at this point. 01/11: Continued deterioration. Good antibiotic coverage. Too unstable to survive a bowel resection. I spoke at length with her daughter about the seriousness of her liver failure. 01/12: Potassium remains low despite aggressive replacement. Metabolic pH hampering efforts; will add diamox once to lower pH and hopefully hold K better. Patient now DNR statusbut family wants to continue the levophed. Max range is 12 mics/min. 01/13: Patient remains floridly septic after spontaneous colon necrosis and perforation. There is gas in the colon wall, free air in the abdomen, and gas in the portal venous system as well. 01/14: Tmax 100. Currently 99.5. Remains on D10 at 15 cc an hour along with norepinephrine at 10 mcg/m. On fentanyl drip for pain control. Subjective 01/15: Currently afebrile. Started on TPN yesterday. Remains on norepinephrine 10 mics grams per minute and fentanyl drip at 100 g an hour 01/16: Small right pneumothorax, not affecting oxygenation on ventilator. Will follow without tube for now, Objective Vital Signs Date Time Temp Pulse Resp B/P Pulse Ox O2 Delivery O2 Flow Rate FiO2 01/16/17 16:51 97 35 01/16/17 16:00 97.0 102 20 118/58 01/16/17 08:00 Mechanical Ventilator Intake and Output 01/15/17 01/15/17 01/16/17 08:00 16:00 00:00 Intake Total 1581 ml 1639 ml 2776 ml Output Total 1200 ml 1175 ml 1000 ml Balance 381 ml 464 ml 1776 ml Result Diagram: 01/16/17 0403 01/16/17 0403 Imaging Last Impressions Chest X-Ray 01/07/17 0036 Signed Impressions: Service Date/Time: Saturday, January 07, 2017 00:35 - CONCLUSION: Bilateral pulmonary nodules, interstitial and alveolar infiltrates. Juan Diego Frias MD Chest CT 01/07/17 0000 Signed Impressions: Service Date/Time: Saturday, January 07, 2017 05:12 - CONCLUSION: 1. Atherosclerosis. 2. Numerous bilateral pulmonary nodules suspicious for metastatic disease. 3. Bilateral proximal infiltrates. Juan Diego Frias MD Abdomen/Pelvis CT 01/07/17 0000 Signed Impressions: Service Date/Time: Saturday, January 07, 2017 05:09 - CONCLUSION: Portal venous gas in the left lobe of the liver is a new finding from previous examinations as well as free air in the right lower quadrant and right upper quadrant. Air does appear within the pericolonic vasculature adjacent to the ascending colon which can be seen with ischemic bowel. Juan Diego Frias MD Objective Remarks GENERAL: 76 yo male, Cachectic, ill-appearing, intubated, HEAD: Atraumatic. Normocephalic. EYES: Pupils equal and round about 3 mm bilaterally and reactive. No scleral icterus. ENT: Orotracheally intubated NECK: trachea midline. CARDIOVASCULAR: Tachycardic. RR. S1, S2 no S4. No JVD. RESPIRATORY: Intubated. Course rhonchi bilaterally. Good air movement. Good bilateral breath sounds. GASTROINTESTINAL: Abdomen soft, non-tender, nondistended. PEG tube + left upper quadrant MUSCULOSKELETAL: 1+ peripheral edema, tepid. NEUROLOGICAL: Intubated sedated, appears to move all extremities weakly. Grimaces frequently - looks to be in pain. Does not follow commands. A/P Assessment and Plan NEURO: Acute metabolic encephalopathy Currently on fentanyl drip in 100 micrograms per hour for sedation while intubated - Encephalopathy most likely secondary to metabolic due to severe sepsis - Hyperammonemia contributing RESP: Acute hypoxic respiratory failure Aspiration pneumonia Bilateral pulmonary nodules - ACV 16//500/5/40 Albuterol/ipratropium aerosols every 6 hours when necessary Ventilator bundle Broad-spectrum antibiotics with vancomycin and Zosyn no SBT today given shock and critical illness. CV: Septic and hemorrhagic shock - persistent Severe lactic acidosis- persistent -Norepinephrine currently at 10 mg/m to keep map above 65, Will likely initiate TPN today over the volume status GI: Upper GI bleed Poorly differentiated gastric adenocarcinoma diffuse type- section showed gastric mucosa with an infiltration of signet ring cell with acute inflammation and history of duodenal ulceration. Hyperammonemia mesenteric ischemia Intra-abdominal free air - Nothing by mouth, IV pantoprazole twice a day - Started on TPN with low blood sugar - GI consulted, too unstable for EGD at this time. Renal/: Acute kidney injury resolved . Brower catheter remains for accurate I's and O's in a critically ill patient ID: Klebsiella pneumonia Septic shock - persistent UTI/funguria - IV Zosyn and Diflucan 01/07 blood cultures 2 - Klebsiella 8 urine culture - Niecy 01/10 blood culture - no growth HEME: Anemia secondary to acute blood loss requiring transfusion Leukocytosis Thrombocytopenia -Monitor CBC, CMP Thrombo-cytopenia likely consumptive's/DIC. Check fibrinogen and coags ENDO/FEN: Hyponatremia Hypokalemia - Monitor potassium - Replace electrolytes as clinically indicated - On po steroids at home-started on stress dose steroids PROPH: - Bilateral lower extremity SCDs. On chronic Apixaban - hold due to GIB - Continue Protonix LINES: - Utilize peripheral IVs, port, art line. Overall impression: Worsening septic shock requiring increased vasopressor support. Roberto Tobar MD Jan 16, 2017 18:10
[2017-01-16] MEDS: FAT EMULSION 20% INJ 250 ML (Daily over 8 hours) IV-CENTRAL SCH (20:23)
[2017-01-16] MEDS: CLINIMIX E 5/25 2000 mL- >42 mls/hr IV-CENTRAL SCH ×3 (20:26)
[2017-01-17] VITALS (18 sets, daily range): BP systolic 78–136; BP diastolic 49–80; PULSE 99–129; RESP 16–39; TEMP 96.6–98.2; O2SAT 80–100
[2017-01-17] MEDS: PANTOPRAZOLE SODIUM 40 MG VIAL IV PUSH SCH ×2 (02:33→16:27)
[2017-01-17] MEDS: CHLORHEXIDINE GLUCONATE 2 % 1 PACK (2 CLOTHS) TOP SCH (03:48)
[2017-01-17] MEDS: IMIPENEM/CILASTATIN INJ 500 MG in SODIUM CHLORIDE 0.9% INJ 100 ML IV SCH ×4 (03:48→22:41)
[2017-01-17] MEDS: HYDROCORTISONE SOD SUCCINATE 100 MG VIAL IV PUSH SCH ×3 (05:30→21:58)
[2017-01-17] MEDS: fentaNYL DRIP 250 ML IV SCH ×2 (05:54→18:04)
[2017-01-17 05:56] LABS: AUTOMATED NEUTROPHIL # 34.1 TH/MM3 (1.8-7.7); BASOPHIL % 0.1 % (0.0-2.0); LYMPH % 1.8 % (9.0-44.0); LYMPHOCYTE # 0.6 TH/MM3 (1.0-4.8); MEAN CELL VOLUME 84.1 FL (80.0-100.0); MEAN CORPUSCULAR HEMOGLOBIN 26.9 PG (27.0-34.0); MONO % 1.2 % (0.0-8.0); NEUT % 96.9 % (16.0-70.0); PLATELET COUNT 46 TH/MM3 (150-450); WHITE BLOOD COUNT 35.2 TH/MM3 (4.0-11.0)
[2017-01-17 05:58] LABS: HEMO FLAGS AUTO DIFF
[2017-01-17 07:04] LABS: BANDS 9 % (0-6); METAMYELOCYTES 3 % (0-1); MYELOCYTES 4 % (0-0); NEUTROPHIL # MANUAL DIFF 35.2 TH/MM3 (1.8-7.7); POLYS (SEG NEUTROPHILS) 83 % (16-70); PROMYELOCYTES 1 % (0-0); WBC DIFF SAMPLE 100
[2017-01-17 07:05] LABS: PLATELET ESTIMATE SMEAR LOW (NORMAL); PLATELET MORPHOLOGY ENLARGED (NORMAL); SCAN/DIFF FINAL DIFF MANUAL
[2017-01-17] MEDS: CHLORHEXIDINE 0.12% (ORAL KIT) 15 ML CUP MT SCH ×2 (08:00→20:29)
[2017-01-17] MEDS: FLUCONAZOLE 400 MG IV SCH (08:29)
[2017-01-17] MEDS: NOREPINEPHRINE INJ 4 MG in SODIUM CHLOR 0.9% 250 ML INJ 250 ML IV SCH ×2 (08:50→22:47)
--- NOTE | 2017-01-17 10:03 | HHI.CCPN ---
Subjective Remarks/Hospital Course Hospital Course: Patient is a 76-year-old male with history of gastric adenocarcinoma, recently started on chemotherapy at [facility], history of type 2 diabetes , hypertension, dyslipidemia who presented to the emergency department via EMS for upper GI bleed and shortness of breath. Apparently upper GI bleed and melena had been going on for almost 24 hours before family called EMS. Patient became progressively more dyspneic with gurgling type respirations and less responsive. EMS found patient hypotensive in the 70s, improved with fluids, tachycardic in the 120s. In the emergency department patient was emergently intubated for airway protection due to gurgling breath sounds, and inability to protect airway. Patient given 3 L normal saline bolus and was started on PPI bolus, drip. Chest x-ray showed bilateral patchy infiltrates. Postintubation ABG pH 7.12, PCO2 32.3, PO2 226, bicarbonate 9.9. Patient was empirically treated with vancomycin, Zosyn. Abnormal labs include WBC 13.2, hemoglobin 8.1 , INR 1.3, Sodium 124, potassium 5.6, bicarbonate 13.9 and anion gap 26. BUN 57 , creatinine 1.70. Troponin 0.37, Also ammonia 68 and Lactic acid 17.0. Urinalysis with hematuria, bacteria and yeast. In the ER patient was ordered to receive 2 units packed red blood cells and 3L NS. He was started on norepinephrine through his chest port, to maintain MAP above 65. I evaluated the patient in the ED. He remains hypotensive and have ordered additional fluid boluses. Patient had been placed on Zosyn vancomycin and Diflucan. Infectious disease was consulted. Continue fluid resuscitation. Source of sepsis most likely pneumonia. Given lactic acid elevation to 17 I have ordered a CT abdomen pelvis to rule out abdominal source of infection or ischemic bowel 01/08: long conversation yesterday with family. decision for DNR with no escalation of care, but no plan to withdraw. remains in shock on vasopressor therapy. remains encephalopathic and on full mechanical support. sodium continues to worsen. very poor prognosis. 01/09: Patient remains with septic course. Prognosis poor. 01/10: Renal function more acceptable, otherwise little progress. I can not see any role for operative intervention at this point. 01/11: Continued deterioration. Good antibiotic coverage. Too unstable to survive a bowel resection. I spoke at length with her daughter about the seriousness of her liver failure. 01/12: Potassium remains low despite aggressive replacement. Metabolic pH hampering efforts; will add diamox once to lower pH and hopefully hold K better. Patient now DNR statusbut family wants to continue the levophed. Max range is 12 mics/min. 01/13: Patient remains floridly septic after spontaneous colon necrosis and perforation. There is gas in the colon wall, free air in the abdomen, and gas in the portal venous system as well. 01/14: Tmax 100. Currently 99.5. Remains on D10 at 15 cc an hour along with norepinephrine at 10 mcg/m. On fentanyl drip for pain control. Subjective 01/15: Currently afebrile. Started on TPN yesterday. Remains on norepinephrine 10 mics grams per minute and fentanyl drip at 100 g an hour 01/16: Small right pneumothorax, not affecting oxygenation on ventilator. Will follow without tube for now, 01/17: TPN halted. Gas exchange acceptable. Hemodynamics deteriorating. Acidosis persists. Objective Vital Signs Date Time Temp Pulse Resp B/P Pulse Ox O2 Delivery O2 Flow Rate FiO2 01/17/17 08:00 100 01/17/17 08:00 98.2 129 31 78/49 80 01/16/17 19:00 Mechanical Ventilator Intake and Output 01/16/17 01/16/17 01/16/17 07:59 15:59 23:59 Intake Total 1618 ml 2112 ml 1859 ml Output Total 300 ml 300 ml 400 ml Balance 1318 ml 1812 ml 1459 ml Result Diagram: 01/17/17 0520 01/16/17 0403 Imaging Last Impressions Chest X-Ray 01/07/17 0036 Signed Impressions: Service Date/Time: Saturday, January 07, 2017 00:35 - CONCLUSION: Bilateral pulmonary nodules, interstitial and alveolar infiltrates. Juan Diego Frias MD Chest CT 01/07/17 0000 Signed Impressions: Service Date/Time: Saturday, January 07, 2017 05:12 - CONCLUSION: 1. Atherosclerosis. 2. Numerous bilateral pulmonary nodules suspicious for metastatic disease. 3. Bilateral proximal infiltrates. Juan Diego Frias MD Abdomen/Pelvis CT 01/07/17 0000 Signed Impressions: Service Date/Time: Saturday, January 07, 2017 05:09 - CONCLUSION: Portal venous gas in the left lobe of the liver is a new finding from previous examinations as well as free air in the right lower quadrant and right upper quadrant. Air does appear within the pericolonic vasculature adjacent to the ascending colon which can be seen with ischemic bowel. Juan Diego Frias MD Objective Remarks GENERAL: 76 yo male, Cachectic, ill-appearing, intubated, HEAD: Atraumatic. Normocephalic. EYES: Pupils equal and round about 3 mm bilaterally and reactive. No scleral icterus. ENT: Orotracheally intubated NECK: trachea midline. CARDIOVASCULAR: Tachycardic. RR. S1, S2 no S4. No JVD. RESPIRATORY: Intubated. Course rhonchi bilaterally. Good air movement. Good bilateral breath sounds. GASTROINTESTINAL: Abdomen soft, non-tender, nondistended. PEG tube + left upper quadrant MUSCULOSKELETAL: 1+ peripheral edema, tepid. Diffuse skin breakdown and watery oozing. NEUROLOGICAL: Intubated sedated, appears to move all extremities weakly. Grimaces frequently - looks to be in pain. Does not follow commands. A/P Assessment and Plan NEURO: Acute metabolic encephalopathy Currently on fentanyl drip in 100 micrograms per hour for sedation while intubated - Encephalopathy most likely secondary to metabolic due to severe sepsis - Hyperammonemia contributing RESP: Acute hypoxic respiratory failure Aspiration pneumonia Bilateral pulmonary nodules - ACV 16//500/5/40 Albuterol/ipratropium aerosols every 6 hours when necessary Ventilator bundle Broad-spectrum antibiotics with vancomycin and Zosyn no SBT today given shock and critical illness. CV: Septic and hemorrhagic shock - persistent Severe lactic acidosis- persistent -Norepinephrine currently at 10 mg/m to keep map above 65, Will likely initiate TPN today over the volume status GI: Upper GI bleed Poorly differentiated gastric adenocarcinoma diffuse type- section showed gastric mucosa with an infiltration of signet ring cell with acute inflammation and history of duodenal ulceration. Hyperammonemia mesenteric ischemia Intra-abdominal free air - Nothing by mouth, IV pantoprazole twice a day - Started on TPN with low blood sugar - GI consulted, too unstable for EGD at this time. Renal/: Acute kidney injury resolved . Brower catheter remains for accurate I's and O's in a critically ill patient ID: Klebsiella pneumonia Septic shock - persistent UTI/funguria - IV Zosyn and Diflucan 01/07 blood cultures 2 - Klebsiella 01/07 urine culture - Niecy 01/10 blood culture - no growth HEME: Anemia secondary to acute blood loss requiring transfusion Leukocytosis Thrombocytopenia -Monitor CBC, CMP Thrombo-cytopenia likely consumptive's/DIC. Check fibrinogen and coags ENDO/FEN: Hyponatremia Hypokalemia - Monitor potassium - Replace electrolytes as clinically indicated - On po steroids at home-started on stress dose steroids PROPH: - Bilateral lower extremity SCDs. On chronic Apixaban - hold due to GIB - Continue Protonix LINES: - Utilize peripheral IVs, port, art line. Overall impression: Worsening septic shock requiring increased vasopressor support. Prognosis poor. Family has agreed to no further escalation of care. Roberto Tobar MD Jan 17, 2017 10:03
--- NOTE | 2017-01-17 10:08 | HHI.HCPN ---
Reason for visit a. To assist with evaluation and management of symptoms including: dyspnea, anxiety, pain. b. To assist medical decision maker(s) with: better understanding of current medical conditions; weighing benefits/burdens of medical treatment options; making medical treatment decisions. . Subjective/Interval History Pt overnight, this morning decompensated, require increase FI O2 and pressor support. Despite that pressure is still low and pt is still declining and dying. I met with spouse Aleena Paiz, and Daughter Tete who is at bedside. On my conversation with them they accepted and understand that pt is dying, and that even with further support pt is dying. Answered their questions and they nod and are amenable to no further escalation in care. With nurse present they endorse "Just keep him comfortable." Hospice was consulted, but they could not come to the decision to stop the antibiotics. They had originally want to just take him home, but I told them he will likely not survive the trip, and also hospice is comfort measure only and cannot provide antibiotics. Reemphasize antibiotics is not working at this point, and is not changing his prognosis. Goals of care is to keep pt on antibiotics, and current medical treatment, and not to escalate care. They are amenable to comfort meds to keep him comfortable until his . Pastoral care has been notify and they state they have their chief compliance officer coming. . Family/friend interactions see HPI Advance Directives Living Will: Never completed Health Care Surrogate: Never completed Objective Vital Signs Date Time Temp Pulse Resp B/P Pulse Ox O2 Delivery O2 Flow Rate FiO2 01/17/17 08:00 100 01/17/17 08:00 98.2 129 31 78/49 80 01/17/17 08:00 129 01/17/17 07:34 80 100 01/17/17 06:00 99 01/17/17 04:00 104 01/17/17 04:00 35 01/17/17 04:00 96.7 99 22 136/76 99 01/17/17 03:50 98 35 01/17/17 02:00 101 01/17/17 00:04 96 35 01/17/17 00:00 102 01/17/17 00:00 97.0 102 21 132/80 96 01/17/17 00:00 35 01/16/17 22:00 101 01/16/17 20:15 98 35 01/16/17 20:00 104 01/16/17 20:00 96.9 112 21 154/77 98 01/16/17 20:00 35 01/16/17 19:00 98 Mechanical Ventilator 35 01/16/17 18:00 112 01/16/17 16:51 97 35 01/16/17 16:00 97.0 102 20 118/58 98 01/16/17 16:00 102 01/16/17 16:00 35 01/16/17 14:00 129 01/16/17 12:00 98 01/16/17 12:00 35 01/16/17 12:00 97.9 98 20 152/74 93 01/16/17 11:13 99 35 01/16/17 10:00 103 Intake & Output 01/17/17 01/17/17 06:59 18:59 Intake Total 3541 ml Output Total 800 ml Balance 2741 ml Intake Oral 0 ml IV Total 2352 ml TPN/PPN 963 ml Lipid 226 ml Output Urine Total 650 ml Stool Total 150 ml Physical Exam CONSTITUTIONAL/GENERAL: Frail elderly, ill-appearing patient seen in ICU,sedated , minimally responsive. No evident distress. TUBES/LINES/DRAINS: He has multiple peripheral IVs bilateral upper extremity, arterial line upper extremity, right subclavian port accessed, ET tube,Brower catheter, SCDs SKIN: No jaundice, rashes, or lesions. Multiple areas of ecchymosis to upper chest, bilateral upper extremities. + Edema, serous weeping from upper extremities. Skin temperature cool to distal extremities. CARDIOVASCULAR: Regular rate and rhythm. No murmur. RESPIRATORY/CHEST: Symmetric, unlabored respirations via mechanical vent. Rhonchi throughout. GASTROINTESTINAL: Abdomen soft, flat, nondistended. No hepato-splenomegaly, or palpable masses. Unable to determine tenderness due to level of consciousness. no bowel sounds present. PEG GENITOURINARY: Without palpable bladder distension. Brower catheter MUSCULOSKELETAL: Extremities without clubbing, cyanosis. 2+ Edema, serous weeping from the upper extremities. NEUROLOGICAL: Does not awaken to voice/exam. Not following commands at time of my visit. PSYCHIATRIC: Unable to assess given level of responsiveness. . Diagnostic Tests Laboratory Laboratory Tests Test 01/14/17 01/14/17 01/15/17 01/15/17 11:05 19:10 03:15 11:56 Heparin-Induced Platelet Ab NEGATIVE (Hattie) (NEGATIVE) HIPA Patient Optical Density 0.015 O.D. (0.000-0.300) Potassium Level 2.8 MEQ/L 2.9 MEQ/L (3.5-5.1) (3.5-5.1) Magnesium Level 1.8 MG/DL 1.8 MG/DL (1.5-2.5) (1.5-2.5) White Blood Count 29.7 TH/MM3 (4.0-11.0) Red Blood Count 3.45 MIL/MM3 (4.50-5.90) Hemoglobin 9.7 GM/DL (13.0-17.0) Hematocrit 28.9 % (39.0-51.0) Mean Corpuscular Volume 83.8 FL (80.0-100.0) Mean Corpuscular Hemoglobin 28.2 PG (27.0-34.0) Mean Corpuscular Hemoglobin 33.7 % Concent (32.0-36.0) Red Cell Distribution Width 19.7 % (11.6-17.2) Platelet Count 75 TH/MM3 (150-450) Mean Platelet Volume 11.3 FL (7.0-11.0) Neutrophils (%) (Auto) 98.0 % (16.0-70.0) Lymphocytes (%) (Auto) 1.0 % (9.0-44.0) Monocytes (%) (Auto) 0.7 % (0.0-8.0) Eosinophils (%) (Auto) 0.0 % (0.0-4.0) Basophils (%) (Auto) 0.3 % (0.0-2.0) Neutrophils # (Auto) 29.1 TH/MM3 (1.8-7.7) Lymphocytes # (Auto) 0.3 TH/MM3 (1.0-4.8) Monocytes # (Auto) 0.2 TH/MM3 (0-0.9) Eosinophils # (Auto) 0.0 TH/MM3 (0-0.4) Basophils # (Auto) 0.1 TH/MM3 (0-0.2) CBC Comment AUTO DIFF Differential Total Cells 100 Counted Neutrophils % (Manual) 75 % (16-70) Band Neutrophils % 18 % (0-6) Neutrophils # (Manual) 29.7 TH/MM3 (1.8-7.7) Metamyelocytes 2 % (0-1) Myelocytes 3 % (0-0) Promyelocytes 2 % (0-0) Differential Comment FINAL DIFF MANUAL Dohle Bodies PRESENT (NONE SEEN) Platelet Estimate LOW (NORMAL) Platelet Morphology Comment ENLARGED (NORMAL) Tear Drop Cells 1+ (NORMAL) Prothrombin Time 14.7 SEC (9.8-11.6) Prothromb Time International 1.3 RATIO Ratio Activated Partial 39.9 SEC Thromboplast Time (24.3-30.1) Fibrinogen 589 mg/dL (227-377) Sodium Level 124 MEQ/L (136-145) Chloride Level 87 MEQ/L (98-107) Carbon Dioxide Level 26.9 MEQ/L (21.0-32.0) Anion Gap 10 MEQ/L (5-15) Blood Urea Nitrogen 18 MG/DL (7-18) Creatinine 0.83 MG/DL (0.60-1.30) Estimat Glomerular Filtration 90 ML/MIN (>89) Rate Random Glucose 545 MG/DL 643 MG/DL (74-106) (74-106) Lactic Acid Level 3.9 mmol/L (0.4-2.0) Calcium Level 7.9 MG/DL (8.5-10.1) Phosphorus Level 2.0 MG/DL (2.5-4.9) Total Bilirubin 0.6 MG/DL (0.2-1.0) Aspartate Amino Transf 95 U/L (15-37) (AST/SGOT) Alanine Aminotransferase 61 U/L (12-78) (ALT/SGPT) Alkaline Phosphatase 1106 U/L (45-117) Ammonia 11 MCMOL/L (11-32) Total Creatine Kinase 14 U/L (39-308) Total Protein 4.2 GM/DL (6.4-8.2) Albumin 0.7 GM/DL (3.4-5.0) Test 01/16/17 01/17/17 04:03 05:20 White Blood Count 37.5 TH/MM3 35.2 TH/MM3 (4.0-11.0) (4.0-11.0) Red Blood Count 2.99 MIL/MM3 2.50 MIL/MM3 (4.50-5.90) (4.50-5.90) Hemoglobin 8.4 GM/DL 6.7 GM/DL (13.0-17.0) (13.0-17.0) Hematocrit 25.0 % 21.0 % (39.0-51.0) (39.0-51.0) Mean Corpuscular Volume 83.7 FL 84.1 FL (80.0-100.0) (80.0-100.0) Mean Corpuscular Hemoglobin 28.0 PG 26.9 PG (27.0-34.0) (27.0-34.0) Mean Corpuscular Hemoglobin 33.5 % 32.0 % Concent (32.0-36.0) (32.0-36.0) Red Cell Distribution Width 19.7 % 20.0 % (11.6-17.2) (11.6-17.2) Platelet Count 65 TH/MM3 46 TH/MM3 (150-450) (150-450) Mean Platelet Volume 11.2 FL 11.0 FL (7.0-11.0) (7.0-11.0) Neutrophils (%) (Auto) 97.1 % 96.9 % (16.0-70.0) (16.0-70.0) Lymphocytes (%) (Auto) 1.8 % 1.8 % (9.0-44.0) (9.0-44.0) Monocytes (%) (Auto) 0.8 % (0.0-8.0) 1.2 % (0.0-8.0) Eosinophils (%) (Auto) 0.1 % (0.0-4.0) 0.0 % (0.0-4.0) Basophils (%) (Auto) 0.2 % (0.0-2.0) 0.1 % (0.0-2.0) Neutrophils # (Auto) 36.4 TH/MM3 34.1 TH/MM3 (1.8-7.7) (1.8-7.7) Lymphocytes # (Auto) 0.7 TH/MM3 0.6 TH/MM3 (1.0-4.8) (1.0-4.8) Monocytes # (Auto) 0.3 TH/MM3 0.4 TH/MM3 (0-0.9) (0-0.9) Eosinophils # (Auto) 0.0 TH/MM3 0.0 TH/MM3 (0-0.4) (0-0.4) Basophils # (Auto) 0.1 TH/MM3 0.0 TH/MM3 (0-0.2) (0-0.2) CBC Comment AUTO DIFF AUTO DIFF Differential Total Cells 100 100 Counted Neutrophils % (Manual) 72 % (16-70) 83 % (16-70) Band Neutrophils % 11 % (0-6) 9 % (0-6) Lymphocytes % 4 % (9-44) Monocytes % 3 % (0-8) Neutrophils # (Manual) 34.9 TH/MM3 35.2 TH/MM3 (1.8-7.7) (1.8-7.7) Metamyelocytes 5 % (0-1) 3 % (0-1) Myelocytes 3 % (0-0) 4 % (0-0) Promyelocytes 2 % (0-0) 1 % (0-0) Differential Comment FINAL DIFF FINAL DIFF MANUAL MANUAL Dohle Bodies PRESENT (NONE SEEN) Platelet Estimate LOW (NORMAL) LOW (NORMAL) Platelet Morphology Comment ENLARGED ENLARGED (NORMAL) (NORMAL) Tear Drop Cells 1+ (NORMAL) Sodium Level 131 MEQ/L (136-145) Potassium Level 2.8 MEQ/L (3.5-5.1) Chloride Level 98 MEQ/L (98-107) Carbon Dioxide Level 22.5 MEQ/L (21.0-32.0) Anion Gap 11 MEQ/L (5-15) Blood Urea Nitrogen 21 MG/DL (7-18) Creatinine 0.53 MG/DL (0.60-1.30) Estimat Glomerular Filtration 151 ML/MIN Rate (>89) Random Glucose 227 MG/DL (74-106) Lactic Acid Level 5.4 mmol/L 2.1 mmol/L (0.4-2.0) (0.4-2.0) Calcium Level 8.3 MG/DL (8.5-10.1) Phosphorus Level 2.0 MG/DL (2.5-4.9) Magnesium Level 1.9 MG/DL (1.5-2.5) Total Bilirubin 0.5 MG/DL (0.2-1.0) Aspartate Amino Transf 103 U/L (15-37) (AST/SGOT) Alanine Aminotransferase 58 U/L (12-78) (ALT/SGPT) Alkaline Phosphatase 1075 U/L (45-117) Total Protein 3.8 GM/DL (6.4-8.2) Albumin 0.7 GM/DL (3.4-5.0) Result Diagram: 01/17/17 0520 01/16/17 0403 Microbiology Microbiology Date/Time Procedure Status Source Growth 01/15/17 18:21 Aerobic Blood Culture - Preliminary Resulted Blood Other NO GROWTH IN 1 DAY 01/15/17 18:21 Anaerobic Blood Culture - Preliminary Resulted Blood Other NO GROWTH IN 1 DAY 01/15/17 21:20 Aerobic Blood Culture - Preliminary Resulted Blood Other NO GROWTH IN 1 DAY 01/15/17 21:20 Anaerobic Blood Culture - Preliminary Resulted Blood Other NO GROWTH IN 1 DAY Imaging Last Impressions Chest X-Ray 01/16/17 0600 Signed Impressions: Service Date/Time: Monday, January 16, 2017 09:51 - CONCLUSION: 1. Small hydropneumothorax on the right. 2. Bilateral pulmonary infiltrates. 3. Endotracheal tube in good position. Barron Castaneda Jr., MD Chest CT 01/07/17 0000 Signed Impressions: Service Date/Time: Saturday, January 07, 2017 05:12 - CONCLUSION: 1. Atherosclerosis. 2. Numerous bilateral pulmonary nodules suspicious for metastatic disease. 3. Bilateral proximal infiltrates. Juan Diego Frias MD Abdomen/Pelvis CT 01/07/17 0000 Signed Impressions: Service Date/Time: Saturday, January 07, 2017 05:09 - CONCLUSION: Portal venous gas in the left lobe of the liver is a new finding from previous examinations as well as free air in the right lower quadrant and right upper quadrant. Air does appear within the pericolonic vasculature adjacent to the ascending colon which can be seen with ischemic bowel. Juan Diego Frias MD Procedures * Intubation / mechaical ventilation * Central line placement . Assessment and Plan Disease Oriented Problem List: (1) Acute on chronic kidney failure Comment: Resolving. (2) Hypotension (3) Tachycardia (4) Acute respiratory failure (5) Septic shock (6) Hyperkalemia (7) Lactic acidosis (8) Anemia (9) Hyponatremia (10) Leukocytosis (11) Aspiration pneumonia (12) Gastric cancer (13) Upper GI bleed (14) Malnutrition Comment: Severe with albumin < 2. Symptom Scale: (1) Dyspnea 0-10 Scale: Unable to quantify Comment: Managed with mechanical ventilation. On FIO2 100%, still pt is declining. (2) Anxiety 0-10 Scale: Unable to quantify (3) Pain 0-10 Scale: Unable to quantify Pertinent Non-Medical Issues Psychosocial:Patient apparently lived at home with his , daughter, though recently has been in and out of the hospital and jail settings. Daughter actually lives in [place] however has been staying with the patient and his since all of this started in August. Patient has 2 adult daughters who both live out of state. 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 Has lived in [place] for many years. 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 No advanced directive or HCS. Per [place] statutes would be appropriate legal decision maker.(Proxy) Ethical issues impacting care: Important Contacts Spouse Aleena Paiz [phone] dtr Tete Olivares [phone] . Prognosis This patient with known history of gastric adenocarcinoma was admitted with GI bleeding, duration of at least 24 hours. Patient with findings of Septic shock , acute respiratory failure, in critical condition. Imaging finding of free air in right upper and lower quadrants, concern for ischemic bowel/perforation. Patient not a good surgical candidate. High risk for continued complications and . Unlikely to survive the hospitalization. He would be eligible for hospice services at such time that family desires comfort measures only. . Code Status: No Code Plan Decision making * Legal decision maker: Patient is incapacitated to make his own health care decisions and very low probability of recovering such capacity. No advanced directive or HCS. Per [place] statutes would be appropriate legal decision maker.(Proxy) Goals of medical treatment Per : On my conversation with them they accepted and understand that pt is dying, even with further support, pt is dying. Answered their questions and they nod and are amenable to no further escalation in care. With nurse present they endorse "Just keep him comfortable." Hospice was consulted, but they could not come to the decision to stop the antibiotics. They had originally want to just take him home, but I told them he will likely not survive the trip , and also hospice is comfort measure only and cannot provide antibiotics. Reemphasize antibiotics is not working at this point, and is not changing his prognosis. Goals of care is to keep pt on antibiotics, and current medical treatment, and not to escalate care, but they want to continue antibiotics. They are amenable to comfort meds to keep him comfortable until his . Pastoral care has been notify and they state they have their chief compliance officer coming. CODE STATUS: DNR SYMPTOMS: * Dyspnea/Anxiety/pain-emergently intubated for airway protection, currently breathing comfortably on mechanical vent.+ Aspiration pneumonia. Pt is decling. Patient with history Family amenable for for me to order comfort meds to keep pt comfortable. "Please keep him comfortable." == Palliative care will continue to follow during hospital course as condition evolves. d/w with buckle sewer. Time Spent Total Floor Time (mins): 40 Face to Face Time (mins): 35 Attestation To help prompt me to consider important information that might be impacting today's encounter and assessment, information from prior notes written by myself or my colleagues may have been "brought forward" into today's note. My signature on this note, however, is an attestation that I personally performed the exam, history, and/or decision-making noted today, and, unless otherwise indicated, the interactions with patient, family, and staff as well as the review of records all occurred today. I also attest that the listed assessment and stated plan reflect my best clinical judgment today based on the combination of historical information, prior notes, and today's exam/ interactions. When time spent is documented, it refers only to time spent today by the signer, or if indicated, combined time spent today by collaborating physician/nurse practitioner. Freddie Vazquez MD Jan 17, 2017 10:08 collaborating physician/nurse practitioner. Freddie Vazquez MD Jan 17, 2017 10:08
[2017-01-17] MEDS ORDERED: LORazepam 2 MG/ML VIAL IV PRN ×2 (11:00)
[2017-01-17] MEDS ORDERED: HYDROmorphone HCL PF 2 MG/ML VIAL IV PRN (11:00)
--- NOTE | 2017-01-17 13:18 | HHI.IDPN ---
Subjective Subjective Remarks Patient is a 76-year-old male, admitted to the hospital after he started vomiting coffee ground emesis, and apparently there is history of melena. This has been going on for at least 24 hours. He also has been diagnosed with adenocarcinoma of the stomach, when he was worked out for GI bleed. He has had problem with swallowing, and subsequently underwent placement of a PEG tube back in November 2016. Recently he was started on chemotherapy at the [facility]. During his last admission in December, rehabilitation was recommended, but the family refused so the patient has been home. He started having vomiting, and also has had melena. He was out into the hospital, and patient ended up getting intubated. He is currently in shock, and on Levophed. Imaging studies included CT of the abdomen and pelvis which showed gas in the portal system, as well as free air in the right side. His WBC is elevated. Temperature has been okay. Surgery has been consult it, and GI is also following the patient. Infectious disease consultation has been requested to evaluate the patient with sepsis. 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 Gastritis, Duodenal bulb ulcers Colon polyps HTN Diabetes Hx DVT Hx aspiration pna Abn. weight loss Kidney stone Past Surgical History PEG tube placement EGD Colonoscopy Radiation seed placement in past Port placement Objective . Vital Signs Date Time Temp Pulse Resp B/P Pulse Ox O2 Delivery O2 Flow Rate FiO2 01/17/17 11:41 87 100 01/17/17 08:00 100 01/17/17 08:00 98.2 129 31 78/49 80 01/17/17 08:00 129 01/17/17 07:34 80 100 01/17/17 06:00 99 01/17/17 04:00 104 01/17/17 04:00 35 01/17/17 04:00 96.7 99 22 136/76 99 01/17/17 03:50 98 35 01/17/17 02:00 101 01/17/17 00:04 96 35 01/17/17 00:00 102 01/17/17 00:00 97.0 102 21 132/80 96 01/17/17 00:00 35 01/16/17 22:00 101 01/16/17 20:15 98 35 01/16/17 20:00 104 01/16/17 20:00 96.9 112 21 154/77 98 01/16/17 20:00 35 01/16/17 19:00 98 Mechanical Ventilator 35 01/16/17 18:00 112 01/16/17 16:51 97 35 01/16/17 16:00 97.0 102 20 118/58 98 01/16/17 16:00 102 01/16/17 16:00 35 01/16/17 14:00 129 01/16/17 01/16/17 01/17/17 15:00 23:00 07:00 Intake Total 2112 ml 1859 ml 1682 ml Output Total 300 ml 400 ml 400 ml Balance 1812 ml 1459 ml 1282 ml Intake Oral 0 ml IV Total 2112 ml 1316 ml 1036 ml TPN/PPN 489 ml 474 ml Lipid 54 ml 172 ml Output Urine Total 250 ml 300 ml 350 ml Stool Total 50 ml 100 ml 50 ml . Laboratory Tests Test 01/16/17 01/17/17 04:03 05:20 White Blood Count 37.5 TH/MM3 35.2 TH/MM3 Red Blood Count 2.99 MIL/MM3 2.50 MIL/MM3 Hemoglobin 8.4 GM/DL 6.7 GM/DL Hematocrit 25.0 % 21.0 % Mean Corpuscular Volume 83.7 FL 84.1 FL Mean Corpuscular Hemoglobin 28.0 PG 26.9 PG Mean Corpuscular Hemoglobin 33.5 % 32.0 % Concent Red Cell Distribution Width 19.7 % 20.0 % Platelet Count 65 TH/MM3 46 TH/MM3 Mean Platelet Volume 11.2 FL 11.0 FL Neutrophils (%) (Auto) 97.1 % 96.9 % Lymphocytes (%) (Auto) 1.8 % 1.8 % Monocytes (%) (Auto) 0.8 % 1.2 % Eosinophils (%) (Auto) 0.1 % 0.0 % Basophils (%) (Auto) 0.2 % 0.1 % Neutrophils # (Auto) 36.4 TH/MM3 34.1 TH/MM3 Lymphocytes # (Auto) 0.7 TH/MM3 0.6 TH/MM3 Monocytes # (Auto) 0.3 TH/MM3 0.4 TH/MM3 Eosinophils # (Auto) 0.0 TH/MM3 0.0 TH/MM3 Basophils # (Auto) 0.1 TH/MM3 0.0 TH/MM3 CBC Comment AUTO DIFF AUTO DIFF Differential Total Cells 100 100 Counted Neutrophils % (Manual) 72 % 83 % Band Neutrophils % 11 % 9 % Lymphocytes % 4 % Monocytes % 3 % Neutrophils # (Manual) 34.9 TH/MM3 35.2 TH/MM3 Metamyelocytes 5 % 3 % Myelocytes 3 % 4 % Promyelocytes 2 % 1 % Differential Comment FINAL DIFF FINAL DIFF MANUAL MANUAL Dohle Bodies PRESENT Platelet Estimate LOW LOW Platelet Morphology Comment ENLARGED ENLARGED Tear Drop Cells 1+ Laboratory Tests Test 01/16/17 01/17/17 04:03 05:20 Sodium Level 131 MEQ/L Potassium Level 2.8 MEQ/L Chloride Level 98 MEQ/L Carbon Dioxide Level 22.5 MEQ/L Anion Gap 11 MEQ/L Blood Urea Nitrogen 21 MG/DL Creatinine 0.53 MG/DL Estimat Glomerular Filtration 151 ML/MIN Rate Random Glucose 227 MG/DL Lactic Acid Level 5.4 mmol/L 2.1 mmol/L Calcium Level 8.3 MG/DL Phosphorus Level 2.0 MG/DL Magnesium Level 1.9 MG/DL Total Bilirubin 0.5 MG/DL Aspartate Amino Transf 103 U/L (AST/SGOT) Alanine Aminotransferase 58 U/L (ALT/SGPT) Alkaline Phosphatase 1075 U/L Total Protein 3.8 GM/DL Albumin 0.7 GM/DL Microbiology Date/Time Procedure Status Source Growth 01/15/17 18:21 Aerobic Blood Culture - Preliminary Resulted Blood Other NO GROWTH IN 2 DAYS 01/15/17 18:21 Anaerobic Blood Culture - Preliminary Resulted Blood Other NO GROWTH IN 2 DAYS 01/15/17 21:20 Aerobic Blood Culture - Preliminary Resulted Blood Other NO GROWTH IN 2 DAYS 01/15/17 21:20 Anaerobic Blood Culture - Preliminary Resulted Blood Other NO GROWTH IN 2 DAYS Imaging Last Impressions Chest X-Ray 01/07/17 0036 Signed Impressions: Service Date/Time: Saturday, January 07, 2017 00:35 - CONCLUSION: Bilateral pulmonary nodules, interstitial and alveolar infiltrates. Juan Diego Frias MD Chest CT 01/07/17 0000 Signed Impressions: Service Date/Time: Saturday, January 07, 2017 05:12 - CONCLUSION: 1. Atherosclerosis. 2. Numerous bilateral pulmonary nodules suspicious for metastatic disease. 3. Bilateral proximal infiltrates. Juan Diego Frias MD Abdomen/Pelvis CT 01/07/17 0000 Signed Impressions: Service Date/Time: Saturday, January 07, 2017 05:09 - CONCLUSION: Portal venous gas in the left lobe of the liver is a new finding from previous examinations as well as free air in the right lower quadrant and right upper quadrant. Air does appear within the pericolonic vasculature adjacent to the ascending colon which can be seen with ischemic bowel. Juan Diego Frias MD Physical Exam GENERAL: on the vent, not in respiratory distress. SKIN: Cool and dry. No generalized rash, no ecchymoses HEAD: Atraumatic. Normocephalic. No temporal wasting, or tenderness. EYES: [place] conjunctiva. No petechia or hemorrhage. Pupils equal, round and reactive to light. No scleral icterus. No injection or drainage. EARS, NOSE AND THROAT: Nose without bleeding or purulent nasal discharge. He is orally intubated. NECK: Trachea midline. Supple and not tender, no meningeal signs CARDIOVASCULAR: Regular rate and rhythm. No murmurs, rubs or gallops heard RESPIRATORY: Coarse breath sounds bilaterally, decreased at the bases. No wheezing or rhonchi ABDOMEN: Soft, nondistended, has grimacing during palpation, with some guarding, hypoactive bowel sounds. No organomegaly. EXTREMITIES: No clubbing, or cyanosis. Both feet cool to touch, not mottled. UE edematous, with ecchymoses, and some skin tears. NEUROLOGICAL: Sedated PSYCH: Unable to assess LINE: No evidence of infection : Brower in place, urine looks clear Has liquid stool, and color is very dark green/black Assessment & Plan Remarks IMPRESSION Klebsiella sepsis with shock on presentation has gas in portal system and free air, intraabdominal source, now with rapid grower AFB - has GIB, and likely with ischemic colitis - has very high lactic acid - continues to deteriorate Dx of adenoCA gastric, started on chemo Respiratory failure Renal insufficiency, better Hx prostate CA - previous UC December [place] Thrombocytopenia, likely DIC RECOMMENDATION Continue Abx, and antifungal as what family requests No escalation of Rx Remains on pressors Getting comfort measures Very poor prognosis D/W Kathrin Nathan MD Jan 17, 2017 13:18
[2017-01-17] MEDS: AMIKACIN IV SCH (16:27)
[2017-01-17] MEDS: AZITHROMYCIN INJ 500 MG in SODIUM CHLOR 0.9% 250 ML INJ 250 ML IV SCH (16:27)
[2017-01-17] MEDS: SODIUM CHLORID 0.9% IV SCH (16:27)
[2017-01-17] MEDS: DEXTROSE 10% INJ 1,000 ML IV SCH (17:56)
[2017-01-17] MEDS: CLINIMIX E 5/25 2000 mL- >42 mls/hr IV-CENTRAL SCH ×3 (20:35)
[2017-01-17] MEDS: FAT EMULSION 20% INJ 250 ML (Daily over 8 hours) IV-CENTRAL SCH (20:36)
[2017-01-18] VITALS (18 sets, daily range): BP systolic 63–98; BP diastolic 37–52; PULSE 97–127; RESP 16–21; TEMP 96.1–98.4; O2SAT 0–100
[2017-01-18] MEDS: PANTOPRAZOLE SODIUM 40 MG VIAL IV PUSH SCH ×2 (03:49→14:30)
[2017-01-18] MEDS: HYDROmorphone HCL PF 2 MG/ML VIAL IV PRN ×3 (03:49→21:53)
[2017-01-18] MEDS: CHLORHEXIDINE GLUCONATE 2 % 1 PACK (2 CLOTHS) TOP SCH (04:00)
[2017-01-18] MEDS ORDERED: MIDAZOLAM HCL 5 MG/5 ML VIAL IV PUSH ONE (04:00)
[2017-01-18] MEDS ORDERED: MIDAZOLAM HCL 2 MG/2 ML VIAL IV PUSH PRN (04:00)
[2017-01-18] MEDS: IMIPENEM/CILASTATIN INJ 500 MG in SODIUM CHLORIDE 0.9% INJ 100 ML IV SCH ×4 (04:10→21:39)
[2017-01-18] MEDS: NOREPINEPHRINE INJ 4 MG in SODIUM CHLOR 0.9% 250 ML INJ 250 ML IV SCH ×3 (04:28→14:29)
[2017-01-18] MEDS: fentaNYL DRIP 250 ML IV SCH ×2 (06:06→18:16)
[2017-01-18] MEDS: HYDROCORTISONE SOD SUCCINATE 100 MG VIAL IV PUSH SCH ×3 (06:06→21:39)
[2017-01-18] MEDS: FLUCONAZOLE 400 MG IV SCH (07:53)
[2017-01-18] MEDS: CHLORHEXIDINE 0.12% (ORAL KIT) 15 ML CUP MT SCH ×2 (07:53→20:37)
[2017-01-18] MEDS: AZITHROMYCIN INJ 500 MG in SODIUM CHLOR 0.9% 250 ML INJ 250 ML IV SCH (14:29)
--- NOTE | 2017-01-18 14:36 | HHI.HCPN ---
Reason for visit a. To assist with evaluation and management of symptoms including: dyspnea, anxiety, pain. b. To assist medical decision maker(s) with: better understanding of current medical conditions; weighing benefits/burdens of medical treatment options; making medical treatment decisions. . Subjective/Interval History Pt remains on the ventilator, and hypotensive. Met with . She ask about surgeon operating, I said as he is too unstable. I reemphasize again, pt is declining and dying. I ask if they are amenable to continue with medical plan as before, no escalation in care, said yes. She does not want withdraw of ventilator or descalation. Understandably having are hard time with her decline, and asking a lot of What if question. What if they had tested this earlier in [place] before? Pt currently comfortable on my visit. Family/friend interactions see above. Advance Directives Living Will: Never completed Health Care Surrogate: Never completed Objective Vital Signs Date Time Temp Pulse Resp B/P Pulse Ox O2 Delivery O2 Flow Rate FiO2 01/18/17 14:00 0 45 01/18/17 12:00 100 01/18/17 12:00 98.2 122 19 67/40 95 01/18/17 12:00 122 01/18/17 11:48 98 45 01/18/17 10:00 126 01/18/17 08:03 95 45 01/18/17 08:00 100 01/18/17 08:00 98.4 126 19 70/41 95 01/18/17 08:00 126 01/18/17 06:00 126 01/18/17 04:00 100 01/18/17 04:00 127 01/18/17 04:00 98.2 127 21 73/45 96 01/18/17 03:07 98 45 01/18/17 02:00 124 01/18/17 00:01 100 60 01/18/17 00:00 97.7 119 19 98/52 100 01/18/17 00:00 100 01/18/17 00:00 119 01/17/17 22:00 111 01/17/17 20:00 107 01/17/17 20:00 100 01/17/17 20:00 96.6 107 16 108/57 100 01/17/17 19:58 100 80 01/17/17 18:00 107 01/17/17 16:00 97.5 110 30 99/56 100 01/17/17 16:00 109 01/17/17 16:00 100 01/17/17 15:01 90 100 Intake & Output 01/18/17 01/18/17 07:00 19:00 Intake Total 4904 ml Output Total 700 ml Balance 4204 ml IV Total 3572 ml TPN/PPN 1082 ml Lipid 250 ml Output Urine Total 500 ml Stool Total 200 ml Physical Exam CONSTITUTIONAL/GENERAL: Frail elderly, ill-appearing patient seen in ICU,sedated , minimally responsive. No evident distress. TUBES/LINES/DRAINS: He has multiple peripheral IVs bilateral upper extremity, arterial line upper extremity, right subclavian port accessed, ET tube,Brower catheter, SCDs SKIN: No jaundice, rashes, or lesions. Multiple areas of ecchymosis to upper chest, bilateral upper extremities. + Edema, serous weeping from upper extremities. Skin temperature cool to distal extremities. CARDIOVASCULAR: Regular rate and rhythm. No murmur. RESPIRATORY/CHEST: Symmetric, unlabored respirations via mechanical vent. Rhonchi throughout. GASTROINTESTINAL: Abdomen soft, flat, nondistended. No hepato-splenomegaly, or palpable masses. Unable to determine tenderness due to level of consciousness. no bowel sounds present. PEG GENITOURINARY: Without palpable bladder distension. Brower catheter MUSCULOSKELETAL: Extremities without clubbing, cyanosis. 2+ Edema, serous weeping from the upper extremities. NEUROLOGICAL: Does not awaken to voice/exam. Not following commands at time of my visit. PSYCHIATRIC: Unable to assess given level of responsiveness. . Diagnostic Tests Laboratory Laboratory Tests Test 01/16/17 01/17/17 04:03 05:20 White Blood Count 37.5 TH/MM3 35.2 TH/MM3 (4.0-11.0) (4.0-11.0) Red Blood Count 2.99 MIL/MM3 2.50 MIL/MM3 (4.50-5.90) (4.50-5.90) Hemoglobin 8.4 GM/DL 6.7 GM/DL (13.0-17.0) (13.0-17.0) Hematocrit 25.0 % 21.0 % (39.0-51.0) (39.0-51.0) Mean Corpuscular Volume 83.7 FL 84.1 FL (80.0-100.0) (80.0-100.0) Mean Corpuscular Hemoglobin 28.0 PG 26.9 PG (27.0-34.0) (27.0-34.0) Mean Corpuscular Hemoglobin 33.5 % 32.0 % Concent (32.0-36.0) (32.0-36.0) Red Cell Distribution Width 19.7 % 20.0 % (11.6-17.2) (11.6-17.2) Platelet Count 65 TH/MM3 46 TH/MM3 (150-450) (150-450) Mean Platelet Volume 11.2 FL 11.0 FL (7.0-11.0) (7.0-11.0) Neutrophils (%) (Auto) 97.1 % 96.9 % (16.0-70.0) (16.0-70.0) Lymphocytes (%) (Auto) 1.8 % 1.8 % (9.0-44.0) (9.0-44.0) Monocytes (%) (Auto) 0.8 % (0.0-8.0) 1.2 % (0.0-8.0) Eosinophils (%) (Auto) 0.1 % (0.0-4.0) 0.0 % (0.0-4.0) Basophils (%) (Auto) 0.2 % (0.0-2.0) 0.1 % (0.0-2.0) Neutrophils # (Auto) 36.4 TH/MM3 34.1 TH/MM3 (1.8-7.7) (1.8-7.7) Lymphocytes # (Auto) 0.7 TH/MM3 0.6 TH/MM3 (1.0-4.8) (1.0-4.8) Monocytes # (Auto) 0.3 TH/MM3 0.4 TH/MM3 (0-0.9) (0-0.9) Eosinophils # (Auto) 0.0 TH/MM3 0.0 TH/MM3 (0-0.4) (0-0.4) Basophils # (Auto) 0.1 TH/MM3 0.0 TH/MM3 (0-0.2) (0-0.2) CBC Comment AUTO DIFF AUTO DIFF Differential Total Cells 100 100 Counted Neutrophils % (Manual) 72 % (16-70) 83 % (16-70) Band Neutrophils % 11 % (0-6) 9 % (0-6) Lymphocytes % 4 % (9-44) Monocytes % 3 % (0-8) Neutrophils # (Manual) 34.9 TH/MM3 35.2 TH/MM3 (1.8-7.7) (1.8-7.7) Metamyelocytes 5 % (0-1) 3 % (0-1) Myelocytes 3 % (0-0) 4 % (0-0) Promyelocytes 2 % (0-0) 1 % (0-0) Differential Comment FINAL DIFF FINAL DIFF MANUAL MANUAL Dohle Bodies PRESENT (NONE SEEN) Platelet Estimate LOW (NORMAL) LOW (NORMAL) Platelet Morphology Comment ENLARGED ENLARGED (NORMAL) (NORMAL) Tear Drop Cells 1+ (NORMAL) Sodium Level 131 MEQ/L (136-145) Potassium Level 2.8 MEQ/L (3.5-5.1) Chloride Level 98 MEQ/L (98-107) Carbon Dioxide Level 22.5 MEQ/L (21.0-32.0) Anion Gap 11 MEQ/L (5-15) Blood Urea Nitrogen 21 MG/DL (7-18) Creatinine 0.53 MG/DL (0.60-1.30) Estimat Glomerular Filtration 151 ML/MIN Rate (>89) Random Glucose 227 MG/DL (74-106) Lactic Acid Level 5.4 mmol/L 2.1 mmol/L (0.4-2.0) (0.4-2.0) Calcium Level 8.3 MG/DL (8.5-10.1) Phosphorus Level 2.0 MG/DL (2.5-4.9) Magnesium Level 1.9 MG/DL (1.5-2.5) Total Bilirubin 0.5 MG/DL (0.2-1.0) Aspartate Amino Transf 103 U/L (15-37) (AST/SGOT) Alanine Aminotransferase 58 U/L (12-78) (ALT/SGPT) Alkaline Phosphatase 1075 U/L (45-117) Total Protein 3.8 GM/DL (6.4-8.2) Albumin 0.7 GM/DL (3.4-5.0) Result Diagram: 01/17/17 0520 01/16/17 0403 Microbiology Microbiology Date/Time Procedure Status Source Growth 01/15/17 18:21 Aerobic Blood Culture - Preliminary Resulted Blood Other NO GROWTH IN 3 DAYS 01/15/17 18:21 Anaerobic Blood Culture - Preliminary Resulted Blood Other NO GROWTH IN 3 DAYS 01/15/17 21:20 Aerobic Blood Culture - Preliminary Resulted Blood Other NO GROWTH IN 3 DAYS 01/15/17 21:20 Anaerobic Blood Culture - Preliminary Resulted Blood Other NO GROWTH IN 3 DAYS Imaging Last Impressions Chest X-Ray 01/16/17 0600 Signed Impressions: Service Date/Time: Monday, January 16, 2017 09:51 - CONCLUSION: 1. Small hydropneumothorax on the right. 2. Bilateral pulmonary infiltrates. 3. Endotracheal tube in good position. Barron Castaneda Jr., MD Chest CT 01/07/17 0000 Signed Impressions: Service Date/Time: Saturday, January 07, 2017 05:12 - CONCLUSION: 1. Atherosclerosis. 2. Numerous bilateral pulmonary nodules suspicious for metastatic disease. 3. Bilateral proximal infiltrates. Juan Diego Frias MD Abdomen/Pelvis CT 01/07/17 0000 Signed Impressions: Service Date/Time: Saturday, January 07, 2017 05:09 - CONCLUSION: Portal venous gas in the left lobe of the liver is a new finding from previous examinations as well as free air in the right lower quadrant and right upper quadrant. Air does appear within the pericolonic vasculature adjacent to the ascending colon which can be seen with ischemic bowel. Juan Diego Frias MD Procedures * Intubation / mechaical ventilation * Central line placement . Assessment and Plan Disease Oriented Problem List: (1) Acute on chronic kidney failure Comment: Resolving. (2) Hypotension (3) Tachycardia (4) Acute respiratory failure (5) Septic shock (6) Hyperkalemia (7) Lactic acidosis (8) Anemia (9) Hyponatremia (10) Leukocytosis (11) Aspiration pneumonia (12) Gastric cancer (13) Upper GI bleed (14) Malnutrition Comment: Severe with albumin < 2. Symptom Scale: (1) Dyspnea 0-10 Scale: Unable to quantify Comment: Managed with mechanical ventilation. On FIO2 100%, still pt is declining. (2) Anxiety 0-10 Scale: Unable to quantify (3) Pain 0-10 Scale: Unable to quantify Pertinent Non-Medical Issues Psychosocial:Patient apparently lived at home with his , daughter, though recently has been in and out of the hospital and residential settings. Daughter actually lives in [place] however has been staying with the patient and his since all of this started in August. Patient has 2 adult daughters who both live out of state. 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 Has lived in [place] for many years. 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 No advanced directive or HCS. Per [place] statutes would be appropriate legal decision maker.(Proxy) Ethical issues impacting care: Important Contacts Spouse Aleena Paiz [phone] dtr Tete Olivares [phone] . Prognosis This patient with known history of gastric adenocarcinoma was admitted with GI bleeding, duration of at least 24 hours. Patient with findings of Septic shock , acute respiratory failure, in critical condition. Imaging finding of free air in right upper and lower quadrants, concern for ischemic bowel/perforation. Patient not a good surgical candidate. High risk for continued complications and . Unlikely to survive the hospitalization. He would be eligible for hospice services at such time that family desires comfort measures only. . Code Status: No Code Plan Decision making * Legal decision maker: Patient is incapacitated to make his own health care decisions and very low probability of recovering such capacity. No advanced directive or HCS. Per [place] statutes would be appropriate legal decision maker.(Proxy) Goals of medical treatment Per : On my conversation with them yesterday they accepted and understand that pt is dying, even with further support, pt is dying. Hospice was consulted yesterday, but they could not come to the decision to stop the antibiotics or withdraw from ventilator. Met with . She ask about surgeon operating, I said as he is too unstable. I reemphasize again, pt is declining and dying. I ask if they are amenable to continue with medical plan as before, no escalation in care, said yes. She does not want withdraw of ventilator or descalation. Understandably having are hard time with her decline, and asking a lot of What if question. Goals of care is to keep pt on antibiotics, and current medical treatment, and not to escalate care, but they want to continue antibiotics. They are amenable to comfort meds to keep him comfortable until his . Maintain no resucitation/dnr. Nurse present during conversation. CODE STATUS: DNR SYMPTOMS: * Dyspnea/Anxiety/pain-emergently intubated for airway protection, currently breathing comfortably on mechanical vent.+ Aspiration pneumonia. Pt is decling. Patient with history Family amenable for for me to order comfort meds to keep pt comfortable. == Palliative care will continue to follow during hospital course as condition evolves. d/w with gasoline pump mechanic. Time Spent Total Floor Time (mins): 45 Attestation To help prompt me to consider important information that might be impacting today's encounter and assessment, information from prior notes written by myself or my colleagues may have been "brought forward" into today's note. My signature on this note, however, is an attestation that I personally performed the exam, history, and/or decision-making noted today, and, unless otherwise indicated, the interactions with patient, family, and staff as well as the review of records all occurred today. I also attest that the listed assessment and stated plan reflect my best clinical judgment today based on the combination of historical information, prior notes, and today's exam/ interactions. When time spent is documented, it refers only to time spent today by the signer, or if indicated, combined time spent today by collaborating physician/nurse practitioner. Freddie Vazquez MD Jan 18, 2017 14:36
[2017-01-18] MEDS: DEXTROSE 10% INJ 1,000 ML IV SCH (17:10)
[2017-01-18] MEDS: AMIKACIN IV SCH (17:10)
[2017-01-18] MEDS: SODIUM CHLORID 0.9% IV SCH (17:10)
--- NOTE | 2017-01-18 17:15 | HHI.CCPN ---
Subjective Remarks/Hospital Course Hospital Course: Patient is a 76-year-old male with history of gastric adenocarcinoma, recently started on chemotherapy at [facility], history of type 2 diabetes , hypertension, dyslipidemia who presented to the emergency department via EMS for upper GI bleed and shortness of breath. Apparently upper GI bleed and melena had been going on for almost 24 hours before family called EMS. Patient became progressively more dyspneic with gurgling type respirations and less responsive. EMS found patient hypotensive in the 70s, improved with fluids, tachycardic in the 120s. In the emergency department patient was emergently intubated for airway protection due to gurgling breath sounds, and inability to protect airway. Patient given 3 L normal saline bolus and was started on PPI bolus, drip. Chest x-ray showed bilateral patchy infiltrates. Postintubation ABG pH 7.12, PCO2 32.3, PO2 226, bicarbonate 9.9. Patient was empirically treated with vancomycin, Zosyn. Abnormal labs include WBC 13.2, hemoglobin 8.1 , INR 1.3, Sodium 124, potassium 5.6, bicarbonate 13.9 and anion gap 26. BUN 57 , creatinine 1.70. Troponin 0.37, Also ammonia 68 and Lactic acid 17.0. Urinalysis with hematuria, bacteria and yeast. In the ER patient was ordered to receive 2 units packed red blood cells and 3L NS. He was started on norepinephrine through his chest port, to maintain MAP above 65. I evaluated the patient in the ED. He remains hypotensive and have ordered additional fluid boluses. Patient had been placed on Zosyn vancomycin and Diflucan. Infectious disease was consulted. Continue fluid resuscitation. Source of sepsis most likely pneumonia. Given lactic acid elevation to 17 I have ordered a CT abdomen pelvis to rule out abdominal source of infection or ischemic bowel 01/08: long conversation yesterday with family. decision for DNR with no escalation of care, but no plan to withdraw. remains in shock on vasopressor therapy. remains encephalopathic and on full mechanical support. sodium continues to worsen. very poor prognosis. 01/09: Patient remains with septic course. Prognosis poor. 01/10: Renal function more acceptable, otherwise little progress. I can not see any role for operative intervention at this point. 01/11: Continued deterioration. Good antibiotic coverage. Too unstable to survive a bowel resection. I spoke at length with her daughter about the seriousness of her liver failure. 01/12: Potassium remains low despite aggressive replacement. Metabolic pH hampering efforts; will add diamox once to lower pH and hopefully hold K better. Patient now DNR statusbut family wants to continue the levophed. Max range is 12 mics/min. 01/13: Patient remains floridly septic after spontaneous colon necrosis and perforation. There is gas in the colon wall, free air in the abdomen, and gas in the portal venous system as well. 01/14: Tmax 100. Currently 99.5. Remains on D10 at 15 cc an hour along with norepinephrine at 10 mcg/m. On fentanyl drip for pain control. 01/15: Currently afebrile. Started on TPN yesterday. Remains on norepinephrine 10 mics grams per minute and fentanyl drip at 100 g an hour 01/16: Small right pneumothorax, not affecting oxygenation on ventilator. Will follow without tube for now, 01/17: TPN halted. Gas exchange acceptable. Hemodynamics deteriorating. Acidosis persists. Subjective 01/18: TPN resumed. Remains on norepinephrine, midazolam and fentanyl drips. Reaffirmed with family not a surgical candidate. Discussed with Dr. Vazquez. Objective Vital Signs Date Time Temp Pulse Resp B/P Pulse Ox O2 Delivery O2 Flow Rate FiO2 01/18/17 16:00 96 60 01/18/17 16:00 112 01/18/17 16:00 97.9 18 63/37 01/16/17 19:00 Mechanical Ventilator Intake and Output 01/17/17 01/17/17 01/18/17 08:00 16:00 00:00 Intake Total 1682 ml 1260 ml 3133 ml Output Total 400 ml 200 ml 450 ml Balance 1282 ml 1060 ml 2683 ml Result Diagram: 01/17/17 0520 01/16/17 0403 Other Results Microbiology Date/Time Procedure Status Source Growth 01/15/17 21:20 Aerobic Blood Culture - Preliminary Resulted Blood Other NO GROWTH IN 3 DAYS 01/15/17 21:20 Anaerobic Blood Culture - Preliminary Resulted Blood Other NO GROWTH IN 3 DAYS Imaging Last Impressions Chest X-Ray 01/16/17 0600 Signed Impressions: Service Date/Time: Monday, January 16, 2017 09:51 - CONCLUSION: 1. Small hydropneumothorax on the right. 2. Bilateral pulmonary infiltrates. 3. Endotracheal tube in good position. Barron Castaneda Jr., MD Chest CT 01/07/17 0000 Signed Impressions: Service Date/Time: Saturday, January 07, 2017 05:12 - CONCLUSION: 1. Atherosclerosis. 2. Numerous bilateral pulmonary nodules suspicious for metastatic disease. 3. Bilateral proximal infiltrates. Juan Diego Frias MD Abdomen/Pelvis CT 01/07/17 0000 Signed Impressions: Service Date/Time: Saturday, January 07, 2017 05:09 - CONCLUSION: Portal venous gas in the left lobe of the liver is a new finding from previous examinations as well as free air in the right lower quadrant and right upper quadrant. Air does appear within the pericolonic vasculature adjacent to the ascending colon which can be seen with ischemic bowel. Juan Diego Frias MD Objective Remarks GENERAL: 76 yo male, Cachectic, ill-appearing, intubated, HEAD: Atraumatic. Normocephalic. EYES: Pupils equal and round about 3 mm bilaterally and reactive. No scleral icterus. ENT: Orotracheally intubated . Tongue is dry NECK: trachea midline. CARDIOVASCULAR: Tachycardic. RR. S1, S2 no S4. No JVD. RESPIRATORY: Intubated. Course rhonchi bilaterally. Good air movement. Good bilateral breath sounds. GASTROINTESTINAL: Abdomen soft, non-tender, nondistended. PEG tube + left upper quadrant MUSCULOSKELETAL: 1+ peripheral edema, tepid. Diffuse skin breakdown NEUROLOGICAL: Intubated sedated, appears to move all extremities weakly. Does not follow commands. A/P Assessment and Plan NEURO/Psycl: Acute metabolic encephalopathy Currently on fentanyl drip in 100 micrograms per hour for sedation while intubated. Midazolam drip ordered - Encephalopathy most likely secondary to metabolic due to severe sepsis - Hyperammonemia contributing RESP: Acute hypoxic respiratory failure Aspiration pneumonia Bilateral pulmonary nodules Right hydropneumothorax - ACV 16//500/5/40 Albuterol/ipratropium aerosols every 6 hours when necessary Ventilator bundle no SBT today given shock and critical illness. Follow-up chest x-ray in a.m. CV: Septic and hemorrhagic shock - persistent Severe lactic acidosis- persistent -Norepinephrine currently at 20 mg/m to keep map above 65, Continue fluids TPN today over the volume status GI: Upper GI bleed Poorly differentiated gastric adenocarcinoma diffuse type- section showed gastric mucosa with an infiltration of signet ring cell with acute inflammation and history of duodenal ulceration. Hyperammonemia mesenteric ischemia Intra-abdominal free air - Nothing by mouth, IV pantoprazole twice a day - Started on TPN with low blood sugar - GI consulted, too unstable for EGD at this time. Not a surgical candidate due to overlying condition Renal/: Acute kidney injury resolved . Brower catheter remains for accurate I's and O's in a critically ill patient ID: Klebsiella pneumonia Septic shock - persistent UTI/funguria - IV amikacin, imipenem and azithromycin 01/07 blood cultures 2 - Klebsiella/ acid fast bacilli 01/07 urine culture - Inecy 01/10 blood culture - no growth HEME: Anemia secondary to acute blood loss requiring transfusion Leukocytosis Thrombocytopenia -Monitor CBC, CMP Thrombo-cytopenia likely consumptive's/DIC. ENDO/FEN: Hyponatremia Hypokalemia - Monitor potassium - Replace electrolytes as clinically indicated - On po steroids at home-started on stress dose steroids PROPH: - Bilateral lower extremity SCDs. On chronic Apixaban - hold due to GIB - Continue Protonix LINES: - Utilize peripheral IVs, port, art line. Overall impression: Worsening septic shock requiring increased vasopressor support. Prognosis poor. Family has agreed to no further escalation of care. Aung James MD Jan 18, 2017 17:15
[2017-01-18] MEDS: CLINIMIX E 5/25 2000 mL- >42 mls/hr IV-CENTRAL SCH ×3 (20:37)
[2017-01-18] MEDS: FAT EMULSION 20% INJ 250 ML (Daily over 8 hours) IV-CENTRAL SCH (20:37)
--- NOTE | 2017-01-19 01:42 | DEATH SUM ---
Pronouncement Date Pronounced : Jan 19, 2017 Time Of : 01:29 Pronouncement Resident Team called to pronounce of patient. Identified patient as Kanu Paiz with wrist band MR# [id number]. Patient with no cardiac activity in 2 separate leads and no palpable/auscible cardiac activity. No response to painful stimuli. Pupils fixed and dilated. Ventilator assistance was stopped and there was no return of spontaneous respirations. Nursing staff instructed to notify attending. Family to be notified. Preliminary Cause of : Sepsis Zeke Jefferson MD R2 Jan 19, 2017 01:42
--- NOTE | 2017-01-19 05:14 | DEATH SUM ---
Summary Demographics Date Pronounced : Jan 19, 2017 Time Of : 0129 Pronounced By: Zeke Jefferson M.D. Preliminary Cause of : Sepsis Roberto Tobar MD Jan 19, 2017 05:13
--- NOTE | 2017-01-19 05:21 | HHI.DS ---
Discharge Summary Admission Date Jan 07, 2017 at 02:04 Discharge Date: Jan 19, 2017 Admitting Diagnosis septic and hemorrhagic shock, upper GI bleed (1) Septic shock ICD Code: A41.9 Diagnosis: Principal (2) Necrosis of colon ICD Code: K55.049 Diagnosis: Principal (3) Acute respiratory failure ICD Code: J96.00 Diagnosis: Principal (4) Upper GI bleed ICD Code: K92.2 Diagnosis: Principal (5) Anemia ICD Code: D64.9 Diagnosis: Principal (6) Aspiration pneumonia ICD Code: J69.0 Diagnosis: Principal (7) Leukocytosis ICD Code: D72.829 Diagnosis: Principal (8) Demand ischemia ICD Code: I24.8 Diagnosis: Principal (9) Acute kidney failure ICD Code: N17.9 Diagnosis: Principal (10) High anion gap metabolic acidosis ICD Code: E87.2 Diagnosis: Principal (11) Lactic acidosis ICD Code: E87.2 Diagnosis: Principal (12) Hyperkalemia ICD Code: E87.5 Diagnosis: Principal (13) Hyponatremia ICD Code: E87.1 Diagnosis: Principal (14) Hyperammonemia ICD Code: E72.20 Diagnosis: Principal (15) Gastric cancer ICD Code: C16.9 Diagnosis: Secondary Brief History Patient is a 76-year-old male with history of gastric adenocarcinoma, recently started on chemotherapy at [facility], history of type 2 diabetes , hypertension, dyslipidemia who presented to the emergency department via EMS for upper GI bleed and shortness of breath. Apparently upper GI bleed and melena had been going on for almost 24 hours before family called EMS. Patient became progressively more dyspneic with gurgling type respirations and less responsive. EMS found patient hypotensive in the 70s, improved with fluids, tachycardic in the 120s. In the emergency department patient was emergently intubated for airway protection due to gurgling breath sounds, and inability to protect airway. Patient given 3 L normal saline bolus and was started on PPI bolus, drip. Chest x-ray showed bilateral patchy infiltrates. Postintubation ABG pH 7.12, PCO2 32.3, PO2 226, bicarbonate 9.9. Patient was empirically treated with vancomycin, Zosyn. Abnormal labs include WBC 13.2, hemoglobin 8.1 , INR 1.3, Sodium 124, potassium 5.6, bicarbonate 13.9 and anion gap 26. BUN 57 , creatinine 1.70. Troponin 0.37, Also ammonia 68 and Lactic acid 17.0. Urinalysis with hematuria, bacteria and yeast. In the ER patient was ordered to receive 2 units packed red blood cells and 3L NS. He was started on norepinephrine through his chest port, to maintain MAP above 65. I evaluated the patient in the ED. He remains hypotensive and have ordered additional fluid boluses. Patient had been placed on Zosyn vancomycin and Diflucan. Infectious disease was consulted. Continue fluid resuscitation. Source of sepsis most likely pneumonia. Given lactic acid elevation to 17 I have ordered a CT abdomen pelvis to rule out abdominal source of infection or ischemic bowel CBC/BMP: 01/17/17 0520 01/16/17 0403 Significant Findings Laboratory Tests Test 01/17/17 05:20 White Blood Count 35.2 TH/MM3 (4.0-11.0) Red Blood Count 2.50 MIL/MM3 (4.50-5.90) Hemoglobin 6.7 GM/DL (13.0-17.0) Hematocrit 21.0 % (39.0-51.0) Mean Corpuscular Hemoglobin 26.9 PG (27.0-34.0) Red Cell Distribution Width 20.0 % (11.6-17.2) Platelet Count 46 TH/MM3 (150-450) Neutrophils (%) (Auto) 96.9 % (16.0-70.0) Lymphocytes (%) (Auto) 1.8 % (9.0-44.0) Neutrophils # (Auto) 34.1 TH/MM3 (1.8-7.7) Lymphocytes # (Auto) 0.6 TH/MM3 (1.0-4.8) Neutrophils % (Manual) 83 % (16-70) Band Neutrophils % 9 % (0-6) Neutrophils # (Manual) 35.2 TH/MM3 (1.8-7.7) Metamyelocytes 3 % (0-1) Myelocytes 4 % (0-0) Promyelocytes 1 % (0-0) Platelet Estimate LOW (NORMAL) Platelet Morphology Comment ENLARGED (NORMAL) Lactic Acid Level 2.1 mmol/L (0.4-2.0) Imaging CT Abdomen/Pelvis: Free air in peritoneal cavity, colon wall gas, and portal venous gas. PE at Discharge . Hospital Course Hospital Course: Patient is a 76-year-old male with history of gastric adenocarcinoma, recently started on chemotherapy at [facility], history of type 2 diabetes , hypertension, dyslipidemia who presented to the emergency department via EMS for upper GI bleed and shortness of breath. Apparently upper GI bleed and melena had been going on for almost 24 hours before family called EMS. Patient became progressively more dyspneic with gurgling type respirations and less responsive. EMS found patient hypotensive in the 70s, improved with fluids, tachycardic in the 120s. In the emergency department patient was emergently intubated for airway protection due to gurgling breath sounds, and inability to protect airway. Patient given 3 L normal saline bolus and was started on PPI bolus, drip. Chest x-ray showed bilateral patchy infiltrates. Postintubation ABG pH 7.12, PCO2 32.3, PO2 226, bicarbonate 9.9. Patient was empirically treated with vancomycin, Zosyn. Abnormal labs include WBC 13.2, hemoglobin 8.1 , INR 1.3, Sodium 124, potassium 5.6, bicarbonate 13.9 and anion gap 26. BUN 57 , creatinine 1.70. Troponin 0.37, Also ammonia 68 and Lactic acid 17.0. Urinalysis with hematuria, bacteria and yeast. In the ER patient was ordered to receive 2 units packed red blood cells and 3L NS. He was started on norepinephrine through his chest port, to maintain MAP above 65. I evaluated the patient in the ED. He remains hypotensive and have ordered additional fluid boluses. Patient had been placed on Zosyn vancomycin and Diflucan. Infectious disease was consulted. Continue fluid resuscitation. Source of sepsis most likely pneumonia. Given lactic acid elevation to 17 I have ordered a CT abdomen pelvis to rule out abdominal source of infection or ischemic bowel 01/08: long conversation yesterday with family. decision for DNR with no escalation of care, but no plan to withdraw. remains in shock on vasopressor therapy. remains encephalopathic and on full mechanical support. sodium continues to worsen. very poor prognosis. 01/09: Patient remains with septic course. Prognosis poor. 01/10: Renal function more acceptable, otherwise little progress. I can not see any role for operative intervention at this point. 01/11: Continued deterioration. Good antibiotic coverage. Too unstable to survive a bowel resection. I spoke at length with her daughter about the seriousness of her liver failure. 01/12: Potassium remains low despite aggressive replacement. Metabolic pH hampering efforts; will add diamox once to lower pH and hopefully hold K better. Patient now DNR statusbut family wants to continue the levophed. Max range is 12 mics/min. 01/13: Patient remains floridly septic after spontaneous colon necrosis and perforation. There is gas in the colon wall, free air in the abdomen, and gas in the portal venous system as well. 01/14: Tmax 100. Currently 99.5. Remains on D10 at 15 cc an hour along with norepinephrine at 10 mcg/m. On fentanyl drip for pain control. 01/15: Currently afebrile. Started on TPN yesterday. Remains on norepinephrine 10 mics grams per minute and fentanyl drip at 100 g an hour 01/16: Small right pneumothorax, not affecting oxygenation on ventilator. Will follow without tube for now, 01/17: TPN halted. Gas exchange acceptable. Hemodynamics deteriorating. Acidosis persists. Subjective 01/18: TPN resumed. Remains on norepinephrine, midazolam and fentanyl drips. Reaffirmed with family not a surgical candidate. Discussed with Dr. Vazquez. 01/19: Patient at 0129 hours from septic shock following spontaneous colon perforation from necrosis despite aggressive vasopressor support. Family informed at bedside. Pt Condition on Discharge: Deteriorating Roberto Tobar MD Jan 19, 2017 05:21
== END 2017-01-19 02:35 | disposition expired | DRG 870 ==
LOC: NEPE 00:33 → NEDA 02:04 → N03B 05:23
PROVIDERS: ADMIT Internal Medicine; ATTEND Internal Medicine
PROC: 0BH17EZ Insertion of Endotracheal Airway into Trachea, Via Natural or Artificial Opening (ICD-10-PCS; principal; 2017-01-07)
PROC: 5A1955Z Respiratory Ventilation, Greater than 96 Consecutive Hours (ICD-10-PCS; 2017-01-07)
PROC: 03HY32Z Insertion of Monitoring Device into Upper Artery, Percutaneous Approach (ICD-10-PCS; 2017-01-07)
PROC: 30233N1 Transfusion of Nonautologous Red Blood Cells into Peripheral Vein, Percutaneous Approach (ICD-10-PCS; 2017-01-07)
PROC: 4A133B1 Monitoring of Arterial Pressure, Peripheral, Percutaneous Approach (ICD-10-PCS; 2017-01-07)
PROC: 4A133J1 Monitoring of Arterial Pulse, Peripheral, Percutaneous Approach (ICD-10-PCS; 2017-01-07)
DX: A41.59 Other Gram-negative sepsis (principal); J69.0 Pneumonitis due to inhalation of food and vomit; D65 Disseminated intravascular coagulation [defibrination syndrome]; G93.41 Metabolic encephalopathy; R57.8 Other shock; K63.1 Perforation of intestine (nontraumatic); J96.02 Acute respiratory failure with hypercapnia; J96.01 Acute respiratory failure with hypoxia; R65.21 Severe sepsis with septic shock; E72.20 Disorder of urea cycle metabolism, unspecified; J15.0 Pneumonia due to Klebsiella pneumoniae; K55.049 Acute infarction of large intestine, extent unspecified; N17.9 Acute kidney failure, unspecified; C16.9 Malignant neoplasm of stomach, unspecified; E87.2 Acidosis; E87.1 Hypo-osmolality and hyponatremia; I24.8 Other forms of acute ischemic heart disease; B37.49 Other urogenital candidiasis; E46 Unspecified protein-calorie malnutrition; J93.9 Pneumothorax, unspecified; D62 Acute posthemorrhagic anemia; E87.5 Hyperkalemia; E78.5 Hyperlipidemia, unspecified; R00.0 Tachycardia, unspecified; R31.9 Hematuria, unspecified; Z86.718 Personal history of other venous thrombosis and embolism; Z85.46 Personal history of malignant neoplasm of prostate; Z87.442 Personal history of urinary calculi; E11.649 Type 2 diabetes mellitus with hypoglycemia without coma; N18.9 Chronic kidney disease, unspecified; I12.9 Hypertensive chronic kidney disease with stage 1 through stage 4 chronic kidney disease, or unspecified chronic kidney disease; E11.22 Type 2 diabetes mellitus with diabetic chronic kidney disease; Z93.1 Gastrostomy status; Z87.11 Personal history of peptic ulcer disease; Z86.010 Personal history of colon polyps; K44.9 Diaphragmatic hernia without obstruction or gangrene; K29.50 Unspecified chronic gastritis without bleeding; R13.13 Dysphagia, pharyngeal phase; Z51.5 Encounter for palliative care; R63.4 Abnormal weight loss; F03.90 Unspecified dementia, unspecified severity, without behavioral disturbance, psychotic disturbance, mood disturbance, and anxiety; I48.91 Unspecified atrial fibrillation; Z66 Do not resuscitate; K66.8 Other specified disorders of peritoneum; K72.90 Hepatic failure, unspecified without coma; E87.6 Hypokalemia; F41.9 Anxiety disorder, unspecified; L89.159 Pressure ulcer of sacral region, unspecified stage; S30.812A Abrasion of penis, initial encounter
CPT/HCPCS: 31500; 36430; 36556; 36600; 51702; 71010; 71250; 74176; 80048; 80053; 80076; 80202; 81001; 82140; 82550; 82805; 82947; 82948; 83605; 83690; 83735; 84100; 84132; 84484; 85007; 85014; 85018; 85027; 85384; 85610; 85730; 86022; 86077; 86850; 86870; 86900; 86901; 86920; 86921; 86922; 87040; 87077; 87086; 87186; 87205; 87641; 93005; 94002; 94003; 94640; 94664; 96374; C9113; J0131; J0278; J0330; J0456; J0743; J1120; J1170; J1450; J1720; J1815; J1817; J2250; J2405; J2543; J3010; J3370; J3475; J3480; J7030; J7040; J7050; P9016